=== PATIENT | female | born 2000 | race Caucasian/White ===

== ENCOUNTER → 2020-02-16 | Outpatient (REF) | payer OTHER ==
[2020-02-16 18:50] LABS: APPEARANCE, URINE CLEAR (CLEAR); BACTERIA, URINE AUTO 1+ (NEGATIVE); BILIRUBIN, URINE AUTO NEGATIVE (NEGATIVE); BLOOD, URINE BLOOD NEGATIVE (NEGATIVE); CALCIUM OXALATE CRYSTALS SMALL; COLOR, URINE YELLOW (YELLOW); GLUCOSE, URINE (UA) AUTO NEGATIVE (NEGATIVE); KETONE, URINE AUTO NEGATIVE (NEGATIVE); LEUKOCYTE ESTERASE, URINE AUTO 2+ (NEGATIVE); MUCUS, URINE SMALL (NEGATIVE); NITRITE, URINE AUTO NEGATIVE (NEGATIVE); PROTEIN, URINE AUTO NEGATIVE (NEGATIVE); RBC, URINE AUTO 4 /HPF (0-3); SPECIFIC GRAVITY URINE AUTO 1.032 (1.002-1.035); SQUAMOUS EPITHELIAL CELL UR AU 3 /HPF (0-6); WBC, URINE AUTO 8 /HPF (0-3)
== END ==
LOC: M SMT 17:07
PROVIDERS: ATTEND Nurse Practitioner Women's Health
DX: R30.0 Dysuria (principal)

== ENCOUNTER → 2021-02-06 | Outpatient (CLI) | payer OTHER ==
[2021-02-06 18:25] LABS: BASO # 0.1 10^3/uL (0.0-0.2); BASO % 0.5 % (0.0-1.0); EOS # 0.1 10^3/uL (0.0-0.5); EOS % 0.3 % (0.0-3.0); HEMATOCRIT 45.7 % (36.0-47.0); HEMOGLOBIN 14.9 g/dl (12.0-15.5); LYMPH # 2.7 10^3/uL (1.5-5.0); LYMPH % 18.4 % (24.0-44.0); MEAN CORPUSCULAR HEMOGLOBIN 27.7 pg (27.0-33.0); MEAN CORPUSCULAR HGB CONC 32.6 g/dl (32.0-36.5); MEAN CORPUSCULAR VOLUME 85.1 fl (80.0-96.0); MONO % 6.7 % (2.0-8.0); NEUTROPHILS # 10.9 10^3/uL (1.5-8.5); NEUTROPHILS % 73.6 % (36.0-66.0); PLATELET COUNT, AUTOMATED 377 10^3/uL (150-450); RED BLOOD COUNT 5.37 10^6/uL (4.00-5.40); WHITE BLOOD COUNT 14.8 10^3/uL (4.0-10.0)
[2021-02-06 18:43] LABS: ALBUMIN 3.6 GM/DL (3.2-5.2); ALT/SGPT 16 U/L (12-78); BILIRUBIN,TOTAL 0.2 MG/DL (0.2-1.0); BLOOD UREA NITROGEN 11 MG/DL (7-18); CALCIUM LEVEL 9.5 MG/DL (8.5-10.1); CARBON DIOXIDE LEVEL 26 MEQ/L (21-32); CHLORIDE LEVEL 104 MEQ/L (98-107); CREATININE FOR GFR 0.69 MG/DL (0.55-1.30); GLOMERULAR FILTRATION RATE > 60.0 (>60); GLUCOSE, FASTING 87 MG/DL (70-100); POTASSIUM SERUM 4.1 MEQ/L (3.5-5.1); RHEUMATOID FACTOR QUANT < 10.0 IU/ML (<15.0); SODIUM LEVEL 138 MEQ/L (136-145); THYROXINE (T4) 18.6 UG/DL (4.5-12.0); TOTAL PROTEIN 8.2 GM/DL (6.4-8.2)
[2021-02-06 18:44] LABS: THYROGLOBULIN ANTIBODY < 15.0 U/ML (<60.0); THYROID PEROXIDASE ANTIBODY 39.6 U/ML (<60.0)
[2021-02-06 18:45] LABS: TOTAL T3 179.6 NG/DL (60.0-181.0)
[2021-02-06 19:29] LABS: ERYTHROCYTE SEDIMENTATION RATE 24 mm/hr (0-20)
== END ==
LOC: M LAB 17:08
PROVIDERS: ATTEND Allergy & Immunology Allergy
DX: L50.1 Idiopathic urticaria (principal)

== ENCOUNTER 2021-09-02 18:11 | Inpatient (IN) | payer OTHER ==
[~2021-09-02] VITALS: Ht 157.5 cm; Wt 116.5 kg
--- OUTSIDE RECORDS SUMMARY | 2021-09-02 18:21 | CCD ---
Author Author [facility] Organization [facility] Address [address] [address] [place] [address] Phone Care Team Providers Care Regional Psychiatric Director Name Role Phone Justin DE LA ROSA, Lyssa Sebastian PP [phone] Muha ELECTRON TUBE ASSEMBLER-BC, Samia Cameron Unavailable [phone] Reason for Referral No Reason for Referral Recorded Problems Includes: Active, inactive, and resolved Problems All Visits Onset Date - Time Resolved Date - Time Provider Co ndition Status Reactive Airway Disease 04/03/2021 - 12:00AM Saritha Paez ELECTRON TUBE ASSEMBLER Active Cerv Pap Smear (+) Atyp Squamous Cells Undetermined Signif 0 07/05/2020 - 11:44AM Samia Cameron Muha ELECTRON TUBE ASSEMBLER-BC Active Note: - Repeat 06/2021. (high risk HPV) Vitamin D Deficiency 11/04/2018 - 12:00AM Samia Ku altman ELECTRON TUBE ASSEMBLER-BC Active Allergic Rhinitis 10/28/2018 - 12:00AM Samia Cameron Muha ELECTRON TUBE ASSEMBLER-BC Active Note: - 03/30- 3++- 4++, dust , pollen, cat, dog dander. Anxiety Disorder Nos 10/28/2018 - 12:00AM Samia Cameron Mu altman ELECTRON TUBE ASSEMBLER-BC Active Concussion with No Loss of Consciousness 10/28/2018 - 12:00AM Samia Cameron Muha ELECTRON TUBE ASSEMBLER-BC Active Gastro-esophageal reflux disease without esophagitis 10/28/2018 - 12:00AM Samia Cameron Muha ELECTRON TUBE ASSEMBLER-BC Active Hemorrhoids External 10/28/2018 - 12:00AM Samia Ku altman ELECT[employer] TUBE ASSEMBLER-BC Active Ibs--pain Predominant 10/28/2018 - 12:00AM Samia Cameron uha ELECTRON TUBE ASSEMBLER-BC Active Note: - Negative colonoscopy , endoscopy, gallbladder US, labs. - Dr. Box 05/2017 Major Depression Recurrent Moderate 10/28/2018 - 12:00AM Samia Cameron Kings E[employer] TUBE ASSEMBLER-BC Active Obesity 10/28/2018 - 12:00AM Samia Kuanupama ELECTRON TUBE ASSEMBLER-B C Active Plan of Treatment Pending Tests Order Diagnosis Results Due Ordering Provi jeanie Outside Labs CBC with differential Cough 05/18/21 Meredi th A Jeannine ELECTRON TUBE ASSEMBLER Outside Labs CMP Cough 05/18/21 Saritha A Lizo tte ELECTRON TUBE ASSEMBLER Outside Labs D Dimer Cough 05/18/21 Saritha A Lizo tte ELECTRON TUBE ASSEMBLER Outside Labs COVID-19 Encounter for Screening for COVID-19 06/11 Saritha A Jeannine ELECTRON TUBE ASSEMBLER Outside Labs COVID- Extended Hours FLU/COV2 NAAT Nasal congestion 0 07/13/21 Lyssa Anderson MD Referral Loader Magazine Grinder Shortness of breath 08/09/21 Nait h A Jeannine ELECTRON TUBE ASSEMBLER Other Tests - Methacholine Methacholine [place] Other asth ma- reactive airway disease 08/21/21 Saritha A Jeannine ELECTRON TUBE ASSEMBLER Future Appointments Date Time Location Provider ANNUAL PE-followup 08/09/2021 3:40PM [facility], [facility] 09/21/2021 4:00PM [facility], [facility] Saritha Ochoae ELECTRON TUBE ASSEMBLER Findings Encounter Date All questions and concerns addressed, patient/rand cementer understanding and agreeable to plan of care followup with Saritha Ochoae ELECT[employer] TUBE ASSEMBLER 06/22/2021 Follow up as directed. Reviewed s/s that warrant sooner consult Reviewed s/s that warrant ED evaluation followup with Saritha Ochoae ELECT[employer] TUBE ASSEMBLER 06/22/2021 All questions and concerns addressed, patient/rand cementer understanding and agreeable to plan of care sick visit with Saritha Ochoae ELECTRON TUBE ASSEMBLER 05/11/2021 Follow up as directed. Reviewed s/s that warrant sooner consult Reviewed s/s that warrant ED evaluation sick visit with Saritha Ochoae ELECTRON TUBE ASSEMBLER 05/11/2021 Ordered antihistamines - She could use OTC antihistamine daily or as needed. She could also use benadryl as needed followup with Samia Cameron Piedad [facility] 11/30/2020 Requested request consultation by automotive maintenance technician followup with alisa Cameron anupama [facility] 11/30/2020 Ordered a urine culture sick visit with Lyssa Anderson MD 02/10/2020 Tylenol for discomfort or fever. Push fluids and rest. Saline nasal spray to thin secretions and encourage drainage. Call if persistent or high fever, increased work of breathing, persistent pain, if sxs not improving, or if concerned urgent visit with Jodie Garcia RPA 03/22/2019 Tylenol for discomfort or fever. Push fluids and rest. Saline nasal spray to thin secretions and encourage drainage. Call if persistent or high fever, increased work of breathing, persistent pain, if sxs not improving, or if concerned urgent visit with Ole Mcintyre PA-C 04/22/2017 Assessments Includes: Assessments for all patient encounters Findings Encounter Date Allergic rhinitis which is showing leonardo nued signs of disease [Allergic rhinitis due to pollen] followup with Saritha Paez [facility] 06/22/2021 Reactive airway disease [Other asthma] followup with Gabi Paez [facility] 06/22/2021 Allergic rhinitis which is showing leonardo nued signs of disease [Allergic rhinitis due to pollen] sick visit with Saritha Paez [facility] 05/11/2021 Reactive airway disease [Other asthma] sick visit with Ana Grey [facility] 05/11/2021 Allergic rhinitis which is showing leonardo nued signs of disease - She will continue to follow with her automotive maintenance technician. She is also instructed to continue taking her Xyzal followup with Samiathee Herbert [facility] 04/02/2021 Moderate recurrent major depression whic h is stable - Following with therapist. Currently awaiting appt with psychiatry. No changes made today followup with Samia Cameron Piedad [facility] 04/02/2021 Reactive airway disease - Discussed jeremy t her wheezing seems to be present when she is having issues with her allergies. Discussed doing a trial of albuterol to help with the wheezing when needed. She is also going to do 1 week of Asmanex to see if this helps. Currently she has no other symptoms except for cough and wheezing. She denies SOB. Her father has similar symptoms related to his allergies. If symptoms worsen, do not improve discussed getting Spirometry/ PFT's. She will return to office if she does not improve followup with Samia Cameron Piedad [facility] 04/02/2021 Bacterial vaginosis which is showing rec urrence of disease - She will treat with metrogel as directed. If symptoms do not resolve she will return to office for pelvic exam and testing [facility] with [facility] 11/30/2020 Idiopathic urticaria which is showing no evidence of disease at present. She is requesting referral to allergies for further evaluation followup with Samia Nisha [facility] 11/30/2020 Acute upper respiratory infection COVID test today [Acute upper respiratory infection, unspecified] sick visit with Lyssa Anderson MD 10/10/2020 Pulmonary embolism which is being consid ered on combined OCP, morbidly obese, now with chest pain, tachycardia, pain with deep inspiration. Obtain D-dimer to evaluate for PE [Other pulmonary embolism without acute cor pulmonale] sick visit with Lyssa Anderson MD 10/10/2020 Moderate recurrent major depression whic h is stable She will continue to follow with Vee Thompson. She will continue with her sertraline at the current dose followup with Samia Herbert [facility] 10/04/2020 Vaginal candidiasis followup with Saritha Paez [employer] TUBE ASSEMBLER 12/2019 Vaginal discharge followup with Saritha Ochoae ELECTRON TUBE ASSEMBLER 12/2019 Vaginal candidiasis sick visit with Saritha Ochoae ELECTRON TUBE ASSEMBLER 0 08/05/2020 Vaginal discharge sick visit with Saritha Ochoae ELECTRON TUBE ASSEMBLER 0 08/05/2020 Moderate recurrent major depression - S he is going to restart her sertraline at 100mg. At this time she admits to being off the Lamictal for 7 months. We are going to hold off on restarting this medication as she did not like taking the medication. She is aware that with her history she is most likely going to need to establish with psychiatry. She will follow with Vee Thompson. I will see her back in 3 months, sooner if needed ANNUAL PE-followup exam/30 with Samia Cameron [facility] 06/26/2020 Morbid obesity due to excess calories ANNUAL PE-follow up exam/ with Samia Cameron [facility] 06/26/2020 Routine adult history and physical (18 - 64 yrs) ANNUA L PE-followup exam/30 with Samia M [facility] 06/26/2020 Vitamin D deficiency ANNUAL PE-followup exam/30 with Samia Cameron [facility] 06/26/2020 Bacterial vaginosis - Will treated with oral flagyl. Reviewed precautions with alcohol use and that she needs to 100% avoid. Avoid intercourse. Start a probiotic. Yogurt sick visit with Samia Cameron [facility] 04/17/2020 Amenorrhea - Will get labs including HC G, TSH, FSH and prolactin. Referral to NEON TUBE BENDER for secondary amenorrhea sick visit with Samia Cameron [facility] 04/05/2020 Possible vaginal candidiasis - Diflucan as directed s ick visit with Samia Cameron [facility] 04/05/2020 Secondary amenorrhea sick visit with Samia Cameron [facility] 0 04/05/2020 Vaginitis sick visit with Samia Cameron [facility] Hematuria followup with Darlene Penaloza [facility] 2019 Urinary tract infection [Cystitis, unspecified with he maturia] sick visit with Lyssa Anderson MD 02/10/2020 STD due to chlamydia trachomatis Exposure urgent visit with Jodie Garcia RPA 06/03/2019 Moderate recurrent major depression - S he is doing remarkably well at this time. She is going to continue to follow with psychiatry, her next appt is scheduled for the end of June. She will also continue with her therapist. I will see her back in one year for annual with pap. She will return sooner if needed followup with Samia Nisha [facility] 05/26/2019 Abdominal pain Left flank and LLQ pain with hematuria, will evaluate for nephrolithiasis with renal protocol CT. Encourage increased PO hydration and Tylenol/NSAIDs prn pain [Unspecified abdominal pain] sick visit with Lyssa Anderson MD 05/19/2019 Hematuria [Other microscopic hematuria] sick visit with Brenna Anderson MD 05/19/2019 Atypical chest pain urgent visit with Jodie Garcia RPA 03/22 Anxiety disorder NOS followup with Samia Nisha [facility] 05/2019 Moderate recurrent major depression - S he will continue her current medication at the current dose. Referral to psychiatry pending, I would like her to be evaluated prior to change in any medication to check the accuracy of her current diagnosis followup with Samia Herbert [facility] 11/16/2018 Vitamin D deficiency - Start vitamin D 2000 units elie ly [facility] Anxiety disorder NOS sick visit with Samia Herbert [facility] 1 12/30/2017 Moderate recurrent major depression sick visit with Samia Cameron [facility] 10/29/2018 Acute sinusitis urgent visit with Ole Mcintyre PA-C 2016 Instructions Instructions not supported for this document typeNo Instructions Recorded Medical Equipment - Implanted Devices Includes: Current and historical DevicesNo Medical Equipment Recorded Medications Includes: Current and historical Medications Current Medications (continue as prescribed) Loryna 3-0.02 MG Oral Tablet 06/20/2021 Provider: Saritha Paez [facility] Diagnosis: 1 PO QD Advair Diskus 250-50 MCG/DOSE Inhalation Aerosol Powde r Breath Activated 05/11/2021 Provider: Saritha Paez ELECT[employer] TUBE ASSEMBLER Diagnosis: Shortness of breath 1 puff daily Singulair 10 MG Oral Tablet 05/11/2021 Provider: Saritha Paez ELECT[employer] TUBE ASSEMBLER Diagnosis: Shortness of breath 1 tab daily ProAir HFA 108 (90 Base) MCG/ACT Inhalation Aerosol Solution 04/02/2021 Provider: Samia Herbert [facility] Diagnosis: 2 puffs every 4 hours prn wheezing. Xyzal Allergy 24HR 5 MG Oral Tablet 04/02/2021 Prov ider: Diagnosis: 1 tab po daily Sertraline HCl 100 MG Oral Tablet 03/30/2021 - 07/28/2021 [facility]: 1 PO QD Gianvi 3-0.02 MG Oral Tablet 01/30/2021 Provider: Samia Herbert [facility] Diagnosis: as directed Nystatin 001839 UNIT/GM External Powder 08/11/2020 Provider: Saritha Paez [facility] Diagnosis: Acute vaginitis apply 066180 units 2-3 times per day Hyoscyamine Sulfate 0.125 MG Tablet 03/23/2017 Prov ider: Andrews Goyal Diagnosis: Past Medications on file Zithromax 250 MG Oral Tablet 04/12/2021 - 04/17/2021 Provide r: Samia Herbert [facility] Diagnosis: 2 tabs po today then 1 tab po daily x 4 days. Asmanex HFA 100 MCG/ACT Inhalation Aerosol 04/02/2021 - 07/0 12/2020 Provider: Diagnosis: 2 puffs twice a day. metroNIDAZOLE 0.75% Vaginal Gel 11/30/2020 - 12/05/2020 Prov ider: Samia Herbert [facility] Diagnosis: Other specified monroe nflammatory disorders of vagina 1 applicator twice per day x 5 days Gianvi 3-0.02 MG Oral Tablet 09/16/2020 - 01/30/2021 Provide r: Saritha Paez [facility] Diagnosis: as directed metroNIDAZOLE 0.75% Vaginal Gel 08/05/2020 - 11/30/2020 Prov ider: Saritha Paez [facility] Diagnosis: Other specified monroe nflammatory disorders of vagina 1 applicator twice per day x 5 days Sertraline HCl 100 MG Oral Tablet 06/26/2020 - 11/30/2020 Pr ovider: Samia Herbert [facility] Diagnosis: 1 PO QD Gianvi 3-0.02 MG Oral Tablet 04/24/2020 - 08/11/2020 Provide r: Samia Herbert [facility]- Diagnosis: as directed metroNIDAZOLE 0.75% Vaginal Gel 04/21/2020 - 04/26/2020 Prov ider: Lyssa Anderson MD Diagnosis: as directed One applicatorful (~37.5 mg metronidazole) intravaginally once daily for 5 days. Flagyl 500 MG Oral Tablet 04/17/2020 - 04/24/2020 Provider: Samia Herbert [facility] Diagnosis: 1 tab po bid x 7 days. metroNIDAZOLE 0.75% Vaginal Gel 04/06/2020 - 04/11/2020 Prov ider: Samia Herbert [facility] Diagnosis: One applicatorful vaginally twice daily daily x 5 days. Diflucan 150 MG Oral Tablet 04/05/2020 - 04/12/2020 Provider : Samia Herbert [facility] Diagnosis: 1 tab po x 1 dose today, repeat in 3 days if needed. Naproxen 500 MG Oral Tablet 02/15/2020 - 02/22/2020 Provider : Darlene Penaloza RPA Diagnosis: 1 PO BID Pyridium 200 MG Oral Tablet 02/11/2020 - 02/14/2020 Provider : Darlene Penaloza RPA Diagnosis: 1 PO TID Nitrofurantoin Monohyd Macro 100 MG Oral Capsule 02/10/2020 - 02/15/2020 Provider: Lyssa Anderson MD Diagnosis: 1 PO BID Gianvi 3-0.02MG Oral Tablet 10/11/2019 - 04/17/2020 Provider : Samia Herbert [facility] Diagnosis: as directed Gianvi 3-0.02MG Oral Tablet 06/23/2019 - 05/26/2019 Provider : Samia Herbert [facility] Diagnosis: as directed lamoTRIgine 100MG Oral Tablet 06/07/2019 - 09/05/2019 Provid er: Samia Herbert [facility] Diagnosis: 1 tab po bid Azithromycin 250MG Oral Tablet 06/03/2019 - 06/04/2019 Provi jeanie: Jodie Garcia [facility] Diagnosis: Sexually transmitted chlamydial infection of other sites 4 tabs po x 1 Sertraline HCl 100MG Oral Tablet 05/26/2019 - 06/26/2020 Pro vider: Diagnosis: 2 tabs po daily lamoTRIgine 100MG Oral Tablet 05/26/2019 - 05/26/2019 Provid er: Diagnosis: 1 tab po bid Naproxen 500MG Oral Tablet 03/22/2019 - 04/21/2019 Provider: Jodie Garcia RPA Diagnosis: Chest pain, unspecif ied 1 PO BID 1 tab po bid, lamoTRIgine 25MG Oral Tablet 03/22/2019 - 05/12/2019 Provide r: Diagnosis: lamoTRIgine 100MG Oral Tablet 02/24/2019 - 05/26/2019 Provid er: Diagnosis: Gianvi 3-0.02MG Oral Tablet 01/29/2019 - 05/26/2019 Provider : Samia Herbert [facility] Diagnosis: as directed Gianvi 3-0.02MG Oral Tablet 01/06/2019 - 11/16/2018 Provider : Samia Herbert [facility] Diagnosis: as directed Gianvi 3-0.02MG Oral Tablet 11/12/2018 - 11/16/2018 Provider : Samia Herbert [facility] Diagnosis: as directed Sertraline HCl 100MG Oral Tablet 10/29/2018 - 11/28/2018 Pro vider: Diagnosis: 2 tabs po daily Gianvi 3-0.02MG Oral Tablet 09/13/2018 - 11/10/2018 Provider : Sparkle Brooke MD Diagnosis: as directed Cefuroxime Axetil 500 MG Tablet 04/22/2017 - 04/29/2017 Prov ider: Ole Mcintyre PA-C Diagnosis: Acute maxillary sinu sitis, unspecified Take 1 tablet bid for 7 days Medications Administered Includes: Administered Medications in patient's chartNo Administered Medications Recorded Vital Signs Includes: Vital Signs from 07/06/2020 through 07/06/2021 Vital Name 06/22/2021 08:59A 05/11/2021 11:25A 04/02/2021 03:35P 11/30/2020 03:20P 10/10/2020 03:33P Blood Pressure Sitting (mmHg) 112/70 112/70 120/82 102/70 124/80 Pulse Rate-Sitting (bpm) 96 82 99 66 118 Respiration Rate (breaths/min) 20 18 24 18 18 Weight (lb) 259.9 258.4 257 259 Oxygen Saturation (%) 98 96 98 98 Temp-Tympanic (F) 98.9 98.5 Height (in) 62.75 62.75 Body Mass Index (kg/m2) 45.9 4 6.2 Body Surface Area (m2) 2.15 2. 15 Vital Name 10/04/2020 11:06A 08/11/2020 03:41P 08/05/2020 10:21A Blood Pressure Sitting (mmHg) 112/74 104/60 Pulse Rate-Sitting (bpm) 72 60 80 Respiration Rate (breaths/min) 18 18 16 Weight (lb) 249 251 Oxygen Saturation (%) 97 Height (in) 62.75 Body Mass Index (kg/m2) 44.5 Body Surface Area (m2) 2.12 Blood Pressure Sitting R 118/82 BP Cuff Size Large Pulse Rhythm Regular Temp-Oral (F) 97.3 Results Includes: Results from 07/06/2020 through 07/06/2021 [facility] Ordered by Lyssa Anderson MD on 07/06/2021 [address] [place], [address] Collected: 07/06/2021 Reported: 07/06/2021 12:17 tel : [facility] normal N (Normal) Reviewed by Lyssa Anderson MD on 07/06; All test results are final unless otherwise noted. D-DIMER [facility] Ordered by Saritha HERNANDEZ on 05/11/2021 Collected: 05/11/2021 Reported: 05/11/2021 12:36 D Dimer PPP-aCnc Less Than 0.19 (0.0-0.50) N (Normal) Note: @Report as less than 0.19@ Has QC been run for this test today?PLEASE NOTE: THIS TEST WAS PERFORMED USING A PARTICLE-ENHANCED, IMMUNOTURBIDIMETRIC ASSAY AND HAS A SINGLE,CLINICALLY DERIVED CUTOFF OF 0.50 MG/L.Responsible Observer: D-DIMER D-DIMER 200.0901 (A) Reviewed by Saritha HERNANDEZ on ; All test results are final unless otherwise noted. CBC W AUTO DIFF [facility] Ordered by Saritha HERNANDEZ on 05/11/2021 Collected: 05/11/2021 Reported: 05/11/2021 13:00 MCV BldCo Auto 83 FemtoLiter_[SI_Volume_Units] (80-96) N (Normal) Note: Responsible Observer: MCV MCV 100 .0600 (B) RDW RBC Auto 13 percent (11-15) N (Normal) Note: Responsible Observer: RDW RDW 100 .0900 (B) Manual diff Bld Manual Diff Added None Note: Responsible Observer: CBC Manual D ifferential Added 100.1990 (B) PMV Bld 10.2 FemtoLiter_[SI_Volume_Units] (9.1-13.1) N (Normal) Note: Responsible Observer: MPV MPV 100 .1100 (B) Imm Granulocytes Bld Ql Auto See Note (0-2) N (Normal) Note: [id number] Ob casino beverage server: IG% IG% 100.1375 (B) Hct VFr Bld Auto 41.0 percent (37-47) N (Normal) Note: Responsible Observer: HEMATOCRIT H EMATOCRIT 100.0500 (B) MCHC BldCo-mCnc 34 GramsPerDeciLiter_[Mass_Concentration_Units] (33-37) N (Normal) Note: Responsible Observer: MCHC MCHC 1 00.0800 (B) Imm Granulocytes # Bld Auto 0.0 Unit (0-0.1) None Note: Responsible Observer: IG# IG# 100 .1400 (B) Monocytes/leuk NFr Bld Auto 6.8 percent (4-12) N (Normal) Note: Responsible Observer: MONO % MONO % 100.1225 (B) Hgb Bld-sCnc 13.8 GramsPerDeciLiter_[Mass_Concentration_Units] (10.7-15.4) N (Normal) Note: Responsible Observer: HGB HEMOGLOB IN 100.0400 (B) WBC # Bld Auto 9.9 ThousandsPerMicroLiter_[Number_Concentration_Units] (4.45-10 .71) N (Normal) Note: Responsible Observer: WBC WHITE BL OOD COUNT 100.0100 (E) Basophils # Bld Auto 0.1 Unit (0.0-0.2) N (Normal) Note: Responsible Observer: BASO # BASO# 100.1350 (B) Basophils/leuk NFr Bld Auto 0.6 percent (0.4-1.3) N (Normal) Note: Responsible Observer: BASO % BASO % 100.1325 (B) Eosinophil # Bld Auto 0.1 Unit (0.0-0.5) N (Normal) Note: Responsible Observer: EOS # EOS# 100.1300 (D) Eosinophil/leuk NFr Bld Auto 1.0 percent (0-7) N (Normal) Note: Responsible Observer: EOS % EOS % 100.1275 (B) Lymphocytes # Bld Auto 2.8 Unit (0.6-4.6) N (Normal) Note: Responsible Observer: LYMPH # LYMP H# 100.1200 (B) Lymphocytes/leuk NFr Bld Auto 28.5 percent (14-46) N (Normal) Note: Responsible Observer: LYMPH % LYMP H % 100.1175 (B) Monocytes # Bld Auto 0.7 Unit (0.2-1.2) N (Normal) Note: Responsible Observer: MONO # MONO# 100.1250 (C) Neutrophils # Bld Auto 6.2 Unit (1.7-7.6) N (Normal) Note: Responsible Observer: NEUT# NEUT# 100.1150 (B) Neutrophils/leuk NFr Bld Auto 62.8 percent (41-77) N (Normal) Note: Responsible Observer: NEUT% NEUT% 100.1125 (B) Platelet # Bld Auto 152 ThousandsPerMicroLiter_[Number_Concentration_Units] (130-472 ) N (Normal) Note: Responsible Observer: PLATELET COU NT PLATELET COUNT 100.1000 (D) MCH RBC Qn Auto 28 PicoGram_[SI_Mass_Units] (27-31) N (Normal) Note: Responsible Observer: MCH MCH 100 .0700 (B) RBC # Bld Auto 4.93 MillionsPerMicroLiter_[Number_Concentration_Units] (4.20-5.4 0) N (Normal) Note: Responsible Observer: RBC Red Bloo d Count 100.0300 (B) NUCLEATED RED BLOOD CELL# 0 Unit None Note: Responsible Observer: NRBC# NUCLEA VINCETN RBC 100.1362 (A) NUCLEATED RED BLOOD CELL 0 percent None Note: Responsible Observer: NRBC% NRBC% 100.1360 (B) NOTES See Note None Note: @05/11/21 1220: MANUAL DIFF added. RFLXG = DIFF. Reviewed by Saritha HERNANDEZ on ; All test results are final unless otherwise noted. [facility] Ordered by Saritha HERNANDEZ on 05/11/2021 Collected: 05/11/2021 Reported: 05/11/2021 13:16 ALT SerPl w P-5'-P-cCnc 15 enzyme_unit_per_liter (10-49) N (Normal) Note: Responsible Observer: SGPT/ALT SGP T/ALT 400.1750 (G) Calcium SerPl-mCnc 9.2 MilliGramsPerDeciLiter_[Mass_Concentration_Units] (8.5-10.1) N (Normal) Note: Responsible Observer: Calcium Calc ium 400.2500 (G) Bilirub SerPl-mCnc 0.2 MilliGramsPerDeciLiter_[Mass_Concentration_Units] (0.3-1.2) L (Low) Note: Responsible Observer: T COURTNEY Total Bilirubin 400.2600 (G) CO2 SerPl-sCnc 24 MilliMolesPerLiter_[Substance_Concentration_Units] (20-31) N (Normal) Note: Responsible Observer: CO2 Carbon D ioxide 400.1400 (G) Chloride SerPl-sCnc 108 MilliMolesPerLiter_[Substance_Concentration_Units] (99-109) N (Normal) Note: Responsible Observer: Chloride Chl oride 400.1250 (G) Glucose SerPl-mCnc 97 MilliGramsPerDeciLiter_[Mass_Concentration_Units] (74-106) N (Normal) Note: Responsible Observer: Glucose Gluc ose 400.1500 (G) Potassium SerPl-sCnc 4.2 MilliMolesPerLiter_[Substance_Concentration_Units] (3.5-5.5) N (Normal) Note: Responsible Observer: K Potassium 400.1210 (G) Prot SerPl-mCnc 7.2 GramsPerDeciLiter_[Mass_Concentration_Units] (5.7-8.2) N (Normal) Note: Responsible Observer: TP Total Pro tein 400.2800 (G) Sodium SerPl-sCnc 141 MilliMolesPerLiter_[Substance_Concentration_Units] (132-146) N (Normal) Note: Responsible Observer: Sodium Sodiu m 400.1100 (G) AST SerPl w P-5'-P-cCnc 13 enzyme_unit_per_liter (0-33) N (Normal) Note: Responsible Observer: SGOT / AST S GOT / AST 400.1900 (G) BUN SerPl-mCnc 10 MilliGramsPerDeciLiter_[Mass_Concentration_Units] (9-23) N (Normal) Note: Responsible Observer: BUN Blood Ur ea Nitrogen 400.1000 (G) Anion Gap SerPl-sCnc 13 MilliMolesPerLiter_[Substance_Concentration_Units] (8-16) N (Normal) Note: Responsible Observer: ANION GAP AN ION GAP 400.1402 (E) Albumin SerPl BCP-mCnc 3.2 GramsPerDeciLiter_[Mass_Concentration_Units] (3.2-4.8) N (Normal) Note: Responsible Observer: Albumin Albu min 400.2700 (G) ALP SerPl-cCnc 89 enzyme_unit_per_liter (45-129) N (Normal) Note: Responsible Observer: ALP Alkaline Phosphatase 400.2000 (G) GFR/BSA.pred SerPlBld-ArVRat Greater Than 60 (ABOVE 60) None Note: Responsible Observer: GFR Glomerul ar Filt Rate Calc 400.1605 (D) Creatinine 0.6 MilliGramsPerDeciLiter_[Mass_Concentration_Units] (0.5-1.1) N (Normal) Note: Responsible Observer: Creatinine C reatinine 400.1600 (G) Reviewed by Saritha HERNANDEZ on ; All test results are final unless otherwise noted. Reported Physicians [facility] Ordered by Saritha COBBP on 05/11/2021 Collected: 05/11/2021 Reported: 05/11/2021 13:17 Reported Physicians See Note None Note: Reported Physicians:Ordering: Saritha RobinsAttending: Saritha PaezCopana To: Samia Herbert Reviewed by Saritha HERNANDEZ on ; All test results are final unless otherwise noted. MANUAL DIFF [facility] Ordered by Saritha COBBP on 05/11/2021 Collected: 05/11/2021 Reported: 05/11/2021 13:00 MANUAL DIFF See Note None Note: NOTES OTHER/NOT INTERPRETED Cells counted 100 Lymphocytes # Bld Manual 25 %Metamyelocytes # Bld Manual 1 %Monocytes # Bld Manual 4 %Morphology Bld-Imp APPEARS NORMAL Neutrophils # Bld Manual 70 %Platelet # Bld Est APPEAR CLUMPED @05/11/21 1220: MANUAL DIFF added. RFLXG = DIFF.Responsible Observer: TOTAL CELLS TOTAL CELLS COUNTED 100.2105 (A) Reviewed by Saritha HERNANDEZ on ; All test results are final unless otherwise noted. Reported Physicians [facility] Ordered by Saritha Paez [facility] on 05/11/2021 Collected: 05/11/2021 Reported: 05/11/2021 13:01 Reported Physicians See Note None Note: Reported Physicians:Ordering: Saritha RobinsAttending: Eulalio Paez To: Piedad Samia Reviewed by Saritha Paez [facility] on ; All test results are final unless otherwise noted. D-DIMER [facility] Ordered by Lyssa Anderson MD on 10/10/2020 Collected: 10/10/2020 Reported: 10/10/2020 17:00 D Dimer PPP-aCnc 0.23 MilliGramsPerLiter_[Mass_Concentration_Units] (0.0-0.50) N (Normal) Note: @ Has QC been run for this test to day?PLEASE NOTE: THIS TEST WAS PERFORMED USING A PARTICLE-ENHANCED, IMMUNOTURBIDIMETRIC ASSAY AND HAS A SINGLE,CLINICALLY DERIVED CUTOFF OF 0.50 MG/L.Responsible Observer: D-DIMER D- DIMER 200.0901 (A) Reviewed by Lyssa Anderson MD on 10/11; All test results are final unless otherwise noted. Reported Physicians [facility] Ordered by Lyssa Anderson MD on 10/10/2020 Collected: 10/10/2020 Reported: 10/10/2020 17:01 Reported Physicians See Note None Note: Reported Physicians:Ordering: Lyssa GuptaAttending: Lyssa Anderson Reviewed by Lyssa Anderson MD on 10/11; All test results are final unless otherwise noted. DWYER COVID-19 SCHOOL [facility] Ordered by Lyssa Anderson MD on 10/10/2020 Collected: 10/10/2020 Reported: 10/10/2020 18:59 SARS-CoV-2 RNA Resp Ql DEVAUGHN+probe See Note None Note: DWYER COVID-19 IS AN ISOTHER MAL DEVAUGHN TECHNOLOGYNORMAL VALUE IS "SARS-COV-2 COVID 19 NOT DETECTED"False negative results may occur if a specimen is improperlycollected,transported or handled.False negative results may also occur if amplicationinhibitors are present in the specimen or if inadequatelevels of viruses are present in the specimen.As with any molecular test, if the virus mutates in thetarget region, Covid-19 may not be detected or may bedetected less predictably.ID NOW COVID-19 is intended for testing a swab directlywithout elution in viral transport media as dilution willresult in decreased detection of low positive samples thatare near the limit of detection of the test.SWAB SAMPLES ELUTED IN VTM ARE NOT APPROPRIATE FOR USE INTHIS TEST.[id number] RNA Resp Ql DEVAUGHN+probeLNNOSNo Organisms [id number] Organisms Detected Reviewed by Lyssa Anderson MD on 10/11; All test results are final unless otherwise noted. Reported Physicians [facility] Ordered by Lyssa Anderson MD on 10/10/2020 Collected: 10/10/2020 Reported: 10/10/2020 18:59 Reported Physicians See Note None Note: Reported Physicians:Ordering: Lyssa GuptaAttending: Lyssa AndersonCopana To: Doctor Provided, No FamilyCopy To: Health, Public Reviewed by Lyssa Anderson MD on 10/11; All test results are final unless otherwise noted. Wet Prep [facility] Ordered by Saritha HERNANDEZ on 08/11/2020 Collected: 08/11/2020 Reported: 08/11/2020 18:04 Wet prep results See Note None Note: Clue cells presentLong rods notedN o yeast like or trichomonas seenSquamous cellsShort rods seenWBCs seen Wet mount for Trichomonas Negative for Trichomonas vaginalis None Reviewed by Saritha HERNANDEZ on ; All test results are final unless otherwise noted. Reported Physicians [facility] Ordered by Saritha HERNANDEZ on 08/11/2020 Collected: 08/11/2020 Reported: 08/11/2020 18:05 Reported Physicians See Note None Note: Reported Physicians:Ordering: Saritha RobinsAttending: Saritha Paez Reviewed by Saritha HERNANDEZ on ; All test results are final unless otherwise noted. LIPID PANEL [facility] Ordered by Samia HERNANDEZ- on 08/07/2020 Collected: 08/07/2020 Reported: 08/07/2020 09:11 Cholesterol 224 MilliGramsPerDeciLiter_[Mass_Concentration_Units] (120-200) H (High) Note: Responsible Observer: Cholesterol Cholesterol 400.3100 (G) HDL Cholesterol 90 MilliGramsPerDeciLiter_[Mass_Concentration_Units] None Note: HDL Less than 40 mg/dL: Major ris k for CHDHDL Greater than 59 mg/dL: Low risk for CHDResponsible Observer: HDL HDL Cholesterol 400.3150 (H) LDL Cholesterol, Calc 107 MilliGramsPerDeciLiter_[Mass_Concentration_Units] (0-100) H (High) Note: Responsible Observer: LDL CHOL FRANK C LDL Cholesterol, Calculated 400.3155 (F) Triglycerides 135 MilliGramsPerDeciLiter_[Mass_Concentration_Units] (0-150) N (Normal) Note: Responsible Observer: Triglyceride s Triglycerides 400.2951 (G) Reviewed by Samia Herbert [facility] on ; All test results are final unless otherwise noted. Reported Physicians [facility] Ordered by Samia Herbert [facility] on 08/07/2020 Collected: 08/07/2020 Reported: 08/07/2020 09:11 Reported Physicians See Note None Note: Reported Physicians:Ordering: Saritha RobinsAttending: Saritha Paez Reviewed by Samia Herbert [facility] on ; All test results are final unless otherwise noted. CBC W AUTO DIFF [facility] Ordered by aSmia Herbert [facility] on 08/07/2020 Collected: 08/07/2020 Reported: 08/07/2020 08:31 MCV BldCo Auto 85.8 FemtoLiter_[SI_Volume_Units] (80-96) N (Normal) Note: Responsible Observer: MCV MCV 100 .0600 (B) RDW RBC Auto 13 percent (11-15) N (Normal) Note: Responsible Observer: RDW RDW 100 .0900 (B) Manual diff Bld NO None Note: Responsible Observer: CBC Manual D ifferential Added 100.1990 (B) PMV Bld 10.5 FemtoLiter_[SI_Volume_Units] (9.1-13.1) N (Normal) Note: Responsible Observer: MPV MPV 100 .1100 (B) Imm Granulocytes Bld Ql Auto See Note (0-2) N (Normal) Note: [id number] Ob casino beverage server: IG% IG% 100.1375 (B) Hct VFr Bld Auto 42.4 percent (37-47) N (Normal) Note: Responsible Observer: HEMATOCRIT H EMATOCRIT 100.0500 (B) MCHC BldCo-mCnc 32.5 GramsPerDeciLiter_[Mass_Concentration_Units] (33-37) L (Low) Note: Responsible Observer: MCHC MCHC 1 00.0800 (B) Imm Granulocytes # Bld Auto 0.0 Unit (0-0.1) None Note: Responsible Observer: IG# IG# 100 .1400 (B) Monocytes/leuk NFr Bld Auto 6.7 percent (4-12) N (Normal) Note: Responsible Observer: MONO % MONO % 100.1225 (B) Hgb Bld-sCnc 13.8 GramsPerDeciLiter_[Mass_Concentration_Units] (10.7-15.4) N (Normal) Note: Responsible Observer: HGB HEMOGLOB IN 100.0400 (B) WBC # Bld Auto 8.7 ThousandsPerMicroLiter_[Number_Concentration_Units] (4.45-10 .71) N (Normal) Note: Responsible Observer: WBC WHITE BL OOD COUNT 100.0100 (E) Basophils # Bld Auto 0.0 Unit (0.0-0.2) N (Normal) Note: Responsible Observer: BASO # BASO# 100.1350 (B) Basophils/leuk NFr Bld Auto 0.3 percent (0.4-1.3) L (Low) Note: Responsible Observer: BASO % BASO % 100.1325 (B) Eosinophil # Bld Auto 0.1 Unit (0.0-0.5) N (Normal) Note: Responsible Observer: EOS # EOS# 100.1300 (D) Eosinophil/leuk NFr Bld Auto 1.6 percent (0-7) N (Normal) Note: Responsible Observer: EOS % EOS % 100.1275 (B) Lymphocytes # Bld Auto 2.7 Unit (0.6-4.6) N (Normal) Note: Responsible Observer: LYMPH # LYMP H# 100.1200 (B) Lymphocytes/leuk NFr Bld Auto 31.1 percent (14-46) N (Normal) Note: Responsible Observer: LYMPH % LYMP H % 100.1175 (B) Monocytes # Bld Auto 0.6 Unit (0.2-1.2) N (Normal) Note: Responsible Observer: MONO # MONO# 100.1250 (C) Neutrophils # Bld Auto 5.2 Unit (1.7-7.6) N (Normal) Note: Responsible Observer: NEUT# NEUT# 100.1150 (B) Neutrophils/leuk NFr Bld Auto 60.1 percent (41-77) N (Normal) Note: Responsible Observer: NEUT% NEUT% 100.1125 (B) Platelet # Bld Auto 341 ThousandsPerMicroLiter_[Number_Concentration_Units] (130-472 ) N (Normal) Note: Responsible Observer: PLATELET COU NT PLATELET COUNT 100.1000 (D) MCH RBC Qn Auto 27.9 PicoGram_[SI_Mass_Units] (27-31) N (Normal) Note: Responsible Observer: MCH MCH 100 .0700 (B) RBC # Bld Auto 4.94 MillionsPerMicroLiter_[Number_Concentration_Units] (4.20-5.4 0) N (Normal) Note: Responsible Observer: RBC Red Bloo d Count 100.0300 (B) NUCLEATED RED BLOOD CELL# 0 Unit None Note: Responsible Observer: NRBC# NUCLEA VINCENT RBC 100.1362 (A) NUCLEATED RED BLOOD CELL 0 percent None Note: Responsible Observer: NRBC% NRBC% 100.1360 (B) Reviewed by Samia PETIT on ; All test results are final unless otherwise noted. [facility] Ordered by Samia PETIT on 08/07/2020 Collected: 08/07/2020 Reported: 08/07/2020 09:11 ALT SerPl w P-5'-P-cCnc 15 enzyme_unit_per_liter (10-49) N (Normal) Note: Responsible Observer: SGPT/ALT SGP T/ALT 400.1750 (G) Calcium SerPl-mCnc 9.2 MilliGramsPerDeciLiter_[Mass_Concentration_Units] (8.5-10.1) N (Normal) Note: Responsible Observer: Calcium Calc ium 400.2500 (G) Bilirub SerPl-mCnc 0.3 MilliGramsPerDeciLiter_[Mass_Concentration_Units] (0.3-1.2) N (Normal) Note: Responsible Observer: T COURTNEY Total Bilirubin 400.2600 (G) CO2 SerPl-sCnc 25 MilliMolesPerLiter_[Substance_Concentration_Units] (20-31) N (Normal) Note: Responsible Observer: CO2 Carbon D ioxide 400.1400 (G) Chloride SerPl-sCnc 107 MilliMolesPerLiter_[Substance_Concentration_Units] (99-109) N (Normal) Note: Responsible Observer: Chloride Chl oride 400.1250 (G) Glucose SerPl-mCnc 91 MilliGramsPerDeciLiter_[Mass_Concentration_Units] (74-106) N (Normal) Note: Responsible Observer: Glucose Gluc ose 400.1500 (G) Potassium SerPl-sCnc 4.1 MilliMolesPerLiter_[Substance_Concentration_Units] (3.5-5.5) N (Normal) Note: Responsible Observer: K Potassium 400.1210 (G) Prot SerPl-mCnc 7.4 GramsPerDeciLiter_[Mass_Concentration_Units] (5.7-8.2) N (Normal) Note: Responsible Observer: TP Total Pro tein 400.2800 (G) Sodium SerPl-sCnc 137 MilliMolesPerLiter_[Substance_Concentration_Units] (132-146) N (Normal) Note: Responsible Observer: Sodium Sodiu m 400.1100 (G) AST SerPl w P-5'-P-cCnc 8 enzyme_unit_per_liter (0-33) N (Normal) Note: Responsible Observer: SGOT / AST S GOT / AST 400.1900 (G) BUN SerPl-mCnc 14 MilliGramsPerDeciLiter_[Mass_Concentration_Units] (9-23) N (Normal) Note: Responsible Observer: BUN Blood Ur ea Nitrogen 400.1000 (G) Anion Gap SerPl-sCnc 9 MilliMolesPerLiter_[Substance_Concentration_Units] (8-16) N (Normal) Note: Responsible Observer: ANION GAP AN ION GAP 400.1402 (E) Albumin SerPl BCP-mCnc 3.3 GramsPerDeciLiter_[Mass_Concentration_Units] (3.2-4.8) N (Normal) Note: Responsible Observer: Albumin Albu min 400.2700 (G) ALP SerPl-cCnc 79 enzyme_unit_per_liter (45-129) N (Normal) Note: Responsible Observer: ALP Alkaline Phosphatase 400.2000 (G) GFR/BSA.pred SerPlBld-ArVRat Greater Than 60 (ABOVE 60) None Note: Responsible Observer: GFR Glomerul ar Filt Rate Calc 400.1605 (D) Creatinine 0.7 MilliGramsPerDeciLiter_[Mass_Concentration_Units] (0.5-1.1) N (Normal) Note: Responsible Observer: Creatinine C reatinine 400.1600 (G) Reviewed by Samia PETIT on ; All test results are final unless otherwise noted. Insulin Level [facility] Ordered by Samia PETIT on 08/07/2020 Collected: 08/07/2020 Reported: 08/08/2020 12:41 Insulin 18.6 None Note: Reference Range < or = 19.6 Risk: Optimal < or = 19.6 Moderate NA High >19.6 Adult cardiovascular event risk category cut points (optimal, moderate, high) are based on [employer] population data from 10/2011.This insulin assay shows strong cross-reactivity forsome insulin analogs (lispro, aspart, and glargine)an d much lower cross-reactivity with others (detemir,glulisine).THIS TEST WAS PERFORMED AT:[employer] [id number] PEDRAZA Observer: Insulin Insulin [id number] 913.6070 (Revelens) Reviewed by Samia PETIT on ; All test results are final unless otherwise noted. Reported Physicians [facility] Ordered by Samia PETIT on 08/07/2020 Collected: 08/07/2020 Reported: 08/08/2020 12:41 Reported Physicians See Note None Note: Reported Physicians:Ordering: Saritha RobinsAttending: Saritha Paez Reviewed by Samia PETIT on ; All test results are final unless otherwise noted. Wet Prep [facility] Ordered by Samia PETIT on 08/05/2020 Collected: 08/05/2020 Reported: 08/08/2020 06:49 Wet prep results See Note None Note: FEW WBCs seenLong rods notedNO Yea st like organisms seen no trichomonas seenMODERATE Squamous cellsNo clue cells present Wet mount for Trichomonas Negative for Trichomonas vaginalis None NOTES See Note None Note: Source:: VAGINAL Reviewed by Samia PETIT on ; All test results are final unless otherwise noted. GCAMP [facility] Ordered by Samia PETIT on 08/05/2020 Collected: 08/05/2020 Reported: 08/09/2020 06:55 C trach rRNA XXX Ql DEVAUGHN+probe See Note (NOT DETECTED) None Note: NOT DETECTEDNOT [id number] 6NOT DETECTEDResponsible Observer: C.Trach RNA Chlamydia trachomatis DNA-DEVAUGHN [id number] 913.9900 ([employer]vel[employer]) N gonorrhoea rRNA XXX Ql DEVAUGHN+probe See Note (NOT DETECTED) None Note: NOT DETECTEDNOT [id number] 6NOT DETECTEDResponsible Observer: GC RNA Neisseria gonorrhoeae DNA -DEVAUGHN [id number] 913.9905 ([facility]) Chlamydia/GC DNA Note SEE NOTE None Note: The analytical performance charact eristics of thisassay, when used to test SurePath(TM) specimens have beendetermined by [employer]. The modifications havenot been cleared or approved by the FDA. This assay hasbeen validated pursuant to the CLIA regulations and isused for clinical purposes.For additional information, please refer tohttps://education.XbyMe.Magick.nu/faq/JCR353(This link is being provided for information/educational purposes only.)THIS TEST WAS PERFORMED AT:[facility] [address]ISAIAS PEDRAZAesponsible Observer: GC/Chlam Note Chlamydia/GC DNA Note [id number] 913.9907 (A) NOTES See Note None Note: Source Of Specimen: VAG Reviewed by Samia PETIT on ; All test results are final unless otherwise noted. Reported Physicians [facility] Ordered by Samia PETIT on 08/05/2020 Collected: 08/05/2020 Reported: 08/09/2020 06:56 Reported Physicians See Note None Note: Reported Physicians:Ordering: Saritha RobinsAttending: Saritha Paez Reviewed by Samia PETIT on ; All test results are final unless otherwise noted. Genital culture [facility] Collected: 08/05/2020 Reported: 08/08/2020 06:49 Genital culture results See Note None Note: No N. Gonorrhoaea isolatedMany Lac tobacilliFEW Staph Spp. coag neg NOTES See Note None Note: Source:: VAGINAL Reviewed by Samia PETIT on 11/2019; All test results are final unless otherwise noted. Reported Physicians [facility] Ordered by Samia COBBRILEY on 08/05/2020 Collected: 08/05/2020 Reported: 08/08/2020 06:49 Reported Physicians See Note None Note: Reported Physicians:Ordering: Saritha RobinsAttending: Saritha Paez Reviewed by Samia PETIT on 11/2019; All test results are final unless otherwise noted. 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 Education history - Graduated from [employer] 1 Sexually active , 20 partners to date 06/26/2020 Smoking status : Never smoker 06/03/2019 No recent emotional stress 11/04/2018 Not re-experiencing a previous traumatic event 018 No consumption of alcohol 10/28/2018 No tobacco use 10/28/2018 Not using drugs 10/28/2018 Procedures and Surgical History Includes: Procedures from 07/06/2020 through 07/06/2021 Procedures Code Diagnosis Performing Provider Service Location Service Date ADMINISTRATION 1-IMMUNIZATION(adult) 94612 Encounter f or immunization Kyle Zambrano MD [facility], [facility] 11/13/2020 Gardasil 9(3dose HPV, IM) nonavalent 11291 Encounter f or immunization Kyle Zambrano MD [facility], [facility] 11/13/2020 Most recent diastolic blood pressure < 80 mmHg 3078F Major depressive disorder, recurrent, moderate Samia Herbert [facility], [facility] 10/04/2020 Most recent systolic blood pressure less than 130 mmHg 3074 F Major depressive disorder, recurrent, moderate Samia Herbert [facility], [facility] 10/04/2020 Surgical History Last Updated History of arthroscopy of the knee with medial meniscus repair - Right knee- Dr. Mcintosh, 2013 10/28/2018 Medical History Includes: Medical History in patient's chart Description Last Updated Taking medication 11/04/2018 History of upper gastrointestinal endoscopy - Dr. Xavier maki- Negative findings 10/28/2018 History of acute medial meniscus tear - Right 018 History of colonoscopy - Dr. Emerson Box- 05/26/1710/28 History of sinus polyp 10/28/2018 Family History Includes: Family History in patient's chart Description Last Updated Mother is alive - obesity 10/28/2018 Father is alive allergic rhinitis, HTN 10/28/2018 Brother is alive - Trisomy 21 10/28/2018 Review of Systems Review of Systems not supported for this document typeNo Review of Systems Recorded Mental Status Mental Status not supported for this document typeNo Mental Status Recorded Functional Status Functional Status not supported for this document typeNo Functional Status Recorded Physical Exam Physical Exam not supported for this document typeNo Physical Exam Recorded Immunizations Includes: Immunizations in patient's chart Vaccine Dose # Date Site Reaction(s) Status Source DTaP 1 1998 Complete (Reported) Patient DTaP 2 1998 Complete (Reported) Patient DTaP 3 1998 Complete (Reported) Patient DTaP 4 10/16/1999 Complete (Reported) Patient DTaP 5 05/17/2003 Complete (Reported) Patient Gardasil 1 05/11/2020 Left Deltoid Complete (Admini stered) [facility] Gardasil 2 06/15/2020 Right Deltoid Complete (Admin istered) [facility] Gardasil 3 11/13/2020 Left Deltoid Complete (Admini stered) [facility] Hep B pediatric 1 1998 Complete (Reported) P atient Hep B pediatric 2 1998 Complete (Reported) P atient Hep B pediatric 3 1998 Complete (Reported) P atient Hib (PRP-T ActHIB) 1 1998 Complete (Reported ) Patient Hib (PRP-T ActHIB) 2 1998 Complete (Reported ) Patient Hib (PRP-T ActHIB) 3 1998 Complete (Reported ) Patient Hib (PRP-T ActHIB) 4 10/16/1999 Complete (Reported ) Patient Influenza, seasonal, injectable 1 09/16/2008 Compl ete (Reported) Patient Influenza, seasonal, injectable 2 08/15/2009 Compl ete (Reported) Patient Influenza, seasonal, injectable 3 09/17/2013 Compl ete (Reported) Patient IPV 1 1998 Complete (Reported) Patient IPV 2 1998 Complete (Reported) Patient IPV 3 07/13/1999 Complete (Reported) Patient IPV 4 05/17/2003 Complete (Reported) Patient Menveo 1 05/20/2016 Complete (Reported) Patient MMR 1 07/13/1999 Complete (Reported) Patient MMR 2 05/17/2003 Complete (Reported) Patient Moderna COVID-19 vaccine 1 12/15/2020 Complete (Re ported) Patient Moderna COVID-19 vaccine 2 01/12/2021 Complete (Re ported) Patient Tdap (> 7 yrs) 1 03/17/2009 Complete (Reported) Pa tient Varicella 1 05/17/2003 Complete (Reported) Patient Allergies Includes: Active, inactive, and resolved AllergiesNo Known Allergies Encounters Includes: Encounters from 07/06/2020 through 07/06/2021 Encounter Provider Location Date Check-In Time Check-Out Time D iagnosis nursing visit Lyssa Anderson MD [facility], [facility] 07/06/2021 11:23AM 12:00PM followup Saritha Paez [facility], [facility] 06/22/2021 8:50AM 9:17AM Allergic Rhinitis, Reactive Airway Disease sick visit Saritha Paez [facility], [facility] 05/11/2021 11:18AM 11:45AM Allergic Rhinitis, Reactive Airway Disease [Patient Encounter] Samia Herbert [facility]- 04/12/202104/02 4:20PM 04/02/2021 11:59PM [facility] 04/02/2021 3:28PM 4:15PM Major Depression Recurrent M oderate, Reactive Airway Disease, Allergic Rhinitis [Patient Encounter] Samia Herbert [facility] 03/18/202111/30 7:24PM 11/30/2020 11:59PM [facility] 11/30/2020 3:09PM 3:54PM Urticaria Idiopathic, Bacter ial Vaginosis nursing visit [facility] 11/13/2020 3:37PM 3:52PM sick visit Lyssa Anderson MD [facility], [facility] 1 12/11/2019 3:15PM 3:46PM Pulmonary Embolism, Upper Re spiratory Infection Acute followup Samia Herbert [facility], [facility] 10/04/2020 10:59AM 11:38AM Major Depression Recurrent M oderate followup Saritha Paez [facility], [facility] 08/11/2020 3:29PM 4:13PM Candidiasis Vaginal, Vaginal Discharge sick visit Saritha Paez [facility], [facility] 08/05/2020 9:55AM 11:02AM Candidiasis Vaginal, Vaginal Discharge Insurance Includes: Active Insurance Policies Plan Name Member ID Group # Subscriber Relationship Effective [facility] 1 - R Insurance [id number] Bob Diaz Child Advance Directives Includes: Current Advance DirectivesNo Advance Directives Recorded Health Concerns Includes: Active Health ConcernsNo Active Health Concerns Recorded Goals Includes: Active GoalsNo Active Goals Recorded Interventions Includes: Interventions for active GoalsNo Interventions Recorded Evaluations & Outcomes Includes: Evaluations & Outcomes for active GoalsNo Outcomes Recorded
--- OUTSIDE RECORDS SUMMARY | 2021-09-02 18:21 | CCD ---
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 (high risk HPV) Vitamin D Deficiency 11/04/2018 - 12:00AM Samia Ku altman [employer]RIST OWNER-BC Active Allergic Rhinitis 10/28/2018 - 12:00AM Samia Cameron Muha [employer]OMETRIST OWNER-BC Active Note: - 03/30- 3++- 4++, dust , pollen, cat, dog dander. Anxiety Disorder Nos 10/28/2018 - 12:00AM Samia Cameron Mu altman [employer]ETRIST OWNER-BC Active Concussion with No Loss of Consciousness 10/28/2018 - 12:00AM Samia Cameron Muha [employer]ETRIST OWNER-BC Active Gastro-esophageal reflux disease without esophagitis 10/28/2018 - 12:00AM Samia Cameron Muha [employer]ETRIST OWNER-BC Active Hemorrhoids External 10/28/2018 - 12:00AM Samia Ku altman [employer]RIST OWNER-BC Active Ibs--pain Predominant 10/28/2018 - 12:00AM Samia Cameron uha [employer]OMETRIST OWNER-BC Active Note: - Negative colonoscopy , endoscopy, gallbladder US, labs. - Dr. Box 05/2017 Major Depression Recurrent Moderate 10/28/2018 - 12:00AM Samia Cameron Piedad [employer]ETRIST OWNER-BC Active Obesity 10/28/2018 - 12:00AM Samia Cameron Piedad [employer]OMETRIST OWNER-B C Active Plan of Treatment Pending Tests Order Diagnosis Results Due Ordering Provi jeanie Outside Labs CBC with differential Cough 05/18/21 Nichelledi th A Jeannine OPTOMETRIST OWNER Outside Labs CMP Cough 05/18/21 Saritha A Lizo tte OPTOMETRIST OWNER Outside Labs D Dimer Cough 05/18/21 Saritha A Lizo tte OPTOMETRIST OWNER Referral Paste Up Copy Camera Operator Shortness of breath 08/09/21 Gabi Ochoae OPTOMETRIST OWNER Future Appointments Date Time Location Provider ANNUAL PE-followup 08/09/2021 3:40PM [facility], [facility] Samia Cameron Piedad [facility]- followup 09/21/2021 4:00PM [facility], [facility] Saritha Ochoae 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 Reviewed s/s that warrant sooner consult Reviewed s/s that warrant ED evaluation followup with Saritha Paez 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 Reviewed s/s that warrant sooner consult Reviewed s/s that warrant ED evaluation sick visit with Saritha Paez [facility] 05/11/2021 Ordered antihistamines - She could use OTC antihistamine daily or as needed. She could also use benadryl as needed followup with Samia Cameron Piedad [facility]- 11/30/2020 Requested request consultation by matlab developer followup with Me cuellar Nisha anupama [facility]- 11/30/2020 Ordered a urine culture sick visit [...] due to pollen] followup with Saritha Paez [facility] 06/22/2021 Reactive airway disease [Other asthma] followup with Gabi Paez [facility] 06/22/2021 Allergic rhinitis which is showing leonardo nued signs of disease [Allergic rhinitis due to pollen] sick visit with Saritha Paez [facility] 05/11/2021 Reactive airway disease [Other asthma] sick visit with Ana Grey Jeannine [facility] 05/11/2021 Allergic rhinitis which is showing leonardo nued signs of disease - She will continue to follow with her matlab developer. She is also instructed to continue taking her Xyzal followup with Samia Herbert [facility] 04/02/2021 Moderate recurrent major depression whic h is stable - Following with therapist. Currently awaiting appt with psychiatry. No changes made today followup with Samia Herbert [facility] 04/02/2021 Reactive airway disease - Discussed jeremy [...] she does not improve followup with Samia Herbert [facility] 04/02/2021 Bacterial vaginosis which is showing rec urrence of disease - She will treat with metrogel as directed. If symptoms do not resolve she will return to office for pelvic exam and testing followup with Samia Nisha Piedad [facility] 11/30/2020 Idiopathic urticaria which is showing no evidence of disease at present. She is requesting referral to allergies for further evaluation followup with Samia Herbert [facility] 11/30/2020 Acute upper respiratory infection COVID test [...] the current dose followup with Samia Herbert [facility] 10/04/2020 Vaginal candidiasis followup with Saritha Paez [employer]ETRIST OWNER 12/2019 Vaginal discharge followup with Saritha Paez [employer]ETRIST OWNER 12/2019 Vaginal candidiasis sick visit with Saritha Ochoae [employer]OMETRIST OWNER 0 08/05/2020 Vaginal discharge sick visit with Saritha Paez [employer]RIST OWNER 0 08/05/2020 Moderate recurrent major depression - [...] ANNUAL PE-followup exam/30 with Samia Cameron [facility] 06/26/2020 Morbid obesity due to excess calories ANNUAL PE-follow up exam/30 with Samia Cameron [facility] 06/26/2020 Routine adult history and physical (18 - 64 yrs) BREANNEUA L PE-followup exam/30 with Samia M [facility] 06/26/2020 Vitamin D deficiency ANNUAL PE-followup exam/30 with Samia Cameron [facility] 06/26/2020 Bacterial vaginosis - Will treated with oral flagyl. Reviewed precautions with alcohol use and that she needs to 100% avoid. Avoid intercourse. Start a probiotic. Yogurt sick visit with Samia Cameron [facility] 04/17/2020 Amenorrhea - Will get labs including HC G, TSH, FSH and prolactin. Referral to MANUFACTURING INSPECTOR for secondary amenorrhea sick visit with Samia Cameron [facility] 04/05/2020 Possible vaginal candidiasis - Diflucan as directed s ick visit with Samia Cameron [facility] 04/05/2020 Secondary amenorrhea sick visit with Samia Cameron [facility] 0 04/05/2020 Vaginitis sick visit with Samia Cameron [facility] Hematuria followup with Darlene Penaloza [facility] 2019 Urinary tract infection [Cystitis, unspecified with [...] if needed followup with Samia Nisha [facility] 05/26/2019 Abdominal pain Left flank and LLQ pain with hematuria, will evaluate for nephrolithiasis with renal protocol CT. Encourage increased PO hydration and Tylenol/NSAIDs prn pain [Unspecified abdominal pain] sick visit with Lyssa Anderson MD 05/19/2019 Hematuria [Other microscopic hematuria] sick visit with Brenna Anderson MD 05/19/2019 Atypical chest pain urgent visit with Jodie Garcia RPA 03/22 Anxiety disorder NOS followup with Samia M [facility] 05/2019 Moderate recurrent major depression - S he will continue her current medication at the current dose. Referral to psychiatry pending, I would like her to be evaluated prior to change in any medication to check the accuracy of her current diagnosis followup with Samia Nisha [facility] 11/16/2018 Vitamin D deficiency - Start vitamin D 2000 units elie ly followup with Samia Herbert [facility] 11/16/2018 Anxiety disorder NOS sick visit with Samia Herbert [facility] 1 12/30/2017 Moderate recurrent major depression sick visit with Samia Herbert [facility] 10/29/2018 Acute sinusitis urgent visit with Ole Mcintyre PA-C 2016 Instructions Instructions not supported for this document typeNo Instructions Recorded Medical Equipment - Implanted Devices Includes: Current and historical DevicesNo Medical Equipment Recorded Medications Includes: Current and historical Medications Current Medications (continue as prescribed) Loryna 3-0.02 MG Oral Tablet 06/20/2021 Provider: Saritha Paez [employer]OMETRIST OWNER Diagnosis: 1 PO QD Advair Diskus 250-50 MCG/DOSE Inhalation Aerosol Powde r Breath Activated 05/11/2021 Provider: Saritha Paez OPTOMETRIST OWNER Diagnosis: Shortness of breath 1 puff daily Singulair 10 MG Oral Tablet 05/11/2021 Provider: Saritha Paez [employer]OMETRIST OWNER Diagnosis: Shortness of breath 1 tab daily ProAir HFA 108 (90 Base) MCG/ACT Inhalation Aerosol Solution 04/02/2021 Provider: Samiathee Herbert [facility] Diagnosis: 2 puffs every 4 hours prn wheezing. Xyzal Allergy 24HR 5 MG Oral Tablet 04/02/2021 Prov ider: Diagnosis: 1 tab po daily Sertraline HCl 100 MG Oral Tablet 03/30/2021 - 07/28/2021 Pr ovider: Samia Herbert [facility] Diagnosis: 1 PO QD Gianvi 3-0.02 MG Oral Tablet 01/30/2021 Provider: Samia Herbert [facility] Diagnosis: as directed Nystatin 354699 UNIT/GM External Powder 08/11/2020 Provider: Saritha Paez [facility] Diagnosis: Acute vaginitis apply [id number] units 2-3 times per day Hyoscyamine Sulfate 0.125 MG Tablet 03/23/2017 Prov ider: Andrews Goyal Diagnosis: Past Medications on file Zithromax 250 MG Oral Tablet 04/12/2021 - 04/17/2021 Provide r: Samia Herbert [facility]- Diagnosis: 2 tabs po today then 1 tab po daily x 4 days. Asmanex HFA 100 MCG/ACT Inhalation Aerosol 04/02/2021 - 07/0 12/2020 Provider: Diagnosis: 2 puffs twice a day. metroNIDAZOLE 0.75% Vaginal Gel 11/30/2020 - 12/05/2020 Prov ider: Samia Herbert [facility]-BC Diagnosis: Other specified monroe nflammatory disorders of vagina 1 applicator twice per day x 5 days Gianvi 3-0.02 MG Oral Tablet 09/16/2020 - 01/30/2021 Provide r: Saritha Paez OPTOMETRIST OWNER Diagnosis: as directed metroNIDAZOLE 0.75% Vaginal Gel 08/05/2020 - 11/30/2020 Prov ider: Saritha Paez OPTOMETRIST OWNER Diagnosis: Other specified monroe nflammatory disorders of vagina 1 applicator twice per day x 5 days Sertraline HCl 100 MG Oral Tablet 06/26/2020 - 11/30/2020 Pr ovider: Samia Herbert [facility]-BC Diagnosis: 1 PO QD Gianvi 3-0.02 MG Oral Tablet 04/24/2020 - 08/11/2020 Provide r: Samia Herbert [facility] Diagnosis: as directed metroNIDAZOLE 0.75% Vaginal Gel 04/21/2020 - 04/26/2020 Prov ider: Lyssa Anderson MD Diagnosis: as directed One applicatorful (~37.5 mg metronidazole) intravaginally once daily for 5 days. Flagyl 500 MG Oral Tablet 04/17/2020 - 04/24/2020 Provider: Samia Herbert [facility] Diagnosis: 1 tab po bid x 7 days. metroNIDAZOLE 0.75% Vaginal Gel 04/06/2020 - 04/11/2020 Prov ider: Samia Herbert [facility]-BC Diagnosis: One applicatorful vaginally twice daily daily x 5 days. Diflucan 150 MG Oral Tablet 04/05/2020 - 04/12/2020 Provider : Samia Herbert [employer]OMETRIST OWNER-BC Diagnosis: 1 tab po x 1 dose today, repeat in 3 days if needed. Naproxen 500 MG Oral Tablet 02/15/2020 - 02/22/2020 Provider : Darlene Penaloza RPA Diagnosis: 1 PO BID Pyridium 200 MG Oral Tablet 02/11/2020 - 02/14/2020 Provider : Darlene Penaloaz RPA Diagnosis: 1 PO TID Nitrofurantoin Monohyd Macro 100 MG Oral Capsule 02/10/2020 - 02/15/2020 Provider: Lyssa Anderson MD Diagnosis: 1 PO BID Gianvi 3-0.02MG Oral Tablet 10/11/2019 - 04/17/2020 Provider : Samia M Piedad [facility] Diagnosis: as directed Gianvi 3-0.02MG Oral Tablet 06/23/2019 - 05/26/2019 Provider : Samia Nisha Piedad [facility] Diagnosis: as directed lamoTRIgine 100MG Oral Tablet 06/07/2019 - 09/05/2019 Provid er: Samia Cameron Piedad [facility] Diagnosis: 1 tab po bid Azithromycin 250MG Oral Tablet 06/03/2019 - 06/04/2019 Provi jeanie: Jodie Garcia RPA Diagnosis: Sexually transmitted chlamydial infection of other [...] 01/29/2019 - 05/26/2019 Provider : Samia Herbert [facility] Diagnosis: as directed Gianvi 3-0.02MG Oral Tablet 01/06/2019 - 11/16/2018 Provider : Samia Herbert [facility] Diagnosis: as directed Gianvi 3-0.02MG Oral Tablet 11/12/2018 - 11/16/2018 Provider : Samia Herbert [facility] Diagnosis: as directed Sertraline HCl 100MG Oral [...] Recorded Vital Signs Includes: Vital Signs from 06/22/2020 through 06/22/2021 Vital Name 06/22/2021 08:59A 05/11/2021 11:25A 04/02/2021 [...] Name 10/04/2020 11:06A 08/11/2020 03:41P 08/05/2020 10:21A 06/26/2020 01:46P Blood Pressure Sitting (mmHg) 112/74 104/60 110/80 Pulse Rate-Sitting (bpm) 72 60 80 72 Respiration Rate (breaths/min) 18 18 16 18 Weight (lb) 249 251 250 Oxygen Saturation (%) 97 Height (in) 62.75 62.75 Body Mass Index (kg/m2) 44.5 44.6 Body Surface Area (m2) 2.12 2.12 Blood Pressure Sitting R 118/82 BP Cuff Size Large Pulse Rhythm Regular Temp-Oral (F) 97.3 Note: LMP 06/01/20 Results Includes: Results from 06/22/2020 through 06/22/2021 MANUAL DIFF [facility] Ordered by Saritha HERNANDEZ on [...] are final unless otherwise noted. Reported Physicians [facility] Ordered by Saritha Paez [facility] on 05/11/2021 Collected: 05/11/2021 Reported: 05/11/2021 13:01 Reported Physicians See Note None Note: Reported Physicians:Ordering: Saritha RobinsAttending: Eulalio Paez To: Samia Herbert Reviewed by Saritha HERNANDEZ on ; All test results are final unless otherwise noted. D-DIMER [facility] Ordered by Saritha COBBP on 05/11/2021 Collected: 05/11/2021 Reported: 05/11/2021 12:36 [...] unless otherwise noted. CBC W AUTO DIFF [facility] Ordered by Saritha HERNANDEZ on [...] Auto See Note (0-2) N (Normal) Note: [id number] Ob banquet server: IG% IG% 100.1375 (B) Hct VFr [...] added. RFLXG = DIFF. Reviewed by Saritha COBBP on ; All test results are final unless otherwise noted. CMP [facility] Ordered by Saritha HERNANDEZ on [...] are final unless otherwise noted. Reported Physicians [facility] Ordered by Saritha HERNANDEZ on 05/11/2021 Collected: 05/11/2021 Reported: 05/11/2021 13:17 Reported Physicians See Note None Note: Reported Physicians:Ordering: Saritha RobinsAttending: Eulalio Paez To: Samia Herbert Reviewed by Saritha HERNANDEZ on ; All test results are final unless otherwise noted. D-DIMER [facility] Ordered by Lyssa Anderson MD [...] are final unless otherwise noted. Reported Physicians [facility] Ordered by Lyssa Anderson MD on 10/10/2020 Collected: 10/10/2020 Reported: 10/10/2020 17:01 Reported Physicians See Note None Note: Reported Physicians:Ordering: Lyssa GuptaAttending: Lyssa Anderson Reviewed by Lyssa Anderson MD on 10/11; All test results are final unless otherwise noted. DWYER COVID-19 [facility] Ordered by Lyssa Anderson MD on [...] molecular test, if the virus mutates in [place] [facility], Covid-19 may not be detected or may bedetected less predictably.ID NOW COVID-19 is intended for testing a swab directlywithout elution in viral transport media as dilution willresult in decreased detection of low positive samples thatare near the limit of detection of the test.SWAB SAMPLES ELUTED IN VTM ARE NOT APPROPRIATE FOR USE INTHIS TEST.[id number] RNA Resp Ql DEVAUGHN+probeLNNOSNo Organisms [id number] Organisms Detected Reviewed by Lyssa Anderson MD on 10/11; All test results are final unless otherwise noted. Reported Physicians [facility] Ordered by Lyssa Anderson MD on 10/10/2020 Collected: 10/10/2020 Reported: 10/10/2020 18:59 Reported Physicians See Note None Note: Reported Physicians:Ordering: Lyssa GuptaAttending: Francesca Anderson To: Doctor Provided, No FamilyCopy To: Health, Public Reviewed by Lyssa Anderson MD on 10/11; All test results are final unless otherwise noted. Wet Prep [facility] Ordered by Saritha COBBP on 08/11/2020 Collected: 08/11/2020 Reported: 08/11/2020 18:04 Wet prep results See Note None Note: Clue cells presentLong rods notedN o yeast like or trichomonas seenSquamous cellsShort rods seenWBCs seen Wet mount for Trichomonas Negative for Trichomonas vaginalis None Reviewed by Saritha HERNANDEZ on ; All test results are final unless otherwise noted. Reported Physicians [facility] Ordered by Saritha HERNANDEZ on 08/11/2020 Collected: 08/11/2020 Reported: 08/11/2020 18:05 Reported Physicians See Note None Note: Reported Physicians:Ordering: Saritha RobinsAttending: Saritha Paez Reviewed by Saritha COBBP on ; All test results are final unless otherwise noted. LIPID PANEL [facility] Ordered by Samia HERNANDEZ-BC on 08/07/2020 Collected: 08/07/2020 Reported: 08/07/2020 09:11 [...] s Triglycerides 400.2951 (G) Reviewed by Samia HERNANDEZ-RILEY on ; All test results are final unless otherwise noted. Reported Physicians [facility] Ordered by Samia COBBP- on 08/07/2020 Collected: 08/07/2020 Reported: 08/07/2020 09:11 Reported Physicians See Note None Note: Reported Physicians:Ordering: Saritha RobinsAttending: Saritha Paez Reviewed by Samia PETIT on ; All test results are final unless otherwise noted. CBC W AUTO DIFF [facility] Or[facility] by [facility] on 08/07/2020 Collected: 08/07/2020 Reported: 08/07/2020 08:31 [...] Auto See Note (0-2) N (Normal) Note: [id number] Ob banquet server: IG% IG% 100.1375 (B) Hct VFr [...] test results are final unless otherwise noted. [facility] Ordered by Samia PETIT on 08/07/2020 [...] are final unless otherwise noted. Insulin Level [facility] Ordered by Samia PETIT on 08/07/2020 Collected: 08/07/2020 Reported: 08/08/2020 12:41 Insulin 18.6 None Note: Reference Range < or = 19.6 Risk: Optimal < or = 19.6 Moderate NA High >19.6 Adult cardiovascular event risk category cut points (optimal, moderate, high) are based on [employer] population data from 10/2011.This insulin assay shows strong cross-reactivity forsome insulin analogs (lispro, aspart, and glargine)an d much lower cross-reactivity with others (detemir,glulisine).THIS TEST WAS PERFORMED AT:[facility] [id number] PEDRAZAesponsible Observer: Insulin Insulin [id number] 913.6085 ([facility]) Reviewed by Samia PETIT on ; All test results are final unless otherwise noted. Reported Physicians [facility] Ordered by Samia PETIT on 08/07/2020 Collected: 08/07/2020 Reported: 08/08/2020 12:41 Reported Physicians See Note None Note: Reported Physicians:Ordering: Saritha RobinsAttending: Saritha Paez Reviewed by Samia PETIT on ; All test results are final unless otherwise noted. Wet Prep [facility] Ordered by Samia PETIT on [...] results are final unless otherwise noted. GCAMP [facility] Ordered by Samia COBBPPRINCESS on 08/05/2020 Collected: 08/05/2020 Reported: 08/09/2020 06:55 C trach rRNA XXX Ql DEVAUGHN+probe See Note (NOT DETECTED) None Note: NOT DETECTEDNOT [id number] 6NOT DETECTEDResponsible Observer: C.Trach RNA Chlamydia trachomatis DNA-DEVAUGHN [id number] 913.9900 ([facility]) N gonorrhoea rRNA XXX Ql DEVAUGHN+probe See Note (NOT DETECTED) None Note: NOT DETECTEDNOT [id number] 6NOT DETECTEDResponsible Observer: GC RNA Neisseria gonorrhoeae DNA -DEVAUGHN [id number] 913.9905 ([facility]) Chlamydia/GC DNA Note SEE NOTE None Note: The analytical performance charact eristics of thisassay, when used to test SurePath(TM) specimens have beendetermined by [employer]. The modifications havenot been cleared or approved by the FDA. This assay hasbeen validated pursuant to the CLIA regulations and isused for clinical purposes.For additional information, please refer tohttps://education.[employer]fuel[employer].Social 2 Step/faq/KGW246(This link is being provided for information/educational purposes only.)THIS TEST WAS PERFORMED AT:[place] [id number] 189ISAIAS PEDRAZAesponsible Observer: GC/Chlam Note Chlamydia/GC DNA Note [id number] 913.9907 (A) NOTES See Note None Note: Source Of Specimen: VAG Reviewed by Samia PETIT on ; All test results are final unless otherwise noted. Reported Physicians [facility] Ordered by Samia PETIT on 08/05/2020 Collected: 08/05/2020 Reported: 08/09/2020 06:56 Reported Physicians See Note None Note: Reported Physicians:Ordering: Saritha RobinsAttending: Saritha Paez Reviewed by Samia PETIT on ; All test results are final unless otherwise noted. Genital culture [facility] Ordered by Samia PETIT on 08/05/2020 Collected: 08/05/2020 Reported: 08/08/2020 06:49 Genital culture results See Note None Note: No N. Gonorrhoaea isolatedMany Lac tobacilliFEW Staph Spp. coag neg NOTES See Note None Note: Source:: VAGINAL Reviewed by Samia PETIT on 11/2019; All test results are final unless otherwise noted. Reported Physicians [facility] Ordered by Samia PETIT on 08/05/2020 Collected: 08/05/2020 Reported: 08/08/2020 06:49 Reported Physicians See Note None Note: Reported Physicians:Ordering: Saritha RobinsAttending: Saritha Paez Reviewed by Samia PETIT on 11/2019; All test results are final unless otherwise noted. HPVI [facility] Ordered by Samia HERNANDEZ-RILEY on 06/26/2020 Collected: 06/26/2020 Reported: 07/05/2020 06:52 Thin Prep Vag See Note None Note: See scanned reportSee scanned repo rtLSee scanned reportSee scanned reportLSee scanned reportResponsible Observer: TP w/HPV if ASC Thinprep w/HPV if ASCUS 805.1454 ([facility]) NOTES See Note None Note: [id number] Technique: BRU SH-SPATULALAST MENSTRUAL PERIOD: [id number] Site: ENDOCERVIX Reviewed by Samia PETIT on ; All test results are final unless otherwise noted. Reported Physicians [facility] Ordered by Samia PETIT on 06/26/2020 Collected: 06/26/2020 Reported: 07/05/2020 06:52 Reported Physicians See Note None Note: Reported Physicians:Ordering: Samia HerbertAttending: Samia Herbert Reviewed by Samia PETIT on ; All test results are final unless otherwise noted. Cepheid CT/NG RT-PCR-[facility] Ordered by Samia PETIT on 06/26/2020 Collected: 06/26/2020 Reported: 06/27/2020 08:[address]/NG RT-PCR See Note None Note: CT/NG IS A QUALITATIVE IN VITRO RE AL-TIME PCR TEST FORDETECTION OF CHLAMYDIA TRACHOMATIS (CT) AND NEISSERIAGONORRHOEAE (NG)NORMAL VALUE FOR CT/NG IS " NO ORGANISMS DETECTED "NOSNo Organisms [id number] Organisms Detected Reviewed by Samia PETIT on ; All test results are final unless otherwise noted. AFFIRM [facility] Ordered by Samia PETIT on 06/26/2020 Collected: 06/26/2020 Reported: 06/28/2020 15:04 Anne species DNA Probe NOT DETECTED (NOT DETECTED) None Note: THIS TEST WAS PERFORMED AT:[facility] [address] [id number] PEDRAZAesponsible Observer: Anne DNA Anne species DNA Probe [id number] 913.2350 ([facility]) Gardnerella DNA Probe DETECTED (NOT DETECTED) H (High) Note: Increased levels of G. vaginalis m ay not be significantin the absence of signs and symptoms of bacterialvaginosis.Responsible Observer: Gardnerella DNA Gardnerella DNA Probe [id number] 913.2345 ([facility]) Trichomonas DNA Probe NOT DETECTED (NOT DETECTED) None Note: Responsible Observer: Trichomonas DNA Trichomonas DNA Probe [id number] ([employer]) Reviewed by Samia PETIT on ; All test results are final unless otherwise noted. Reported Physicians [facility] Ordered by Samia PETIT on 06/26/2020 Collected: 06/26/2020 Reported: 06/28/2020 15:05 Reported Physicians See Note None Note: Reported Physicians:Ordering: Samia HerbertAttending: Samia Herbert Reviewed by Samia PETIT on ; All test results are final unless otherwise noted. 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 Education history - Graduated from [employer] 1 Sexually active , 20 partners to date 06/26/2020 Smoking status : Never smoker 06/03/2019 No recent emotional stress 11/04/2018 Not re-experiencing a previous traumatic event 018 No consumption of alcohol 10/28/2018 No tobacco use 10/28/2018 Not using drugs 10/28/2018 Procedures and Surgical History Includes: Procedures from 06/22/2020 through 06/22/2021 Procedures Code Diagnosis Performing Provider Service Location Service Date ADMINISTRATION 1-IMMUNIZATION(adult) 25884 Encounter f or immunization Kyle Zambrano MD [facility], [facility] 11/13/2020 Gardasil 9(3dose HPV, IM) nonavalent 68749 Encounter f or immunization Kyle Zambrano MD [facility], [facility] 11/13/2020 Most recent diastolic blood pressure < 80 mmHg 3078F Major depressive disorder, recurrent, moderate Samia Cameron anupama [facility], [facility] 10/04/2020 Most recent systolic blood pressure less than 130 mmHg 3074 F Major depressive disorder, recurrent, moderate Samia M Kingsanupama [facility], [facility] 10/04/2020 Surgical History Last Updated History of [...] 1 05/11/2020 Left Deltoid Complete (Admini stered) [facility] Gardasil 2 06/15/2020 Right Deltoid Complete (Admin istered) [facility] Gardasil 3 11/13/2020 [facility] Complete (Reported) [...] AllergiesNo Known Allergies Encounters Includes: Encounters from 06/22/2020 through 06/22/2021 Encounter Provider Location Date Check-In Time Check-Out Time D iagnosis followup Saritha Ochoae [facility] 06/22/2021 8:50AM 9:17AM Allergic Rhinitis, Reactive Airway Disease sick visit Saritha Paez [facility] 05/11/2021 11:18AM 11:45AM Allergic Rhinitis, Reactive Airway Disease [Patient Encounter] Samia Cameron [facility] 04/12/202104/02 4:20PM 04/02/2021 11:59PM followup Samia Cameron [facility], [facility] 04/02/2021 3:28PM 4:15PM Major Depression Recurrent M oderate, Reactive Airway Disease, Allergic Rhinitis [Patient Encounter] Samia Cameron [facility] 03/18/202111/30 7:24PM 11/30/2020 11:59PM followup Samia Cameron [facility] 11/30/2020 3:09PM 3:54PM Urticaria Idiopathic, Bacter ial Vaginosis nursing visit Kyle Zambrano MD [facility], [facility] 11/13/2020 3:37PM 3:52PM sick visit Lyssa Anderson MD [facility], [facility] 1 12/11/2019 3:15PM 3:46PM Pulmonary Embolism, Upper Re spiratory Infection Acute followup Samia Cameron [facility], [facility] 10/04/2020 10:59AM 11:38AM Major Depression Recurrent M oderate followup Saritha Ochoae [facility] 08/11/2020 3:29PM 4:13PM Candidiasis Vaginal, Vaginal Discharge sick visit Saritha Ochoae [facility] 08/05/2020 9:55AM 11:02AM Candidiasis Vaginal, Vaginal Discharge [Patient Encounter] Samia Cameron [facility] 07/05/202006/26 11:44AM 06/26/2020 11:59PM [Patient Encounter] Samia Cameron [facility] 07/05/202006/26 8:36AM 06/26/2020 11:59PM ANNUAL PE-followup Samia Herbert [facility] [place] [place] 06/26/2020 1:34PM 2:30PM Routine History and Physical Adult (18 - 64 Yrs), Major Depression Recurrent Moderate, Vitamin D Deficiency, Obesity Morbid Due To Excess Calories Insurance Includes: Active Insurance Policies Plan Name Member ID Group # Subscriber Relationship Effective Da seng 1 - [employer] Insurance [id number] Bob Diaz Child Advance Directives Includes: Current Advance DirectivesNo Advance Directives Recorded Health Concerns Includes: Active Health ConcernsNo Active Health Concerns Recorded Goals Includes: Active GoalsNo Active Goals Recorded Interventions Includes: Interventions for active GoalsNo Interventions Recorded Evaluations & Outcomes Includes: Evaluations & Outcomes for active GoalsNo Outcomes Recorded
--- OUTSIDE RECORDS SUMMARY | 2021-09-02 18:21 | CCD ---
Author Author [facility] Organization [facility] Address [address] [place] [address] Phone Care Team Providers Care Accounting Lecturer Name Role Phone Justin DE LA ROSA, Lyssa Sebastian PP [phone] Muha WOODWORKING CRAFTSMAN-BC, Samia Cameron Unavailable [phone] Reason for Referral No Reason for Referral Recorded Problems Includes: Active, inactive, and resolved Problems All Visits Onset Date - Time Resolved Date - Time Provider Co ndition Status Asthma Persistent 08/09/2021 - 12:00AM Samia Cameron Muha [employer]ODWORKING CRAFTSMAN-BC Active Reactive Airway Disease 04/03/2021 - 12:00AM Saritha Paez [employer]ODWORKING CRAFTSMAN Active Cerv Pap Smear (+) Atyp Squamous Cells Undetermined Signif 0 07/05/2020 - 11:44AM Samia Cameron Muha WOODWORKING CRAFTSMAN-BC Active Note: - Repeat 06/2021. (high risk HPV) Vitamin D Deficiency 11/04/2018 - 12:00AM Samia Cameron Mu altman WOODWORKING CRAFTSMAN-BC Active Allergic Rhinitis 10/28/2018 - 12:00AM Samia Cameron Muha WOODWORKING CRAFTSMAN-BC Active Note: - 03/30- 3++- 4++, dust , pollen, cat, dog dander. Anxiety Disorder Nos 10/28/2018 - 12:00AM Samia Cameron Mu altman WOODWORKING CRAFTSMAN-BC Active Concussion with No Loss of Consciousness 10/28/2018 - 12:00AM Samia Cameron Muha WOODWORKING CRAFTSMAN-BC Active Gastro-esophageal reflux disease without esophagitis 10/28/2018 - 12:00AM Samia Cameron Muha WOODWORKING CRAFTSMAN-BC Active Hemorrhoids External 10/28/2018 - 12:00AM Samia Cameron Mu altman WOODWORKING CRAFTSMAN-BC Active Ibs--pain Predominant 10/28/2018 - 12:00AM Samia Cameron [facility] WOODWORKING CRAFTSMAN-BC Active Note: - Negative colonoscopy , endoscopy, gallbladder US, labs. - Dr. Box 05/2017 Major Depression Recurrent Moderate 10/28/2018 - 12:00AM Samia Ku WOODWORKING CRAFTSMAN-BC Active Obesity 10/28/2018 - 12:00AM Samia Herbert WOODWORKING CRAFTSMAN-B C Inactive Plan of Treatment Pending Tests Order Diagnosis Results Due Ordering Provi jeanie Outside Labs CBC with differential Cough 05/18/21 Meredi th A Jeannine WOODWORKING CRAFTSMAN Outside Labs CMP Cough 05/18/21 Saritha A Lizo tte WOODWORKING CRAFTSMAN Outside Labs D Dimer Cough 05/18/21 Saritha A Lizo tte WOODWORKING CRAFTSMAN Referral Regional Coordinator Shortness of breath 08/09/21 Gabi h A Jeannine WOODWORKING CRAFTSMAN Outside Labs PAP smear Atyp squam cell of undet signfc cyto smr crvx (ASC-US) 08/16/21 Samia Kuanupama WOODWORKING CRAFTSMAN-BC Future Appointments Date Time Location Provider followup 09/21/2021 4:00PM [facility], 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 Reviewed s/s that warrant sooner consult Reviewed s/s that warrant ED evaluation followup with Saritha Paez WOODWORKING CRAFTSMAN 06/22/2021 All questions and concerns addressed, patient/botany professor understanding and agreeable to plan of care sick visit with Saritha Paez [employer]ODWORKING CRAFTSMAN 05/11/2021 Follow up as directed. Reviewed s/s that warrant sooner consult Reviewed s/s that warrant ED evaluation sick visit with Saritha Paez WOODWORKING CRAFTSMAN 05/11/2021 Ordered antihistamines - She could use OTC antihistamine daily or as needed. She could also use benadryl as needed followup with Samia Cameron Piedad WOODWORKING CRAFTSMAN-BC 11/30/2020 Requested request consultation by patrol sergeant followup with Ct alisa Cameron Piedad [facility] 11/30/2020 Ordered a urine culture sick visit [...] for all patient encounters Findings Encounter Date Anxiety disorder NOS ANNUAL PE-followup exam/30 with Samia Cameron [facility] 08/09/2021 Assessment of abnormal Pap smear: atypic al squamous cells of undetermined significance - Repeat Pap test done today. Patient was also screened for STI's including GC/CHL, Affirm as she has had a new sexual partner in the past three months ANNUAL PE-followup exam/30 with Samia Cameron [facility] 08/09/2021 Moderate recurrent major depression - Following with Dr. Mosqueda ANNUAL PE- followup exam/30 with Samia Cameron [facility] 08/09/2021 Persistent asthma - Has Pulmonology appt scheduled fo r next week ANNUAL PE- followup exam/30 with Samia Cameron [facility] 08/09/2021 Routine adult history and physical (18 - 64 yrs) ELADIA Amaya PE-followup exam/30 with Samia Cameron [facility] 08/09/2021 Allergic rhinitis which is showing leonardo nued signs of disease [Allergic rhinitis due to pollen] followup with Saritha Paez [facility] 06/22/2021 Reactive airway disease [Other asthma] followup with Gabi Ochoae [facility] 06/22/2021 Allergic rhinitis which is showing leonardo nued signs of disease [Allergic rhinitis due to pollen] sick visit with Saritha Paez [facility] 05/11/2021 Reactive airway disease [Other asthma] sick visit with Ana Ochoae [facility] 05/11/2021 Allergic rhinitis which is showing leonardo nued signs of disease - She will continue to follow with her patrol sergeant. She is also instructed to continue taking her Xyzal followup with Samia Cameron [facility] 04/02/2021 Moderate recurrent major depression whic h is stable - Following with therapist. Currently awaiting appt with psychiatry. No changes made today followup with Samia Cameron [facility] 04/02/2021 Reactive airway disease - Discussed jeremy [...] she does not improve followup with Samia M [facility] 04/02/2021 Bacterial vaginosis which is showing rec urrence of disease - She will treat with metrogel as directed. If symptoms do not resolve she will return to office for pelvic exam and testing followup with Samia Nisha [facility] 11/30/2020 Idiopathic urticaria which is showing no evidence of disease at present. She is requesting referral to allergies for further evaluation followup with Samia Nisha [facility] 11/30/2020 Acute upper respiratory infection COVID test [...] the current dose followup with Samia Herbert [facility] 10/04/2020 Vaginal candidiasis followup with Saritha Paez WOODWORKING CRAFTSMAN 12/2019 Vaginal discharge followup with Saritha Ochoae WOODWORKING CRAFTSMAN 12/2019 Vaginal candidiasis sick visit with Saritha Barnesotte WOODWORKING CRAFTSMAN 0 08/05/2020 Vaginal discharge sick visit with Saritha Ochoae [employer]WORKING CRAFTSMAN 0 08/05/2020 Moderate recurrent major depression - [...] needed ANNUAL PE-followup exam/30 with Samia Cameron [facility] 06/26/2020 Morbid obesity due to excess calories ANNUAL PE-follow up exam/30 with Samia Cameron [facility] 06/26/2020 Routine adult history and physical (18 - 64 yrs) ELADIA L PE-followup exam/ with Samia Nisha [facility] 06/26/2020 Vitamin D deficiency ANNUAL PE-followup exam/ with Samia M [facility] 06/26/2020 Bacterial vaginosis - Will treated with oral flagyl. Reviewed precautions with alcohol use and that she needs to 100% avoid. Avoid intercourse. Start a probiotic. Yogurt sick visit with Samia Cameron [facility] 04/17/2020 Amenorrhea - Will get labs including HC G, TSH, FSH and prolactin. Referral to WHEEL BRAIDER for secondary amenorrhea sick visit with Samia Cameron [facility] 04/05/2020 Possible vaginal candidiasis - Diflucan as directed s ick visit with Samia Cameron [facility] 04/05/2020 Secondary amenorrhea sick visit with Samia Nisha [facility] 0 04/05/2020 Vaginitis sick visit with Samia Nisha [facility] Hematuria followup with Darlene Penaloza [facility] 2019 Urinary tract infection [Cystitis, unspecified with he maturia] sick visit with Lyssa Anderson MD 02/10/2020 STD due to chlamydia trachomatis Exposure urgent visit with Jodie Garcia [facility] 06/03/2019 Moderate recurrent major depression - S he is doing remarkably well at this time. She is going to continue to follow with psychiatry, her next appt is scheduled for the end of June. She will also continue with her therapist. I will see her back in one year for annual with pap. She will return sooner if needed followup with Samia Herbert [facility] 05/26/2019 Abdominal pain Left flank and LLQ pain with hematuria, will evaluate for nephrolithiasis with renal protocol CT. Encourage increased PO hydration and Tylenol/NSAIDs prn pain [Unspecified abdominal pain] sick visit with Lyssa Anderson MD 05/19/2019 Hematuria [Other microscopic hematuria] sick visit with Brenna Anderson MD 05/19/2019 Atypical chest pain urgent visit with Jodie Garcia [facility] 03/22 Anxiety disorder NOS [facility]2019 Moderate recurrent major depression - S he will continue her current medication at the current dose. Referral to psychiatry pending, I would like her to be evaluated prior to change in any medication to check the accuracy of her current diagnosis followup with Samia Cameron [facility] 11/16/2018 Vitamin D deficiency - Start vitamin D 2000 units elie ly followup with Samia Cameron [facility] 11/16/2018 Anxiety disorder NOS sick visit with Samia Cameron [facility] 1 12/30/2017 Moderate recurrent major depression sick visit with Samia Cameron [facility] 10/29/2018 Acute sinusitis urgent visit with Ole Mcintyre PA-C 2016 Instructions Instructions not supported for this document typeNo Instructions Recorded Medical Equipment - Implanted Devices Includes: Current and historical DevicesNo Medical Equipment Recorded Medications Includes: Current and historical Medications Current Medications (continue as prescribed) Sertraline HCl 100 MG Oral Tablet 08/02/2021 Provid er: Samia Herbert [facility] Diagnosis: 1 PO QD Vyvanse 30 MG Oral Capsule 07/21/2021 Provider: Diagnosis: daily Loryna 3-0.02 MG Oral Tablet 06/20/2021 Provider: Saritha Paez [employer]ODWORKING CRAFTSMAN Diagnosis: 1 PO QD Advair Diskus 250-50 MCG/DOSE Inhalation Aerosol Powde r Breath Activated 05/11/2021 Provider: Saritha Paez [employer]ODWORKING CRAFTSMAN Diagnosis: Shortness of breath 1 puff daily Singulair 10 MG Oral Tablet 05/11/2021 Provider: Saritha Paez WOODWORKING CRAFTSMAN Diagnosis: Shortness of breath 1 tab daily ProAir HFA 108 (90 Base) MCG/ACT Inhalation Aerosol Solution 04/02/2021 Provider: Samia Herbert WOODWORKING CRAFTSMAN-BC Diagnosis: 2 puffs every 4 hours prn wheezing. Xyzal Allergy 24HR 5 MG Oral Tablet 04/02/2021 Prov ider: Diagnosis: 1 tab po daily Nystatin 421819 UNIT/GM External Powder 08/11/2020 Provider: Saritha Paez [facility] Diagnosis: Acute vaginitis apply 149880 units 2-3 times per day Hyoscyamine Sulfate 0.125 MG Tablet 03/23/2017 Prov ider: Andrews Goyal Diagnosis: Past Medications on file Zithromax 250 MG Oral Tablet 04/12/2021 - 04/17/2021 Provide r: Samia Herbert [facility] Diagnosis: 2 tabs po today then 1 tab po daily x 4 days. Asmanex HFA 100 MCG/ACT Inhalation Aerosol 04/02/2021 - 12/2020 Provider: Diagnosis: 2 puffs twice a day. Sertraline HCl 100 MG Oral Tablet 03/30/2021 - 07/28/2021 Pr ovider: Samia Herbert [facility] Diagnosis: 1 PO QD Gianvi 3-0.02 MG Oral Tablet 01/30/2021 - 08/02/2021 Provide r: Samia Herbert [facility] Diagnosis: as directed metroNIDAZOLE 0.75% Vaginal Gel 11/30/2020 - 12/05/2020 Prov ider: Samia Herbert [facility] Diagnosis: Other specified [place] nflammatory disorders of vagina 1 applicator twice per day x 5 days Gianvi 3-0.02 MG Oral Tablet 09/16/2020 - 01/30/2021 Provide r: Saritha Paez [employer]WORKING CRAFTSMAN Diagnosis: as directed metroNIDAZOLE 0.75% Vaginal Gel 08/05/2020 - 11/30/2020 Prov ider: Saritha Paez WOODWORKING CRAFTSMAN Diagnosis: Other specified [place] nflammatory disorders of vagina 1 applicator twice per day x 5 days Sertraline HCl 100 MG Oral Tablet 06/26/2020 - 11/30/2020 Pr ovider: Samia Herbert [facility] Diagnosis: 1 PO QD Gianvi 3-0.02 MG Oral Tablet 04/24/2020 - 08/11/2020 Provide r: Samia Herbert [facility] Diagnosis: as directed metroNIDAZOLE 0.75% Vaginal Gel 04/21/2020 - 04/26/2020 Prov ider: Lyssa Anderson MD Diagnosis: as directed One applicatorful (~37.5 mg metronidazole) intravaginally once daily for 5 days. Flagyl 500 MG Oral Tablet 04/17/2020 - 04/24/2020 Provider: Samia Herbert [facility] Diagnosis: 1 tab po bid x 7 days. metroNIDAZOLE 0.75% Vaginal Gel 04/06/2020 - 04/11/2020 Prov ider: Samia Herbert [facility] Diagnosis: One applicatorful vaginally twice daily daily x 5 days. Diflucan 150 MG Oral Tablet 04/05/2020 - 04/12/2020 Provider : Samia Herbert [facility] Diagnosis: 1 tab po x 1 dose today, repeat in 3 days if needed. Naproxen 500 MG Oral Tablet 02/15/2020 - 02/22/2020 Provider : Darlene Penaloza [facility] Diagnosis: 1 PO BID Pyridium 200 MG Oral Tablet 02/11/2020 - 02/14/2020 Provider : Darlene Penaloza [facility] Diagnosis: 1 PO TID Nitrofurantoin Monohyd Macro 100 MG Oral Capsule 02/10/2020 - 02/15/2020 Provider: Lyssa Anderson MD Diagnosis: 1 PO BID Gianvi 3-0.02MG Oral Tablet 10/11/2019 - 04/17/2020 Provider : Samia Herbert [facility] Diagnosis: as directed Gianvi 3-0.02MG Oral Tablet 06/23/2019 - 05/26/2019 Provider : Samia Herbert [facility] Diagnosis: as directed lamoTRIgine 100MG Oral Tablet 06/07/2019 - 09/05/2019 Provid er: Samia Herbert [facility] Diagnosis: 1 tab po bid Azithromycin 250MG Oral Tablet 06/03/2019 - 06/04/2019 Provi jeanie: Jodie Garcia [facility] Diagnosis: Sexually transmitted chlamydial infection of other [...] Tablet 01/29/2019 - 05/26/2019 Provider : Samia COBBPPRINCESS Diagnosis: as directed Gianvi 3-0.02MG Oral Tablet 01/06/2019 - 11/16/2018 Provider : Samia PETIT Diagnosis: as directed Gianvi 3-0.02MG Oral Tablet 11/12/2018 - 11/16/2018 Provider : Samia PETIT Diagnosis: as directed Sertraline HCl 100MG Oral [...] Recorded Vital Signs Includes: Vital Signs from 08/13/2020 through 08/13/2021 Vital Name 08/09/2021 03:45P 06/22/2021 08:59A 05/11/2021 11:25A 04/02/2021 03:35P 11/30/2020 03:20P Blood Pressure Sitting (mmHg) 128/82 112/70 112/70 120/82 102/70 Pulse Rate-Sitting (bpm) 78 96 82 99 66 Respiration Rate (breaths/min) 18 20 18 24 18 Height (in) 62.75 62.75 Weight (lb) 259 259.9 258.4 257 259 Body Mass Index (kg/m2) 46.2 45.9 Body Surface Area (m2) 2.15 2.15 Oxygen Saturation (%) 98 96 98 Temp-Tympanic (F) 98.9 98.5 Note: pap 06/26/20 Vital Name 10/10/2020 03:33P 10/04/2020 11:06A Blood Pressure Sitting (mmHg) 124/80 112/74 Pulse Rate-Sitting (bpm) 118 72 Respiration Rate (breaths/min) 18 18 Height (in) 62.75 62.75 Weight (lb) 249 Body Mass Index (kg/m2) 46.2 44.5 Body Surface Area (m2) 2.15 2.12 Oxygen Saturation (%) 98 Results Includes: Results from 08/13/2020 through 08/13/[address]/NG RT-PCR [facility] Ordered by Samia HERNANDEZ-RILEY on 08/09/2021 Collected: 08/09/2021 Reported: 08/09/2021 19:[address]/NG RT-PCR See Note None Note: CT/NG IS A QUALITATIVE IN VITRO RE AL-TIME PCR TEST FORDETECTION OF CHLAMYDIA TRACHOMATIS (CT) AND NEISSERIAGONORRHOEAE (NG)NORMAL VALUE FOR CT/NG IS " NO ORGANISMS DETECTED "X95 False negative results may occur if the organism(s) ispresent at levels below the analytical limit of detection.X95 Because the detection of CT and NG is dependent on the DNApresent in the sample, reliable results are dependent onproper sample collection, handling and storage.X95 With endocervical specimens, assay interference may beobserved in the presence of: blood (>1% v/v) or mucin (>0.8%w/v).X95 With urine specimens, assay interference may be observedin the presence of: blood (>0.3% v/v), mucin (>0.2% w/v),bilirubin (>0.2 mg/mL), or Vagisil feminine powder (>0.2%w/v).X95 Collection and testing of urine specimens with the XpertCT/NG test is not intended to replace cervical exams andendocervical sampling for diagnosis of urogenital infection.Other genitourinary tract infections can be caused by otherinfectious agents.X95 The effects of other potential variables such as vaginaldischarge, use of tampons, douching, and specimen collectionvariables have not been determined.X95 A negative test result does not exclude the possibility ofinfection because test results may be affected by improperspecimen collection, technical error, specimen mix-up,concurrent antibiotic therapy, or the number of organisms inthe specimen which may be below the sensitivity of the test.X[address]/NG test should not be used for the evaluationof suspected sexual abuse or for other medico-legalindications. Additional testing is recommended in anycircumstance when false positive or false negative resultscould lead to adverse medical, social, or psychologicalconsequences.X[address]/NG test provides qualitative results. Nocorrelation can be drawn between the magnitude of the Ctvalue and the number of cells in an infected sample.X95 Positive results may be observed after successfulantibiotic treatment due to target nucleic acids fromresidual non-viable chlamydia.X[address]/NG performance has not been evaluated inpatients less than 14 years of age.X[address]/NG performance has not been evaluated inpatients with a history of hysterectomy.X[address]/NG test has not been evaluated with patientswho are currently being treated with antimicrobial agentsactive against CT or NG.X95 As with many diagnostic tests, results from the XpertCT/NG test should be interpreted in conjunction with otherlaboratory and clinical data available to the clinician.X95 Mutations or other changes within the regions of thebacterial genomes covered by the primers and/or probes inthe Xpert assay may result in failure to detect the targetorganisms.76857-7Y trach DNA Vag Ql DEVAUGHN+probeLNCHLAMNC. trachomatis NOT [id number]. trachomatis NOT [id number] gonorrhoea rRNA Vag Ql DEVAUGHN+probeLNNEIGNN.gonorrhoeae NOT [id number].gonorrhoeae NOT DETECTED Reviewed by Samia PETIT on 02/2021; All test results are final unless otherwise noted. [facility] Ordered by Samia PETIT on 08/09/2021 Collected: 08/09/2021 Reported: 08/11/2021 09:35 Anne species DNA Probe NOT DETECTED (NOT DETECTED) None Note: THIS TEST WAS PERFORMED AT:[employer] [facility] [address]EIFELB MERATI,MDResponsible Observer: Anne DNA Anne species DNA Probe [id number] 153.7634 ([facility]) Gardnerella DNA Probe NOT DETECTED (NOT DETECTED) None Note: Responsible Observer: Gardnerella DNA Gardnerella DNA Probe [id number] 906.7872 ([facility]) Trichomonas DNA Probe NOT DETECTED (NOT DETECTED) None Note: Responsible Observer: Trichomonas DNA Trichomonas DNA Probe [id number] 945.2806 ([facility]) Reviewed by Samia PETIT on 02/2021; All test results are final unless otherwise noted. Reported Physicians [facility] Ordered by Samia HERNANDEZ-RILEY on 08/09/2021 Collected: 08/09/2021 Reported: 08/11/2021 09:36 Reported Physicians See Note None Note: Reported Physicians:Ordering: Samia HerbertAttending: Samia Herbert Reviewed by Samia COBBPPRINCESS on 02/2021; All test results are final unless otherwise noted. BinaxNow Covid-19 Ag [facility] Ordered by Lyssa Anderson MD on 07/10/2021 Collected: 07/10/2021 Reported: 07/10/2021 12:45 BinaxNow Covid-19 Ag See Note None Note: Normal result is "BinaxNow Covid-1 9 Ag negative"BinaxNow Covid-19 Ag is a rapid lateral flowimmunochromatographic immunoassayThis test detects both viable(live) and non-viable, SARS-COVand SARS-COV-2.Positive test results do not differentiate between SARS-COVand XDRO-QGU-0Vlbwemag results , from patients with symptom onset beyondseven days, should be treated as presumptive andconfirmation with a molecular assay, if necessary, forpatient managementIf the differentiation of specific SARS viruses and strainsis needed, additional testing, in consultation with stateand local public health departments, is required.43472-1HGWT-MyA-8 Ag Resp Ql IA.rapidLNSAGNBinaxNow Covid -19 Ag [id number] Covid -19 Ag Negative Reviewed by Lyssa Anderson MD on 07/10; All test results are final unless otherwise noted. Reported Physicians [facility] Ordered by Lyssa Anderson MD on 07/10/2021 Collected: 07/10/2021 Reported: 07/10/2021 12:45 Reported Physicians See Note None Note: Reported Physicians:Ordering: Lyssa GuptaAttending: Lyssa Anderson Reviewed by Lyssa Anderson MD on 07/10; All test results are final unless otherwise noted. [facility] Ordered by Lyssa Anderson MD on 07/06/2021 [address] [place], [address] Collected: 07/06/2021 Reported: 07/06/2021 12:17 tel : BinaxNow normal N (Normal) Reviewed by Lyssa Anderson MD on 07/06; All test results are final unless otherwise noted. Cepheid SARS/FLU/RSV RT-PCR [facility] Ordered by Lyssa Anderson MD on 07/06/2021 Collected: 07/06/2021 Reported: 07/06/2021 16:26 Cepheid SARS/FLU/RSV RT-PCR See Note None Note: NORMAL RESULT IS "Not Detected"Cep heid SARS-CoV-2,FLU/RSV is Multiplex real time RT-PCRNegative results do not preclude SARS-COV-2, influenza orRSV infection and should not be used as the sole basis fortreatment or other patient management decisions.False negative results may occur if virus is present atlevels below the analytical limit of detection.This test has been authorized by FDA under an EUA for use byNordic Design Collectivemgjuzskkpncf43947-4INLP-lnp CoV RNA Resp Ql DEVAUGHN+teumrIRVEYJHCBXT-GAS-9 NOT [id number]-XDW-2 NOT [id number] RNA Resp Ql DEVAUGHN+probeLNNFLUAInfluenza A Not Det [id number] A Not Zopkdfbc69803-3ZMYZV RNA Resp Ql DEVAUGHN+probeLNNINBInfluenza B Not [id number] B Not Lanysqeb17799- 2RSV RNA Resp Ql DEVAUGHN+probeLNNRSVRSV Not [id number] Not Detected Reviewed by Lyssa Anderson MD on 07/09; All test results are final unless otherwise noted. Reported Physicians [facility] Ordered by Lyssa Anderson MD on 07/06/2021 Collected: 07/06/2021 Reported: 07/06/2021 16:26 Reported Physicians See Note None Note: Reported Physicians:Ordering: Lyssa GuptaAttending: Lyssa Anderson Reviewed by Lyssa Anderson MD on 07/09; All test results are final unless otherwise noted. MANUAL DIFF [facility] Ordered by Saritha Paez [facility] on 05/11/2021 Collected: 05/11/2021 Reported: 05/11/2021 13:00 [...] COBBP on 05/11/2021 Collected: 05/11/2021 Reported: 05/11/2021 13:01 Reported Physicians See Note None Note: Reported Physicians:Ordering: Saritha RobinsAttending: Eulalio Paez To: Samia Herbert Reviewed by Saritha HERNANDEZ on ; All test results are final unless otherwise noted. D-DIMER [facility] Ordered by Saritha COBBP [...] Auto See Note (0-2) N (Normal) Note: [id number] Ob beverage server: IG% IG% 100.1375 (B) Hct [...] test results are final unless otherwise noted. [facility] Ordered by Saritha HERNANDEZ on [...] Paez To: Piedad Samia Reviewed by Saritha HERNANDEZ on ; All [...] molecular test, if the virus mutates in [facility], Covid-19 may not be detected or may bedetected less predictably.ID NOW COVID-19 is intended for testing a swab directlywithout elution in viral transport media as dilution willresult in decreased detection of low positive samples thatare near the limit of detection of the test.SWAB SAMPLES ELUTED IN VTM ARE NOT APPROPRIATE FOR USE INTHIS TEST.[id number]-6 RNA Resp Ql DEVAUGHN+probeLNNOSNo Organisms [id number] Organisms Detected Reviewed by Lyssa Anderson MD [...] Illness Recorded Social History Description Last Updated Sexually active , 20 partners to date. Monogamus with one male 08/09/2021 Education history - Graduated from [employer]. 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 11/13/2020 Gardasil 9(3dose HPV, IM) nonavalent 59741 Encounter f or immunization Kyle Zambrano MD [facility], [facility] 11/13/2020 Most recent diastolic blood pressure < 80 mmHg 3078F Major depressive disorder, recurrent, moderate Samia Herbert [facility], [facility] 10/04/2020 Most recent systolic blood pressure less than 130 mmHg 3074 F Major depressive disorder, recurrent, moderate Samia Cameron [facility], [facility] 10/04/2020 Surgical History Last Updated History of arthroscopy of the knee with medial meniscus repair - Right knee- Dr. Mcinotsh, 2013 10/28/2018 Medical History Includes: Medical History [...] Mental Status not supported for this document type Description Anxiety Moderate recurrent major depression - F ollowing with Dr. Mosqueda Functional Status Functional Status not supported for [...] 1 05/11/2020 Left Deltoid Complete (Admini stered) [facility] Gardasil 2 06/15/2020 Right Deltoid Complete (Admin istered) [facility] Gardasil 3 11/13/2020 Left Deltoid Complete (Admini stered) [facility] Hep B pediatric 1 1998 Complete (Reported) [...] AllergiesNo Known Allergies Encounters Includes: Encounters from 08/13/2020 through 08/13/2021 Encounter Provider Location Date Check-In Time Check-Out Time D iagnosis ANNUAL PE-followup Samia Herbert [employer] 08/09/2021 3:38PM 5:08PM Routine History and Physical Adult (18 - 64 Yrs), Major Depression Recurrent Moderate, Anxiety Disorder Nos, Asthma Persistent, Assessment of Cerv Pap Smear (+) Atyp Squamous Cells Undetermined Signif nursing visit Lyssa Anderson MD [facility], [facility] 07/06/2021 11:23AM 12:00PM followup Sarithalaw Paez [facility], [facility] 06/22/2021 8:50AM 9:17AM Allergic Rhinitis, Reactive Airway Disease sick visit Saritha Paez [facility] 05/11/2021 11:18AM 11:45AM Allergic Rhinitis, Reactive Airway Disease [Patient Encounter] Samia Cameron [facility] 04/12/202104/02 4:20PM 04/02/2021 11:59PM followup Samia Cameron [facility], [facility] 04/02/2021 3:28PM 4:15PM Major Depression Recurrent M oderate, Reactive Airway Disease, Allergic Rhinitis [Patient Encounter] Samia Cameron [facility] 03/18/202111/30 7:24PM 11/30/2020 11:59PM followup Samia Cameron [facility], [facility] 11/30/2020 3:09PM 3:54PM Urticaria Idiopathic, Bacter ial Vaginosis nursing visit Kyle Zambrano [facility], [facility] 11/13/2020 3:37PM 3:52PM sick visit Lyssa Anderson MD [facility], [facility] 1 12/11/2019 3:15PM 3:46PM Pulmonary Embolism, Upper Re spiratory Infection Acute followup Samia Cameron [facility], [facility] 10/04/2020 10:59AM 11:38AM Major Depression Recurrent M oderate Insurance Includes: Active Insurance Policies Plan Name Member ID Group # Subscriber Relationship Effective Da seng 1 - [employer] Insurance [id number] Bob Diaz Child Advance Directives Includes: Current Advance DirectivesNo Advance Directives Recorded Health Concerns Includes: Active Health ConcernsNo Active Health Concerns Recorded Goals Includes: Active GoalsNo Active Goals Recorded Interventions Includes: Interventions for active GoalsNo Interventions Recorded Evaluations & Outcomes Includes: Evaluations & Outcomes for active GoalsNo Outcomes Recorded
--- OUTSIDE RECORDS SUMMARY | 2021-09-02 18:22 | CCD ---
Author Author [facility] Organization [facility] Address [address] [facility] [address] [place] [address] Phone Care Team Providers Care Dependency Case Manager Name Role Phone Justin DE LA ROSA, Lyssa Sebastian PP [phone] [facility]-, Samia Cameron Unavailable [phone] Reason for Referral No Reason for Referral Recorded Problems Includes: Active, inactive, and resolved Problems All Visits Onset Date - Time Resolved Date - Time Provider Co ndition Status Reactive Airway Disease 04/03/2021 - 12:00AM Samia Cameron [facility]- Active Note: - Discussed that her w heezing seems to be present when she is [...] return to office if she does not improve. Cerv Pap Smear (+) Atyp Squamous Cells Undetermined Signif 0 07/05/2020 - 11:44AM Samia Cameron [facility] DATA ENTRY ASSISTANT-BC Active Note: - Repeat 06/2021. (high risk HPV) Vitamin D Deficiency 11/04/2018 - 12:00AM Samia Ku [facility]-BC Active Allergic Rhinitis 10/28/2018 - 12:00AM Samia Cameron [facility]- Active Note: - 03/30- 3++- 4++, dust , pollen, cat, dog dander. Anxiety Disorder Nos 10/28/2018 - 12:00AM Samia altman DATA ENTRY ASSISTANT-BC Active Concussion with No Loss of Consciousness 10/28/2018 - 12:00AM [facility] Gastro-esophageal reflux disease without esophagitis 10/28/2018 - 12:00AM [facility] Hemorrhoids External 10/28/2018 - 12:00AM Samia Ku altman DATA ENTRY ASSISTANT-BC Active Ibs--pain Predominant 10/28/2018 - 12:00AM Samia Cameron [facility] Active Note: - Negative colonoscopy , endoscopy, gallbladder US, labs. - Dr. Box 05/2017 Major Depression Recurrent Moderate 10/28/2018 - 12:00AM Samia Cameron [facility]-BC Active Obesity 10/28/2018 - 12:00AM Samia Ku DATA ENTRY ASSISTANT-B C Active Plan of Treatment Future Appointments Date Time Location Provider ANNUAL PE-followup 08/09/2021 3:40PM [facility] Date Ordered antihistamines - She could use OTC antihistamine daily or as needed. She could also use benadryl as needed followup with Samia Cameron [facility] 11/30/2020 Requested request consultation by flagstone layer followup with Ne alisa Cameron [facility] 11/30/2020 Ordered a urine culture sick visit [...] She will continue to follow with her flagstone layer. She is also instructed to continue taking her [facility] Moderate recurrent major depression whic h is stable - Following with therapist. Currently awaiting appt with psychiatry. No changes made today followup with Samia Cameron P[facility]- 04/02/2021 Reactive airway disease - Discussed jeremy [...] she does not improve followup with Samia Nisha Piedad [facility]- 04/02/2021 Bacterial vaginosis which is showing rec urrence of disease - She will treat with metrogel as directed. If symptoms do not resolve she will return to office for pelvic exam and testing followup with Samia CO[facility]- 11/30/2020 Idiopathic urticaria which is showing no evidence of disease at present. She is requesting referral to allergies for further evaluation followup with Samia Herbert [facility]- 11/30/2020 Acute upper respiratory infection COVID test [...] the current dose followup with Samia Herbert DATA ENTRY ASSISTANT-BC 10/04/2020 Vaginal candidiasis followup with Saritha Paez DATA ENTRY ASSISTANT 12/2019 Vaginal discharge followup with Saritha Ochoae DATA ENTRY ASSISTANT 12/2019 Vaginal candidiasis sick visit with Saritha Barnesotte DATA ENTRY ASSISTANT 0 08/05/2020 Vaginal discharge sick visit with Saritha Barnesotte DATA ENTRY ASSISTANT 0 08/05/2020 Moderate recurrent major depression - [...] PE-follow up exam/30 with Samia Cameron [facility] 06/26/2020 Routine adult history and physical (18 - 64 yrs) ANNUA L PE-followup exam/30 with Samia [facility] 06/26/2020 Vitamin D deficiency ANNUAL PE-followup exam/ with Samia Nisha [facility] 06/26/2020 Bacterial vaginosis - Will treated with oral flagyl. Reviewed precautions with alcohol use and that she needs to 100% avoid. Avoid intercourse. Start a probiotic. Yogurt sick visit with Samia Cameron [facility] 04/17/2020 Amenorrhea - Will get labs including HC G, TSH, FSH and prolactin. Referral to [facility] for secondary amenorrhea sick visit with Samia Cameron [facility] 04/05/2020 Possible vaginal candidiasis - Diflucan as directed s ick visit with Samia Cameron [facility] 04/05/2020 Secondary amenorrhea sick visit with Samia Cameron [facility] 0 04/05/2020 Vaginitis sick visit with Samia Nisha [facility] Hematuria followup with Darlene Penaloza [facility] 2019 Urinary tract infection [Cystitis, [...] 03/22 Anxiety disorder NOS [facility] Moderate recurrent major depression - S he will continue her current medication at the current dose. Referral to psychiatry pending, I would like her to be evaluated prior to change in any medication to check the accuracy of her current diagnosis followup with Samia Cameron [facility] 11/16/2018 Vitamin D deficiency - Start vitamin D 2000 units elie ly followup with Samia Herbert [facility] 11/16/2018 Anxiety disorder NOS sick visit with Samia Cameron [facility] 1 12/30/2017 Moderate recurrent major depression sick visit with Samia Cameron [facility] 10/29/2018 Acute sinusitis urgent visit with Ole Mcintyre PA-C 2016 Instructions Instructions not supported for this document typeNo Instructions Recorded Medical Equipment - Implanted Devices Includes: Current and historical DevicesNo Medical Equipment Recorded Medications Includes: Current and historical Medications Current Medications (continue as prescribed) ProAir HFA 108 (90 Base) MCG/ACT Inhalation Aerosol Solution 04/02/2021 Provider: Samia Herbert [facility] Diagnosis: 2 puffs every 4 hours prn wheezing. Xyzal Allergy 24HR 5 MG Oral Tablet 04/02/2021 Prov ider: Diagnosis: 1 tab po daily Asmanex HFA 100 MCG/ACT Inhalation Aerosol 04/02/2021 Provider: Diagnosis: 2 puffs twice a day. Sertraline HCl 100 MG Oral Tablet 03/30/2021 - 07/28/2021 Pr ovider: Samia Herbert [facility] Diagnosis: 1 PO QD Gianvi 3-0.02 MG Oral Tablet 01/30/2021 Provider: Samia Cameron [facility] Diagnosis: as directed Nystatin 597257 UNIT/GM External Powder 08/11/2020 Provider: Saritha Paez [facility] Diagnosis: Acute vaginitis apply [id number] units 2-3 times per day Hyoscyamine Sulfate 0.125 MG Tablet 03/23/2017 Prov ider: Andrews Goyal Diagnosis: Past Medications on file metroNIDAZOLE 0.75% Vaginal Gel 11/30/2020 - 12/05/2020 Prov ider: Samia Herbert [facility]- Diagnosis: Other specified monroe nflammatory disorders of vagina 1 applicator twice per day x 5 days Gianvi 3-0.02 MG Oral Tablet 09/16/2020 - 01/30/2021 Provide r: Saritha Paez [facility] Diagnosis: as directed metroNIDAZOLE 0.75% Vaginal Gel 08/05/2020 - 11/30/2020 Prov ider: Saritha Paez [facility] Diagnosis: Other specified monroe nflammatory disorders of vagina 1 applicator twice per day x 5 days Sertraline HCl 100 MG Oral Tablet 06/26/2020 - 11/30/2020 Pr ovider: Samia Herbert [facility]- Diagnosis: 1 PO QD Gianvi 3-0.02 MG Oral Tablet 04/24/2020 - 08/11/2020 Provide r: Samia Herbert [facility] Diagnosis: as directed metroNIDAZOLE 0.75% Vaginal Gel 04/21/2020 - 04/26/2020 Prov ider: Lyssa Anderson MD Diagnosis: as directed One applicatorful (~37.5 mg metronidazole) intravaginally once daily for 5 days. Flagyl 500 MG Oral Tablet 04/17/2020 - 04/24/2020 Provider: Samia Herbert [facility]- Diagnosis: 1 tab po bid x 7 days. metroNIDAZOLE 0.75% Vaginal Gel 04/06/2020 - 04/11/2020 Prov ider: Samia Herbert [facility] Diagnosis: One applicatorful vaginally twice daily daily x 5 days. Diflucan 150 MG Oral Tablet 04/05/2020 - 04/12/2020 Provider : Samia Herbert [facility]- Diagnosis: 1 tab po x 1 dose [...] 10/11/2019 - 04/17/2020 Provider : Samia Herbert [facility] Diagnosis: as directed Gianvi 3-0.02MG Oral Tablet 06/23/2019 - 05/26/2019 Provider : Samia Herbert [facility] Diagnosis: as directed lamoTRIgine 100MG Oral Tablet 06/07/2019 - 09/05/2019 Provid er: Samia Herbert [facility] Diagnosis: 1 tab po bid Azithromycin 250MG Oral Tablet 06/03/2019 - 06/04/2019 Provi jeanie: Jodie Garcia [facility] Diagnosis: Sexually transmitted chlamydial infection of other sites 4 tabs po x 1 Sertraline HCl 100MG Oral Tablet 05/26/2019 - 06/26/2020 Pro vider: Diagnosis: 2 tabs po daily lamoTRIgine 100MG Oral Tablet 05/26/2019 - 05/26/2019 Provid er: Diagnosis: 1 tab po bid Naproxen 500MG Oral Tablet 03/22/2019 - 04/21/2019 Provider: Jodie Garcia [facility] Diagnosis: Chest pain, unspecif ied 1 PO BID 1 tab po bid, lamoTRIgine 25MG Oral Tablet 03/22/2019 - 05/12/2019 Provide r: Diagnosis: lamoTRIgine 100MG Oral Tablet 02/24/2019 - 05/26/2019 Provid er: Diagnosis: Gianvi 3-0.02MG Oral Tablet 01/29/2019 - 05/26/2019 Provider : Samia Herbert [facility] Diagnosis: as directed Gianvi 3-0.02MG Oral Tablet 01/06/2019 - 11/16/2018 Provider : Samia Herbert [facility] Diagnosis: as directed Gianvi 3-0.02MG Oral Tablet 11/12/2018 - 11/16/2018 Provider : Samia Herbert [facility] Diagnosis: as directed Sertraline HCl 100MG [...] Recorded Vital Signs Includes: Vital Signs from 04/03/2020 through 04/03/2021 Vital Name 04/02/2021 03:35P 11/30/2020 03:20P 10/10/2020 03:33P 10/04/2020 11:06A 08/11/2020 03:41P Blood Pressure Sitting (mmHg) 120/82 102/70 124/80 112/74 104/60 Pulse Rate-Sitting (bpm) 99 66 118 72 60 Respiration Rate (breaths/min) 24 18 18 18 18 Temp-Tympanic (F) 98.9 98.5 Height (in) 62.75 62.75 62.75 Weight (lb) 257 259 249 251 Body Mass Index (kg/m2) 45.9 46.2 44.5 Body Surface Area (m2) 2.15 2.15 2.12 Oxygen Saturation (%) 98 98 Vital Name 08/05/2020 10:21A 06/26/2020 01:46P 04/17/2020 10:37A 04/05/2020 10:20A Blood Pressure Sitting (mmHg) 110/80 110/78 110/76 Pulse Rate-Sitting (bpm) 80 72 72 78 Respiration Rate (breaths/min) 16 18 18 18 Height (in) 62.75 62.75 62.75 Weight (lb) 250 246 246 Body Mass Index (kg/m2) 44.6 43.9 43.9 Body Surface Area (m2) 2.12 2.11 2.11 Oxygen Saturation (%) 97 Blood Pressure Sitting R 118/82 BP Cuff Size Large Pulse Rhythm Regular Temp-Oral (F) 97.3 Note: LMP 06/01/20 Results Includes: Results from 04/03/2020 through 04/03/2021 D-DIMER [facility] Lab Ordered by Lyssa Anderson MD [...] are final unless otherwise noted. Reported Physicians [facility] Ordered by Lyssa Anderson MD on 10/10/2020 Collected: 10/10/2020 Reported: 10/10/2020 17:01 Reported Physicians See Note None Note: Reported Physicians:Ordering: Lyssa GuptaAttending: Lyssa Anderson Reviewed by Lyssa Anderson MD on 10/11; All test results are final unless otherwise noted. DWYER COVID-[address] [facility] Lab Ordered by Lyssa Anderson [...] molecular test, if the virus mutates in [facility] region, Covid-19 may not be detected or may bedetected less predictably.ID NOW COVID-19 is intended for testing a swab directlywithout elution in viral transport media as dilution willresult in decreased detection of low positive samples thatare near the limit of detection of the test.SWAB SAMPLES ELUTED IN VTM ARE NOT APPROPRIATE FOR USE INTHIS TEST.[id number] RNA Resp Ql DEVAUGHN+probeLNNOSNo Organisms [id number] Organisms Detected Reviewed by Lyssa Anderson MD on 10/11; All test results are final unless otherwise noted. Reported Physicians [facility] Lab Ordered by Lyssa Anderson MD on 10/10/2020 Collected: 10/10/2020 Reported: 10/10/2020 18:59 Reported Physicians See Note None Note: Reported Physicians:Ordering: Lyssa GuptaAttending: Francesca Anderson To: Doctor Provided, No FamilyCopy To: Health, Public Reviewed by Lyssa Anderson MD on 10/11; All test results are final unless otherwise noted. Wet Prep [facility] Lab Ordered by Saritha COBBP on 08/11/2020 Collected: 08/11/2020 Reported: 08/11/2020 18:04 Wet prep results See Note None Note: Clue cells presentLong rods notedN o yeast like or trichomonas seenSquamous cellsShort rods seenWBCs seen Wet mount for Trichomonas Negative for Trichomonas vaginalis None Reviewed by Saritha HERNANDEZ on ; All test results are final unless otherwise noted. Reported Physicians [facility] Lab Ordered by Saritha HERNANDEZ on 08/11/2020 Collected: 08/11/2020 Reported: 08/11/2020 18:05 Reported Physicians See Note None Note: Reported Physicians:Ordering: Saritha RobinsAttending: Saritha Paez Reviewed by Saritha COBBP on ; All test results are final unless otherwise noted. LIPID PANEL [facility] Lab Ordered by Samia HERNANDEZ-BC on [...] s Triglycerides 400.2951 (G) Reviewed by Samia PETIT on ; All test results are final unless otherwise noted. Reported Physicians [facility] Lab Ordered by Samia COBBP- on 08/07/2020 Collected: 08/07/2020 Reported: 08/07/2020 09:11 Reported Physicians See Note None Note: Reported Physicians:Ordering: Saritha RobinsAttending: Saritha Paez Reviewed by Samia PETIT on ; All test results are final unless otherwise noted. CBC W AUTO DIFF [facility] Lab Ordered by Samai COBBRILEY on 08/07/2020 Collected: 08/07/2020 Reported: 08/07/2020 08:31 [...] Auto See Note (0-2) N (Normal) Note: [id number] Ob dining car server: IG% IG% 100.1375 (B) Hct VFr [...] test results are final unless otherwise noted. [facility] Lab Ordered by Samia PETIT on 08/07/2020 [...] are final unless otherwise noted. Insulin Level [facility] Ordered by Samia COBBRILEY on 08/07/2020 Collected: 08/07/2020 Reported: 08/08/2020 12:41 Insulin 18.6 None Note: Reference Range < or = 19.6 Risk: Optimal < or = 19.6 Moderate NA High >19.6 Adult cardiovascular event risk category cut points (optimal, moderate, high) are based on [employer] population data from 10/2011.This insulin assay shows strong cross-reactivity forsome insulin analogs (lispro, aspart, and glargine)an d much lower cross-reactivity with others (detemir,glulisine).THIS TEST WAS PERFORMED AT:[facility] [id number] PEDRAZAible Observer: Insulin Insulin [id number] 913.9122 (QUEST) Reviewed by Samia PETIT on ; All test results are final unless otherwise noted. Reported Physicians [facility] Lab Ordered by Samia COBBRILEY on 08/07/2020 Collected: 08/07/2020 Reported: 08/08/2020 12:41 Reported Physicians See Note None Note: Reported Physicians:Ordering: Saritha RobinsAttending: Saritha Paez Reviewed by Samia PETIT on ; All test results are final unless otherwise noted. Genital culture [facility] 08/05/2020 Collected: 08/05/2020 Reported: 08/08/2020 06:49 Genital culture results See Note None Note: No N. Gonorrhoaea isolatedMany Lac tobacilliFEW Staph Spp. coag neg NOTES See Note None Note: Source:: VAGINAL Reviewed by Samia PETIT on 11/2019; All test results are final unless otherwise noted. Reported Physicians [facility] Lab Ordered by Samia Herbert [facility] on 08/05/2020 Collected: 08/05/2020 Reported: 08/08/2020 06:49 Reported Physicians See Note None Note: Reported Physicians:Ordering: Saritha RobinsAttending: Saritha Paez Reviewed by Samia Herbert [facility] on 11/2019; All test results are final unless otherwise noted. Wet Prep [facility] Lab Ordered by Samia Herbert [facility] on 08/05/2020 Collected: 08/05/2020 Reported: 08/08/2020 06:49 Wet prep results See Note None Note: FEW WBCs seenLong rods notedNO Yea st like organisms seen no trichomonas seenMODERATE Squamous cellsNo clue cells present Wet mount for Trichomonas Negative for Trichomonas vaginalis None NOTES See Note None Note: Source:: VAGINAL Reviewed by Samia Herbert [facility] on ; All test results are final unless otherwise noted. GCAMP [facility] Lab Ordered by Samia Herbert [facility] on 08/05/2020 Collected: 08/05/2020 Reported: 08/09/2020 06:55 C trach rRNA XXX Ql DEVAUGHN+probe See Note (NOT DETECTED) None Note: NOT DETECTEDNOT [id number] 6NOT DETECTEDResponsible Observer: C.Trach RNA Chlamydia trachomatis DNA-DEVAUGHN [id number] 913.9900 ([facility]) N gonorrhoea rRNA XXX Ql DEVAUGHN+probe See Note (NOT DETECTED) None Note: NOT DETECTEDNOT [id number] 6NOT DETECTEDResponsible Observer: GC RNA Neisseria gonorrhoeae DNA -DEVAUGHN [id number] 913.9905 ([facility]) Chlamydia/GC DNA Note SEE NOTE None Note: The analytical performance charact eristics of thisassay, when used to test SurePath(TM) specimens have beendetermined by [employer]. The modifications havenot been cleared or approved by the FDA. This assay hasbeen validated pursuant to the CLIA regulations and isused for clinical purposes.For additional information, please refer tohttps://education.[employer].MyWobile/faq/GFW020(This link is being provided for information/educational purposes only.)THIS TEST WAS PERFORMED AT:[facility] [address]ALPA DIAZ,MDResponsible Observer: GC/Chlam Note Chlamydia/GC DNA Note [id number] 388.4202 (A) NOTES See Note None Note: Source Of Specimen: VAG Reviewed by Samia PETIT on ; All test results are final unless otherwise noted. Reported Physicians [facility] Lab Ordered by Samia PETIT on 08/05/2020 Collected: 08/05/2020 Reported: 08/09/2020 06:56 Reported Physicians See Note None Note: Reported Physicians:Ordering: Saritha RobinsAttending: Saritha Paez Reviewed by Samia PETIT on ; All test results are final unless otherwise noted. Cepheid CT/NG RT-PCR-[facility] Lab Ordered by Samia PETIT on 06/26/2020 Collected: 06/26/2020 Reported: 06/27/2020 08:[address]/NG RT-PCR See Note None Note: CT/NG IS A QUALITATIVE IN VITRO RE AL-TIME PCR TEST FORDETECTION OF CHLAMYDIA TRACHOMATIS (CT) AND NEISSERIAGONORRHOEAE (NG)NORMAL VALUE FOR CT/NG IS " NO ORGANISMS DETECTED "NOSNo Organisms [id number] Organisms Detected Reviewed by Samia PETIT on ; All test results are final unless otherwise noted. AFFIRM [facility] Lab Ordered by Samia PETIT on 06/26/2020 Collected: 06/26/2020 Reported: 06/28/2020 15:04 Anne species DNA Probe NOT DETECTED (NOT DETECTED) None Note: THIS TEST WAS PERFORMED AT:[facility] [address]WTSKMH MERATI,MDResponsible Observer: Anne DNA Anne species DNA Probe [id number] 193.2892 ([facility]) Gardnerella DNA Probe DETECTED (NOT DETECTED) H (High) Note: Increased levels of G. vaginalis m ay not be significantin the absence of signs and symptoms of bacterialvaginosis.Responsible Observer: Gardnerella DNA Gardnerella DNA Probe [id number] 232.1182 ([facility]) Trichomonas DNA Probe NOT DETECTED (NOT DETECTED) None Note: Responsible Observer: Trichomonas DNA Trichomonas DNA Probe [id number] 702.1556 ([employer]) Reviewed by Samia Herbert [facility] on ; All test results are final unless otherwise noted. Reported Physicians [facility] Lab Ordered by Samia Herbert [facility] on 06/26/2020 Collected: 06/26/2020 Reported: 06/28/2020 15:05 Reported Physicians See Note None Note: Reported Physicians:Ordering: Samia HerbertAttending: Samia Herbert Reviewed by Samia Herbert [facility] on ; All test results are final unless otherwise noted. HPVI [facility] Lab Ordered by Samia Herbert [facility] on 06/26/2020 Collected: 06/26/2020 Reported: 07/05/2020 06:52 Thin Prep Vag See Note None Note: See scanned reportSee scanned repo rtLSee scanned reportSee scanned reportLSee scanned reportResponsible Observer: TP w/HPV if ASC Thinprep w/HPV if ASCUS 805.1454 ([facility]) NOTES See Note None Note: [id number] Technique: BRU SH-SPATULALAST MENSTRUAL PERIOD: [id number] Site: ENDOCERVIX Reviewed by Samia Herbert [facility] on ; All test results are final unless otherwise noted. Reported Physicians [facility] Lab Ordered by Samia Herbert [facility] on 06/26/2020 Collected: 06/26/2020 Reported: 07/05/2020 06:52 Reported Physicians See Note None Note: Reported Physicians:Ordering: Samia HerbertAttending: Samia Herbert Reviewed by Samia Herbert [facility] on ; All test results are final unless otherwise noted. BHCG,SERUM QUALITATIVE [facility] Lab Ordered by Samia Herbert [facility] on 04/05/2020 Collected: 04/05/2020 Reported: 04/05/2020 15:13 HCG SerPl-sCnc NEGATIVE (NEGATIVE) None Note: @Reenter manual test result: NEGAT PAIGE@by Lani Watson at 04/05/20 1513.Responsible Observer: BHCG SERUM BHCG SERUM 800.0900 (A) NOTES See Note None Note: @ DID THE CONTROL BAND APPEAR? YES @ DID THE BACKGROUND CLEAR? YES Reviewed by Samia PETIT on ; All test results are final unless otherwise noted. FSH [facility] Lab Ordered by Samia COBBRILEY on 04/05/2020 Collected: 04/05/2020 Reported: 04/05/2020 15:42 FSH SerPl-aCnc 5.9 InternationalUnitsPerLiter_[Arbitrary_Concentration_U None Note: FSH REFERENCE RANGE IU/ L Males Ages 13 - 70 yrs 1.4 - 18.1 Normally Menstruating Females Follicular Phase 2.5 - 10.2 Mid-Cycle Peak 3.4 - 33.4 Luteal Phase 1.5 - 9.1 Post-menopausal Females 23.0 - 116.3 Less Than 0.3 Responsible Observer: FSH FSH 500.3005 (B) Reviewed by Samia PETIT on ; All test results are final unless otherwise noted. Reported Physicians [facility] on 04/05/2020 Collected: 04/05/2020 Reported: 04/05/2020 15:42 Reported Physicians See Note None Note: Reported Physicians:Ordering: Samia HerbertAttending: Samia Herbert Reviewed by Samia Herbert [facility] on ; All test results are final unless otherwise noted. PROLACTIN [facility] on 04/05/2020 Collected: 04/05/2020 Reported: 04/05/2020 15:42 Prolactin SerPl-mCnc 7.7 NanoGramsPerMilliLiter_[Mass_Concentration_Units] None Note: PROLACTIN REFERENCE RANGE ng/mL Males 2.1 - 17.7 Females Non 2.8 - 29.2 9.7 - 208.5 Postmenopausal 1.8 - 20.3 Responsible Observer: Prolactin Prolactin 500.3105 (B) Reviewed by Samia Herbert [facility] on ; All test results are final unless otherwise noted. Reported Physicians [facility] Lab Ordered by Samia Herbert [facility] on 04/05/2020 Collected: 04/05/2020 Reported: 04/05/2020 15:42 Reported Physicians See Note None Note: Reported Physicians:Ordering: Samia HerbertAttending: Samia Herbert Reviewed by Samia Herbert [facility] on ; All test results are final unless otherwise noted. TSH [facility] Ordered by Samia Herbert [facility] on 04/05/2020 Collected: 04/05/2020 Reported: 04/05/2020 15:42 TSH SerPl DL<=0.005 mIU/L-aCnc 1.39 MicroInternationalUnitsPerMilliLiter_[Arbitrary_Con (0.35-5. 50) N (Normal) Note: Responsible Observer: TSH TSH 600 .7055 (D) Reviewed by Samia Herbert [facility] on ; All test results are final unless otherwise noted. Reported Physicians [facility] Ordered by Samia Herbert [facility] on 04/05/2020 Collected: 04/05/2020 Reported: 04/05/2020 15:42 Reported Physicians See Note None Note: Reported Physicians:Ordering: Samia HerbertAttending: Samia Herbert Reviewed by Samia Herbert [facility] on ; All test results are final unless otherwise noted. AFFIRM [facility] Ordered by Samia Herbert [facility] on 04/05/2020 Collected: 04/05/2020 Reported: 04/07/2020 05:07 Anne rRNA Vag Ql Probe See Note (Negative) None Note: NegativeNegativeLNegativeNegativeL [id number] Observer: Anne DNA Anne species DNA Probe [id number] 913.3872 (LCI) G vaginalis rRNA Genital Ql Probe See Note (Negative) None Note: PositivePositiveLPositivePositiveL [id number] Observer: Gardnerella DNA Gardnerella DNA Probe 451128 185.6269 (LCI) T vaginalis DNA XXX Ql DEVAUGHN+probe See Note (Negative) None Note: NegativeNegativeLNegativeNegativeL [id number] at: RN - [facility] [address] [id number] Director: Doris Galvan MD, Phone: [phone] Observer: Trichomonas DNA Trichomonas DNA Probe [id number] 970.6902 (I) NOTES See Note None Note: Source Of Specimen: VAG Reviewed by Samia PETIT on ; All test results are final unless otherwise noted. Reported Physicians [facility] Ordered by Samia PETIT on 04/05/2020 Collected: 04/05/2020 Reported: 04/07/2020 05:07 Reported Physicians See Note None Note: Reported Physicians:Ordering: Samia HerbertAttending: Samia Herbert Reviewed by Samia Herbert [facility]- on ; All test results are final unless otherwise noted. [facility] by Samia PETIT on 04/05/2020 Collected: 04/05/2020 Reported: 04/07/2020 05:07 N gonorrhoea rRNA XXX Ql DEVAUGHN+probe See Note (Negative) None Note: RqpjisnwPl[id number]ZPfxbutdfJyy [id number] at: RN - [facility] [address] [id number] Director: Doris Galvan MD, Phone: [phone] Observer: C.Trach RNA Chlamydia trachomatis DNA-DEVAUGHN [id number] 105.7441 (I) NOTES See Note None Note: Source Of Specimen: VAG Reviewed by Samia PETIT on ; All test results are final unless otherwise noted. Reported Physicians [facility] Ordered by Samia COBBPPRINCESS on 04/05/2020 Collected: 04/05/2020 Reported: 04/07/2020 05:07 Reported Physicians See Note None Note: Reported Physicians:Ordering: Samia HerbertAttending: Samia Herbert Reviewed by Samia Herbert [facility] on ; All test results are final unless otherwise noted. 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 1 Education history - Graduated from [employer] 1 Sexually active , 20 partners to date 06/26/2020 Smoking status : Never smoker 06/03/2019 No recent emotional stress 11/04/2018 Not re-experiencing a previous traumatic event 018 No consumption of alcohol 10/28/2018 No tobacco use 10/28/2018 Not using drugs 10/28/2018 Procedures and Surgical History Includes: Procedures from 04/03/2020 through 04/03/2021 Procedures Code Diagnosis Performing Provider Service Location Service Date ADMINISTRATION 1-IMMUNIZATION(adult) 68459 Encounter f or immunization Kyle Zambrano MD [facility], [facility] 11/13/2020 Gardasil 9(3dose HPV, IM) nonavalent 88782 Encounter f or immunization Kyle Zambrano MD [facility], [facility] 11/13/2020 Most recent diastolic blood pressure < 80 mmHg 3078F Major depressive disorder, recurrent, moderate Samia Cameron [facility], [facility] 10/04/2020 Most recent systolic blood pressure less than 130 mmHg 3074 F Major depressive disorder, recurrent, moderate [facility] 10/04/2020 ADMINISTRATION 1-IMMUNIZATION(adult) 05128 Encounter f or immunization Kyle Zambrano MD [facility], [facility] 06/15/2020 Gardasil 9(3dose HPV, IM) nonavalent 23782 Encounter f or immunization Kyle Zambrano MD [facility], [facility] 06/15/2020 ADMINISTRATION 1-IMMUNIZATION(adult) 49955 Encounter f or immunization Samia Herbert [facility], [facility] 05/11/2020 Gardasil 9(3dose HPV, IM) nonavalent 71310 Encounter f or immunization 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 Currently awaiting appt with psychiatry. No changes made today Functional Status Functional Status not supported for [...] 1 05/11/2020 Left Deltoid Complete (Admini stered) [facility] Gardasil 2 06/15/2020 Right Deltoid Complete (Admin istered) [facility] Gardasil 3 11/13/2020 Left Deltoid Complete (Admini stered) [facility] Hep B pediatric 1 1998 Complete (Reported) [...] AllergiesNo Known Allergies Encounters Includes: Encounters from 04/03/2020 through 04/03/2021 Encounter Provider Location Date Check-In Time Check-Out Time D iagnosis followup Samia Cameron [facility], [facility] 04/02/2021 3:28PM 4:15PM Major Depression Recurrent M oderate, Reactive Airway Disease, Allergic Rhinitis [Patient Encounter] Samia Cameron [facility] 03/18/202111/30 7:24PM 11/30/2020 11:59PM followup Samia Cameron [facility], [facility] 11/30/2020 3:09PM 3:54PM Urticaria Idiopathic, Bacter ial Vaginosis nursing visit Kyle Zambrano MD [facility], [facility] 11/13/2020 3:37PM 3:52PM sick visit Lyssa Anderson MD [facility], [facility] 1 12/11/2019 3:15PM 3:46PM Pulmonary Embolism, Upper Re spiratory Infection Acute followup Samia Cameron [facility], [facility] 10/04/2020 10:59AM 11:38AM Major Depression Recurrent M oderate followup Saritha Matilda [facility] 08/11/2020 3:29PM 4:13PM Candidiasis Vaginal, Vaginal Discharge sick visit Saritha Grey [facility] 08/05/2020 9:55AM 11:02AM Candidiasis Vaginal, Vaginal Discharge [Patient Encounter] Samia Cameron [facility] 07/05/202006/26 11:44AM 06/26/2020 11:59PM [Patient Encounter] Samia Cameron [facility] 07/05/202006/26 8:36AM 06/26/2020 11:59PM ANNUAL PE-followup exam/[address] [facility], [facility] 06/26/2020 1:34PM 2:30PM Routine History and Physical Adult (18 - 64 Yrs), Major Depression Recurrent Moderate, Vitamin D Deficiency, Obesity Morbid Due To Excess Calories [facility] 06/15/2020 1:10PM 1:31PM nursing visit Samia Cameron [facility] 05/11/2020 9:57AM 10:16AM sick visit Samia Cameron [facility] 04/17/2020 10:31AM 10:59AM Bacterial Vaginosis [Patient Encounter] Samia Cameron [facility] 04/06/202004/05 3:25PM 04/05/2020 11:59PM sick visit Samia Cameron [facility], [facility] 04/05/2020 10:14AM 10:56AM Amenorrhea, Possible Candidi asis Vaginal, Vaginitis, Secondary Amenorrhea Insurance Includes: Active Insurance Policies Plan Name Member ID Group # Subscriber Relationship Effective Da seng 1 - [employer] Insurance [id number] Bob Diaz Child Advance Directives Includes: Current Advance DirectivesNo Advance Directives Recorded Health Concerns Includes: Active Health ConcernsNo Active Health Concerns Recorded Goals Includes: Active GoalsNo Active Goals Recorded Interventions Includes: Interventions for active GoalsNo Interventions Recorded Evaluations & Outcomes Includes: Evaluations & Outcomes for active GoalsNo Outcomes Recorded
--- OUTSIDE RECORDS SUMMARY | 2021-09-02 18:22 | CCD ---
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 Worker Name Role Phone Justin DE LA ROSA, Lyssa Sebastian PP [phone] Muha [employer] LIBRARIAN-BC, Samia Cameron Unavailable [phone] Reason for Referral No Reason for Referral Recorded Problems Includes: Active, inactive, and resolved Problems All Visits Onset Date - Time Resolved Date - Time Provider Co ndition Status Reactive Airway Disease 04/03/2021 - 12:00AM Saritha Paez [employer] LIBRARIAN Active Cerv Pap Smear (+) Atyp Squamous Cells Undetermined Signif 0 07/05/2020 - 11:44AM Samia Cameron Muha [employer] SERVICES LIBRARIAN-BC Active Note: - Repeat 06/2021. (high risk HPV) Vitamin D Deficiency 11/04/2018 - 12:00AM Samia Ku altman [employer]RARIAN-BC Active Allergic Rhinitis 10/28/2018 - 12:00AM Samia Cameron Muha [employer] SERVICES LIBRARIAN-BC Active Note: - 03/30- 3++- 4++, dust , pollen, cat, dog dander. Anxiety Disorder Nos 10/28/2018 - 12:00AM Samia Cameron Mu altman [employer] LIBRARIAN-BC Active Concussion with No Loss of Consciousness 10/28/2018 - 12:00AM Samia Cameron Muha [employer] SERVICES LIBRARIAN-BC Active Gastro-esophageal reflux disease without esophagitis 10/28/2018 - 12:00AM Samia Cameron Muha [employer] LIBRARIAN-BC Active Hemorrhoids External 10/28/2018 - 12:00AM Samia Ku altman [employer] LIBRARIAN-BC Active Ibs--pain Predominant 10/28/2018 - 12:00AM Samia Cameron uha [employer] LIBRARIAN-BC Active Note: - Negative colonoscopy , endoscopy, gallbladder US, labs. - Dr. Box 05/2017 Major Depression Recurrent Moderate 10/28/2018 - 12:00AM Samia Cameron [facility] Active Obesity 10/28/2018 - 12:00AM Samia Cameron Piedad [facility] Active Plan of Treatment Pending Tests Order Diagnosis Results Due Ordering Provi jeanie Outside Labs CBC with differential Cough 05/18/21 Nichelledi th A Jeannine [employer] LIBRARIAN Outside Labs CMP Cough 05/18/21 Saritha A Lizo tte [employer] SERVICES LIBRARIAN Outside Labs D Dimer Cough 05/18/21 Saritha A Lizo tte [employer] SERVICES LIBRARIAN Xrays - X-Ray Orders *CXR PA & LAT X-Ray Shortness of breath Saritha A Jeannine [employer] SERVICES LIBRARIAN Future Appointments Date Time Location Provider followup 06/22/2021 9:00AM [facility], [facility] Saritha Ochoae [facility] ANNUAL PE-followup 08/09/2021 3:40PM [facility] Samia Cameron [facility]- Future Tests Order Diagnosis Results Due Ordering Provid er Other Tests - PFT PFT Shortness of breath 06/10/21 Dinora leighann Paez [facility] Findings Encounter Date All questions and concerns addressed, 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 Reviewed s/s that warrant sooner consult Reviewed s/s that warrant ED evaluation sick visit with Saritha Grey Jeannine [facility] 05/11/2021 Ordered antihistamines - She could use OTC antihistamine daily or as needed. She could also use benadryl as needed followup with Samia Cameron Piedad [facility]- 11/30/2020 Requested request consultation by windows systems engineer followup with Me marquezsa Cameron [facility]- 11/30/2020 Ordered a urine culture sick visit [...] to pollen] sick visit with Saritha Paez [facility] 05/11/2021 Reactive airway disease [Other asthma] sick visit with Ana Paez [facility] 05/11/2021 Allergic rhinitis which is showing leonardo nued signs of disease - She will continue to follow with her windows systems engineer. She is also instructed to continue taking her Xyzal followup with Samia Herbert [facility] 04/02/2021 Moderate recurrent major depression whic h is stable - Following with therapist. Currently awaiting appt with psychiatry. No changes made today [facility] Reactive airway disease - Discussed jeremy [...] does not improve followup with Samia Cameron [facility] 04/02/2021 Bacterial vaginosis which is showing rec urrence of disease - She will treat with metrogel as directed. If symptoms do not resolve she will return to office for pelvic exam and testing followup with Samia Herbert [facility] 11/30/2020 Idiopathic urticaria which is showing no evidence of disease at present. She is requesting referral to allergies for further evaluation followup with Samia Cameron [facility] 11/30/2020 Acute upper respiratory infection [...] at the current dose [facility] Vaginal candidiasis followup with Sarithalaw Ochoae [employer] SERVICES LIBRARIAN 12/2019 Vaginal discharge followup with Sarithalaw Barnesotte [employer] SERVICES LIBRARIAN 12/2019 Vaginal candidiasis sick visit with Sarithalaw Barnesotte [employer] SERVICES LIBRARIAN 0 08/05/2020 Vaginal discharge sick visit with Saritha Barnesotte [employer] LIBRARIAN 0 08/05/2020 Moderate recurrent major depression - [...] needed ANNUAL PE-followup exam/30 with Samia Cameron [facility] 06/26/2020 Morbid obesity due to excess calories ANNUAL PE-follow up exam/30 with Samia Cameron [facility] 06/26/2020 Routine adult history and physical (18 - 64 yrs) ANNUA L PE-followup exam/30 with Samia Nisha [facility] 06/26/2020 Vitamin D deficiency ANNUAL PE-followup exam/30 with Samia M [facility] 06/26/2020 Bacterial vaginosis - Will treated with oral flagyl. Reviewed precautions with alcohol use and that she needs to 100% avoid. Avoid intercourse. Start a probiotic. Yogurt sick visit with Samia Cameron [facility] 04/17/2020 Amenorrhea - Will get labs including HC G, TSH, FSH and prolactin. Referral to ACCOUNT UNDERWRITER for secondary amenorrhea sick visit with Samia Cameron [facility] 04/05/2020 Possible vaginal candidiasis - Diflucan as directed s ick visit with Samia Cameron [facility] 04/05/2020 Secondary amenorrhea sick visit with Samia Nisha Piedad [facility] 0 04/05/2020 Vaginitis sick visit with Samia Herbert [facility] Hematuria followup with Darlene Penaloza [facility] 2019 Urinary tract infection [Cystitis, unspecified with he maturia] sick visit with Lyssa Anderson MD 02/10/2020 STD due to chlamydia trachomatis Exposure urgent visit with Jodie Garcia [facility] 06/03/2019 Moderate recurrent major depression - [...] sooner if needed followup with Samia Herbert [facility] 05/26/2019 Abdominal pain Left flank and LLQ pain with hematuria, will evaluate for nephrolithiasis with renal protocol CT. Encourage increased PO hydration and Tylenol/NSAIDs prn pain [Unspecified abdominal pain] sick visit with Lyssa Anderson MD 05/19/2019 Hematuria [Other microscopic hematuria] sick visit with Brenna Anderson MD 05/19/2019 Atypical chest pain urgent visit with Jodie Garcia [facility] 03/22 Anxiety disorder NOS [facility]2019 Moderate recurrent major depression - S he will continue her current medication at the current dose. Referral to psychiatry pending, I would like her to be evaluated prior to change in any medication to check the accuracy of her current diagnosis followup with Samia Herbert [facility] 11/16/2018 Vitamin D deficiency - Start vitamin D 2000 units elie ly followup with Samia Nisha [facility] 11/16/2018 Anxiety disorder NOS sick visit [facility] 1 12/30/2017 Moderate recurrent major depression sick visit with Samia Cameron [facility] 10/29/2018 Acute sinusitis urgent visit with Ole Mcintyre PA-C 2016 Instructions Instructions not supported for this document typeNo Instructions Recorded Medical Equipment - Implanted Devices Includes: Current and historical DevicesNo Medical Equipment Recorded Medications Includes: Current and historical Medications Current Medications (continue as prescribed) Advair Diskus 250-50 MCG/DOSE Inhalation Aerosol Powde r Breath Activated 05/11/2021 Provider: Saritha Paez [employer] LIBRARIAN Diagnosis: Shortness of breath 1 puff daily Singulair 10 MG Oral Tablet 05/11/2021 Provider: Saritha Paez [employer] LIBRARIAN Diagnosis: Shortness of breath 1 tab daily ProAir HFA 108 (90 Base) MCG/ACT Inhalation Aerosol Solution 04/02/2021 Provider: Samia Herbert [facility] Diagnosis: 2 puffs every 4 hours prn wheezing. Xyzal Allergy 24HR 5 MG Oral Tablet 04/02/2021 Prov ider: Diagnosis: 1 tab po daily Sertraline HCl 100 MG Oral Tablet 03/30/2021 - 07/28/2021 Pr ovider: Samia Herbert [facility] Diagnosis: 1 PO QD Gianvi 3-0.02 MG Oral Tablet 01/30/2021 Provider: Samia Herbert [facility] Diagnosis: as directed Nystatin 249161 UNIT/GM External Powder 08/11/2020 Provider: Saritha Paez [employer] LIBRARIAN Diagnosis: Acute vaginitis apply 477059 units 2-3 times per day Hyoscyamine Sulfate 0.125 MG Tablet 03/23/2017 Prov ider: Andrews Goyal Diagnosis: Past Medications on file Zithromax 250 MG Oral Tablet 04/12/2021 - 04/17/2021 Provide r: Samia Herbert [facility] Diagnosis: 2 tabs po today then 1 tab po daily x 4 days. Asmanex HFA 100 MCG/ACT Inhalation Aerosol 04/02/2021 - 07/0 12/2020 Provider: Diagnosis: 2 puffs twice a day. metroNIDAZOLE 0.75% Vaginal Gel 11/30/2020 - 12/05/2020 Prov ider: Samia Herbert [facility] Diagnosis: Other specified monroe nflammatory disorders of vagina 1 applicator twice per day x 5 days Gianvi 3-0.02 MG Oral Tablet 09/16/2020 - 01/30/2021 Provide r: Sarithalaw Paez [employer] SERVICES LIBRARIAN Diagnosis: as directed metroNIDAZOLE 0.75% Vaginal Gel 08/05/2020 - 11/30/2020 Prov ider: Saritha Paez [employer] LIBRARIAN Diagnosis: Other specified monroe nflammatory disorders of vagina 1 applicator twice per day x 5 days Sertraline HCl 100 MG Oral Tablet 06/26/2020 - 11/30/2020 Pr ovider: Samia Herbert [facility] Diagnosis: 1 PO QD Gianvi 3-0.02 MG Oral Tablet 04/24/2020 - 08/11/2020 Provide r: Samia Herbert [facility] Diagnosis: as directed metroNIDAZOLE 0.75% Vaginal Gel 04/21/2020 - 04/26/2020 Prov ider: Lyssa Anderson MD Diagnosis: as directed One applicatorful (~37.5 mg metronidazole) intravaginally once daily for 5 days. Flagyl 500 MG Oral Tablet 04/17/2020 - 04/24/2020 Provider: Samia Herbert [facility]- Diagnosis: 1 tab po bid x 7 days. metroNIDAZOLE 0.75% Vaginal Gel 04/06/2020 - 04/11/2020 Prov ider: Samia Herbert [facility]- Diagnosis: One applicatorful vaginally twice daily daily x 5 days. Diflucan 150 MG Oral Tablet 04/05/2020 - 04/12/2020 Provider : Samia Herbert [facility]- Diagnosis: 1 tab po x 1 [...] 10/11/2019 - 04/17/2020 Provider : Samia Herbert [facility]- Diagnosis: as directed Gianvi 3-0.02MG Oral Tablet 06/23/2019 - 05/26/2019 Provider : Samia Herbert [facility]- Diagnosis: as directed lamoTRIgine 100MG Oral Tablet 06/07/2019 - 09/05/2019 Provid er: Samia Herbert [facility] Diagnosis: 1 tab po bid Azithromycin 250MG [...] Tablet 01/29/2019 - 05/26/2019 Provider : Samia PETIT Diagnosis: as directed Gianvi 3-0.02MG Oral Tablet 01/06/2019 - 11/16/2018 [facility] Diagnosis: as directed Gianvi 3-0.02MG Oral Tablet 11/12/2018 - 11/16/2018 [facility] : [facility] Diagnosis: as directed Sertraline HCl 100MG Oral [...] Recorded Vital Signs Includes: Vital Signs from 05/11/2020 through 05/11/2021 Vital Name 05/11/2021 11:25A 04/02/2021 03:35P 11/30/2020 03:20P 10/10/2020 03:33P 10/04/2020 11:06A Blood Pressure Sitting (mmHg) 112/70 120/82 102/70 124/80 112/74 Pulse Rate-Sitting (bpm) 82 99 66 118 72 Respiration Rate (breaths/min) 18 24 18 18 18 Weight (lb) 258.4 257 259 249 Oxygen Saturation (%) 96 98 98 Temp-Tympanic (F) 98.9 98.5 Height (in) 62.75 62.75 62.75 Body Mass Index (kg/m2) 45.9 46.2 4 4.5 Body Surface Area (m2) 2.15 2.15 2. 12 Vital Name 08/11/2020 03:41P 08/05/2020 10:21A 06/26/2020 01:46P Blood Pressure Sitting (mmHg) 104/60 110/80 Pulse Rate-Sitting (bpm) 60 80 72 Respiration Rate (breaths/min) 18 16 18 Weight (lb) 251 250 Oxygen Saturation (%) 97 Height (in) 62.75 Body Mass Index (kg/m2) 44.6 Body Surface Area (m2) 2.12 Blood Pressure Sitting R 118/82 BP Cuff Size Large Pulse Rhythm Regular Temp-Oral (F) 97.3 Note: LMP 06/01/20 Results Includes: Results from 05/11/2020 through 05/11/2021 D-DIMER [facility] Ordered by Lyssa Anderson MD [...] are final unless otherwise noted. Reported Physicians [facility] Ordered by Lyssa Anderson MD on 10/10/2020 Collected: 10/10/2020 Reported: 10/10/2020 17:01 Reported Physicians See Note None Note: Reported Physicians:Ordering: Lyssa GuptaAttending: Lyssa Anderson Reviewed by Lyssa Anderson MD on 10/11; All test results are final unless otherwise noted. DWYER COVID-19 [facility] Ordered by Lyssa Anderson MD on 10/10/2020 Collected: 10/10/2020 Reported: 10/10/2020 18:59 SARS-CoV-2 RNA Resp Ql DEVAUGHN+probe See Note None Note: DWYER COVID-19 IS AN ISOTHER MAL DEAVUGHN TECHNOLOGYNORMAL VALUE IS "SARS-COV-2 COVID 19 NOT DETECTED"False negative results may occur if a specimen is improperlycollected,transported or handled.False negative results may also occur if amplicationinhibitors are present in the specimen or if inadequatelevels of viruses are present in the specimen.As with any molecular test, if the virus mutates in [facility] region, Covid-19 may not be detected or may bedetected less predictably.ID NOW COVID-19 is intended for testing a swab directlywithout elution in viral transport media as dilution willresult in decreased detection of low positive samples thatare near the limit of detection of the test.SWAB SAMPLES ELUTED IN VTM ARE NOT APPROPRIATE FOR USE INTHIS TEST.[id number] RNA Resp Ql DEVAUGHN+probeLNNOSNo Organisms [id number] Organisms Detected Reviewed by Lyssa Anderson MD on 10/11; All test results are final unless otherwise noted. Reported Physicians [facility] Ordered by Lyssa Anderson MD on 10/10/2020 Collected: 10/10/2020 Reported: 10/10/2020 18:59 Reported Physicians See Note None Note: Reported Physicians:Ordering: Lyssa GuptaAttending: Lyssa AndersonCopana To: Doctor Provided, No FamilyCopy To: Health, Public Reviewed by Lyssa Anderson MD on 10/11; All test results are final unless otherwise noted. Wet Prep [facility] Ordered by Saritha HERNANDEZ on 08/11/2020 Collected: 08/11/2020 Reported: 08/11/2020 18:04 Wet prep results See Note None Note: Clue cells presentLong rods notedN o yeast like or trichomonas seenSquamous cellsShort rods seenWBCs seen Wet mount for Trichomonas Negative for Trichomonas vaginalis None Reviewed by Saritha HERNANDEZ on ; All test results are final unless otherwise noted. Reported Physicians [facility] Ordered by Saritha COBBP on 08/11/2020 Collected: 08/11/2020 Reported: 08/11/2020 18:05 Reported Physicians See Note None Note: Reported Physicians:Ordering: Saritha RobinsAttending: Saritha Paez Reviewed by Saritha COBBP on ; All test results are final unless otherwise noted. LIPID PANEL [facility] Ordered by Samia COBBP- on [...] s Triglycerides 400.2951 (G) Reviewed by Samia COBBP- on ; All test results are final unless otherwise noted. Reported Physicians [facility] Ordered by Samia COBBP- on 08/07/2020 Collected: 08/07/2020 Reported: 08/07/2020 09:11 Reported Physicians See Note None Note: Reported Physicians:Ordering: Saritha RobinsAttending: Saritha Paez Reviewed by Samia COBBPAaron on ; All test results are final unless otherwise noted. CBC W AUTO DIFF [facility] Ordered by Samia COBBP- on 08/07/2020 Collected: 08/07/2020 Reported: 08/07/2020 08:31 [...] Auto See Note (0-2) N (Normal) Note: [id number] Ob fast food server: IG% IG% 100.1375 (B) Hct VFr [...] test results are final unless otherwise noted. [facility] Ordered by Samia PETIT on 08/07/2020 [...] C reatinine 400.1600 (G) Reviewed by Samia HERNANDEZ-RILEY on ; All test results are final unless otherwise noted. Insulin Level [facility] Ordered by Samia HERNANDEZ-RILEY on 08/07/2020 Collected: 08/07/2020 Reported: 08/08/2020 12:41 Insulin 18.6 None Note: Reference Range < or = 19.6 Risk: Optimal < or = 19.6 Moderate NA High >19.6 Adult cardiovascular event risk category cut points (optimal, moderate, high) are based on [employer] population data from 10/2011.This insulin assay shows strong cross-reactivity forsome insulin analogs (lispro, aspart, and glargine)an d much lower cross-reactivity with others (detemir,glulisine).THIS TEST WAS PERFORMED AT:[facility] [id number] PEDRAZAesponsible Observer: Insulin Insulin [id number] 844.2615 ([employer]) Reviewed by Samia PETIT on ; All test results are final unless otherwise noted. Reported Physicians [facility] Ordered by Samia COBBPPRINCESS on 08/07/2020 Collected: 08/07/2020 Reported: 08/08/2020 12:41 Reported Physicians See Note None Note: Reported Physicians:Ordering: Saritha RobinsAttending: Saritha Paez Reviewed by Samia PETIT on ; All test results are final unless otherwise noted. Genital culture [facility] Ordered by Samia COBBPPRINCESS on 08/05/2020 Collected: 08/05/2020 Reported: 08/08/2020 06:49 Genital culture results See Note None Note: No N. Gonorrhoaea isolatedMany Lac tobacilliFEW Staph Spp. coag neg NOTES See Note None Note: Source:: VAGINAL Reviewed by Samia PETIT on 11/2019; All test results are final unless otherwise noted. Reported Physicians [facility] Ordered by Samia COBBPPRINCESS on 08/05/2020 Collected: 08/05/2020 Reported: 08/08/2020 06:49 Reported Physicians See Note None Note: Reported Physicians:Ordering: Saritha RobinsAttending: Saritha Paez Reviewed by Samia PETIT on 11/2019; All test results are final unless otherwise noted. Wet Prep [facility] Ordered by Samia COBBPPRINCESS on 08/05/2020 Collected: 08/05/2020 Reported: 08/08/2020 06:49 Wet prep results See Note None Note: FEW WBCs seenLong rods notedNO Yea st like organisms seen no trichomonas seenMODERATE Squamous cellsNo clue cells present Wet mount for Trichomonas Negative for Trichomonas vaginalis None NOTES See Note None Note: Source:: VAGINAL Reviewed by Samia PETIT on ; All test results are final unless otherwise noted. GCAMP [facility] on 08/05/2020 Collected: 08/05/2020 Reported: 08/09/2020 06:55 C trach rRNA XXX Ql DEVAUGHN+probe See Note (NOT DETECTED) None Note: NOT DETECTEDNOT [id number] 6NOT DETECTEDResponsible Observer: C.Trach RNA Chlamydia trachomatis DNA-DEVAUGHN [id number] 913.9900 ([employer]) N gonorrhoea rRNA XXX Ql DEVAUGHN+probe See Note (NOT DETECTED) None Note: NOT DETECTEDNOT [id number] 6NOT DETECTEDResponsible Observer: GC RNA Neisseria gonorrhoeae DNA -DEVAUGHN [id number] 913.9905 (Track[employer]) Chlamydia/GC DNA Note SEE NOTE None Note: The analytical performance charact eristics of thisassay, when used to test SurePath(TM) specimens have beendetermined by [employer]. The modifications havenot been cleared or approved by the FDA. This assay hasbeen validated pursuant to the CLIA regulations and isused for clinical purposes.For additional information, please refer tohttps://education.[employer].Mungo/faq/PVK390(This link is being provided for information/educational purposes only.)THIS TEST WAS PERFORMED AT:[facility] [id number] DIAZ,MDResponsible Observer: GC/Chlam Note Chlamydia/GC DNA Note [id number] 913.9907 (A) NOTES See Note None Note: Source Of Specimen: VAG Reviewed by Samia PETIT on ; All test results are final unless otherwise noted. Reported Physicians [facility] Ordered by Samia PETIT on 08/05/2020 Collected: 08/05/2020 Reported: 08/09/2020 06:56 Reported Physicians See Note None Note: Reported Physicians:Ordering: Saritha RobinsAttending: Saritha Paez Reviewed by Samia PETIT on ; All test results are final unless otherwise noted. Cepheid CT/NG RT-PCR-[facility] Ordered by Samia PETIT on 06/26/2020 Collected: 06/26/2020 Reported: 06/27/2020 08:[address]/NG RT-PCR See Note None Note: CT/NG IS A QUALITATIVE IN VITRO RE AL-TIME PCR TEST FORDETECTION OF CHLAMYDIA TRACHOMATIS (CT) AND NEISSERIAGONORRHOEAE (NG)NORMAL VALUE FOR CT/NG IS " NO ORGANISMS DETECTED "NOSNo Organisms [id number] Organisms Detected Reviewed by Samia PETIT on ; All test results are final unless otherwise noted. AFFIRM [facility] Ordered by Samia PETIT on 06/26/2020 Collected: 06/26/2020 Reported: 06/28/2020 15:04 Anne species DNA Probe NOT DETECTED (NOT DETECTED) None Note: THIS TEST WAS PERFORMED AT:[employer] [address] [id number] PEDRAZAesponsible Observer: Anne DNA Anne species DNA Probe [id number] 913.2350 (Track[employer]) Gardnerella DNA Probe DETECTED (NOT DETECTED) H (High) Note: Increased levels of G. vaginalis m ay not be significantin the absence of signs and symptoms of bacterialvaginosis.Responsible Observer: Gardnerella DNA Gardnerella DNA Probe [id number] 913.2345 (Track[employer]) Trichomonas DNA Probe NOT DETECTED (NOT DETECTED) None Note: Responsible Observer: Trichomonas DNA Trichomonas DNA Probe [id number] 913.2340 ([employer]) Reviewed by Samia PETIT on ; All test results are final unless otherwise noted. Reported Physicians [facility] Ordered by Samia PETIT on 06/26/2020 Collected: 06/26/2020 Reported: 06/28/2020 15:05 Reported Physicians See Note None Note: Reported Physicians:Ordering: Samia HerbertAttending: Samia Herbert Reviewed by Samia PETIT on ; All test results are final unless otherwise noted. HPVI [facility] Ordered by Samia PETIT on 06/26/2020 Collected: 06/26/2020 Reported: 07/05/2020 06:52 Thin Prep Vag See Note None Note: See scanned reportSee scanned repo rtLSee scanned reportSee scanned reportLSee scanned reportResponsible Observer: TP w/HPV if ASC Thinprep w/HPV if ASCUS 805.1454 (LCI) NOTES See Note None Note: [id number] Technique: BRU SH-SPATULALAST MENSTRUAL PERIOD: Site: ENDOCERVIX Reviewed by Samia PETIT on ; All test results are final unless otherwise noted. Reported Physicians [facility] Ordered by Samia PETIT on 06/26/2020 Collected: 06/26/2020 Reported: 07/05/2020 06:52 Reported Physicians See Note None Note: Reported Physicians:Ordering: Samia HerbertAttending: Samia Herbert Reviewed by Samia COBBPPRINCESS on ; All test results are final unless otherwise noted. 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 Education history - Graduated from [employer] 1 Sexually active , 20 partners to date 06/26/2020 Smoking status : Never smoker 06/03/2019 No recent emotional stress 11/04/2018 Not re-experiencing a previous traumatic event 018 No consumption of alcohol 10/28/2018 No tobacco use 10/28/2018 Not using drugs 10/28/2018 Procedures and Surgical History Includes: Procedures from 05/11/2020 through 05/11/2021 Procedures Code Diagnosis Performing Provider Service Location Service Date ADMINISTRATION 1-IMMUNIZATION(adult) 36073 Encounter f or immunization Kyle Zambrano MD [facility], [facility] 11/13/2020 Gardasil 9(3dose HPV, IM) nonavalent 87780 Encounter f or immunization Kyle Zambrano MD [facility], [facility] 11/13/2020 Most recent diastolic blood pressure < 80 mmHg 3078F Major depressive disorder, recurrent, moderate Samia Herbert [facility], [facility] 10/04/2020 Most recent systolic blood pressure less than 130 mmHg 3074 F Major depressive disorder, recurrent, moderate [facility] 10/04/2020 ADMINISTRATION 1-IMMUNIZATION(adult) 82861 Encounter f or immunization Kyle Zambrano MD [facility], [facility] 06/15/2020 Gardasil 9(3dose HPV, IM) nonavalent 92040 Encounter f or immunization Kyle Zambrano MD [facility], [facility] 06/15/2020 ADMINISTRATION 1-IMMUNIZATION(adult) 68856 Encounter f or immunization Samia Cameron [facility], [facility] 05/11/2020 Gardasil 9(3dose HPV, IM) nonavalent 28441 Encounter f or immunization Samia Cameron [facility], [facility] 05/11/2020 Surgical History Last Updated History of [...] 1 05/11/2020 Left Deltoid Complete (Admini stered) [facility] Gardasil 2 06/15/2020 Right Deltoid Complete (Admin istered) [facility] Gardasil 3 11/13/2020 Left Deltoid Complete (Admini stered) [facility] Hep B pediatric 1 1998 Complete (Reported) [...] AllergiesNo Known Allergies Encounters Includes: Encounters from 05/11/2020 through 05/11/2021 Encounter Provider Location Date Check-In Time Check-Out Time D iagnosis sick visit Saritha Paez [facility], [facility] 05/11/2021 11:18AM 11:45AM Allergic Rhinitis, Reactive Airway Disease [Patient Encounter] [facility] 04/12/202104/02 4:20PM 04/02/2021 11:59PM followup Samia Cameron [facility], [facility] 04/02/2021 3:28PM 4:15PM Major Depression Recurrent M oderate, Reactive Airway Disease, Allergic Rhinitis [[facility] 7:24PM 11/30/2020 11:59PM followup Samia Cameron [facility], [facility] 11/30/2020 3:09PM 3:54PM Urticaria Idiopathic, Bacter ial Vaginosis nursing visit Kyle Zambrano MD [facility], [facility] 11/13/2020 3:37PM 3:52PM sick visit Lyssa Anderson MD [facility], [facility] 1 12/11/2019 3:15PM 3:46PM Pulmonary Embolism, Upper Re spiratory Infection Acute followup Samia Cameron [facility], [facility] 10/04/2020 10:59AM 11:38AM Major Depression Recurrent M oderate followup Saritha A [facility] 08/11/2020 3:29PM 4:13PM Candidiasis Vaginal, Vaginal Discharge sick visit Saritha A [facility], [facility] 08/05/2020 9:55AM 11:02AM Candidiasis Vaginal, Vaginal Discharge [Patient Encounter] Samia Cameron [facility] 07/05/202006/26 11:44AM 06/26/2020 11:59PM [Patient Encounter] Samia Cameron [facility] 07/05/202006/26 8:36AM 06/26/2020 11:59PM ANNUAL PE-followup exam/30 Samia Cameron [facility], [facility] 06/26/2020 1:34PM 2:30PM Routine History and Physical Adult (18 - 64 Yrs), Major Depression Recurrent Moderate, Vitamin D Deficiency, Obesity Morbid Due To Excess Calories nursing visit Kyle Zambrano MD [facility], [facility] 06/15/2020 1:10PM 1:31PM nursing visit Samia Cameron [facility] [employer] [employer] 05/11/2020 9:57AM 10:16AM Insurance Includes: Active Insurance Policies Plan Name Member ID Group # Subscriber Relationship Effective Da seng 1 - [employer] Insurance [id number] Bob Diaz Child Advance Directives Includes: Current Advance DirectivesNo Advance Directives Recorded Health Concerns Includes: Active Health ConcernsNo Active Health Concerns Recorded Goals Includes: Active GoalsNo Active Goals Recorded Interventions Includes: Interventions for active GoalsNo Interventions Recorded Evaluations & Outcomes Includes: Evaluations & Outcomes for active GoalsNo Outcomes Recorded
--- OUTSIDE RECORDS SUMMARY | 2021-09-02 18:23 | CCD ---
Author Author [facility] Organization [facility] Address Unknown Phone Unavailable Care Team Providers Care Power Grader Operator Name Role Phone Jeannine, A Saritha ECDIS N NAVIGATION OPERATOR Unavailable Unavailable Jeannine, A Saritha ECDIS N NAVIGATION OPERATOR Unavailable Unavailable Jeannine, A Saritha ECDIS N NAVIGATION OPERATOR Unavailable Unavailable Jeannine, A Saritha ECDIS N NAVIGATION OPERATOR Unavailable Unavailable Jeannine, A Saritha ECDIS N NAVIGATION OPERATOR Unavailable Unavailable Jeannine, A Saritha ECDIS N NAVIGATION OPERATOR Unavailable Unavailable Jeannine, A Saritha ECDIS N NAVIGATION OPERATOR Unavailable Unavailable Jeannine, A Saritha ECDIS N NAVIGATION OPERATOR Unavailable Unavailable Jeannine, A Saritha ECDIS N NAVIGATION OPERATOR Unavailable Unavailable Jeannine, A Saritha ECDIS N NAVIGATION OPERATOR Unavailable Unavailable Jeannine, A Saritha ECDIS N NAVIGATION OPERATOR Unavailable Unavailable Jeannine, A Saritha ECDIS N NAVIGATION OPERATOR Unavailable Unavailable Jeannine, A Saritha ECDIS N NAVIGATION OPERATOR Unavailable Unavailable Jeannine, A Saritha ECDIS N NAVIGATION OPERATOR Unavailable Unavailable Jeannine, A Saritha ECDIS N NAVIGATION OPERATOR Unavailable Unavailable Jeannine, A Saritha ECDIS N NAVIGATION OPERATOR Unavailable Unavailable Jeannine, A Saritha ECDIS N NAVIGATION OPERATOR Unavailable Unavailable Jeannine, A Saritha ECDIS N NAVIGATION OPERATOR Unavailable Unavailable Jeannine, A Saritha ECDIS N NAVIGATION OPERATOR Unavailable Unavailable Jeannine, A Saritha ECDIS N NAVIGATION OPERATOR Unavailable Unavailable Jeannine, A Saritha ECDIS N NAVIGATION OPERATOR Unavailable Unavailable Jeannine, A Saritha ECDIS N NAVIGATION OPERATOR Unavailable Unavailable Jeannine, A Saritha ECDIS N NAVIGATION OPERATOR Unavailable Unavailable Jeannine, A Saritha ECDIS N NAVIGATION OPERATOR Unavailable Unavailable Jeannine, A Saritha ECDIS N NAVIGATION OPERATOR Unavailable Unavailable Jeaninne, A Saritha ECDIS N NAVIGATION OPERATOR Unavailable Unavailable Jeannine, A Saritha ECDIS N NAVIGATION OPERATOR Unavailable Unavailable Jeannine, A Saritha ECDIS N NAVIGATION OPERATOR Unavailable Unavailable Jeannine, A Saritha ECDIS N NAVIGATION OPERATOR Unavailable Unavailable Jeannine, A Saritha ECDIS N NAVIGATION OPERATOR Unavailable Unavailable Jeannine, A Saritha ECDIS N NAVIGATION OPERATOR Unavailable Unavailable Jeannine, A Saritha ECDIS N NAVIGATION OPERATOR Unavailable Unavailable Jeannine, A Saritha ECDIS N NAVIGATION OPERATOR Unavailable Unavailable Jeannine, A Saritha ECDIS N NAVIGATION OPERATOR Unavailable Unavailable Jeannine, A Saritha ECDIS N NAVIGATION OPERATOR Unavailable Unavailable Jeannine, A Saritha ECDIS N NAVIGATION OPERATOR Unavailable Unavailable Jeannine, A Saritha ECDIS N NAVIGATION OPERATOR Unavailable Unavailable Jeannine, A Saritha ECDIS N NAVIGATION OPERATOR Unavailable Unavailable Jeannine, A Saritha ECDIS N NAVIGATION OPERATOR Unavailable Unavailable Jeannine, A Saritha ECDIS N NAVIGATION OPERATOR Unavailable Unavailable Jeannine, A Saritha ECDIS N NAVIGATION OPERATOR Unavailable Unavailable Jeannine, A Saritha ECDIS N NAVIGATION OPERATOR Unavailable Unavailable Jeannine, A Saritha ECDIS N NAVIGATION OPERATOR Unavailable Unavailable Jeannine, A Saritha ECDIS N NAVIGATION OPERATOR Unavailable Unavailable Jeannine, A Saritha ECDIS N NAVIGATION OPERATOR Unavailable Unavailable Jenanine, A Saritha ECDIS N NAVIGATION OPERATOR Unavailable Unavailable Jeannine, A Saritha ECDIS N NAVIGATION OPERATOR Unavailable Unavailable Jeannine, A Saritha ECDIS N NAVIGATION OPERATOR Unavailable Unavailable Jeannine, A Saritha ECDIS N NAVIGATION OPERATOR Unavailable Unavailable Jeannine, A Saritha ECDIS N NAVIGATION OPERATOR Unavailable Unavailable Jeannine, A Saritha ECDIS N NAVIGATION OPERATOR Unavailable Unavailable Jeannine, A Saritha ECDIS N NAVIGATION OPERATOR Unavailable Unavailable MICHAEL MCKEON MD Unavailable Unavailable MICHAEL MCKEON MD Unavailable Unavailable MICHAEL MCKEON MD Unavailable Unavailable MICHAEL MCKEON MD Unavailable Unavailable MICHAEL MCKEON MD Unavailable Unavailable MICHAEL MCKEON MD Unavailable Unavailable MICHAEL MCKEON MD Unavailable Unavailable MICHAEL MCKEON MD Unavailable Unavailable MICHAEL MCKEON MD Unavailable Unavailable MICHAEL MCKEON MD Unavailable Unavailable MICHAEL MCKEON MD Unavailable Unavailable MICHAEL MCKEON MD Unavailable Unavailable MICHAEL MCKEON MD Unavailable Unavailable CHROSTMICHAEL WILSON MD Unavailable Unavailable CHROSTMICHAEL WILSON MD Unavailable Unavailable CHROSTMICHAEL WILSON MD Unavailable Unavailable CHROSTMICHAEL WILSON MD Unavailable Unavailable CHROSTMICHAEL WILSON MD Unavailable Unavailable CHROSTMICHAEL WILSON MD Unavailable Unavailable CHROSTMICHAEL WILSON MD Unavailable Unavailable CHROSTOWSKIMICHAEL MD Unavailable Unavailable CHROSTOWSKIMICHAEL MD Unavailable Unavailable CHROSTOWSKIMICHAEL MD Unavailable Unavailable CHROSTOWSKIMICHAEL MD Unavailable Unavailable CHROSTOWSKIMICHAEL MD Unavailable Unavailable CHROSTOWSKIMICHAEL MD Unavailable Unavailable CHROSTOWSKIMICHAEL MD Unavailable Unavailable CHROSTOWSKIMICHAEL MD Unavailable Unavailable CHROSTOWSKIMICHAEL MD Unavailable Unavailable CHROSTOWSKIMICHAEL MD Unavailable Unavailable CHROSTOWSKIMICHAEL MD Unavailable Unavailable CHROSTOWSKIMICHAEL MD Unavailable Unavailable CHROSTOWSKIMICHAEL MD Unavailable Unavailable CHROSTOWSKIMICHAEL MD Unavailable Unavailable CHROSTOWSKIMICHAEL MD Unavailable Unavailable CHROSTOWSKIMICHAEL MD Unavailable Unavailable CHROSTOWSKIMICHAEL MD Unavailable Unavailable CHROSTOWSKIMICHAEL MD Unavailable Unavailable CHROSTOWSKIMICHAEL MD Unavailable Unavailable MUHA, M JONNY ECDIS N NAVIGATION OPERATOR Unavailable Unavailable MUHA, M JONNY ECDIS N NAVIGATION OPERATOR Unavailable Unavailable MUHA, M JONNY ECDIS N NAVIGATION OPERATOR Unavailable Unavailable MUHA, M JONNY ECDIS N NAVIGATION OPERATOR Unavailable Unavailable MUHA, M JONNY ECDIS N NAVIGATION OPERATOR Unavailable Unavailable MUHA, M JONNY ECDIS N NAVIGATION OPERATOR Unavailable Unavailable MUHA, M JONNY ECDIS N NAVIGATION OPERATOR Unavailable Unavailable MUHA, M JONNY ECDIS N NAVIGATION OPERATOR Unavailable Unavailable MUHA, M JONNY ECDIS N NAVIGATION OPERATOR Unavailable Unavailable MUHA, M JONNY ECDIS N NAVIGATION OPERATOR Unavailable Unavailable MUHA, M JONNY ECDIS N NAVIGATION OPERATOR Unavailable Unavailable MUHA, M JONNY ECDIS N NAVIGATION OPERATOR Unavailable Unavailable MUHA, M JONNY ECDIS N NAVIGATION OPERATOR Unavailable Unavailable MUHA, M JONNY ECDIS N NAVIGATION OPERATOR Unavailable Unavailable MUHA, M JONNY ECDIS N NAVIGATION OPERATOR Unavailable Unavailable MUHA, M JONNY ECDIS N NAVIGATION OPERATOR Unavailable Unavailable MUHA, M JONNY ECDIS N NAVIGATION OPERATOR Unavailable Unavailable MUHA, M JONNY ECDIS N NAVIGATION OPERATOR Unavailable Unavailable MUHA, M JONNY ECDIS N NAVIGATION OPERATOR Unavailable Unavailable MUHA, M JONNY ECDIS N NAVIGATION OPERATOR Unavailable Unavailable MUHA, M JONNY ECDIS N NAVIGATION OPERATOR Unavailable Unavailable MUHA, M JONNY ECDIS N NAVIGATION OPERATOR Unavailable Unavailable MUHA, M JONNY ECDIS N NAVIGATION OPERATOR Unavailable Unavailable MUHA, M JONNY ECDIS N NAVIGATION OPERATOR Unavailable Unavailable MUHA, M JONNY ECDIS N NAVIGATION OPERATOR Unavailable Unavailable MUHA, M JONNY ECDIS N NAVIGATION OPERATOR Unavailable Unavailable MUHA, M JONNY ECDIS N NAVIGATION OPERATOR Unavailable Unavailable MUHA, M JONNY ECDIS N NAVIGATION OPERATOR Unavailable Unavailable MUHA, M JONNY ECDIS N NAVIGATION OPERATOR Unavailable Unavailable MUHA, M JONNY ECDIS N NAVIGATION OPERATOR Unavailable Unavailable MUHA, M JONNY ECDIS N NAVIGATION OPERATOR Unavailable Unavailable MUHA, M JONYN ECDIS N NAVIGATION OPERATOR Unavailable Unavailable MUHA, M JONNY ECDIS N NAVIGATION OPERATOR Unavailable Unavailable MUHA, M JONNY ECDIS N NAVIGATION OPERATOR Unavailable Unavailable MUHA, M JONNY ECDIS N NAVIGATION OPERATOR Unavailable Unavailable MUHA, M JONNY ECDIS N NAVIGATION OPERATOR Unavailable Unavailable MUHA, M JONNY ECDIS N NAVIGATION OPERATOR Unavailable Unavailable MUHA, M JONNY ECDIS N NAVIGATION OPERATOR Unavailable Unavailable MUHA, M JONNY ECDIS N NAVIGATION OPERATOR Unavailable Unavailable MUHA, M JONNY ECDIS N NAVIGATION OPERATOR Unavailable Unavailable MUHA, M JONNY ECDIS N NAVIGATION OPERATOR Unavailable Unavailable MUHA, M JONNY ECDIS N NAVIGATION OPERATOR Unavailable Unavailable MUHA, M JONNY ECDIS N NAVIGATION OPERATOR Unavailable Unavailable MUHA, M JONNY ECDIS N NAVIGATION OPERATOR Unavailable Unavailable MUHA, M JONNY ECDIS N NAVIGATION OPERATOR Unavailable Unavailable MUHA, M JONNY ECDIS N NAVIGATION OPERATOR Unavailable Unavailable MUHA, M JONNY ECDIS N NAVIGATION OPERATOR Unavailable Unavailable MUHA, M JONNY ECDIS N NAVIGATION OPERATOR Unavailable Unavailable MUHA, M JONNY ECDIS N NAVIGATION OPERATOR Unavailable Unavailable MUHA, M JONNY ECDIS N NAVIGATION OPERATOR Unavailable Unavailable MUHA, M JONNY ECDIS N NAVIGATION OPERATOR Unavailable Unavailable MUHA, M JONNY ECDIS N NAVIGATION OPERATOR Unavailable Unavailable MUHA, M JONNY ECDIS N NAVIGATION OPERATOR Unavailable Unavailable MUHA, M JONNY ECDIS N NAVIGATION OPERATOR Unavailable Unavailable Justin, Jaz Omalley MD Unavailable Unavailable Justin, Jaz Omalley MD Unavailable Unavailable Justin, Jaz Omalley MD Unavailable Unavailable Justin, Jaz Omalley MD Unavailable Unavailable Justin, Jaz Omalley MD Unavailable Unavailable Justin, Jaz Omalley MD Unavailable Unavailable Justin, Jaz Omalley MD Unavailable Unavailable JustinJaz MD Unavailable Unavailable JustinJaz MD Unavailable Unavailable Justin, Jaz Omalley MD Unavailable Unavailable Justin, Jaz Omalley MD Unavailable Unavailable JustinJaz MD Unavailable Unavailable JustinJaz MD Unavailable Unavailable JustinJaz MD Unavailable Unavailable JustinJaz MD Unavailable Unavailable JustinJaz MD Unavailable Unavailable Justin, Jaz Omalley MD Unavailable Unavailable Justin, Jaz Omalley MD Unavailable Unavailable Justin, Jaz Omalley MD Unavailable Unavailable Justin, Jaz Omalley MD Unavailable Unavailable Justin, E Lyssa MD Unavailable Unavailable Justin, E Lyssa MD Unavailable Unavailable Justin, E Lyssa MD Unavailable Unavailable Justin, E Lyssa MD Unavailable Unavailable Justin, E Lyssa MD Unavailable Unavailable Justin, E Lyssa MD Unavailable Unavailable Justin, E Lyssa MD Unavailable Unavailable Justin, E Lyssa MD Unavailable Unavailable Justin, E Lyssa MD Unavailable Unavailable Justin, E Lyssa MD Unavailable Unavailable Justin, E Lyssa MD Unavailable Unavailable Justin, E Lyssa MD Unavailable Unavailable Justin, E Lyssa MD Unavailable Unavailable Justin, E Lyssa MD Unavailable Unavailable Justin, E Lyssa MD Unavailable Unavailable Justin, E Lyssa MD Unavailable Unavailable Justin, E Lyssa MD Unavailable Unavailable Justin, E Lyssa MD Unavailable Unavailable Justin, E Lyssa MD Unavailable Unavailable Justin, E Lyssa MD Unavailable Unavailable Justin, E Lyssa MD Unavailable Unavailable Justin, E Lyssa MD Unavailable Unavailable Justin, E Lyssa MD Unavailable Unavailable Justin, E Lyssa MD Unavailable Unavailable Justin, E Lyssa MD Unavailable Unavailable Justin, E Lyssa MD Unavailable Unavailable Justin, E Lyssa MD Unavailable Unavailable Justin, E Lyssa MD Unavailable Unavailable Justin, E Lyssa MD Unavailable Unavailable Justin, E Lyssa MD Unavailable Unavailable Justin, E Lyssa MD Unavailable Unavailable Justin, E Lyssa MD Unavailable Unavailable Justin, E Lyssa MD Unavailable Unavailable Justin, E Lyssa MD Unavailable Unavailable Jose Luis Zambrano MD Unavailable Unavailable Jose Luis Zambrano MD Unavailable Unavailable Jose Luis Zambrano MD Unavailable Unavailable Jose Luis Zambrano MD Unavailable Unavailable Jose Luis Zambrano MD Unavailable Unavailable Jose Luis Zambrano MD Unavailable Unavailable Jose Luis Zambrano MD Unavailable Unavailable Jose Luis Zambrano MD Unavailable Unavailable Jose Luis Zambrano MD Unavailable Unavailable Jose Luis Zambrano MD Unavailable Unavailable Jose Luis Zambrano MD Unavailable Unavailable Jose Luis Zambrano MD Unavailable Unavailable Jose Luis Zambrano MD Unavailable Unavailable Jose Luis Zambrano MD Unavailable Unavailable Jose Luis Zambrano MD Unavailable Unavailable Jose Luis Zambrano MD Unavailable Unavailable LynJose Luis bullock MD Unavailable Unavailable LyndaJose Luis vences MD Unavailable Unavailable LyndaJose Luis vences MD Unavailable Unavailable LyndaJose Luis vences MD Unavailable Unavailable LyndaJose Luis vences MD Unavailable Unavailable LyndaJose Luis vences MD Unavailable Unavailable LyndaJose Luis vences MD Unavailable Unavailable LyndaJose Luis vences MD Unavailable Unavailable LyndaJose Luis vences MD Unavailable Unavailable LyndaJose Luis vences MD Unavailable Unavailable LyndaJose Luis vences MD Unavailable Unavailable LyndaJose Luis vences MD Unavailable Unavailable LyndaJose Luis vences MD Unavailable Unavailable LyndaJose Luis vences MD Unavailable Unavailable LyndaJose Luis vences MD Unavailable Unavailable LyndaJose Luis vences MD Unavailable Unavailable LyndaJose Luis vences MD Unavailable Unavailable LyndaJose Luis vences MD Unavailable Unavailable LyndaJose Luis vences MD Unavailable Unavailable LyndaJose Luis vences MD Unavailable Unavailable LyndaJose Luis vences MD Unavailable Unavailable LyndaJose Luis vences MD Unavailable Unavailable LyndaJose Luis vences MD Unavailable Unavailable LyndaJose Luis vences MD Unavailable Unavailable LyndaJose Luis vences MD Unavailable Unavailable LynJose Luis bullock MD Unavailable Unavailable LyndaJose Luis vences MD Unavailable Unavailable LynJose Luis bullock MD Unavailable Unavailable LyndaJose Luis vences MD Unavailable Unavailable LyndaJose Luis vences MD Unavailable Unavailable LyndaJose Luis vences MD Unavailable Unavailable LynJose Luis bullock MD Unavailable Unavailable LynJose Luis bullock MD Unavailable Unavailable LynJose Luis bullock MD Unavailable Unavailable LynJose Luis bullock MD Unavailable Unavailable LynJose Luis bullock MD Unavailable Unavailable LyndaJose Luis vences MD Unavailable Unavailable LynJose Luis bullock MD Unavailable Unavailable LynJose Luis bullock MD Unavailable Unavailable LynJose Luis bullock MD Unavailable Unavailable LynJose Luis bullock MD Unavailable Unavailable LyndaJose Luis vences MD Unavailable Unavailable LyndaJose Luis vences MD Unavailable Unavailable LyndaJose Luis vences MD Unavailable Unavailable LyndaJose Luis vences MD Unavailable Unavailable LynJose Luis bullock MD Unavailable Unavailable LyndaJose Luis vences MD Unavailable Unavailable LynJose Luis bullock MD Unavailable Unavailable LyndaJose Luis vences MD Unavailable Unavailable LyndaJose Luis vences MD Unavailable Unavailable LyndaJose Luis vences MD Unavailable Unavailable Jose Luis Zambrano MD Unavailable Unavailable Jose Luis Zambrano MD Unavailable Unavailable Jose Luis Zambrano MD Unavailable Unavailable Jose Luis Zambrano MD Unavailable Unavailable Jose Luis Zambrano MD Unavailable Unavailable Jose Luis Zambrano MD Unavailable Unavailable Jose Luis Zambrano MD Unavailable Unavailable Jose Luis Zambrano MD Unavailable Unavailable Jose Luis Zambrano MD Unavailable Unavailable Jose Luis Zambrano MD Unavailable Unavailable Jose Luis Zambrano MD Unavailable Unavailable LynJose Luis bullock MD Unavailable Unavailable Jose Luis Zambrano MD Unavailable Unavailable LynJose Luis bullock MD Unavailable Unavailable Jose Luis Zambrano MD Unavailable Unavailable Jose Luis Zambrano MD Unavailable Unavailable Jose Luis Zambrano MD Unavailable Unavailable Jose Luis Zambrano MD Unavailable Unavailable Jose Luis Zambrano MD Unavailable Unavailable Jose Luis Zambrano MD Unavailable Unavailable Jose Luis Zambrano MD Unavailable Unavailable Jose Luis Zambrano MD Unavailable Unavailable Jose Luis Zambrano MD Unavailable Unavailable Jose Luis Zambrano MD Unavailable Unavailable Jose Luis Zambrano MD Unavailable Unavailable Jose Luis Zambrano MD Unavailable Unavailable Jose Luis Zambrano MD Unavailable Unavailable Jose Luis Zambrano MD Unavailable Unavailable Jose Luis Zambrano MD Unavailable Unavailable Jose Luis Zambrano MD Unavailable Unavailable Jose Luis Zambrano MD Unavailable Unavailable MUHA, M JONNY ECDIS N NAVIGATION OPERATOR Unavailable Unavailable MUHA, M OJNNY ECDIS N NAVIGATION OPERATOR Unavailable Unavailable MUHA, M JONNY ECDIS N NAVIGATION OPERATOR Unavailable Unavailable MUHA, M JONNY ECDIS N NAVIGATION OPERATOR Unavailable Unavailable MUHA, M JONNY ECDIS N NAVIGATION OPERATOR Unavailable Unavailable MUHA, M JONNY ECDIS N NAVIGATION OPERATOR Unavailable Unavailable MUHA, M JONNY ECDIS N NAVIGATION OPERATOR Unavailable Unavailable MUHA, M JONNY ECDIS N NAVIGATION OPERATOR Unavailable Unavailable MUHA, M JONNY ECDIS N NAVIGATION OPERATOR Unavailable Unavailable MUHA, M JONNY ECDIS N NAVIGATION OPERATOR Unavailable Unavailable MUHA, M JONNY ECDIS N NAVIGATION OPERATOR Unavailable Unavailable MUHA, M JONNY ECDIS N NAVIGATION OPERATOR Unavailable Unavailable MUHA, M JONNY ECDIS N NAVIGATION OPERATOR Unavailable Unavailable MUHA, M JONNY ECDIS N NAVIGATION OPERATOR Unavailable Unavailable MUHA, M JONNY ECDIS N NAVIGATION OPERATOR Unavailable Unavailable MUHA, M JONNY ECDIS N NAVIGATION OPERATOR Unavailable Unavailable MUHA, M JONNY ECDIS N NAVIGATION OPERATOR Unavailable Unavailable MUHA, M JONNY ECDIS N NAVIGATION OPERATOR Unavailable Unavailable MUHA, M JONNY ECDIS N NAVIGATION OPERATOR Unavailable Unavailable MUHA, M JONNY ECDIS N NAVIGATION OPERATOR Unavailable Unavailable MUHA, M JONNY ECDIS N NAVIGATION OPERATOR Unavailable Unavailable MUHA, M JONNY ECDIS N NAVIGATION OPERATOR Unavailable Unavailable MUHA, M JONNY ECDIS N NAVIGATION OPERATOR Unavailable Unavailable MUHA, M JONNY ECDIS N NAVIGATION OPERATOR Unavailable Unavailable MUHA, M JONNY ECDIS N NAVIGATION OPERATOR Unavailable Unavailable MUHA, M JONNY ECDIS N NAVIGATION OPERATOR Unavailable Unavailable MUHA, M JONNY ECDIS N NAVIGATION OPERATOR Unavailable Unavailable MUHA, M JONNY ECDIS N NAVIGATION OPERATOR Unavailable Unavailable MUHA, M JONNY ECDIS N NAVIGATION OPERATOR Unavailable Unavailable MUHA, M JONNY ECDIS N NAVIGATION OPERATOR Unavailable Unavailable MUHA, M JONNY ECDIS N NAVIGATION OPERATOR Unavailable Unavailable MUHA, M JONNY ECDIS N NAVIGATION OPERATOR Unavailable Unavailable MUHA, M JONNY ECDIS N NAVIGATION OPERATOR Unavailable Unavailable MUHA, M JONNY ECDIS N NAVIGATION OPERATOR Unavailable Unavailable MUHA, M JONNY ECDIS N NAVIGATION OPERATOR Unavailable Unavailable MUHA, M JONNY ECDIS N NAVIGATION OPERATOR Unavailable Unavailable MUHA, M JONNY ECDIS N NAVIGATION OPERATOR Unavailable Unavailable MUHA, M JONNY ECDIS N NAVIGATION OPERATOR Unavailable Unavailable MUHA, M JONNY ECDIS N NAVIGATION OPERATOR Unavailable Unavailable MUHA, M JONNY ECDIS N NAVIGATION OPERATOR Unavailable Unavailable MUHA, M JONNY ECDIS N NAVIGATION OPERATOR Unavailable Unavailable MUHA, M JONNY ECDIS N NAVIGATION OPERATOR Unavailable Unavailable MUHA, M JONNY ECDIS N NAVIGATION OPERATOR Unavailable Unavailable MUHA, M JONNY ECDIS N NAVIGATION OPERATOR Unavailable Unavailable MUHA, M JONNY ECDIS N NAVIGATION OPERATOR Unavailable Unavailable MUHA, M JONNY ECDIS N NAVIGATION OPERATOR Unavailable Unavailable MUHA, M JONNY ECDIS N NAVIGATION OPERATOR Unavailable Unavailable MUHA, M JONNY ECDIS N NAVIGATION OPERATOR Unavailable Unavailable MUHA, M JONNY ECDIS N NAVIGATION OPERATOR Unavailable Unavailable MUHA, M JONNY ECDIS N NAVIGATION OPERATOR Unavailable Unavailable MUHA, M JONNY ECDIS N NAVIGATION OPERATOR Unavailable Unavailable MUHA, M JONNY ECDIS N NAVIGATION OPERATOR Unavailable Unavailable MUHA, M JONNY ECDIS N NAVIGATION OPERATOR Unavailable Unavailable MUHA, M JONNY ECDIS N NAVIGATION OPERATOR Unavailable Unavailable Jaz Anderson MD Unavailable Unavailable Jaz Anderson MD Unavailable Unavailable Jaz Anderson MD Unavailable Unavailable Jaz Anderson MD Unavailable Unavailable JustinJaz MD Unavailable Unavailable Jaz Anderson MD Unavailable Unavailable Jaz Anderson MD Unavailable Unavailable Jaz Anderson MD Unavailable Unavailable Jaz Anderson MD Unavailable Unavailable Jaz Anderson MD Unavailable Unavailable Jaz Anderson MD Unavailable Unavailable Jaz Anderson MD Unavailable Unavailable Jaz Anderson MD Unavailable Unavailable Jaz Anderson MD Unavailable Unavailable Justin, E Lyssa MD Unavailable Unavailable Justin, E Lyssa MD Unavailable Unavailable Justin, E Lyssa MD Unavailable Unavailable Justin, E Lyssa MD Unavailable Unavailable Justin, E Lyssa MD Unavailable Unavailable Justin, E Lyssa MD Unavailable Unavailable Justin, E Lyssa MD Unavailable Unavailable Justin, E Lyssa MD Unavailable Unavailable Justin, E Lyssa MD Unavailable Unavailable Justin, E Lyssa MD Unavailable Unavailable Justin, E Lyssa MD Unavailable Unavailable Justin, E Lyssa MD Unavailable Unavailable Justin, E Lyssa MD Unavailable Unavailable Justin, E Lyssa MD Unavailable Unavailable Justin, E Lyssa MD Unavailable Unavailable Justin, E Lyssa MD Unavailable Unavailable Justin, E Lyssa MD Unavailable Unavailable Justin, E Lyssa MD Unavailable Unavailable Justin, E Lyssa MD Unavailable Unavailable Justin, E Lyssa MD Unavailable Unavailable Justin, E Lyssa MD Unavailable Unavailable Justin, E Lyssa MD Unavailable Unavailable Justin, E Lyssa MD Unavailable Unavailable Justin, E Lyssa MD Unavailable Unavailable Justin, E Lyssa MD Unavailable Unavailable Justin, E Lyssa MD Unavailable Unavailable Justin, E Lyssa MD Unavailable Unavailable Justin, E Lyssa MD Unavailable Unavailable Justin, E Lyssa MD Unavailable Unavailable Justin, E Lyssa MD Unavailable Unavailable Justin, E Lyssa MD Unavailable Unavailable Justin, E Lyssa MD Unavailable Unavailable Justin, E Lyssa MD Unavailable Unavailable Justin, E Lyssa MD Unavailable Unavailable Justin, E Lyssa MD Unavailable Unavailable Justin, E Lyssa MD Unavailable Unavailable Justin, E Lyssa MD Unavailable Unavailable Justin, E Lyssa MD Unavailable Unavailable Justin, E Lyssa MD Unavailable Unavailable Justin, E Lyssa MD Unavailable Unavailable Jeannine, A Saritha ECDIS N NAVIGATION OPERATOR Unavailable Unavailable Jeannine, A Saritha ECDIS N NAVIGATION OPERATOR Unavailable Unavailable Jeannine, A Saritha ECDIS N NAVIGATION OPERATOR Unavailable Unavailable Jeannine, A Saritha ECDIS N NAVIGATION OPERATOR Unavailable Unavailable Jeannine, A Saritha ECDIS N NAVIGATION OPERATOR Unavailable Unavailable Jeannine, A Saritha ECDIS N NAVIGATION OPERATOR Unavailable Unavailable Jeannine, A Saritha ECDIS N NAVIGATION OPERATOR Unavailable Unavailable Jeannine, A Saritha ECDIS N NAVIGATION OPERATOR Unavailable Unavailable Jeannine, A Saritha ECDIS N NAVIGATION OPERATOR Unavailable Unavailable Jeannine, A Saritha ECDIS N NAVIGATION OPERATOR Unavailable Unavailable Jeannine, A Saritha ECDIS N NAVIGATION OPERATOR Unavailable Unavailable Jeannine, A Saritha ECDIS N NAVIGATION OPERATOR Unavailable Unavailable Jeannine, A Saritha ECDIS N NAVIGATION OPERATOR Unavailable Unavailable Jeannine, A Saritha ECDIS N NAVIGATION OPERATOR Unavailable Unavailable Jeannine, A Saritha ECDIS N NAVIGATION OPERATOR Unavailable Unavailable Jeannine, A Saritha ECDIS N NAVIGATION OPERATOR Unavailable Unavailable Jeannine, A Saritha ECDIS N NAVIGATION OPERATOR Unavailable Unavailable Jeannine, A Saritha ECDIS N NAVIGATION OPERATOR Unavailable Unavailable Jeannine, A Saritha ECDIS N NAVIGATION OPERATOR Unavailable Unavailable Jeannine, A Saritha ECDIS N NAVIGATION OPERATOR Unavailable Unavailable Jeannine, A Saritha ECDIS N NAVIGATION OPERATOR Unavailable Unavailable Jeannine, A Saritha ECDIS N NAVIGATION OPERATOR Unavailable Unavailable Jeannine, A Saritha ECDIS N NAVIGATION OPERATOR Unavailable Unavailable Jeannine, A Saritha ECDIS N NAVIGATION OPERATOR Unavailable Unavailable Jeannine, A Saritha ECDIS N NAVIGATION OPERATOR Unavailable Unavailable Jeannine, A Saritha ECDIS N NAVIGATION OPERATOR Unavailable Unavailable Jeannine, A Saritha ECDIS N NAVIGATION OPERATOR Unavailable Unavailable Jeannine, A Saritha ECDIS N NAVIGATION OPERATOR Unavailable Unavailable Jeannine, A Saritha ECDIS N NAVIGATION OPERATOR Unavailable Unavailable Jeannine, A Saritha ECDIS N NAVIGATION OPERATOR Unavailable Unavailable Jeannine, A Saritha ECDIS N NAVIGATION OPERATOR Unavailable Unavailable Jeannine, A Saritha ECDIS N NAVIGATION OPERATOR Unavailable Unavailable Jeannine, A Saritha ECDIS N NAVIGATION OPERATOR Unavailable Unavailable Jeannine, A Saritha ECDIS N NAVIGATION OPERATOR Unavailable Unavailable Jeannine, A Saritha ECDIS N NAVIGATION OPERATOR Unavailable Unavailable Jeannine, A Saritha ECDIS N NAVIGATION OPERATOR Unavailable Unavailable Jeannine, A Saritha ECDIS N NAVIGATION OPERATOR Unavailable Unavailable Jeannine, A Saritha ECDIS N NAVIGATION OPERATOR Unavailable Unavailable Jeannine, A Saritha ECDIS N NAVIGATION OPERATOR Unavailable Unavailable Jeannine, A Saritha ECDIS N NAVIGATION OPERATOR Unavailable Unavailable Jeannine, A Saritha ECDIS N NAVIGATION OPERATOR Unavailable Unavailable Jeannine, A Saritha ECDIS N NAVIGATION OPERATOR Unavailable Unavailable Jeannine, A Saritha ECDIS N NAVIGATION OPERATOR Unavailable Unavailable Jeannine, A Saritha ECDIS N NAVIGATION OPERATOR Unavailable Unavailable Jeannine, A Saritha ECDIS N NAVIGATION OPERATOR Unavailable Unavailable Jeannine, A Saritha ECDIS N NAVIGATION OPERATOR Unavailable Unavailable Jeannine, A Saritha ECDIS N NAVIGATION OPERATOR Unavailable Unavailable Jeannine, A Saritha ECDIS N NAVIGATION OPERATOR Unavailable Unavailable Jeannine, A Saritha ECDIS N NAVIGATION OPERATOR Unavailable Unavailable Jeannine, A Saritha ECDIS N NAVIGATION OPERATOR Unavailable Unavailable Jeannine, A Saritha ECDIS N NAVIGATION OPERATOR Unavailable Unavailable Jeannine, A Saritha ECDIS N NAVIGATION OPERATOR Unavailable Unavailable Re-disclosure Warning The records that you are about to access may contain information from federally-assisted alcohol or drug abuse programs. If such information is present, then the following federally mandated warning applies: This information has been disclosed to you from records protected by federal confidentiality rules (42 CFR part 2). The federal rules prohibit you from making any further disclosure of this information unless further disclosure is expressly permitted by the written consent of the person to whom it pertains or as otherwise permitted by 42 CFR part 2. A general authorization for the release of medical or other information is NOT sufficient for this purpose. The Federal rules restrict any use of the information to criminally investigate or prosecute any alcohol or drug abuse patient.The records that you are about to access may contain highly sensitive health information, the redisclosure of which is protected by Article 27-F of the [facility] Public Health law. If you continue you may have access to information: Regarding HIV / AIDS; Provided by facilities licensed or operated by the [facility] Office of Mental Health; or Provided by the [facility] Office for People With Developmental Disabilities. If such information is present, then the following [facility] mandated warning applies: This information has been disclosed to you from confidential records which are protected by state law. State law prohibits you from making any further disclosure of this information without the specific written consent of the person to whom it pertains, or as otherwise permitted by law. Any unauthorized further disclosure in violation of state law may result in a fine or nursing home sentence or both. A general authorization for the release of medical or other information is NOT sufficient authorization for further disc losure. Allergies and Adverse Reactions Type Description Substance Reaction Status Data Source(s ) Allergy to substance No Known Allergies No known allergies (situation ) [facility]) Allergy to substance No Known Allergies No known allergies (situation ) [facility]) Allergy to substance No Known Allergies No known allergies (situation ) [facility]) Allergy to substance No Known Allergies No known allergies (situation ) [facility]) Propensity to adverse reactions NO KNOWN ALLERGIES NO KNOWN ALLERGIES [facility] Family History Family Member Name Family Member Gender Family Member Status Date o f Status Description Data Source(s) Unknown Condition [facility] Unknown Condition [facility] Unknown Female Problem [facility] ([facility]) Encounters Encounter Providers Location Date Indications Data Source(s ) Outpatient Attender: JONNY JOHNSON [facility] 08/09/2021 04:20:00 PM EDT Z11.3 [facility] Z11.3 Outpatient<td ID="encounterTypeDescripti onID0">ANNUAL PE-followup exam</td><td>Jonny Johnson [facility]-</td><td>[facility], [facility]</td><td>08/09/2021</td><td>3:38PM</td><td>5:08PM</td><td><content ID="encounterDiagnosisID0-0">Routine History and Physical Adult (18 - 64 Yrs)</content>, <content ID="encounterDiagnosisID0-1">Major Depression Recurrent Moderate</content>, <content ID="encounterDiagnosisID0-2">Anxiety Disorder Nos</content>, <content ID="encounterDiagnosisID0-3">Asthma Persistent</content>, <content ID="encounterDiagnosisID0-4">Assessment of Cerv Pap Smear (+) Atyp Squamous Cells Undetermined Signif</content></td> Attender: JONNY HENLEYMARIO [facility], [facility] 08/09/2021 03:38:00 P M EDT - 08/09/2021 05:08:00 PM EDT Asthma PersistentRoutine History and Phy sical Adult (18 - 64 Yrs)Assessment of Cerv Pap Smear (+) Atyp Squamous Cells Undetermined SignifAnxiety Disorder NosMajor Depression Recurrent Moderate [facility] ([facility]) Asthma Persistent Routine History and Physical Adult (18 - 64 Yrs) Assessment of Cerv Pap Smear (+) Atyp Sq uamous Cells Undetermined Signif Anxiety Disorder Nos Major Depression Recurrent Moderate Outpatient Attender: Saritha Paez [facility] 07/13/2021 10:49:00 AM EDT ASTHMA J45.998 [facility] ASTHMA J45.998 Outpatient Attender: Lyssa Anderson MD 07/10/2021 09:00:00 AM EDT [facility] Outpatient Attender: Lyssa Anderson MD 07/06/2021 11:30:00 AM EDT [facility] Outpatient<td ID="encounterTypeDescripti onID1">nursing visit</td><td>Lyssa Anderson MD</td><td>[facility]</td><td>07/06/2021</td><td>11:23AM</td><td>12:00PM</td><td></td> Attender: Lyssa Anderson MD [facility], [facility] 07/06/2021 11:23:00 A M EDT - 07/06/2021 12:00:59 PM EDT [facility]) Outpatient<td ID="encounterTypeDescripti onID2">followup</td><td>Saritha Paez [facility]</td><td>[facility]</td><td>06/22/2021</td><td>8:50AM</td><td>9:17AM</td><td><content ID="encounterDiagnosisID2-0">Allergic Rhinitis</content>, <content ID="encounterDiagnosisID2-1">Reactive Airway Disease</content></td> Attender: Saritha HERNANDEZ [facility], [facility] 06/22/2021 08:50:00 A M EDT - 06/22/2021 09:17:00 AM EDT Reactive Airway DiseaseAllergic Rhinitis [facility]) Reactive Airway Disease Allergic Rhinitis Outpatient Attender: Saritha HERNANDEZ 05/15/2021 12:49 :00 PM EDT SOB [facility] SOB Outpatient Attender: Saritha HERNANDEZ 05/11/2021 11:54 :00 AM EDT R06.02, [facility] R06.02, <td ID="encounterTypeDescriptionID3">sic k visit</td><td>Saritha HERNANDEZ</td><td>[facility], [facility]</td><td>05/11/2021</td><td>11:18AM</td><td>11:45AM</td><td><content ID="encounterDiagnosisID3-0">Allergic Rhinitis</content>, <content ID="encounterDiagnosisID3-1">Reactive Airway Disease</content></td>Outpatient Attender: Saritha Paez [facility], [facility] 05/11/2021 11:18:00 AM EDT - 05/11/2021 11:45:00 AM EDT Reactive Airway DiseaseReactive Airway DiseaseAllergic RhinitisAllergic Rhinitis [place] ([facility]) Reactive Airway Disease Reactive Airway Disease Allergic Rhinitis Allergic Rhinitis Outpatient<td ID="encounterTypeDescripti onID4">[Patient Encounter]</td><td>Jonny Cameron [facility]</td><td></td><td>04/12/2021</td><td>04/02/2021 4:20PM</td><td>04/02/2021 11:59PM</td><td></td> Attender: JONNY HERNANDEZ 04/02/2021 04:20:00 PM EDT - 04/02/2021 11:59:00 PM EDT [facility]) Outpatient<td ID="encounterTypeDescripti onID5">followup</td><td>Jonny Nisha Piedad PETIT</td><td>[facility]</td><td>04/02/2021</td><td>3:28PM</td><td>4:15PM</td><td><content ID="encounterDiagnosisID5-0">Major Depression Recurrent Moderate</content>, <content ID="encounterDiagnosisID5-1">Reactive Airway Disease</content>, <content ID="encounterDiagnosisID5-2">Allergic Rhinitis</content></td> Attender: JONNY HERNANDEZ [facility] 04/02/2021 03:28:00 P M EDT - 04/02/2021 04:15:00 PM EDT Reactive Airway DiseaseReactive Airway DiseaseReactive Airway DiseaseAllergic RhinitisMajor Depression Recurrent ModerateAllergic RhinitisMajor Depression Recurrent ModerateAllergic RhinitisMajor Depression Recurrent Moderate [place] ([facility]) 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 Allergic Rhinitis Major Depression Recurrent Moderate Allergic Rhinitis Major Depression Recurrent Moderate Allergic Rhinitis Major Depression Recurrent Moderate Outpatient Attender: MICHAEL MCKEON MD Main Office 03/15/2021 04:00:00 PM EDT [facility] ([facility]) Outpatient Attender: MICHAEL MCKEON MD Main Office 02/06/2021 02:45:00 PM EDT [facility] ([facility] <td ID="encounterTypeDescriptionID6">[Pa tient Encounter]</td><td>Jonny Cameron [facility]</td><td></td><td>03/18/2021</td><td>11/30/2020 7:24PM</td><td>11/30/2020 11:59PM</td><td></td>Outpatient Attender: JONNY HERNANDEZ 0 11/30/2020 07:24:00 PM EST - 11/30/2020 11:59:00 PM EST [place] ([facility]) Outpatient<td ID="encounterTypeDescripti onID7">followup</td><td>Jonny Cameron Piedad [facility]CE</td><td>[facility], [facility]</td><td>11/30/2020</td><td>3:09PM</td><td>3:54PM</td><td><content ID="encounterDiagnosisID7-0">Urticaria Idiopathic</content>, <content ID="encounterDiagnosisID7-1">Bacterial Vaginosis</content></td> Attender: JONNY HERNANDEZ [facility], [facility] 11/30/2020 03:09:00 P EST - 11/30/2020 03:54:00 PM EST Bacterial VaginosisUrticaria IdiopathicB acterial VaginosisUrticaria IdiopathicBacterial VaginosisUrticaria Idiopathic [place] ([facility]) 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 <td ID="encounterTypeDescriptionID8">[facility] visit</td><td>Kyle Zambrano MD</td><td>[facility]</td><td>11/13/2020</td><td>3:37PM</td><td>3:52PM</td><td></td>Outpatient Attender: Kyle Zambrano MD [facility] 11/13/2020 03:37:00 PM EST - 11/13/2020 03:52:15 PM EST [facility]) Outpatient Attender: Lyssa Anderson MD 10/10/2020 04:15:00 PM EST I26.99 [facility] I26.99 <td ID="encounterTypeDescriptionID9">[facility] visit</td><td>Lyssa Anderson MD</td><td>[facility]</td><td>10/10/2020</td><td>3:15PM</td><td>3:46PM</td><td><content ID="encounterDiagnosisID9-0">Pulmonary Embolism</content>, <content ID="encounterDiagnosisID9-1">Upper Respiratory Infection Acute</content></td>Outpatient Attender: Lyssa Anderson MD [facility] 10/10/2020 03:15:00 PM EST - 10/10/2020 03:46:00 PM ES T Upper Respiratory Infection AcutePulmonary EmbolismUpper Respiratory Infection AcutePulmonary EmbolismUpper Respiratory Infection AcutePulmonary EmbolismUpper Respiratory Infection AcutePulmonary Embolism [facility]) Upper Respiratory Infection Acute Pulmonary Embolism Upper Respiratory Infection Acute Pulmonary Embolism Upper Respiratory Infection Acute Pulmonary Embolism Upper Respiratory Infection Acute Pulmonary Embolism Outpatient<td ID="encounterTypeDescripti onID10">followup</td><td>Jonny COBBP-</td><td>[facility], [facility]</td><td>10/04/2020</td><td>10:59AM</td><td>11:38AM</td><td><content ID="fcahtiefqRxpjlbiomLE70-6">Major Depression Recurrent Moderate</content></td> Attender: JONNY JOHNSON [facility], [facility] 10/04/2020 10:59:00 AM EST - 10/04/2020 11:38:00 AM EST Major Depression Recurrent ModerateMajor Depression Recurrent ModerateMajor Depression Recurrent ModerateMajor Depression Recurrent ModerateMajor Depression Recurrent Moderate [facility] ([facility]) Major Depression Recurrent Moderate Major Depression Recurrent Moderate Major Depression Recurrent Moderate Major Depression Recurrent Moderate Major Depression Recurrent Moderate Outpatient Attender: Saritha Paez [facility] 08/11/2020 04:05 :00 PM EDT N76.0 [facility] N76.0 <td ID="encounterTypeDescriptionID6">[facility]</td><td>Saritha Paez [facility]</td><td>[facility], [facility]</td><td>08/11/2020</td><td>3:29PM</td><td>4:13PM</td><td><content ID="encounterDiagnosisID6-0">Candidiasis Vaginal</content>, <content ID="encounterDiagnosisID6-1">Vaginal Discharge</content></td>Outpatient Attender: Saritha Paez [facility], [facility] 08/11/2020 03:29:00 PM EDT - 08/11/2020 04:13:00 PM EDT Vaginal DischargeCandidiasis VaginalVaginal DischargeCandidiasis VaginalVaginal DischargeCandidiasis VaginalVaginal DischargeCandidiasis VaginalVaginal DischargeCandidiasis Vaginal [facility] ([facility]) Vaginal Discharge Candidiasis Vaginal Vaginal Discharge Candidiasis Vaginal Vaginal Discharge Candidiasis Vaginal Vaginal Discharge Candidiasis Vaginal Vaginal Discharge Candidiasis Vaginal Outpatient Attender: Saritha Paez [facility] 08/07/2020 07:55 :00 AM EDT B37.9 [facility] B37.9 Outpatient Attender: Saritha Paez [facility] 08/05/2020 11:00 :00 AM EDT N89.8 [facility] N89.8 <td ID="encounterTypeDescriptionID7">sic k visit</td><td>Saritha Paez [facility]</td><td>[facility], [facility]</td><td>08/05/2020</td><td>9:55AM</td><td>11:02AM</td><td><content ID="encounterDiagnosisID7-0">Candidiasis Vaginal</content>, <content ID="encounterDiagnosisID7-1">Vaginal Discharge</content></td>Outpatient Attender: Saritha Paez [facility], [facility] 08/05/2020 09:55:00 AM EDT - 08/05/2020 11:02:00 AM EDT Vaginal DischargeCandidiasis VaginalVaginal DischargeCandidiasis VaginalVaginal DischargeCandidiasis VaginalVaginal DischargeCandidiasis VaginalVaginal DischargeCandidiasis VaginalVaginal DischargeCandidiasis Vaginal [facility] ([facility]) Vaginal Discharge Candidiasis Vaginal Vaginal Discharge Candidiasis Vaginal Vaginal Discharge Candidiasis Vaginal Vaginal Discharge Candidiasis Vaginal Vaginal Discharge Candidiasis Vaginal Vaginal Discharge Candidiasis Vaginal Outpatient Attender: JONNY JOHNSON [facility] 06/26/2020 02:00:00 PM EDT Z11.3 [facility] Z11.3 Immunizations Vaccine Date Status Description Data Source(s) Moderna COVID-19 vaccine 01/12/2021 04:52:00 PM EST completed <td ID="Zprtxtyiykhby-Dvghpcvvels-TN00">Moderna COVID-19 vaccine</td><td ID="ImmunizationDose-26">2</td><td>01/12/2021</td><td ID="Quiymnbicmxki-QrqozQtic-VH73"></td><td></td><td ID="Qwiminylxyhwk-Ajanlo-VK07">Complete (Reported)</td><td>Patient</td><td ID="Ubrhgfswpgkiv-Xgwuu-Pypo-Comment-ID26"></td> [place] ([facility]) COVID-19 VACCINE Moderna 01/12/2021 12:00:00 AM EST completed [facility] Vaccine Series Complete: YESThis Data wa s Submitted to [facility] Via [email or web address]. Moderna COVID-19 vaccine 12/15/2020 04:51:00 PM EST completed <td ID="Nancyxejlkjty-Vnizkofdaoz-GF79">Moderna COVID-19 vaccine</td><td ID="ImmunizationDose-25">1</td><td>12/15/2020</td><td ID="Jvcibtphrcimc-PcvkoIrro-LB47"></td><td></td><td ID="Friymxnnrfrtw-Qgskne-WB37">Complete (Reported)</td><td>Patient</td><td ID="Cvhnzhrkvwavn-Jwjan-Zyca-Comment-ID25"></td> [facility]) COVID-19 VACCINE a 12/15/2020 12:00:00 AM EST completed [facility] Vaccine Series Complete: NOThis Data was Submitted to [facility] Via [employer]. 11/13/2020 03:53:00 PM EST completed <td ID="Ooeinajgjooaf-Sswphiyfbnr-ZC2">Gardasil</td><td ID="ImmunizationDose- 7">3</td><td>11/13/2020</td><td ID="Fmrbrmkhpgjjx-GbtfwHmma-MO9">Left Deltoid</td><td></td><td ID="Oplujvbkaioca-Vbigal-NQ8">Complete (Administered)</td><td>[facility]</td><td ID="Qjcbvsbkdvivk-Odspv-Obht-Comment-ID7"></td> [place] ([facility]) INFLUENZA VIRUS VACCINE QUADRIVALENT 2019- (6 MOS AN D UP) 08/05/2020 12:00:00 AM EDT completed [facility] Medications Medication Brand Name Start Date Product Form Dose Route Admi nistrative Instructions Pharmacy Instructions Status Indications Reaction Description Data Source(s) 60 ACTUAT Fluticasone propionate 0.25 MG /ACTUAT / salmeterol 0.05 MG/ACTUAT Dry Powder Inhaler [Advair] 250-50 mcg/dose FLUTICASONE PROPION/SALMETEROL 08/22/2021 12:00:00 AM EDT blister with device 60 I NHALE ONE PUFF BY MOUTH TWICE A DAY INHALE ONE PUFF BY MOUTH TWICE A DAY SOLD: 08/25/2021 [facility] 30 mg 08/21/2021 12:00:00 AM EDT capsule 30 TAKE ONE CAPSULE BY MOUTH EVERY MORNING MAXIMUM DAILY DOSE = 1 CAPSULE TAKE ONE CAPSULE BY MOUTH EVERY MORNING MAXIMUM DAILY DOSE = 1 CAPSULE SOLD: 08/21/2021 [facility] Sertraline 100 MG Oral Tablet Sertraline HCl 100 MG Or al Tablet Sertraline HCl 100 MG Oral Tablet 08/02/2021 12:00:00 AM EDT 1 active sertraline 100 MG Oral Tablet [place] [facility] 100 mg 08/02/2021 12:00:00 AM EDT tablet 30 TAKE ONE TABLET BY MOUTH EVERY DAY TAKE ONE TABLET BY MOUTH EVERY DAY SOLD: 08/04/2021 [facility] 30 mg 07/21/2021 12:00:00 AM EDT capsule 30 TAKE ONE CAPSULE BY MOUTH EVERY MORNING MAXIMUM DAILY DOSE = 1 TAKE ONE CAPSULE BY MOUTH EVERY MORNING MAXIMUM DAILY DOSE = 1 SOLD: 07/21/2021 [facility] lisdexamfetamine dimesylate 30 MG Oral C apsule [Vyvanse] Vyvanse 30 MG Oral Capsule Vyvanse 30 MG Oral Capsule 07/21/2021 12:00:00 AM EDT active lisdexamfetamine dimesylate 30 MG Oral C apsule [Vyvanse] [facility] ([facility]) Loryna 28 Day Pack 3-0.02 mg ETHINYL ESTRADIOL/DROSPIRENONE 06/20/2021 12:00:00 AM EDT tablet 28 TAKE 1 TABLET BY MOUTH ONCE DAILY DIRECTED TAKE 1 TABLET BY MOUTH ONCE DAILY DIRECTED SOLD: 06/21/2021 [facility] Loryna 3-0.02 MG Oral Tablet Loryna 3-0.02 MG Oral Tablet 12:00:00 AM EDT 1 active {24 (alexia spirenone 3 MG / ethinyl estradiol 0.02 MG Oral Tablet) / 4 (inert ingredients 1 MG Oral Tablet) } Pack [Loryna ] [facility] Loryna 28 Day Pack 3-0.02 mg ETHINYL ESTRADIOL/DROSPIRENONE 06/20/2021 12:00:00 AM EDT tablet 28 TAKE 1 TABLET BY MOUTH ONCE DAILY DIRECTED TAKE 1 TABLET BY MOUTH ONCE DAILY DIRECTED SOLD: 07/21/2021 [facility] 30 mg 06/20/2021 12:00:00 AM EDT capsule 30 TAKE ONE CAPSULE BY MOUTH EVERY MORNING MAXIMUM DAILY DOSE = 1 CAPSULE TAKE ONE CAPSULE BY MOUTH EVERY MORNING MAXIMUM DAILY DOSE = 1 CAPSULE SOLD: 06/21/2021 [facility] Loryna 28 Day Pack 3-0.02 mg ETHINYL ESTRADIOL/DROSPIRENONE 06/20/2021 12:00:00 AM EDT tablet 28 TAKE 1 TABLET BY MOUTH ONCE DAILY DIRECTED TAKE 1 TABLET BY MOUTH ONCE DAILY DIRECTED SOLD: 08/20/2021 [facility] 60 ACTUAT Fluticasone propionate 0.25 MG /ACTUAT / salmeterol 0.05 MG/ACTUAT Dry Powder Inhaler [Advair] 250-50 mcg/dose FLUTICASONE PROPION/SALMETEROL 05/11/2021 12:00:00 AM EDT blister with device 60 I NHALE ONE PUFF BY MOUTH TWICE A DAY INHALE ONE PUFF BY MOUTH TWICE A DAY SOLD: 05/11/2021 [facility] 60 ACTUAT Fluticasone propionate 0.25 MG /ACTUAT / salmeterol 0.05 MG/ACTUAT Dry Powder Inhaler [Advair] Advair Diskus 250-50 MCG/DOSE Inhalation Aerosol Powder Breath Activated Advair Diskus 250-50 MCG/DOSE Inhalation Aerosol Powder Breath Activated 05/11/2021 12:00:00 AM EDT active 60 ACTUAT fluticasone propionate 0.25 MG/ACTUAT / salmeterol 0.05 MG/ACTUAT Dry Powder Inhaler [Advair] [facility] montelukast 10 MG Oral Tablet [Singulair] Singulair 10 MG Oral Tablet Singulair 10 MG Oral Tablet 05/11/2021 12:00:00 AM EDT active montelukast 10 MG Oral Tablet [Singulair] [facility] montelukast 10 MG Oral Tablet MONTELUKAST SODIUM 05/11/2021 12:0 0:00 AM EDT tablet 90 TAKE ONE TABLET BY MOUTH EVERY D AY TAKE ONE TABLET BY MOUTH EVERY DAY SOLD: 08/14/2021 [facility] 60 ACTUAT Fluticasone propionate 0.25 MG /ACTUAT / salmeterol 0.05 MG/ACTUAT Dry Powder Inhaler [Advair] 250-50 mcg/dose FLUTICASONE PROPION/SALMETEROL 05/11/2021 12:00:00 AM EDT blister with device 60 I NHALE ONE PUFF BY MOUTH TWICE A DAY INHALE ONE PUFF BY MOUTH TWICE A DAY SOLD: 06/20/2021 [facility] montelukast 10 MG Oral Tablet MONTELUKAST SODIUM 05/11/2021 12:0 0:00 AM EDT tablet 90 TAKE ONE TABLET BY MOUTH EVERY D AY TAKE ONE TABLET BY MOUTH EVERY DAY SOLD: 05/11/2021 [facility] 250 mg 04/12/2021 12:00:00 AM EDT tablet 6 TAKE TWO TABLETS BY MOUTH AT ONCE ON THE FIRST DAY THEN TAKE ONE DAILY THEREAFTER TAKE TWO TABLETS BY MOUTH AT ONCE ON THE FIRST DAY THEN TAKE ONE DAILY THEREAFTER SOLD: 04/13/2021 [facility] Azithromycin 250 MG Oral Tablet [Zithromax] Zithromax 250 MG Oral Tablet Zithromax 250 MG Oral Tablet 04/12/2021 12:00:00 AM EDT completed azithromycin 250 MG Oral Tablet [facility]ithromax] [facility] 90 mcg/actuation 04/02/2021 12:00:00 AM EDT HFA aerosol inha ler 8 INHALE 2 PUFFS BY MOUTH EVERY 4 HOURS NEEDED WHEEZING INHALE 2 PUFFS BY MOUTH EVERY 4 HOURS NEEDED WHEEZING SOLD: 04/02/2021 [facility] 200 ACTUAT Albuterol 0.09 MG/ACTUAT Mete red Dose Inhaler [ProAir] ProAir HFA 108 (90 Base) MCG/ACT Inhalation Aerosol Solution ProAir HFA 108 (90 Base) MCG/ACT Inhalation Aerosol Solution 04/02/2021 12:00:00 AM EDT active [id number] 200 ACTUAT albuterol 0.09 MG/ACTUAT Metered Dose Inhaler [ProAir] [facility] 120 ACTUAT mometasone furoate 0.1 MG/ACT UAT Metered Dose Inhaler [Asmanex] Asmanex HFA 100 MCG/ACT Inhalation Aerosol Asmanex HFA 100 MCG/ACT Inhalation Aerosol 04/02/2021 12:00:00 AM EDT aborted 120 ACTUAT mometasone furoate 0.1 MG/ACTUAT Metered Dose Inhaler [Asmanex] [place] ([facility]) levocetirizine dihydrochloride 5 MG Oral Tablet [Xyzal] Xyzal Allergy 24HR 5 MG Oral Tablet Xyzal Allergy 24HR 5 MG Oral Tablet 04/02/2021 12:00:00 AM EDT 1 active levocetirizine dihyd rochloride 5 MG Oral Tablet [Xyzal] [place] ([facility]) Sertraline 100 MG Oral Tablet Sertraline HCl 100 MG Or al Tablet Sertraline HCl 100 MG Oral Tablet 03/30/2021 12:00:00 AM EDT 1 completed sertraline 100 MG Oral Tablet [facility]) 100 mg 03/30/2021 12:00:00 AM EDT tablet 30 TAKE ONE TABLET BY MOUTH EVERY DAY TAKE ONE TABLET BY MOUTH EVERY DAY SOLD: 04/01/2021 [facility] 100 mg 03/30/2021 12:00:00 AM EDT tablet 30 TAKE ONE TABLET BY MOUTH EVERY DAY TAKE ONE TABLET BY MOUTH EVERY DAY SOLD: 06/03/2021 [facility] 100 mg 03/30/2021 12:00:00 AM EDT tablet 30 TAKE ONE TABLET BY MOUTH EVERY DAY TAKE ONE TABLET BY MOUTH EVERY DAY SOLD: 07/03/2021 [facility] 100 mg 03/30/2021 12:00:00 AM EDT tablet 30 TAKE ONE TABLET BY MOUTH EVERY DAY TAKE ONE TABLET BY MOUTH EVERY DAY SOLD: 05/01/2021 [facility] 5 mg 02/06/2021 12:00:00 AM EDT tablet 60 TAKE ONE TABLET BY MOUTH TWICE A DAY TO SUPRESS HIVES TAKE ONE TABLET BY MOUTH TWICE A DAY TO SUPRESS HIVES SOLD: 08/20/2021 [facility] levocetirizine dihydrochloride 5 MG Oral Tablet Levocetirizi ne Dihydrochloride 02/06/2021 12:00:00 AM EDT ORAL active [facility] ([facility]) 5 mg 02/06/2021 12:00:00 AM EDT tablet 60 TAKE ONE TABLET BY MOUTH TWICE A DAY TO SUPRESS HIVES TAKE ONE TABLET BY MOUTH TWICE A DAY TO SUPRESS HIVES SOLD: 06/20/2021 [facility] 5 mg 02/06/2021 12:00:00 AM EDT tablet 60 TAKE ONE TABLET BY MOUTH TWICE A DAY TO SUPRESS HIVES TAKE ONE TABLET BY MOUTH TWICE A DAY TO SUPRESS HIVES SOLD: 04/15/2021 [facility] 5 mg 02/06/2021 12:00:00 AM EDT tablet 60 TAKE ONE TABLET BY MOUTH TWICE A DAY TO SUPRESS HIVES TAKE ONE TABLET BY MOUTH TWICE A DAY TO SUPRESS HIVES SOLD: 02/07/2021 [facility] Loryna 28 Day Pack 3-0.02 mg ETHINYL ESTRADIOL/DROSPIRENONE 01/30/2021 12:00:00 AM EDT tablet 28 TAKE 1 TABLET BY MOUTH ONCE DAILY DIRECTED TAKE 1 TABLET BY MOUTH ONCE DAILY DIRECTED SOLD: 02/02/2021 [facility] Loryna 28 Day Pack 3-0.02 mg ETHINYL ESTRADIOL/DROSPIRENONE 01/30/2021 12:00:00 AM EDT tablet 28 TAKE 1 TABLET BY MOUTH ONCE DAILY DIRECTED TAKE 1 TABLET BY MOUTH ONCE DAILY DIRECTED SOLD: 04/01/2021 [facility] Loryna 28 Day Pack 3-0.02 mg ETHINYL ESTRADIOL/DROSPIRENONE 01/30/2021 12:00:00 AM EDT tablet 28 TAKE 1 TABLET BY MOUTH ONCE DAILY DIRECTED TAKE 1 TABLET BY MOUTH ONCE DAILY DIRECTED SOLD: 05/28/2021 [facility] Loryna 28 Day Pack 3-0.02 mg ETHINYL ESTRADIOL/DROSPIRENONE 01/30/2021 12:00:00 AM EDT tablet 28 TAKE 1 TABLET BY MOUTH ONCE DAILY DIRECTED TAKE 1 TABLET BY MOUTH ONCE DAILY DIRECTED SOLD: 04/29/2021 [facility] Gianvi 3-0.02 MG Oral Tablet Gianvi 3-0.02 MG Oral Tablet 12:00:00 AM EDT aborted {24 (alexia spirenone 3 MG / ethinyl estradiol 0.02 MG Oral Tablet) / 4 (inert ingredients 1 MG Oral Tablet) } Pack [facility]Gianvi 28-Day] [facility] Loryna 28 Day Pack 3-0.02 mg ETHINYL ESTRADIOL/DROSPIRENONE 01/30/2021 12:00:00 AM EDT tablet 28 TAKE 1 TABLET BY MOUTH ONCE DAILY DIRECTED TAKE 1 TABLET BY MOUTH ONCE DAILY DIRECTED SOLD: 03/02/2021 [facility] 0.75 % 11/30/2020 12:00:00 AM EST gel 70 APPLY TWO TIMES A DAY FOR FIVE DAYS APPLY TWO TIMES A DAY FOR FIVE DAYS SOLD: 11/30/2020 [facility] Metronidazole 0.0075 MG/MG Vaginal Gel metroNIDAZOLE 0 .75% Vaginal Gel metroNIDAZOLE 0.75% Vaginal Gel 11/30/2020 12:00:00 AM EST completed metronidazole 0.0075 MG/MG [facility] Loryna Pack 3-0.02 mg ETHINYL ESTRADIOL/DROSPIRENONE 09/16/2020 12:00:00 AM EST tablet 28 TAKE 1 TABLET BY MOUTH ONCE DAILY DIRECTED TAKE 1 TABLET BY MOUTH ONCE DAILY DIRECTED SOLD: 09/18/2020 [facility] Loryna Day Pack 3-0.02 mg ETHINYL ESTRADIOL/DROSPIRENONE 09/16/2020 12:00:00 AM EST tablet 28 TAKE 1 TABLET BY MOUTH ONCE DAILY DIRECTED TAKE 1 TABLET BY MOUTH ONCE DAILY DIRECTED SOLD: 11/13/2020 [facility] Loryna Day Pack 3-0.02 mg ETHINYL ESTRADIOL/DROSPIRENONE 09/16/2020 12:00:00 AM EST tablet 28 TAKE 1 TABLET BY MOUTH ONCE DAILY DIRECTED TAKE 1 TABLET BY MOUTH ONCE DAILY DIRECTED SOLD: 01/05/2021 [facility] Gianvi 3-0.02 MG Oral Tablet Gianvi 3-0.02 MG Oral Tablet 12:00:00 AM EST aborted {24 (alexia spirenone 3 MG / ethinyl estradiol 0.02 MG Oral Tablet) / 4 (inert ingredients 1 MG Oral Tablet) } Pack [Gianvi 28-Day] [facility] Lory[place] 28 Day Pack 3-0.02 mg ETHINYL ESTRADIOL/DROSPIRENONE 09/16/2020 12:00:00 AM EST tablet 28 TAKE 1 TABLET BY MOUTH ONCE DAILY DIRECTED TAKE 1 TABLET BY MOUTH ONCE DAILY DIRECTED SOLD: 10/13/2020 [facility] Loryna 28 Day Pack 3-0.02 mg ETHINYL ESTRADIOL/DROSPIRENONE 09/16/2020 12:00:00 AM EST tablet 28 TAKE 1 TABLET BY MOUTH ONCE DAILY DIRECTED TAKE 1 TABLET BY MOUTH ONCE DAILY DIRECTED SOLD: 12/09/2020 [facility] Nystatin 100 UNT/MG Topical Powder Nystatin 475741 UNI T/GM External Powder Nystatin 819064 UNIT/GM External Powder 08/11/2020 12:00:00 AM EDT active nystatin 100 UNT/MG Topical Powd er [place] ([facility]) 100,000 unit/gram 08/11/2020 12:00:00 AM EDT powder 30 APPLY TWO TO THREE TIMES A DAY APPLY TWO TO THREE TIMES A DAY SOLD: 08/13/2020 [facility] . UNIT 08/05/2020 12:00:00 AM EDT Injectable 1 DIRECTED DIRECTED SOLD: 08/05/2020 [facility] Metronidazole 0.0075 MG/MG Vaginal Gel metroNIDAZOLE 0 .75% Vaginal Gel metroNIDAZOLE 0.75% Vaginal Gel 08/05/2020 12:00:00 AM EDT aborted metronidazole 0.0075 MG/MG Vaginal Gel [facility] ([facility]) 0.75 % 08/05/2020 12:00:00 AM EDT gel 70 INSERT ONE APPLICATORFUL TWO TIMES A DAY FOR 5 DAYS INSERT ONE APPLICATORFUL TWO TIMES A DAY FOR 5 DAYS SO LD: 08/05/2020 [facility] 100 mg 06/26/2020 12:00:00 AM EDT tablet 30 TAKE ONE TABLET BY MOUTH EVERY DAY TAKE ONE TABLET BY MOUTH EVERY DAY SOLD: 01/30/2021 [facility] Sertraline 100 MG Oral Tablet Sertraline HCl 100 MG Or al Tablet Sertraline HCl 100 MG Oral Tablet 06/26/2020 12:00:00 AM EDT 1 aborted sertraline 100 MG Oral Tablet [facility] ([facility]) 100 mg 06/26/2020 12:00:00 AM EDT tablet 30 TAKE ONE TABLET BY MOUTH EVERY DAY TAKE ONE TABLET BY MOUTH EVERY DAY SOLD: 03/02/2021 [facility] 100 mg 06/26/2020 12:00:00 AM EDT tablet 30 TAKE ONE TABLET BY MOUTH EVERY DAY TAKE ONE TABLET BY MOUTH EVERY DAY SOLD: 08/05/2020 [facility] Loryna 28 Day Pack 3-0.02 mg ETHINYL ESTRADIOL/DROSPIRENONE 04/24/2020 12:00:00 AM EDT tablet 28 TAKE 1 TABLET BY MOUTH ONCE DAILY DIRECTED TAKE 1 TABLET BY MOUTH ONCE DAILY DIRECTED SOLD: 08/20/2020 [facility] Loryna 28 Day Pack 3-0.02 mg ETHINYL ESTRADIOL/DROSPIRENONE 04/24/2020 12:00:00 AM EDT tablet 28 TAKE 1 TABLET BY MOUTH ONCE DAILY DIRECTED TAKE 1 TABLET BY MOUTH ONCE DAILY DIRECTED SOLD: 07/23/2020 [facility] Gianvi 3-0.02 MG Oral Tablet Gianvi 3-0.02 MG Oral Tablet 12:00:00 AM EDT aborted {24 (alexia spirenone 3 MG / ethinyl estradiol 0.02 MG Oral Tablet) / 4 (inert ingredients 1 MG Oral Tablet) } Pack [Gianvi 28-Day] [facility] ([facility]) Insurance Providers Payer name Policy type / Coverage type Policy ID Covered democrat ID Covered democrat's relationship to jackson Policy Jackson Plan Information [place] [facility] [phone] Family Dependent [place] [facility]pr[facility] [id number] Family Dependent [id number] POM[place] U [id number] Child [id number] [place] (pr) Commercial [id number] Family Dependent 910 [place] (pr) Commercial [id number] Family Dependent [id number] [place] (pr) Commercial [id number] Family Dependent [id number] POM[employer] U [id number] Child [id number] [place] F [id number] PARENT [id number] [place] / UMR F [id number] PARENT [id number] [place] O [id number] M [id number] [place] F [id number] PARENT [id number] UMR [facility] [id number] FA2 [id number] Problems, Conditions, and Diagnoses Code Display Name Description Problem Type Effective Dates Data Source(s) 493.00 Asthma Persistent Asthma Persistent Problem 08/09/2021 12:00:00 AM EDT [facility] ([facility]) 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 Reactive Airway Disease Proble m 04/03/2021 12:00:00 AM EDT [facility] ([facility]) 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 Completed 2020. J30.89 Allergic rhinitis due to house dust mite Allergic rhinitis due to house dust mite Problem 02/06/2021 12:00:00 AM EDT [facility] ([facility]) Note: 4++ reaction to dust mites on scra tch test. Completed 2020. J30.1 Allergic rhinitis due to pollen Allergic rhinitis due to pollen Problem 02/06/2021 12:00:00 AM EDT [facility] ([facility] ) Note: 4++ reaction to ragweed pollen snow e mix #2 (elizabeth, cottonwood, elm, pine) with 3+ reaction to tree mix #1 (birch, oak, maple) and weed pollen on intradermal test. Completed 2020. L50.1 Idiopathic urticaria Idiopathic urticaria Problem 02/06/2021 12:00:00 AM EDT [facility] ([facility] ) 795.01 Cerv Pap Smear (+) Atyp Squamous Cells U ndetermined Signif Cerv Pap Smear (+) Atyp Squamous Cells Undetermined Signif Finding 07/05/2020 11:44 :00 AM [facility]) 795.01 Cerv Pap Smear (+) Atyp Squamous Cells U ndetermined Signif Cerv Pap Smear (+) Atyp Squamous Cells Undetermined Signif Finding 07/05/2020 11:44 :00 AM [facility]) 795.01 Cerv Pap Smear (+) Atyp Squamous Cells U ndetermined Signif Cerv Pap Smear (+) Atyp Squamous Cells Undetermined Signif Finding 07/05/2020 11:44 :00 AM [facility]) 795.01 Cerv Pap Smear (+) Atyp Squamous Cells U ndetermined Signif Cerv Pap Smear (+) Atyp Squamous Cells Undetermined Signif Finding 07/05/2020 11:44 :00 AM [facility]) 795.01 Cerv Pap Smear (+) Atyp Squamous Cells U ndetermined Signif Cerv Pap Smear (+) Atyp Squamous Cells Undetermined Signif Finding 07/05/2020 11:44 :00 AM [facility]) 795.01 Cerv Pap Smear (+) Atyp Squamous Cells U ndetermined Signif Cerv Pap Smear (+) Atyp Squamous Cells Undetermined Signif Finding 07/05/2020 11:44 :00 AM [facility]) 795.01 Cerv Pap Smear (+) Atyp Squamous Cells U ndetermined Signif Cerv Pap Smear (+) Atyp Squamous Cells Undetermined Signif Finding 07/05/2020 11:44 :00 AM [facility]) Surgeries/Procedures Procedure Description Date Indications Data Source(s) PERCUTANEOUS TESTS W/ALLERGENIC EXTRACTS 02/06/2021 12 :00:00 AM EDT [facility] ([facility]) INTRACUTANEOUS TESTS W/ALLERGENIC EXTRACTS 02/06/2021 12:00:00 AM EDT [facility] ([facility]) Gardasil 9(3dose HPV, IM) nonavalent Gardasil 9(3dose HPV, I M) nonavalent 11/13/2020 12:00:00 AM [facility]) IMADM PRQ ID SUBQ/IM [id number] 1 VACCINE ADMINISTRATION 1-IMMUNIZ ATION(adult) 11/13/2020 12:00:[address] [facility] ([facility]) MOST RECENT SYSTOLIC BLOOD PRESSURE <130 MM HG Most r ecent systolic blood pressure less than 130 mmHg 10/04/2020 12:00:00 AM [facility] ([facility]) MOST RECENT DIASTOLIC BLOOD PRESSURE < 80 MM HG Most r ecent diastolic blood pressure < 80 mmHg 10/04/2020 12:00:[address] [facility] ([facility]) Results ID Date Data Source [id number] 08/20/2021 07:02:[address] [facility] Collection Technique: BRUSH-ALONEPREVIOU S CYTOLOGY: OTHERBody Site: ENDOCERVIX Name Value Range Interpretation Code Description Data Lidia rce(s) Supporting Document(s) Microscopic observation [Identifier] in Cervix by Cyto stain.thin pre p [facility] ID Date Data Source [id number] 08/09/2021 07:43:[address] [facility] CT/NG IS A QUALITATIVE IN VITRO REAL-JOSEPH E PCR TEST FORDETECTION OF CHLAMYDIA TRACHOMATIS (CT) AND NEISSERIAGONORRHOEAE (NG)NORMAL VALUE FOR CT/NG IS " NO ORGANISMS DETECTED "0x95 False negative results may occur if the organism(s) ispresent at levels below the analytical limit of detection.0x95 Because the detection of CT and NG is dependent on the DNApresent in the sample, reliable results are dependent onproper sample collection, handling and storage.0x95 With endocervical specimens, assay interference may beobserved in the presence of: blood (>1% v/v) or mucin (>0.8%w/v).0x95 With urine specimens, assay interference may be observedin the presence of: blood (>0.3% v/v), mucin (>0.2% w/v),bilirubin (>0.2 mg/mL), or Vagisil feminine powder (>0.2%w/v).0x95 Collection and testing of urine specimens with the XpertCT/NG test is not intended to replace cervical exams andendocervical sampling for diagnosis of urogenital infection.Other genitourinary tract infections can be caused by otherinfectious agents.0x95 The effects of other potential variables such as vaginaldischarge, use of tampons, douching, and specimen collectionvariables have not been determined.0x95 A negative test result does not exclude the possibility ofinfection because test results may be affected by improperspecimen collection, technical error, specimen mix-up,concurrent antibiotic therapy, or the number of organisms inthe specimen which may be below the sensitivity of the test.0x[address]/NG test should not be used for the evaluationof suspected sexual abuse or for other medico-legalindications. Additional testing is recommended in anycircumstance when false positive or false negative resultscould lead to adverse medical, social, or psychologicalconsequences.0x[address]/NG test provides qualitative results. Nocorrelation can be drawn between the magnitude of the Ctvalue and the number of cells in an infected sample.0x95 Positive results may be observed after successfulantibiotic treatment due to target nucleic acids fromresidual non-viable chlamydia.0x[address]/NG performance has not been evaluated inpatients less than 14 years of age.0x[address]/NG performance has not been evaluated inpatients with a history of hysterectomy.0x[address]/NG test has not been evaluated with patientswho are currently being treated with antimicrobial agentsactive against CT or NG.0x95 As with many diagnostic tests, results from the XpertCT/NG test should be interpreted in conjunction with otherlaboratory and clinical data available to the clinician.0x95 Mutations or other changes within the regions of thebacterial genomes covered by the primers and/or probes inthe Xpert assay may result in failure to detect the targetorganisms.C trach DNA Vag Ql DEVAUGHN+probeN gonorrhoea rRNA Vag Ql DEVAUGHN+probe Name Value Range Interpretation Code Description Data Lidia rce(s) Supporting Document(s) ID Date Data Source [id number] 08/11/2021 09:35:00 AM EDT [facility] CT/NG IS A QUALITATIVE IN VITRO REAL-JOSEPH E PCR TEST FORDETECTION OF CHLAMYDIA TRACHOMATIS (CT) AND NEISSERIAGONORRHOEAE (NG)NORMAL VALUE FOR CT/NG IS " NO ORGANISMS DETECTED "0x95 False negative results may occur if the organism(s) ispresent at levels below the analytical limit of detection.0x95 Because the detection of CT and NG is dependent on the DNApresent in the sample, reliable results are dependent onproper sample collection, handling and storage.0x95 With endocervical specimens, assay interference may beobserved in the presence of: blood (>1% v/v) or mucin (>0.8%w/v).0x95 With urine specimens, assay interference may be observedin the presence of: blood (>0.3% v/v), mucin (>0.2% w/v),bilirubin (>0.2 mg/mL), or Vagisil feminine powder (>0.2%w/v).0x95 Collection and testing of urine specimens with the XpertCT/NG test is not intended to replace cervical exams andendocervical sampling for diagnosis of urogenital infection.Other genitourinary tract infections can be caused by otherinfectious agents.0x95 The effects of other potential variables such as vaginaldischarge, use of tampons, douching, and specimen collectionvariables have not been determined.0x95 A negative test result does not exclude the possibility ofinfection because test results may be affected by improperspecimen collection, technical error, specimen mix-up,concurrent antibiotic therapy, or the number of organisms inthe specimen which may be below the sensitivity of the test.0x[address]/NG test should not be used for the evaluationof suspected sexual abuse or for other medico-legalindications. Additional testing is recommended in anycircumstance when false positive or false negative resultscould lead to adverse medical, social, or psychologicalconsequences.0x[address]/NG test provides qualitative results. Nocorrelation can be drawn between the magnitude of the Ctvalue and the number of cells in an infected sample.0x95 Positive results may be observed after successfulantibiotic treatment due to target nucleic acids fromresidual non-viable chlamydia.0x[address]/NG performance has not been evaluated inpatients less than 14 years of age.0x[address]/NG performance has not been evaluated inpatients with a history of hysterectomy.0x[address]/NG test has not been evaluated with patientswho are currently being treated with antimicrobial agentsactive against CT or NG.0x95 As with many diagnostic tests, results from the XpertCT/NG test should be interpreted in conjunction with otherlaboratory and clinical data available to the clinician.0x95 Mutations or other changes within the regions of thebacterial genomes covered by the primers and/or probes inthe Xpert assay may result in failure to detect the targetorganisms.C trach DNA Vag Ql DEVAUGHN+probeN gonorrhoea rRNA Vag Ql DEVAUGHN+probe Name Value Range Interpretation Code Description Data Lidia rce(s) Supporting Document(s) Trichomonas DNA Probe NOT DETECTED NOT DETECTED [facility] Gardnerella DNA Probe NOT DETECTED NOT DETECTED [facility] Anne species DNA Probe NOT DETECTED NOT DETECTED [facility] THIS TEST WAS PERFORMED AT:[employer] [facility] [address] [id number] MERATI,MD ID Date Data Source [id number] 08/09/2021 04:20:00 PM EDT [place] ([facility]) Name Value Range Interpretation Code Description Data Lidia rce(s) Supporting Document(s) Reported Physicians See Note Reported Physici ans [place] ([facility]) Note: Reported Physicians:Ordering: Jonny JohnsonAttending: Jonny Johnson ID Date Data Source [id number] 08/09/2021 04:20:00 PM T [place] ([facility]) Name Value Range Interpretation Code Description Data Lidia rce(s) Supporting Document(s) Anne species DNA Probe NOT DETECTED Anne species DNA Probe [place] ([facility]) Note: THIS TEST WAS PERFORMED AT:[employer] [address] [id number] PEDRAZAesponsible Observer: Anne DNA Anne species DNA Probe [id number] [phone] ([employer]) Gardnerella DNA Probe NOT DETECTED Gardnerella DNA Probe [place] ([facility]) Note: Responsible Observer: Gardnerella DNA Gardnerella DNA Probe [id number] [phone] ([employer]) Trichomonas DNA Probe NOT DETECTED Trichomonas DNA Probe [place] ([facility]) Note: Responsible Observer: Trichomonas DNA Trichomonas DNA Probe [id number] [phone] ([employer]) ID Date Data Source [id number] 08/09/2021 04:20:00 PM EDT [facility] ([facility]) Name Value Range Interpretation Code Description Data Lidia rce(s) Supporting Document(s) Cepheid CT/NG RT-PCR See Note Cepheid CT/NG R T-PCR [facility] ([facility]) Note: CT/NG IS A QUALITATIVE IN VITRO [...] lead to adverse medical, social, or psychologicalconsequences.X[address]/NG test provides qualitative results. Nocorrelation [...] may result in failure to detect the targetorganisms.[id number] trach DNA Vag Ql DEVAUGHN+p robeLNCHLAMNC. trachomatis NOT [id number]. trachomatis NOT [id number] gonorrhoea rRNA Vag Ql DEVAUGHN+probeLNNEIGNN.gonorrhoeae NOT [id number].gonorrhoeae NOT DETECTED ID Date Data Source [id number] 07/10/2021 12:45:00 PM EDT [facility] Normal result is "BinaxNow Covid-19 Ag n egative"BinaxNow Covid-19 Ag is a rapid lateral flowimmunochromatographic immunoassayThis test detects both viable(live) and non-viable, SARS-COVand SARS-COV-2.Positive test results do not differentiate between SARS-COVand BCCB-MFR-3Mpjlkdlt results , from patients with symptom onset beyondseven days, should be treated as presumptive andconfirmation with a molecular assay, if necessary, forpatient managementIf the differentiation of specific SARS viruses and strainsis needed, additional testing, in consultation with stateand local public health departments, is required.SARS-CoV-2 Ag Resp Ql IA.rapid Name Value Range Interpretation Code Description Data Lidia rce(s) Supporting Document(s) ID Date Data Source [id number] 07/10/2021 09:00:00 AM EDT [facility] Name Value Range Interpretation Code Description Data Lidia rce(s) Supporting Document(s) SARS-CoV-2 (COVID-19) Ag [Presence] in R espiratory specimen by Rapid immunoassay BinaxNow Covid -19 Ag Negative [facility] This lab was ordered by [facility] and reported by [facility]. ID Date Data Source [id number] 07/10/2021 09:00:00 AM EDT [place] ([facility]) Name Value Range Interpretation Code Description Data Lidia rce(s) Supporting Document(s) Reported Physicians See Note Reported Physici ans [place] ([facility]) Note: Reported Physicians:Ordering: Lyssa GuptaAttending: Lyssa Anderson ID Date Data Source [id number] 07/10/2021 09:00:00 AM EDT [place] ([facility]) Name Value Range Interpretation Code Description Data Lidia rce(s) Supporting Document(s) BinaxNow Covid-19 Ag See Note BinaxNow Covid- 19 Ag [place] ([facility]) Note: Normal result is "BinaxNow Covid-1 9 Ag negative"BinaxNow Covid-19 Ag is a rapid lateral flowimmunochromatographic immunoassayThis test detects both viable(live) and non-viable, SARS-COVand SARS-COV-2.Positive test results do not differentiate between SARS-COVand [id number]-[id number]-7Znitsnui results , from patients with symptom onset beyondseven days, should be treated as presumptive andconfirm ation with a molecular assay, if necessary, forpatient managementIf the differentiation of specific SARS viruses and strainsis needed, additional testing, in consultation with stateand local public health departments, is required.[id number] Ag Resp Ql IA.rapidLNSAGNBinaxNow Covid -19 Ag [id number] Covid -19 Ag Negative ID Date Data Source [id number] 07/06/2021 12:17:00 PM EDT [place] ([facility]) Name Value Range Interpretation Code Description Data Lidia rce(s) Supporting Document(s) BinaxNow normal Normal BinaxNow [place] ([facility]) ID Date Data Source [id number] 07/06/2021 04:26:00 PM EDT [facility] NORMAL RESULT IS "Not Detected"Cepheid S ARS-CoV-2,FLU/RSV is Multiplex real time RT-PCRNegative results do not preclude SARS-COV-2, influenza orRSV infection and should not be used as the sole basis fortreatment or other patient management decisions.False negative results may occur if virus is present atlevels below the analytical limit of detection.This test has been authorized by FDA under an EUA for use bycibola general hospitalhorized laboratoriesSARS-rel CoV RNA Resp Ql DEVAUGHN+probeFLUAV RNA Resp Ql DEVAUGHN+probeFLUBV RNA Resp Ql DEVAUGHN+probeRSV RNA Resp Ql DEVAUGHN+probe Name Value Range Interpretation Code Description Data Lidia rce(s) Supporting Document(s) ID Date Data Source [id number] 07/06/2021 11:30:00 AM EDT [facility] Name Value Range Interpretation Code Description Data Lidia rce(s) Supporting Document(s) Cepheid SARS/FLU/RSV RT-PCR SARS-COV-2 NOT DETECTED [facility] This lab was ordered by [facility] and reported by [facility]. ID Date Data Source [id number] 07/06/2021 11:30:00 AM EDT [place] ([facility]) Name Value Range Interpretation Code Description Data Lidia rce(s) Supporting Document(s) Reported Physicians See Note Reported Physici ans [place] ([facility]) Note: Reported Physicians:Ordering: Lyssa GuptaAttending: Lyssa Anderson ID Date Data Source [id number] 07/06/2021 11:30:00 AM EDT [place] ([facility]) Name Value Range Interpretation Code Description Data Lidia rce(s) Supporting Document(s) Cepheid SARS/FLU/RSV RT-PCR See Note Cepheid SARS/FLU/RSV RT-PCR [place] ([facility]) Note: NORMAL RESULT IS "Not Detected"Cep heid SARS-CoV-2,FLU/RSV is Multiplex real time RT-PCRNegative results do not preclude SARS-COV-2, influenza orRSV infection and should not be used as the sole basis fortreatment or other patient management decisions.False negative results may occur if virus is present atlevels below the analytical limit of detection.This test has been authorized by [employer] under an EUA for use byauthorized [id number] CoV RNA Resp Ql DEVAUGHN+ywajiXMHQQQFKDUZ-LUU-4 NOT [id number]-DGO-0 NOT [id number] RNA Resp Ql DEVAUGHN+probeLNNFLUAInfluenza A Not [id number] A Not Cuokcezi40535-5JJGEL RNA Resp Ql DEVAUGHN+probeLNNINBInfluenza B Not [id number] B Not Vsfghegw84944- 2RSV RNA Resp Ql DEVAUGHN+probeLNNRSVRSV Not [id number] Not Detected ID Date Data Source [id number] 07/06/2021 12:00:00 AM EDT [facility] Name Value Range Interpretation Code Description Data Lidia rce(s) Supporting Document(s) SARS-CoV2 Rapid Antigen Negative [facility] This lab was ordered by [facility] and reported by [facility]. ID Date Data Source [id number] 05/16/2021 02:04:00 PM EDT [facility] [address] [place] [address] [phone] NAME SEX PT STATUS ACCOUNT NUMBER RICH LUCAS REG REF [id number] ORDERING PHYSICIAN LOCATION MEDICAL RECORD NO. Saritha A HANY Paez LAB [id number] ATTENDING PHYSICIAN DATE OF DATE OF EXAM/TIME Jonny Johnson 1998 05/11/21 / 1230 TYPE / EXAM Xray Chest 2 view PA/LAT REASON FOR EXAM SOB Clinical History/Indication for Exam: SOB RADIOGRAPHS OF THE CHEST 2 VIEWS INDICATION: SOB COMPARISON: 03/22/2019 FINDINGS: Lungs: No focal consolidation or atelectasis. Pleural space: No pleural effusions. No pneumothorax. Heart: Unremarkable. No cardiomegaly. Mediastinum: Unremarkable. Bones/joints: No acute findings. IMPRESSION: No acute findings. No focal consolidation or atelectasis. REPORT SIGNATURE ON FILE 05/16/2021 (14:04 Eastern Time ) Signed by: Rickie Cade M.D. Reported By Rickie Cade MD on 05/16/21 1404 Signed By Rickie Cade MD on 05/16/21 1404 Date Time CC: Rickie Cade MD; Jonny ECDIS N NAVIGATION OPERATOR-[facility] Techn: SCOSR Trans Dt/Tm: Trans by: DT Prt Dt/Tm: : Total DLP = 0.00 mGy-cm Fluoroscopy Time (in secs): Name Value Range Interpretation Code Description Data Lidia rce(s) Supporting Document(s) ID Date Data Source [id number] 05/11/2021 12:36:00 PM EDT [facility] @05/11/21 1220: MANUAL DIFF added. RFLXG = DIFF. @05/11/21 1220: MANUAL DIFF added. RFLXG = DIFF. Name Value Range Interpretation Code Description Data Lidia rce(s) Supporting Document(s) Fibrin D-dimer [Units/volume] in Platelet poor plasma Less Than 0.1 9 0.0-0.50 N [facility] @Report as less than 0.19@ Has QC been r un for this test today?PLEASE NOTE: THIS TEST WAS PERFORMED USING A PARTICLE-ENHANCED, IMMUNOTURBIDIMETRIC ASSAY AND HAS A SINGLE,CLINICALLY DERIVED CUTOFF OF 0.50 MG/L. ID Date Data Source [id number] 05/11/2021 01:00:00 PM EDT [facility] @05/11/21 1220: MANUAL DIFF added. RFLXG = DIFF. @05/11/21 1220: MANUAL DIFF added. RFLXG = DIFF. Name Value Range Interpretation Code Description Data Lidia rce(s) Supporting Document(s) Leukocytes [#/volume] in Blood by Automated count 9.9 10*3/uL 4.45-10 .71 [facility] Erythrocytes [#/volume] in Blood by Automated count 4.93 10*6/uL 4.20 -5.40 [facility] Hemoglobin [Moles/volume] in Blood 13.8 g/dL 10.7-15.4 [facility] Hematocrit [Volume Fraction] of Blood by Automated count 41.0 % 3 7-47 N [facility] Erythrocyte mean corpuscular volume [Ent itic volume] in Cord blood by Automated count 83 fL 80-96 N [facility] ital Erythrocyte mean corpuscular hemoglobin [Entitic mass] by Au tomated count 28 pg 27-31 N [facility] Erythrocyte mean corpuscular hemoglobin concentration [Mass/volume] in Cord blood 34 g/dL 33-37 N [facility] ital Erythrocyte distribution width [Entitic volume] by Automated count 13 % 11-15 N [facility] Platelets [#/volume] in Blood by Automated count 152 10*3/uL 130-472 N [facility] Platelet mean volume [Entitic volume] in Blood 10.2 fL 9.1-13.1 N [facility] Neutrophils/100 leukocytes in Blood by Automated count 62.8 % 41- 77 N [facility] Neutrophils [#/volume] in Blood by Automated count 6.2 U 1.7-7.6 N [facility] Lymphocytes/100 leukocytes in Blood by Automated count 28.5 % 14- 46 N [facility] Lymphocytes [#/volume] in Blood by Automated count 2.8 U 0.6-4.6 N [facility] Monocytes/100 leukocytes in Blood by Automated count 6.8 % 4-12 N [facility] Monocytes [#/volume] in Blood by Automated count 0.7 U 0.2-1.2 N [facility] Eosinophils/100 leukocytes in Blood by Automated count 1.0 % 0-7 N [facility] Eosinophils [#/volume] in Blood by Automated count 0.1 U 0.0-0.5 N [facility] Basophils/100 leukocytes in Blood by Automated count 0.6 % 0.4-1 .3 N [facility] Basophils [#/volume] in Blood by Automated count 0.1 U 0.0-0.2 N [facility] NUCLEATED RED BLOOD CELL 0 % [facility] NUCLEATED RED BLOOD CELL# 0 U [facility] Immature granulocytes [Presence] in Blood by Automated count 0-2 N [facility] Immature granulocytes [#/volume] in Blood by Automated count 0.0 U 0-0.1 N [facility] Manual Differential panel - Blood Manual Diff Added [facility] ID Date Data Source [id number] 05/11/2021 01:16:00 PM EDT [facility] @05/11/21 1220: MANUAL DIFF added. RFLXG = DIFF. @05/11/21 1220: MANUAL DIFF added. RFLXG = DIFF. Name Value Range Interpretation Code Description Data Lidia rce(s) Supporting Document(s) Urea nitrogen [Mass/volume] in Serum or Plasma 10 mg/dL 9-23 N [facility] Sodium [Moles/volume] in Serum or Plasma 141 mmol/L 132-146 N [facility] Potassium [Moles/volume] in Serum or Plasma 4.2 mmol/L 3.5-5.5 N [facility] Chloride [Moles/volume] in Serum or Plasma 108 mmol/L 99-109 N [facility] Carbon dioxide, total [Moles/volume] in Serum or Plasma 24 mmol/L 20 -31 N [facility] Anion gap in Serum or Plasma 13 mmol/L 8-16 N [facility] Glucose [Mass/volume] in Serum or Plasma 97 mg/dL 74-106 N [facility] Creatinine 0.6 mg/dL 0.5-1.1 [facility] Glomerular filtration rate/1.73 sq M.pre dicted [Volume Rate/Area] in Serum or Plasma Greater Than 60 ABOVE 60 [facility] Alanine aminotransferase [Enzymatic acti vity/volume] in Serum or Plasma by With P-5'-P 15 U/L 10-49 [facility] ital Aspartate aminotransferase [Enzymatic ac tivity/volume] in Serum or Plasma by With P-5'-P 13 U/L 0-33 N [facility] pital Alkaline phosphatase [Enzymatic activity/volume] in Serum or Plasma 89 U/L 45-129 N [facility] Calcium [Mass/volume] in Serum or Plasma 9.2 mg/dL 8.5-10.1 [facility] Bilirubin.total [Mass/volume] in Serum or Plasma 0.2 mg/dL 0.3-1.2 Below low normal [facility] Albumin [Mass/volume] in Serum or Plasma by Bromocresol purple (BCP) dye binding method 3.2 g/dL 3.2-4.8 [facility] ital Protein [Mass/volume] in Serum or Plasma 7.2 g/dL 5.7-8.2 N [facility] ID Date Data Source [id number] 05/11/2021 01:00:00 PM EDT [facility] @05/11/21 1220: MANUAL DIFF added. RFLXG = DIFF. @05/11/21 1220: MANUAL DIFF added. RFLXG = DIFF. Name Value Range Interpretation Code Description Data Lidia rce(s) Supporting Document(s) Cells counted [#] 100 [facility] Neutrophils [#/volume] in Blood by Manual count 70 % 41-77 N [facility] Lymphocytes [#/volume] in Blood by Manual count 25 % 14-46 N [facility] Monocytes [#/volume] in Blood by Manual count 4 % 4-12 N [facility] Metamyelocytes [#/volume] in Blood by Manual count 1 % 0-0 Above high normal [facility] Platelets [#/volume] in Blood by Estimate APPEAR CLUMPED NORMAL [facility] Morphology [Interpretation] in Blood Narrative APPEARS NORMAL NORMAL [facility] ID Date Data Source [id number] 05/11/2021 12:10:00 PM EDT [place] ([facility]) Name Value Range Interpretation Code Description Data Lidia rce(s) Supporting Document(s) Reported Physicians See Note Reported Physici ans [place] ([facility]) Note: Reported Physicians:Ordering: Nai RobinsthAttending: Nai PaezthCopana To: Jonny Johnson ID Date Data Source [id number] 05/11/2021 12:10:00 PM [facility] ([facility]) Name Value Range Interpretation Code Description Data Lidia rce(s) Supporting Document(s) Alanine aminotransferase [Enzymatic acti vity/volume] in Serum or Plasma by With P-5'-P 15 enzyme_unit_per_liter Normal ALT SerPl w P-5' -P-cCnc [place] ([facility]) Note: Responsible Observer: SGPT/ALT SGP T/ALT 400.1750 (G) Calcium [Mass/volume] in Serum or Plasma 9.2 MilliGramsPerDeciLiter_[Mass_Concentration_Units] Normal Calcium SerPl-mCnc [place] ([facility]) Note: Responsible Observer: Calcium Calc ium 400.2500 (G) Bilirubin.total [Mass/volume] in Serum or Plasma 0.2 MilliGramsPerDeciLiter_[Mass_Concentration_Units] Below low normal Bilirub [facility] ([facility]) Note: Responsible Observer: T COURTNEY Total Bilirubin 400.2600 (G) Carbon dioxide, total [Moles/volume] in Serum or Plasm a 24 MilliMolesPerLiter_[Substance_Concentration_Units] Normal CO2 [facility] ([facility]) Note: Responsible Observer: CO2 Carbon D ioxide 400.1400 (G) Chloride [Moles/volume] in Serum or Plasma 108 MilliMolesPerLiter_[Substance_Concentration_Units] Normal Chloride [facility] ([facility]) Note: Responsible Observer: Chloride Chl oride 400.1250 (G) Potassium [Moles/volume] in Serum or Plasma 4.2 MilliMolesPerLiter_[Substance_Concentration_Units] Normal Potassium [facility] ([facility]) Note: Responsible Observer: K Potassium 400.1210 (G) Glucose [Mass/volume] in Serum or Plasma 97 MilliGramsPerDeciLiter_[Mass_Concentration_Units] Normal Glucose [facility] ([facility]) Note: Responsible Observer: Glucose Gluc ose 400.1500 (G) Protein [Mass/volume] in Serum or Plasma 7.2 GramsPerDeciLiter_[Mass_Concentration_Units] Normal Pro t [facility] ([facility]) Note: Responsible Observer: TP Total Pro tein 400.2800 (G) Sodium [Moles/volume] in Serum or Plasma 141 MilliMolesPerLiter_[Substance_Concentration_Units] Normal Sodium [facility] ([facility]) Note: Responsible Observer: Sodium Sodiu m 400.1100 (G) Urea nitrogen [Mass/volume] in Serum or Plasma 10 MilliGramsPerDeciLiter_[Mass_Concentration_Units] Normal BUN [facility] ([facility]) Note: Responsible Observer: BUN Blood Ur ea Nitrogen 400.1000 (G) Aspartate aminotransferase [Enzymatic ac tivity/volume] in Serum or Plasma by With P-5'-P 13 enzyme_unit_per_liter Normal AST SerPl w P-5' -P-cCnc [place] ([facility]) Note: Responsible Observer: SGOT / AST S GOT / AST 400.1900 (G) Alkaline phosphatase [Enzymatic activity/volume] in Se rum or Plasma 89 enzyme_unit_per_liter Normal ALP SerPl-cCnc [place] ( [facility]) Note: Responsible Observer: ALP Alkaline Phosphatase 400.2000 (G) Albumin [Mass/volume] in Serum or Plasma by Bromocresol purple (BCP) dye binding method 3.2 GramsPerDeciLiter_[Mass_Concentration_Units] Normal [facility]in [facility] B[facility]-mCnc [place] ([facility]) Note: Responsible Observer: Albumin [place] min 400.2700 (G) Anion gap in Serum or Plasma 13 MilliMolesPerLiter_[Substance_Concentration_Units] Normal Anion Gap [facility] [place] ([facility]) Note: Responsible Observer: ANION GAP AN ION GAP 400.1402 (E) Glomerular filtration rate/1.73 sq M.pre dicted [Volume Rate/Area] in Serum or Plasma Greater Than 60 GFR/BSA.pred SerPlBld-ArV Rat [place] ([facility]) Note: Responsible Observer: GFR Glomerul ar Filt Rate Calc 400.1605 (D) Creatinine [Moles/volume] in Vitreous fluid 0.6 MilliGramsPerDeciLiter_[Mass_Concentration_Units] Normal Creatinine [place] ([facility]) Note: Responsible Observer: Creatinine C reatinine 400.1600 (G) ID Date Data Source [id number] 05/11/2021 12:10:00 PM EDT [place] ([facility]) Name Value Range Interpretation Code Description Data Lidia rce(s) Supporting Document(s) Erythrocyte mean corpuscular volume [Ent itic volume] in Cord blood by Automated count 83 FemtoLiter_[SI_Volume_Units] Normal MCV BldCo Auto [place] ([facility]) Note: Responsible Observer: MCV MCV 100 .0600 (B) Manual Differential panel - Blood Manual Diff Added Manual diff Bld [place] ([facility]) Note: Responsible Observer: CBC Manual D ifferential Added 100.1990 (B) Erythrocyte distribution width [Entitic volume] by Automated cou nt 13 percent Normal RDW RBC Auto [place] ([facility]) Note: Responsible Observer: RDW RDW 100 .0900 (B) Immature granulocytes [Presence] in Blood by Automated count See No te Normal Imm Granulocytes Bld Ql [facility] [place] ([facility]) Note: [id number] Ob surveillance observer: IG% IG% 100.1375 (B) Platelet mean volume [Entitic volume] in Blood 10.2 Fe mtoLiter_[SI_Volume_Units] Normal PMV Bld [place] ([facility]) Note: Responsible Observer: MPV MPV 100 .1100 (B) Hematocrit [Volume Fraction] of Blood by Automated count 41.0 perce nt Normal Hct VFr Bld Auto [place] ([facility]) Note: Responsible Observer: HEMATOCRIT H EMATOCRIT 100.0500 (B) Erythrocyte mean corpuscular hemoglobin concentration [Mass/volume] in Cord blood 34 GramsPerDeciLiter_[Mass_Concentration_Units] Normal MCHC BldCo-mCnc [place] ([facility]) Note: Responsible Observer: MCHC MCHC 1 00.0800 (B) Immature granulocytes [#/volume] in Blood by Automated count 0.0 Un it Imm Granulocytes # Bld Auto [place] ([facility]) Note: Responsible Observer: IG# IG# 100 .1400 (B) Monocytes/100 leukocytes in Blood by Automated count 6.8 percent Normal Monocytes/leuk NFr Bld Auto [place] ([facility]) Note: Responsible Observer: MONO % MONO % 100.1225 (B) Hemoglobin [Moles/volume] in Blood 13.8 GramsPerDeciLiter_[Mass_Concentration_Units] Normal Hgb Bld-sCnc [place] ([facility]) Note: Responsible Observer: HGB HEMOGLOB IN 100.0400 (B) Leukocytes [#/volume] in Blood by Automated count 9.9 ThousandsPerMicroLiter_[Number_Concentration_Units] Normal WBC # Bld Auto [place] ([facility]) Note: Responsible Observer: WBC WHITE BL OOD COUNT 100.0100 (E) Basophils/100 leukocytes in Blood by Automated count 0.6 percent Normal Basophils/leuk NFr Bld Auto [place] ([facility]) Note: Responsible Observer: BASO % BASO % 100.1325 (B) Basophils [#/volume] in Blood by Automated count 0.1 Unit Normal Basophils # Bld Auto [place] ([facility]) Note: Responsible Observer: BASO # BASO# 100.1350 (B) Eosinophils [#/volume] in Blood by Automated count 0.1 Unit Normal Eosinophil # Bld Auto [place] ([facility]) Note: Responsible Observer: EOS # EOS# 100.1300 (D) Lymphocytes [#/volume] in Blood by Automated count 2.8 Unit Normal Lymphocytes # Bld Auto [place] ([facility]) Note: Responsible Observer: LYMPH # LYMP H# 100.1200 (B) Eosinophils/100 leukocytes in Blood by Automated count 1.0 percent Normal Eosinophil/leuk NFr Bld Auto [place] ([facility]) Note: Responsible Observer: EOS % EOS % 100.1275 (B) Monocytes [#/volume] in Blood by Automated count 0.7 Unit Normal Monocytes # Bld Auto [place] ([facility]) Note: Responsible Observer: MONO # MONO# 100.1250 (C) Lymphocytes/100 leukocytes in Blood by Automated count 28.5 percent Normal Lymphocytes/leuk NFr Bld Auto [place] ([facility]) Note: Responsible Observer: LYMPH % LYMP H % 100.1175 (B) Neutrophils/100 leukocytes in Blood by Automated count 62.8 percent Normal Neutrophils/leuk NFr Bld Auto [place] ([facility]) Note: Responsible Observer: NEUT% NEUT% 100.1125 (B) Neutrophils [#/volume] in Blood by Automated count 6.2 Unit Normal Neutrophils # Bld [facility] [place] ([facility]) Note: Responsible Observer: NEUT# NEUT# 100.1150 (B) Platelets [#/volume] in Blood by Automated count 152 ThousandsPerMicroLiter_[Number_Concentration_Units] Normal Platelet # Bld [facility] [place] ([facility]) Note: Responsible Observer: PLATELET COU NT PLATELET COUNT 100.1000 (D) Erythrocyte mean corpuscular hemoglobin [Entitic mass] by Automated count 28 PicoG[employer]_[SI_Mass_Units] Normal MCH RBC Qn Auto [place] ([facility]) Note: Responsible Observer: MCH MCH 100 .0700 (B) Erythrocytes [#/volume] in Blood by Automated count 4. 93 MillionsPerMicroLiter_[Number_Concentration_Units] Normal RBC # Bld Auto [place] ([facility]) Note: Responsible Observer: RBC Red Bloo d Count 100.0300 (B) NUCLEATED RED BLOOD CELL 0 percent NUCLEATED R ED BLOOD CELL [place] ([facility]) Note: Responsible Observer: NRBC% NRBC% 100.1360 (B) NUCLEATED RED BLOOD CELL# 0 Unit NUCLEATED RED BLOOD CELL# [place] ([facility]) Note: Responsible Observer: NRBC# NUCLEA VINCENT RBC 100.1362 (A) Notes [TIMP] See Note NOTES [place] ([facility]) Note: @05/11/21 1220: MANUAL DIFF added. RFLXG = DIFF. ID Date Data Source [id number] 05/11/2021 12:10:00 PM EDT [place] ([facility]) Name Value Range Interpretation Code Description Data Lidia rce(s) Supporting Document(s) Fibrin D-dimer [Units/volume] in Platelet poor plasma Less Than 0.1 9 Normal D Dimer PPP-aCnc [place] ([facility]) Note: @Report as less than 0.19@ Has QC been run for this test today?PLEASE NOTE: THIS TEST WAS PERFORMED USING A PARTICLE-ENHANCED, IMMUNOTURBIDIMETRIC ASSAY AND HAS A SINGLE,CLINICALLY DERIVED CUTOFF OF 0.50 MG/L.Responsible Observer: D-DIMER D-DIMER 200.0901 (A) ID Date Data Source [id number] 05/11/2021 12:10:00 PM EDT [place] ([facility]) Name Value Range Interpretation Code Description Data Lidia rce(s) Supporting Document(s) Reported Physicians See Note Reported Physici ans [place] ([facility]) Note: Reported Physicians:Ordering: Saritha RobinsAttending: Eulalio Paez To: Jonny Johnson ID Date Data Source [id number] 05/11/2021 12:10:00 PM EDT [place] ([facility]) Name Value Range Interpretation Code Description Data Lidia rce(s) Supporting Document(s) MANUAL DIFF See Note MANUAL DIFF [place] ([facility]) Note: NOTES OTHER/NOT INTERPRETED Cells counted 100 Lymphocytes # Bld Manual 25 %Metamyelocytes # Bld Manual 1 %Monocytes # Bld Manual 4 %Morphology Bld-Imp APPEARS NORMAL Neutrophils # Bld Manual 70 %Platelet # Bld Est APPEAR CLUMPED @05/11/21 1220: MANUAL DIFF added. RFLXG = DIFF.Responsible Observer: TOTAL CELLS TOTAL CELLS COUNTED 100.2105 (A) ID Date Data Source [id number] 02/06/2021 05:28:00 PM EDT [facility] ([facility]) Name Value Range Interpretation Code Description Data Lidia rce(s) Supporting Document(s) Rheumatoid factor [Units/volume] in Serum or Plasma Laboratory t est result Normal (applies to non-numeric results) [facility] ([facility] Fc epsilon RI + RII Ab [Units/volume] in Serum Laboratory test r esult Normal (applies to non-numeric results) [facility] ([facility]) The CU Index(R) test [facility]. Patients with a CU Index(R) greater than or equal to 10 have basophil reactive factors in their serum which supports an autoimmune basis for disease. *This test was developed and its performance characteristics determined by [facility]. It has not been cleared or approved by the U.S. Food and Drug Administration. ID Date Data Source [id number] 02/06/2021 05:28:00 PM EDT [facility] ([facility]) Name Value Range Interpretation Code Description Data Lidia rce(s) Supporting Document(s) Laboratory test finding (navigational concept) Laboratory test r esult Normal (applies to non-numeric results) [facility] ([facility]) Performed at: [facility] - [facility] [address] [place] [id number] Research Professor Of Biostatistics: Claudia Garcia PhD, Phone: [phone] Performed at: [facility] - [facility] [address] [id number] Research Professor Of Biostatistics: Doris Galvan MD, Phone: [phone] ID Date Data Source [id number] 02/06/2021 05:28:00 PM EDT [facility] ([facility]) Name Value Range Interpretation Code Description Data Lidia rce(s) Supporting Document(s) Thyrotropin [Units/volume] in Serum or Plasma 2.100 uIU/ML 0. 358-3.740 Normal (applies to non-numeric results) [facility] ([facility]) Triiodothyronine (T3) [Mass/volume] in Serum or Plasma 179.6 ng/ dL 60.0-181.0 Normal (applies to non-numeric results) [facility] ([facility] Thyroglobulin Ab [Units/volume] in Serum or Plasma Laboratory te st result Normal (applies to non-numeric results) [facility] ([facility]) Thyroperoxidase Ab [Units/volume] in Serum or Plasma 39.6 U/ML Normal (applies to non-numeric results) [facility] Thyroxine (T4) [Mass/volume] in Serum or Plasma 18.6 ug/dL 4.5-12.0 Above high normal [facility] ([facility] ) ID Date Data Source [id number] 02/06/2021 05:28:00 PM EDT [facility] ([facility]) Name Value Range Interpretation Code Description Data Lidia rce(s) Supporting Document(s) Laboratory test finding (navigational concept) 87 mg/dL 7 0-100 Normal (applies to non-numeric results) [facility] ([facility]) Laboratory test finding (navigational concept) 11 mg/dL 7 -18 Normal (applies to non-numeric results) [facility]) Laboratory test finding (navigational concept) 0.69 mg/dL 0 .55-1.30 Normal (applies to non-numeric results) [facility] ([facility] Laboratory test finding (navigational concept) 138 meq/L 1 36-145 Normal (applies to non-numeric results) [facility] Laboratory test finding (navigational concept) Laboratory test r esult Normal (applies to non-numeric results) [facility] ([facility] [place]) <content>Units are mL/min/1.73 m2</content>
<content></content>
<content>Chronic Kidney Disease Staging per NKF:</content>
<content></content>
<content>Stage I & II GFR >=60 Normal to Mildly Decreased</content>
<content>Stage III GFR 30- 59 Moderately Decreased</content>
<content>Stage IV GFR 15-29 Severely Decreased</content>
<content>Stage V GFR <15 Very Little GFR Left</content>
<content>ESRD GFR <15 on [employer]</content>
<content></content> Laboratory test finding (navigational concept) 4.1 meq/L 3 .5-5.1 Normal (applies to non-numeric results) [facility] [place] Laboratory test finding (navigational concept) 104 meq/L 9 8-107 Normal (applies to non-numeric results) [facility] Laboratory test finding (navigational concept) 26 meq/L 2 1-32 Normal (applies to non-numeric results) [facility] ([facility] [place]) Laboratory test finding (navigational concept) 8 meq/L 8 -16 Normal (applies to non-numeric results) [facility] [place] Laboratory test finding (navigational concept) 9.5 mg/dL 8 .5-10.1 Normal (applies to non-numeric results) [facility] [place] Laboratory test finding (navigational concept) 16 U/L 1 2-78 Normal (applies to non-numeric results) [facility] [place] Laboratory test finding (navigational concept) 7 U/L 7 -37 Normal (applies to non-numeric results) [facility] [place] Laboratory test finding (navigational concept) 101 U/L 4 5-117 Normal (applies to non-numeric results) [facility] ([facility] [place] Laboratory test finding (navigational concept) 0.2 mg/dL 0 .2-1.0 Normal (applies to non-numeric results) [facility] [place] Laboratory test finding (navigational concept) 3.6 GM/DL 3 .2-5.2 Normal (applies to non-numeric results) [facility] ([facility] [place] Laboratory test finding (navigational concept) 8.2 GM/DL 6 .4-8.2 Normal (applies to non-numeric results) [facility] ([facility] [place] Laboratory test finding (navigational concept) 0.8 1.2-2.2 Below low normal [facility] ([facility] [place]) ID Date Data Source [id number] 02/06/2021 05:28:00 PM EDT [facility] ([facility] [place]) Name Value Range Interpretation Code Description Data Lidia rce(s) Supporting Document(s) Erythrocyte sedimentation rate by Westergren method 24 mm/hr 0-20 Above high normal [facility] ([facility] ) ID Date Data Source [id number] 02/06/2021 05:28:00 PM EDT [facility] ([facility]) Name Value Range Interpretation Code Description Data Lidia rce(s) Supporting Document(s) Laboratory test finding (navigational concept) 5.37 10 4 .00-5.40 Normal (applies to non-numeric results) [facility] ([facility] [place] Laboratory test finding (navigational concept) 14.8 10 4 .0-10.0 Above high normal [facility] ([facility] [place] ) Laboratory test finding (navigational concept) 45.7 % 3 6.0-47.0 Normal (applies to non-numeric results) [facility] ([facility] Laboratory test finding (navigational concept) 14.9 g/dL 1 2.0-15.5 Normal (applies to non-numeric results) [facility] [place] Laboratory test finding (navigational concept) 27.7 pg 2 7.0-33.0 Normal (applies to non-numeric results) [facility] [place] Laboratory test finding (navigational concept) 85.1 fl 8 0.0-96.0 Normal (applies to non-numeric results) [facility] [place] Laboratory test finding (navigational concept) 12.9 % 1 1.5-14.5 Normal (applies to non-numeric results) [facility] ([facility] [place] Laboratory test finding (navigational concept) 32.6 g/dL 3 2.0-36.5 Normal (applies to non-numeric results) [facility] ([facility] [place] Laboratory test finding (navigational concept) 377 10 1 50-450 Normal (applies to non-numeric results) [facility] ([facility] [place] Laboratory test finding (navigational concept) 18.4 % 2 4.0-44.0 Below low normal [facility] ([facility] [place] ) Laboratory test finding (navigational concept) 73.6 % 3 6.0-66.0 Above high normal [facility] ([facility] [place] ) Laboratory test finding (navigational concept) 0.3 % 0 .0-3.0 Normal (applies to non-numeric results) [facility] [place] Laboratory test finding (navigational concept) 6.7 % 2 .0-8.0 Normal (applies to non-numeric results) [facility] [place] Laboratory test finding (navigational concept) 0.5 % 0 -3.0 Normal (applies to non-numeric results) [facility] [place] Laboratory test finding (navigational concept) 0.5 % 0 .0-1.0 Normal (applies to non-numeric results) [facility] [place] Laboratory test finding (navigational concept) 0.0 % 0 -0 Normal (applies to non- numeric results) [facility] ([facility] [place] [facility] Laboratory test finding (navigational concept) 10.9 10 1 .5-8.5 Above high normal [facility] ([facility] [place] ) Laboratory test finding (navigational concept) 2.7 10 1 .5-5.0 Normal (applies to non-numeric results) [facility] ([facility] [place] Laboratory test finding (navigational concept) 1.0 10 0.0-0.8 Above high normal [facility] ([facility] [place]) Laboratory test finding (navigational concept) 0.1 10 0 .0-0.5 Normal (applies to non-numeric results) [facility] ([facility]) Laboratory test finding (navigational concept) 0.1 10 0 .0-0.2 Normal (applies to non-numeric results) [facility] ([facility]) ID Date Data Source [id number] 10/10/2020 05:00:00 PM [facility] Name Value Range Interpretation Code Description Data Lidia rce(s) Supporting Document(s) Fibrin D-dimer [Units/volume] in Platelet poor plasma 0.23 mg/L 0.0- 0.50 [facility] @ Has QC been run for this test today?PL EASE NOTE: THIS TEST WAS PERFORMED USING A PARTICLE-ENHANCED, IMMUNOTURBIDIMETRIC ASSAY AND HAS A SINGLE,CLINICALLY DERIVED CUTOFF OF 0.50 MG/L. ID Date Data Source [id number] 10/10/2020 04:15:00 PM [facility]) Name Value Range Interpretation Code Description Data Lidia rce(s) Supporting Document(s) Reported Physicians See Note Reported Physici ans [place] ([facility]) Note: Reported Physicians:Ordering: Lyssa GuptaAttending: Lyssa Anderson ID Date Data Source [id number] 10/10/2020 04:15:[address] [facility] ([facility]) Name Value Range Interpretation Code Description Data Lidia rce(s) Supporting Document(s) Fibrin D-dimer [Units/volume] in Platelet poor plasma 0.23 MilliGramsPerLiter_[Mass_Concentration_Units] Normal [facility] Note: @ Has QC been run for this test to day?PLEASE NOTE: THIS TEST WAS PERFORMED USING A PARTICLE-ENHANCED, IMMUNOTURBIDIMETRIC ASSAY AND HAS A SINGLE,CLINICALLY DERIVED CUTOFF OF 0.50 MG/L.Responsible Observer: D-DIMER D- DIMER 200.0901 (A) ID Date Data Source [id number] 10/10/2020 06:59:00 PM [facility] DWYER COVID-19 IS AN ISOTHERMAL NA A TECHNOLOGYNORMAL VALUE IS "SARS-COV-2 COVID 19 NOT DETECTED"False negative results may occur if a specimen is improperlycollected,transported or handled.False negative results may also occur if amplicationinhibitors are present in the specimen or if inadequatelevels of viruses are present in the specimen.As with any molecular test, if the virus mutates in [facility] region, Covid-19 may not be detected or may bedetected less predictably.ID NOW COVID-19 is intended for testing a swab directlywithout elution in viral transport media as dilution willresult in decreased detection of low positive samples thatare near the limit of detection of the test.SWAB SAMPLES ELUTED IN VTM ARE NOT APPROPRIATE FOR USE INTHIS TEST.SARS-CoV-2 RNA Resp Ql [facility] Name Value Range Interpretation Code Description Data Lidia rce(s) Supporting Document(s) ID Date Data Source [id number] 10/10/2020 03:30:00 PM EST [facility] Name Value Range Interpretation Code Description Data Lidia rce(s) Supporting Document(s) SARS-CoV-2 RNA Resp Ql [facility]N+probe [facility] This lab was ordered by [facility] and reported by [facility]. ID Date Data Source [id number] 10/10/2020 03:30:[address] [facility] ([facility]) Name Value Range Interpretation Code Description Data Lidia rce(s) Supporting Document(s) Reported Physicians See Note Reported Physici netta [place] ([facility]) Note: Reported Physicians:Ordering: Lyssa GuptaAttending: Sierra AndersonynCopy To: Doctor Provided, No FamilyCopy To: Health, Public ID Date Data Source [id number] 10/10/2020 03:30:[address] [facility] ([facility]) Name Value Range Interpretation Code Description Data Lidia rce(s) Supporting Document(s) SARS-CoV-2 RNA Resp Ql DEVAUGHN+probe See Note FREDDIE S-CoV-2 RNA Resp Ql DEVAUGHN+probe [place] ([facility]) Note: DWYER COVID-19 IS AN ISOTHER MAL DEVAUGHN TECHNOLOGYNORMAL VALUE IS "SARS-COV-2 COVID 19 NOT DETECTED"False negative results may occur if a specimen is improperlycollected,transported or handled.False negative results may also occur if amplicationinhibitors are present in the specimen or if inadequatelevels of viruses are present in the specimen.As with any molecular test, if the virus mutates in [facility] region, Covid-19 may not be detected or may bedetected less predictably.ID NOW COVID-19 is intended for testing a swab directlywithout elution in viral transport media as dilution willresult in decreased detection of low positive samples thatare near the limit of detection of the test.SWAB SAMPLES ELUTED IN VTM ARE NOT APPROPRIATE FOR USE INTHIS TEST.[id number] RNA Resp Ql DEVAUGHN+probeLNNOSNo Organisms [id number] Organisms Detected ID Date Data Source [id number] 08/11/2020 06:04:00 PM EDT [facility] Clue cells presentLong rods notedNo yeas t like or trichomonas seenSquamous cellsShort rods seenWBCs seen Name Value Range Interpretation Code Description Data Lidia rce(s) Supporting Document(s) Wet mount for Trichomonas Negative for Trichomonas vaginalis [facility] ID Date Data Source [id number] 08/11/2020 04:05:00 PM EDT [place] ([facility]) Name Value Range Interpretation Code Description Data Lidia rce(s) Supporting Document(s) Reported Physicians See Note Reported Physici ans [place] ([facility]) Note: Reported Physicians:Ordering: Saritha RobinsAttending: Saritha Paez ID Date Data Source [id number] 08/11/2020 04:05:00 PM EDT [place] ([facility]) Name Value Range Interpretation Code Description Data Lidia rce(s) Supporting Document(s) Wet prep results See Note Wet prep results [facility] ([facility]) Note: Clue cells presentLong rods notedN o yeast like or trichomonas seenSquamous cellsShort rods seenWBCs seen Wet mount for Trichomonas Negative for Trichomonas vaginalis Wet mount for Trichomonas [place] ([facility]) ID Date Data Source [id number] 08/07/2020 08:31:00 AM EDT [facility] Name Value Range Interpretation Code Description Data Lidia rce(s) Supporting Document(s) Leukocytes [#/volume] in Blood by Automated count 8.7 10*3/uL 4.45-10 .71 N [facility] Erythrocytes [#/volume] in Blood by Automated count 4.94 10*6/uL 4.20 -5.40 N [facility] Hemoglobin [Moles/volume] in Blood 13.8 g/dL 10.7-15.4 N [facility] Hematocrit [Volume Fraction] of Blood by Automated count 42.4 % 3 7-47 N [facility] Erythrocyte mean corpuscular volume [Ent itic volume] in Cord blood by Automated count 85.8 fL 80-96 N [facility] Erythrocyte mean corpuscular hemoglobin [Entitic mass] by Automated count 27.9 pg 27-31 N [facility] Erythrocyte mean corpuscular hemoglobin concentration [Mass/volume] in Cord blood 32.5 g/dL 33-37 Below low normal [facility] Erythrocyte distribution width [Entitic volume] by Automated count 13 % 11-15 N [facility] Platelets [#/volume] in Blood by Automated count 341 10*3/uL 130-472 N [facility] Platelet mean volume [Entitic volume] in Blood 10.5 fL 9.1-13.1 N [facility] Neutrophils/100 leukocytes in Blood by Automated count 60.1 % 41- 77 N [facility] Neutrophils [#/volume] in Blood by Automated count 5.2 U 1.7-7.6 N [facility] Lymphocytes/100 leukocytes in Blood by Automated count 31.1 % 14- 46 N [facility] Lymphocytes [#/volume] in Blood by Automated count 2.7 U 0.6-4.6 N [facility] Monocytes/100 leukocytes in Blood by Automated count 6.7 % 4-12 N [facility] Monocytes [#/volume] in Blood by Automated count 0.6 U 0.2-1.2 N [facility] Eosinophils/100 leukocytes in Blood by Automated count 1.6 % 0-7 N [facility] Eosinophils [#/volume] in Blood by Automated count 0.1 U 0.0-0.5 N [facility] Basophils/100 leukocytes in Blood by Automated count 0.3 % 0.4-1.3 Below low normal [facility] Basophils [#/volume] in Blood by Automated count 0.0 U 0.0-0.2 N [facility] NUCLEATED RED BLOOD CELL 0 % [facility] NUCLEATED RED BLOOD CELL# [facility] Immature granulocytes [Presence] in Blood by Automated count 0-2 N [facility] Immature granulocytes [#/volume] in Blood by Automated count 0.0 U 0-0.1 N [facility] Manual Differential panel - Blood NO [facility] ID Date Data Source [id number] 08/07/2020 09:11:00 AM EDT [facility] Name Value Range Interpretation Code Description Data Lidia rce(s) Supporting Document(s) Urea nitrogen [Mass/volume] in Serum or Plasma 14 mg/dL 9-23 N [facility] Sodium [Moles/volume] in Serum or Plasma 137 mmol/L 132-146 N [facility] Potassium [Moles/volume] in Serum or Plasma 4.1 mmol/L 3.5-5.5 [facility] Chloride [Moles/volume] in Serum or Plasma 107 mmol/L 99-109 [facility] Carbon dioxide, total [Moles/volume] in Serum or Plasma 25 mmol/L 20 -31 N [facility] Anion gap in Serum or Plasma 9 mmol/L 8-16 N [facility] Glucose [Mass/volume] in Serum or Plasma 91 mg/dL 74-106 N [facility] Creatinine 0.7 mg/dL 0.5-1.1 N [facility] Glomerular filtration rate/1.73 sq M.pre dicted [Volume Rate/Area] in Serum or Plasma Greater Than 60 ABOVE 60 [facility] Alanine aminotransferase [Enzymatic acti vity/volume] in Serum or Plasma by With P-5'-P 15 U/L 10-49 N [facility] ital Aspartate aminotransferase [Enzymatic ac tivity/volume] in Serum or Plasma by With P-5'-P 8 U/L 0-33 N [facility] pital Alkaline phosphatase [Enzymatic activity/volume] in Serum or Plasma 79 U/L 45-129 N [facility] Calcium [Mass/volume] in Serum or Plasma 9.2 mg/dL 8.5-10.1 [facility] Bilirubin.total [Mass/volume] in Serum or Plasma 0.3 mg/dL 0.3-1.2 N [facility] Albumin [Mass/volume] in Serum or Plasma by Bromocresol purple (BCP) dye binding method 3.3 g/dL 3.2-4.8 [facility] ital Protein [Mass/volume] in Serum or Plasma 7.4 g/dL 5.7-8.2 N [facility] ID Date Data Source [id number] 08/08/2020 12:41:00 PM EDT [facility] Name Value Range Interpretation Code Description Data Lidia rce(s) Supporting Document(s) Insulin 18.6 uIU/mL [facility] Reference Range < or = 19.6 Ri sk: Optimal < or = 19.6 Moderate NA High >19.6 Adult cardiovascular event risk category cut points (optimal, moderate, high) are based on Surgient population data from 10/2011.This insulin assay shows strong cross-reactivity forsome insulin analogs (lispro, aspart, and glargine)and much lower cross-reactivity with others (detemir,glulisine).THIS TEST WAS PERFORMED AT:[employer] [id number] MERATI,MD ID Date Data Source [id number] [facility]2020 [facility] Name Value Range Interpretation Code Description Data Lidia rce(s) Supporting Document(s) Triglycerides 135 mg/dL 0-150 [facility] Cholesterol 224 mg/dL 120-[address] [facility] HDL Cholesterol 90 mg/dL [facility] HDL Less than 40 mg/dL: Major risk for CHDHDL Greater than 59 mg/dL: Low risk for CHD LDL Cholesterol, Calc 107 mg/dL 0-100 Above high normal [facility] ID Date Data Source [id number] 08/07/2020 07:59:00 AM [facility] ([facility]) Name Value Range Interpretation Code Description Data Lidia rce(s) Supporting Document(s) Reported Physicians See Note Reported Diannei netta [place] ([facility]) Note: Reported Physicians:Ordering: Saritha RobinsAttending: Saritha Paez ID Date Data Source [id number] 08/07[facility]2020 [facility]59[facility] Name Value Range Interpretation Code Description Data Lidia rce(s) Supporting Document(s) Insulin 18.6 Insulin [place] ([facility]) Note: Reference Range < or = 19.6 Risk: Optimal < or = 19.6 Moderate NA High >19.6 Adult cardiovascular event risk category cut points (optimal, moderate, high) are based on Surgient population data from 10/2011.This insulin assay shows strong cross-reactivity forsome insulin analogs (lispro, aspart, and glargine)and much lower cross-reactivity with others (detemir,glulisine).THIS TEST WAS PERFORMED AT:[employer] [id number] PEDRAZAesponsible Observer: Insulin Insulin [id number] 913.6030 ([employer]) ID Date Data Source [id number] 08/07/2020 07:59:00 AM [facility] ([facility]) Name Value Range Interpretation Code Description Data Lidia rce(s) Supporting Document(s) Alanine aminotransferase [Enzymatic acti vity/volume] in Serum or Plasma by With P-5'-P 15 enzyme_unit_per_liter Normal ALT SerPl w P-5' -P-cCnc [place] ([facility]) Note: Responsible Observer: SGPT/ALT SGP T/ALT 400.1750 (G) Calcium [Mass/volume] in Serum or Plasma 9.2 MilliGramsPerDeciLiter_[Mass_Concentration_Units] Normal Calcium [facility] ([facility]) Note: Responsible Observer: Calcium Calc ium 400.2500 (G) Bilirubin.total [Mass/volume] in Serum or Plasma 0.3 MilliGramsPerDeciLiter_[Mass_Concentration_Units] Normal Bilirub [facility] ([facility]) Note: Responsible Observer: T COURTNEY Total Bilirubin 400.2600 (G) Carbon dioxide, total [Moles/volume] in Serum or Plasm a 25 MilliMolesPerLiter_[Substance_Concentration_Units] Normal CO2 [facility] ([facility]) Note: Responsible Observer: CO2 Carbon D ioxide 400.1400 (G) Chloride [Moles/volume] in Serum or Plasma 107 MilliMolesPerLiter_[Substance_Concentration_Units] Normal Chloride [facility] ([facility]) Note: Responsible Observer: Chloride Chl oride 400.1250 (G) Glucose [Mass/volume] in Serum or Plasma 91 MilliGramsPerDeciLiter_[Mass_Concentration_Units] Normal Glucose [facility] ([facility]) Note: Responsible Observer: Glucose Gluc ose 400.1500 (G) Potassium [Moles/volume] in Serum or Plasma 4.1 MilliMolesPerLiter_[Substance_Concentration_Units] Normal Potassium [facility] ([facility]) Note: Responsible Observer: K Potassium 400.1210 (G) Protein [Mass/volume] in Serum or Plasma 7.4 GramsPerDeciLiter_[Mass_Concentration_Units] Normal Pro t [facility] ([facility]) Note: Responsible Observer: TP Total Pro tein 400.2800 (G) Aspartate aminotransferase [Enzymatic ac tivity/volume] in Serum or Plasma by With P-5'-P 8 enzyme_unit_per_liter Normal AST [facility] P-5'- [facility] ([facility]) Note: Responsible Observer: SGOT / AST S GOT / AST 400.1900 (G) Sodium [Moles/volume] in Serum or Plasma 137 MilliMolesPerLiter_[Substance_Concentration_Units] Normal Sodium [facility] ([facility]) Note: Responsible Observer: Sodium Sodiu m 400.1100 (G) Urea nitrogen [Mass/volume] in Serum or Plasma 14 MilliGramsPerDeciLiter_[Mass_Concentration_Units] Normal BUN [facility] ([facility]) Note: Responsible Observer: BUN Blood Ur ea Nitrogen 400.1000 (G) Anion gap in Serum or Plasma 9 MilliMolesPerLiter_[Substance_Concentration_Units] Normal Anion Gap [facility] ([facility]) Note: Responsible Observer: ANION GAP AN ION GAP 400.1402 (E) Albumin [Mass/volume] in Serum or Plasma by Bromocresol purple (BCP) dye binding method 3.3 GramsPerDeciLiter_[Mass_Concentration_Units] Normal Albumin [facility] ([facility]) Note: Responsible Observer: Albumin [place] min 400.2700 (G) Glomerular filtration rate/1.73 sq M.pre dicted [Volume Rate/Area] in Serum or Plasma Greater Than 60 GFR/BSA.pred SerPlBld-ArV Rat [facility] ([facility]) Note: Responsible Observer: GFR Glomerul ar Filt Rate Calc 400.1605 (D) Alkaline phosphatase [Enzymatic activity/volume] in Se rum or Plasma 79 enzyme_unit_per_liter Normal ALP SerPl-cCnc [facility] ( [facility]) Note: Responsible Observer: ALP Alkaline Phosphatase 400.2000 (G) Creatinine [Moles/volume] in Vitreous fluid 0.7 MilliGramsPerDeciLiter_[Mass_Concentration_Units] Normal Creatinine [facility] ([facility]) Note: Responsible Observer: Creatinine C reatinine 400.1600 (G) ID Date Data Source [id number] 08/07/2020 07:59:00 AM EDT [place] ([facility]) Name Value Range Interpretation Code Description Data Lidia rce(s) Supporting Document(s) Erythrocyte mean corpuscular volume [Ent itic volume] in Cord blood by Automated count 85.8 FemtoLiter_[SI_Volume_Units] Normal MCV Bld Co Auto [facility] ([facility]) Note: Responsible Observer: MCV MCV 100 .0600 (B) Erythrocyte distribution width [Entitic volume] by Automated cou nt 13 percent Normal RDW RBC [facility] ([facility]) Note: Responsible Observer: RDW RDW 100 .0900 (B) Manual Differential panel - Blood NO Ma nual diff Bld [facility] ([facility]) Note: Responsible Observer: CBC Manual D ifferential Added 100.1990 (B) Platelet mean volume [Entitic volume] in Blood 10.5 Fe mtoLiter_[SI_Volume_Units] Normal PMV Bld [facility] ([facility]) Note: Responsible Observer: MPV MPV 100 .1100 (B) Hematocrit [Volume Fraction] of Blood by Automated count 42.4 perce nt Normal Hct VFr Bld Auto [facility] ([facility]) Note: Responsible Observer: HEMATOCRIT H EMATOCRIT 100.0500 (B) Immature granulocytes [Presence] in Blood by Automated count See No te Normal Imm Granulocytes Bld Ql Auto [facility] ([facility]) Note: [id number] Ob surveillance observer: IG% IG% 100.1375 (B) Erythrocyte mean corpuscular hemoglobin concentration [Mass/volume] in Cord blood 32.5 GramsPerDeciLiter_[Mass_Concentration_Units] Below low normal MCHC BldCo-mCnc YONG ([facility]) Note: Responsible Observer: MCHC MCHC 1 00.0800 (B) Immature granulocytes [#/volume] in Blood by Automated count 0.0 Un it Imm Granulocytes # Bld Auto YONG ([facility]) Note: Responsible Observer: IG# IG# 100 .1400 (B) Monocytes/100 leukocytes in Blood by Automated count 6.7 percent Normal Monocytes/leuk NFr Bld Auto YONG ([facility]) Note: Responsible Observer: MONO % MONO % 100.1225 (B) Hemoglobin [Moles/volume] in Blood 13.8 GramsPerDeciLiter_[Mass_Concentration_Units] Normal Hgb Bld-sCnc YONG ([facility]) Note: Responsible Observer: HGB HEMOGLOB IN 100.0400 (B) Leukocytes [#/volume] in Blood by Automated count 8.7 ThousandsPerMicroLiter_[Number_Concentration_Units] Normal WBC # Bld Auto YONG ([facility]) Note: Responsible Observer: WBC WHITE BL OOD COUNT 100.0100 (E) Basophils [#/volume] in Blood by Automated count 0.0 Unit Normal Basophils # Bld Auto YONG ([facility]) Note: Responsible Observer: BASO # BASO# 100.1350 (B) Basophils/100 leukocytes in Blood by Automated count 0.3 percent Below low normal Basophils/leuk NFr Bld Auto YONG ([facility]) Note: Responsible Observer: BASO % BASO % 100.1325 (B) Eosinophils [#/volume] in Blood by Automated count 0.1 Unit Normal Eosinophil # Bld Auto YONG ([facility]) Note: Responsible Observer: EOS # EOS# 100.1300 (D) Eosinophils/100 leukocytes in Blood by Automated count 1.6 percent Normal Eosinophil/leuk NFr Bld Auto YONG ([facility]) Note: Responsible Observer: EOS % EOS % 100.1275 (B) Lymphocytes [#/volume] in Blood by Automated count 2.7 Unit Normal Lymphocytes # Bld Auto YONG ([facility]) Note: Responsible Observer: LYMPH # LYMP H# 100.1200 (B) Lymphocytes/100 leukocytes in Blood by Automated count 31.1 percent Normal Lymphocytes/leuk NFr Bld Auto YONG ([facility]) Note: Responsible Observer: LYMPH % LYMP H % 100.1175 (B) Monocytes [#/volume] in Blood by Automated count 0.6 Unit Normal Monocytes # Bld Auto YONG ([facility]) Note: Responsible Observer: MONO # MONO# 100.1250 (C) Neutrophils/100 leukocytes in Blood by Automated count 60.1 percent Normal Neutrophils/leuk NFr Bld Auto YONG ([facility]) Note: Responsible Observer: NEUT% NEUT% 100.1125 (B) Neutrophils [#/volume] in Blood by Automated count 5.2 Unit Normal Neutrophils # Bld Auto YONG ([facility]) Note: Responsible Observer: NEUT# NEUT# 100.1150 (B) Platelets [#/volume] in Blood by Automated count 341 ThousandsPerMicroLiter_[Number_Concentration_Units] Normal Platelet # Bld Auto YONG ([facility]) Note: Responsible Observer: PLATELET COU NT PLATELET COUNT 100.1000 (D) Erythrocyte mean corpuscular hemoglobin [Entitic mass] by Automated count 27.9 PicoGram_[SI_Mass_Units] Normal MCH RBC Qn Auto [place] ([facility]) Note: Responsible Observer: MCH MCH 100 .0700 (B) Erythrocytes [#/volume] in Blood by Automated count 4. 94 MillionsPerMicroLiter_[Number_Concentration_Units] Normal RBC # Bld Auto YONG ([facility]) Note: Responsible Observer: RBC Red Bloo d Count 100.0300 (B) NUCLEATED RED BLOOD CELL# 0 Unit NUCLEATED RED BLOOD CELL# YONG ([facility]) Note: Responsible Observer: NRBC# NUCLEA VINCENT RBC 100.1362 (A) NUCLEATED RED BLOOD CELL 0 percent NUCLEATED R ED BLOOD CELL YONG ([facility]) Note: Responsible Observer: NRBC% NRBC% 100.1360 (B) ID Date Data Source [id number] 08/07/2020 07:59:00 AM EDT YONG ([facility]) Name Value Range Interpretation Code Description Data Lidia rce(s) Supporting Document(s) Reported Physicians See Note Reported Physici ans [place] ([facility]) Note: Reported Physicians:Ordering: Saritha RobinsAttending: Saritha Paez ID Date Data Source [id number] 08/07/2020 07:59:00 AM EDT [place] ([facility]) Name Value Range Interpretation Code Description Data Lidia rce(s) Supporting Document(s) HDL Cholesterol 90 MilliGramsPerDeciLiter_[Mass_Concentration_Units ] HDL Cholesterol [place] ([facility]) Note: HDL Less than 40 mg/dL: Major ris k for CHDHDL Greater than 59 mg/dL: Low risk for CHDResponsible Observer: HDL HDL Cholesterol 400.3150 (H) Cholesterol [Moles/volume] in Pericardial fluid 224 MilliGramsPerDeciLiter_[Mass_Concentration_Units] Above high normal Cholesterol [place] ([facility]) Note: Responsible Observer: Cholesterol Cholesterol 400.3100 (G) LDL Cholesterol, Calc 107 MilliGramsPerDeciLiter_[Mass_Concentra tion_Units] Above high normal LDL Cholesterol, Calc [place] ([facility]) Note: Responsible Observer: LDL CHOL FRANK C LDL Cholesterol, Calculated 400.3155 (F) Triglycerides 135 MilliGramsPerDeciLiter_[Mass_Concentration_Units] Normal Triglycerides [place] ([facility]) Note: Responsible Observer: Triglyceride s Triglycerides 400.2951 (G) ID Date Data Source [id number] 08/08/2020 06:49:00 AM EDT [facility] Source:: VAGINALFEW WBCs seenLong rods n otedNO Yeast like organisms seen no trichomonas seenMODERATE Squamous cellsNo clue cells present Source Of Specimen: VAG Source:: VAGINALNo N. Gonorrhoaea isolat edMany LactobacilliFEW Staph Spp. coag neg Name Value Range Interpretation Code Description Data Lidia rce(s) Supporting Document(s) Wet mount for Trichomonas Negative for Trichomonas vaginalis [facility] ID Date Data Source [id number] 08/09/2020 06:55:[address] [facility] Source:: VAGINALFEW WBCs seenLong rods n otedNO Yeast like organisms seen no trichomonas seenMODERATE Squamous cellsNo clue cells present Source Of Specimen: VAG Source:: VAGINALNo N. Gonorrhoaea isolat edMany LactobacilliFEW Staph Spp. coag neg Name Value Range Interpretation Code Description Data Lidia rce(s) Supporting Document(s) Chlamydia trachomatis rRNA [Presence] in Unspecified specimen by Probe and target amplification method NOT DETECTED [facility] Neisseria gonorrhoeae rRNA [Presence] in Unspecified specimen by Probe and target amplification method NOT DETECTED [facility] Chlamydia/GC DNA Note SEE NOTE [facility] The analytical performance characteristi cs of thisassay, when used to test SurePath(TM) specimens have beendetermined by Surgient. The modifications havenot been cleared or approved by the FDA. This assay hasbeen validated pursuant to the CLIA regulations and isused for clinical purposes.For additional information, please refer tohttps://education.VEEDIMS/faq/RTO691(This link is being provided for information/educational purposes only.)THIS TEST WAS PERFORMED AT:[employer] [address]ALPA DIAZ MD ID Date Data Source [id number] [facility] VAGINALFEW WBCs seenLong rods n otedNO Yeast like organisms seen no trichomonas seenMODERATE Squamous cellsNo clue cells present Source Of Specimen: VAG Source:: VAGINALNo N. Gonorrhoaea isolat edMany LactobacilliFEW Staph Spp. coag neg Name Value Range Interpretation Code Description Data Lidia rce(s) Supporting Document(s) ID Date Data Source [id number] 08/05/2020 11:00:00 AM [facility] ([facility]) Name Value Range Interpretation Code Description Data Lidia rce(s) Supporting Document(s) Reported Physicians See Note Reported Physici netta [place] ([facility]) Note: Reported Physicians:Ordering: Saritha RobinsAttending: Saritha Paez ID Date Data Source [id number] 08/05/2020 11:00:00 AM [facility] ([facility]) Name Value Range Interpretation Code Description Data Lidia rce(s) Supporting Document(s) Chlamydia trachomatis rRNA [Presence] in Unspecified specimen by Probe and target amplification method See Note C trach rRNA XXX Ql DEVAUGHN+probe [place] ([facility]) Note: NOT DETECTEDNOT [id number] DETECTEDResponsible Observer: C.Trach RNA Chlamydia trachomatis DNA-DEVAUGHN [id number] 913.9900 ([employer]) Neisseria gonorrhoeae rRNA [Presence] in Unspecified specimen by Probe and target amplification method See Note N gonorrhoea rRNA XXX Ql DEVAUGHN+probe [place] ([facility]) Note: NOT DETECTEDNOT [id number] 6NOT DETECTEDResponsible Observer: GC RNA Neisseria gonorrhoeae DNA -DEVAUGHN [id number] 913.9905 ([employer]) Chlamydia/GC DNA Note SEE NOTE Chlamydia/GC DNA Note [place] ([facility]) Note: The analytical performance charact eristics of thisassay, when used to test SurePath(TM) specimens have beendetermined by Surgient. The modifications havenot been cleared or approved by the FDA. This assay hasbeen validated pursuant to the CLIA regulations and isused for clinical purposes.For additional information, please refer tohttps://education.[employer]/faq/HYF050(This link is being provided for information/educational purposes only.)THIS TEST WAS PERFORMED AT:[employer] [address]KAPERRY DIAZ,MDResponsible Observer: GC/Chlam Note Chlamydia/GC DNA Note [id number] 913.9907 (A) Notes [TIMP] See Note [place] ([facility]) Note: Source Of Specimen: VAG ID Date Data Source [id number] 08/05/2020 11:00:00 AM EDT YONG ([facility]) Name Value Range Interpretation Code Description Data Lidia rce(s) Supporting Document(s) Wet prep results See Note Wet prep results GR [place] ([facility]) Note: FEW WBCs seenLong rods notedNO Yea st like organisms seen no trichomonas seenMODERATE Squamous cellsNo clue cells present Notes [TIMP] See Note NOTES YONG ([facility]) Note: Source:: VAGINAL Wet mount for Trichomonas Negative for Trichomonas vaginalis Wet mount for Trichomonas [place] ([facility]) ID Date Data Source [id number] 08/05/2020 11:00:00 AM EDT [place] ([facility]) Name Value Range Interpretation Code Description Data Lidia rce(s) Supporting Document(s) Reported Physicians See Note Reported Physici ans [place] ([facility]) Note: Reported Physicians:Ordering: Saritha RobinsAttending: Saritha Paez ID Date Data Source [id number] 08/05/2020 11:00:00 AM EDT [place] ([facility]) Name Value Range Interpretation Code Description Data Lidia rce(s) Supporting Document(s) Genital culture results See Note Genital cult ure results [place] ([facility]) Note: No N. Gonorrhoaea isolatedMany Lac tobacilliFEW Staph Spp. coag neg Notes [TIMP] See Note NOTES [place] ([facility]) Note: Source:: VAGINAL Procedure Social History Code Duration Value Status Description Data Source(s ) Smoking 03/15/2021 12:00:00 AM EDT Patient has never smoked co mpleted Patient has never smoked [facility] ([facility] ) Vital Signs ID Date Data Source UNK Name Value Range Interpretation Code Description Data Source(s) Body surface area Derived from formula 2.15 m2 2.15 m2 [place] ([facility]) pap 06/26/20 Systolic blood pressure 128 mm[Hg] 128 mm[Hg] G [facility]) pap 06/26/20 Diastolic blood pressure 82 mm[Hg] 82 mm[Hg] [place] ([facility]) pap 06/26/20 Heart rate 78 /min 78 /min [place] ([facility]) pap 06/26/20 Respiratory rate 18 /min 18 /min [place] ([facility]) pap 06/26/20 Body height 62.75 [in_i] 62.75 [in_i] [place] ([facility]) pap 06/26/20 Body weight 259 [lb_av] 259 [lb_av] [place] ([facility]) pap 06/26/20 Body mass index (BMI) [Ratio] 46.2 kg/m2 46.2 k g/m2 [place] ([facility]) pap 06/26/20 Systolic blood pressure 112 mm[Hg] 112 mm[Hg] G [place] ([facility]) Diastolic blood pressure 70 mm[Hg] 70 mm[Hg] [place] ([facility]) Heart rate 96 /min 96 /min [place] ([facility]) Respiratory rate 20 /min 20 /min [place] ([facility]) Body weight 259.9 [lb_av] 259.9 [lb_av] [facility] ([facility]) Oxygen saturation in Arterial blood by Pulse oximetry 98 % 98 % [place] ([facility]) Systolic blood pressure 112 mm[Hg] 112 mm[Hg] [facility] Diastolic blood pressure 70 mm[Hg] 70 mm[Hg] [place] ([facility]) Heart rate 82 /min 82 /min [place] ([facility]) Respiratory rate 18 /min 18 /min [place] ([facility]) Body weight 258.4 [lb_av] 258.4 [lb_av] [facility] ([facility]) Oxygen saturation in Arterial blood by Pulse oximetry 96 % 96 % [place] ([facility]) Systolic blood pressure 120 mm[Hg] 120 mm[Hg] [facility] Diastolic blood pressure 82 mm[Hg] 82 mm[Hg] [place] ([facility]) Heart rate 99 /min 99 /min [place] ([facility]) Respiratory rate 24 /min 24 /min [place] ([facility]) Body temperature 98.9 [degF] 98.9 [degF] [facility] ([facility]) Body height 62.75 [in_i] 62.75 [in_i] [place] ([facility]) Body weight 257 [lb_av] 257 [lb_av] [place] ([facility]) Body mass index (BMI) [Ratio] 45.9 kg/m2 45.9 k g/m2 [place] ([facility]) Body surface area Derived from formula 2.15 m2 2.15 m2 [place] ([facility]) Oxygen saturation in Arterial blood by Pulse oximetry 98 % 98 % [place] ([facility]) Systolic blood pressure 132 mm[Hg] 132 mm[Hg] M ED[facility] ([facility]) Diastolic blood pressure 97 mm[Hg] 97 mm[Hg] [facility] ([facility]) Body weight 254.25 [lb_av] 254.25 [lb_av] MED[facility] T ([facility]) Body height 62 [in_i] 62 [in_i] [facility] ([facility] 5'2" Heart rate 90 /min 90 /min [facility] ([facility] Respiratory rate 18 /min 18 /min [facility] ( [facility]) Body mass index (BMI) [Ratio] 46.5 kg/m2 46.5 k g/m2 [facility] ([facility]) Body weight 252.00 [lb_av] 252.00 [lb_av] MED[facility] T ([facility]) Diastolic blood pressure 79 mm[Hg] 79 mm[Hg] [facility] ([facility]) Systolic blood pressure 121 mm[Hg] 121 mm[Hg] M EDENT ([facility]) Body mass index (BMI) [Ratio] 46.1 kg/m2 46.1 k g/m2 [facility] ([facility] Body height 62 [in_i] 62 [in_i] [facility] ([facility] 5'2" Heart rate 74 /min 74 /min [facility] ([facility] Respiratory rate 16 /min 16 /min [facility] ( [facility]) Systolic blood pressure 102 mm[Hg] 102 mm[Hg] G [place] ([facility]) Diastolic blood pressure 70 mm[Hg] 70 mm[Hg] YONG ([facility]) Heart rate 66 /min 66 /min YONG ([facility]) Respiratory rate 18 /min 18 /min [place] ([facility]) Body temperature 98.5 [degF] 98.5 [degF] [facility] ([facility]) Body weight 259 [lb_av] 259 [lb_av] YONG ([facility]) Systolic blood pressure 124 mm[Hg] 124 mm[Hg] G [place] ([facility]) Diastolic blood pressure 80 mm[Hg] 80 mm[Hg] [place] ([facility]) Heart rate 118 /min 118 /min [place] ([facility]) Respiratory rate 18 /min 18 /min [place] ([facility]) Body height 62.75 [in_i] 62.75 [in_i] [place] ([facility]) Body mass index (BMI) [Ratio] 46.2 kg/m2 46.2 k g/m2 [place] ([facility]) Body surface area Derived from formula 2.15 m2 2.15 m2 [place] ([facility]) Oxygen saturation in Arterial blood by Pulse oximetry 98 % 98 % [place] ([facility]) Heart rate 72 /min 72 /min [place] ([facility]) Systolic blood pressure 112 mm[Hg] 112 mm[Hg] [facility] ([facility]) Diastolic blood pressure 74 mm[Hg] 74 mm[Hg] [place] ([facility]) Respiratory rate 18 /min 18 /min [place] ([facility]) Body height 62.75 [in_i] 62.75 [in_i] [place] ([facility]) Body weight 249 [lb_av] 249 [lb_av] [place] ([facility]) Body mass index (BMI) [Ratio] 44.5 kg/m2 44.5 k g/m2 [facility]) Body surface area Derived from formula 2.12 m2 2.12 m2 [place] ([facility]) Systolic blood pressure 104 mm[Hg] 104 mm[Hg] [facility] ([facility]) Diastolic blood pressure 60 mm[Hg] 60 mm[Hg] [place] ([facility]) Heart rate 60 /min 60 /min [place] ([facility]) Respiratory rate 18 /min 18 /min [place] ([facility]) Body weight 251 [lb_av] 251 [lb_av] [place] ([facility]) Respiratory rate 16 /min 16 /min [place] ([facility]) Systolic blood pressure 118 mm[Hg] 118 mm[Hg] [facility] ([facility]) Body temperature 97.3 [degF] 97.3 [degF] [facility] ([facility]) Oxygen saturation in Arterial blood by Pulse oximetry 97 % 97 % [place] ([facility]) Diastolic blood pressure 82 mm[Hg] 82 mm[Hg] [place] ([facility]) Heart rate 80 /min 80 /min [place] ([facility]) Heart rate rhythm 1 1 [facility] ([facility]) Patient Treatment Plan of Care Planned Activity Planned Date Details Description Data Source (s) Sertraline 100 MG Oral Tablet 08/02/2021 12:00:00 AM [facility] ([facility]) Loryna 3-0.02 MG Oral Tablet 06/20/2021 12:00:00 AM [facility] ([facility]) montelukast 10 MG Oral Tablet [Singulair] 05/11/2021 12[facility] ACTUAT Fluticasone propionate 0.25 MG /ACTUAT / salmeterol 0.05 MG/ACTUAT Dry Powder Inhaler [Advair] 05/11/2021 12:00:00 AM [facility] ([facility]) Azithromycin 250 MG Oral Tablet [Zithromax] 04/12/2021 12:00:00 AM [facility]) 200 ACTUAT Albuterol 0.09 MG/ACTUAT Metered Dose Inhal er [ProAir] 04/02/2021 12:00:00 AM [facility] ([facility]) Sertraline 100 MG Oral Tablet 03/30/2021 12:00:00 AM [facility]) Gianvi 3-0.02 MG Oral Tablet 01/30/2021 12:00:00 AM [facility]) Metronidazole 0.0075 MG/MG Vaginal Gel 11/30/2020 12:00:[address] [facility] ([facility]) Gianvi 3-0.02 MG Oral Tablet 09/16/2020 12:00:00 AM [facility]) Nystatin 100 UNT/MG Topical Powder 08/11/2020 12:00:00 AM [facility]) Metronidazole 0.0075 MG/MG Vaginal Gel 08/05/2020 12:00:00 AM [facility] ([facility]) Sertraline 100 MG Oral Tablet 06/26/2020 12:00:00 AM EDT [facility]) Gianvi 3-0.02 MG Oral Tablet 04/24/2020 12:00:00 AM EDT [place] ([facility])
[2021-09-02] MEDS ORDERED: CHARCOAL ACTIVATED LIQUID 25 GM/120 ML BTL PO ONE (18:30)
[2021-09-02] MEDS ORDERED: VYVA30CA4 PO (18:35)
[2021-09-02] MEDS ORDERED: LEVOTAB10 PO (18:35)
[2021-09-02] MEDS ORDERED: LORY1TAB2 PO (18:35)
[2021-09-02] MEDS ORDERED: ADV250INH INH (18:35)
[2021-09-02] MEDS ORDERED: ZOLO50TA PO (18:35)
[2021-09-02] MEDS ORDERED: MONT10TA10 PO (18:35)
[2021-09-02] MEDS: NS 1,000 ML IV SCH (18:36)
[2021-09-02] MEDS ORDERED: ONDANSETRON 4MG/2ML VIAL IV ONE ×2 (18:40→18:45)
[2021-09-02 18:54] LABS: BASO # 0.1 10^3/uL (0.0-0.2); BASO % 0.5 % (0.0-1.0); EOS # 0.1 10^3/uL (0.0-0.5); EOS % 0.7 % (0.0-3.0); HEMATOCRIT 44.4 % (36.0-47.0); HEMOGLOBIN 14.9 g/dl (12.0-15.5); LYMPH # 2.9 10^3/uL (1.5-5.0); LYMPH % 23.8 % (24.0-44.0); MEAN CORPUSCULAR HGB CONC 33.6 g/dl (32.0-36.5); MEAN CORPUSCULAR VOLUME 83.5 fl (80.0-96.0); MONO # 0.7 10^3/uL (0.0-0.8); MONO % 5.7 % (2.0-8.0); NEUTROPHILS # 8.5 10^3/uL (1.5-8.5); PLATELET COUNT, AUTOMATED 381 10^3/uL (150-450); RED BLOOD COUNT 5.32 10^6/uL (4.00-5.40); WHITE BLOOD COUNT 12.3 10^3/uL (4.0-10.0)
[2021-09-02 19:21] LABS: HCG, SERUM QUALITATIVE NEGATIVE (NEGATIVE)
[2021-09-02 19:26] LABS: ACETAMINOPHEN LEVEL 24.1 UG/ML (10.0-30.0); ALBUMIN 3.2 GM/DL (3.2-5.2); ALT/SGPT 15 U/L (12-78); BILIRUBIN,DIRECT < 0.1 MG/DL (0.0-0.2); BILIRUBIN,TOTAL 0.2 MG/DL (0.2-1.0); BLOOD UREA NITROGEN 6 MG/DL (7-18); CALCIUM LEVEL 8.7 MG/DL (8.5-10.1); CARBON DIOXIDE LEVEL 24 MEQ/L (21-32); CHLORIDE LEVEL 108 MEQ/L (98-107); CPK CREATINE PHOSPHOKINASE 79 U/L (26-192); CREATININE FOR GFR 0.67 MG/DL (0.55-1.30); ETHYL ALCOHOL (ETHANOL) < 0.003 % (0.000-0.010); GLOMERULAR FILTRATION RATE > 60.0 (>60); GLUCOSE, FASTING 97 MG/DL (70-100); POTASSIUM SERUM 3.9 MEQ/L (3.5-5.1); SALICYLATE LEVEL < 1.7 MG/DL (5.0-30.0); SODIUM LEVEL 140 MEQ/L (136-145); TOTAL PROTEIN 7.7 GM/DL (6.4-8.2)
--- OUTSIDE RECORDS SUMMARY | 2021-09-02 20:11 | CCD ---
Author Author [facility] Organization [facility] Address Unknown Phone Unavailable Care Team Providers [facility] Supervisor Name Role Phone Jeannine, A Saritha [employer] Unavailable Unavailable Jeannine, A Saritha [employer] SUPER[employer] Unavailable Unavailable Jeannine, A Saritha [employer] SUPER[employer] Unavailable Unavailable Jeannine, A Saritha [employer] SUPER[employer] Unavailable Unavailable Jeannine, A Saritha [employer] SUPER[employer] Unavailable Unavailable Jeannine, A Saritha [employer] SUPER[employer] Unavailable Unavailable Jeannine, A Saritha [employer] SUPER[employer] Unavailable Unavailable Jeannine, A Saritha [employer] SUPER[employer] Unavailable Unavailable Jeannine, A Saritha [employer] SUPER[employer] Unavailable Unavailable Jeannine, A Saritha [employer] SUPER[employer]OR Unavailable Unavailable Jeannine, A Saritha [employer] SUPER[employer] Unavailable Unavailable Jeannine, A Saritha [employer] SUPER[employer]OR Unavailable Unavailable Jeannine, A Saritha [employer] SUPER[employer] Unavailable Unavailable Jeannine, A Saritha [employer] SUPER[employer]OR Unavailable Unavailable Jeannine, A Saritha [employer] SUPER[employer] Unavailable Unavailable Jeannine, A Saritha [employer] SUPER[employer] Unavailable Unavailable Jeannine, A Saritha [employer] SUPER[employer]OR Unavailable Unavailable Jeannine, A Saritha [employer] SUPER[employer]OR Unavailable Unavailable Jeannine, A Saritha [employer] SUPER[employer]OR Unavailable Unavailable Jeannine, A Saritha [employer] SUPER[employer]OR Unavailable Unavailable Jeannine, A Saritha [employer] SUPER[employer]OR Unavailable Unavailable Jeannine, A Saritha [employer] SUPER[employer]OR Unavailable Unavailable Jeannine, A Saritha [employer]PER[employer] Unavailable Unavailable Jeannine, A Saritha [employer] SUPER[employer]OR Unavailable Unavailable Jeannine, A Saritha [employer] SUPERVISOR Unavailable Unavailable Jeannine, A Saritha [employer] SUPER[employer]OR Unavailable Unavailable Jeannine, A Saritha [employer] SUPERVISOR Unavailable Unavailable Jeannine, A Saritha [employer] SUPER[employer]OR Unavailable Unavailable Jeannine, A Saritha [employer] SUPERVISOR Unavailable Unavailable Jeannine, A Saritha [employer] SUPER[employer]OR Unavailable Unavailable Jeannine, A Saritha [employer] SUPERVISOR Unavailable Unavailable Jeannine, A Saritha [employer] SUPERVISOR Unavailable Unavailable Jeannine, A Saritha [employer] SUPERVISOR Unavailable Unavailable Jeannine, A Saritha [employer] SUPERVISOR Unavailable Unavailable Jeannine, A Saritha [employer] SUPERVISOR Unavailable Unavailable Jeannine, A Saritha [employer] SUPER[employer]OR Unavailable Unavailable Jeannine, A Saritha [employer] SUPER[employer]OR Unavailable Unavailable Jeannine, A Saritha [employer] SUPER[employer]OR Unavailable Unavailable Jeannine, A Sairtha [employer] SUPER[employer]OR Unavailable Unavailable Jeannine, A Saritha [employer] SUPER[employer]OR Unavailable Unavailable Jeannine, A Saritha [employer] SUPERVISOR Unavailable Unavailable Jeannine, A Saritha [employer] SUPERVISOR Unavailable Unavailable Jeannine, A Saritha [employer] SUPERVISOR Unavailable Unavailable Jeannine, A Saritha [employer] SUPERVISOR Unavailable Unavailable Jeannine, A Saritha [employer] SUPERVISOR Unavailable Unavailable Jeannine, A Saritha [employer] SUPERVISOR Unavailable Unavailable Jeannine, A Saritha [employer] SUPERVISOR Unavailable Unavailable Jeannine, A Saritha [employer] SUPER[employer]OR Unavailable Unavailable Jeannine, A Saritha [employer] SUPERVISOR Unavailable Unavailable Jeannine, A Saritha [employer] SUPER[employer]OR Unavailable Unavailable Jeannine, A Saritha [employer] Unavailable Unavailable Jeannine, A Saritha [employer] Unavailable Unavailable MICHAEL MCKEON MD Unavailable Unavailable [...] MD Unavailable Unavailable CHROSTOWSKIMICHAEL MD Unavailable Unavailable CHROSTMICHAEL WILSON MD Unavailable Unavailable CHROSTMICHAEL WILSON MD Unavailable Unavailable CHROSTMICHAEL WILSON MD Unavailable Unavailable CHROSTOWSKIMICHAEL MD Unavailable Unavailable CHROSTOWSKIMICHAEL MD Unavailable Unavailable CHROSTOWSKIMICHAEL MD Unavailable Unavailable CHROSTMICHAEL WILSON MD Unavailable Unavailable CHROSTOWSKIMICHAEL MD Unavailable Unavailable CHROSTMICHAEL WILSON MD Unavailable Unavailable CHROSTMICHAEL WILSON MD Unavailable Unavailable CHROSTMICHAEL WILSON MD Unavailable Unavailable CHROSTMICHAEL WILSON MD Unavailable Unavailable CHROSTMICHAEL WILSON MD Unavailable Unavailable CHROSTMICHAEL WILSON MD Unavailable Unavailable CHROSTMICHAEL WILSON MD Unavailable Unavailable CHROSTOWSKIMICHAEL MD Unavailable Unavailable CHROSTMICHAEL WILSON MD Unavailable Unavailable CHROSTOWSKIMICHAEL MD Unavailable Unavailable CHROSTMICHAEL WILSON MD Unavailable Unavailable MUHA, M JONNY [employer] Unavailable Unavailable MUHA, M JONNY [employer] SUPER[employer]OR Unavailable Unavailable MUHA, M JONNY [employer] SUPER[employer]OR Unavailable Unavailable MUHA, M JONNY [employer] SUPERVISOR Unavailable Unavailable MUHA, M JONNY [employer] SUPERVISOR Unavailable Unavailable MUHA, M JONNY [employer] SUPER[employer]OR Unavailable Unavailable MUHA, M JONNY [employer] SUPERVISOR Unavailable Unavailable MUHA, M JONNY [employer] SUPERVISOR Unavailable Unavailable MUHA, M JONNY [employer] SUPERVISOR Unavailable Unavailable MUHA, M JONNY [employer] SUPERVISOR Unavailable Unavailable MUHA, M JONNY [employer] SUPERVISOR Unavailable Unavailable MUHA, M JONNY [employer] SUPERVISOR Unavailable Unavailable MUHA, M JONNY [employer] SUPERVISOR Unavailable Unavailable MUHA, M JONNY [employer] SUPERVISOR Unavailable Unavailable MUHA, M JONNY [employer] SUPERVISOR Unavailable Unavailable MUHA, M JONNY [employer] SUPERVISOR Unavailable Unavailable MUHA, M JONNY [employer] SUPERVISOR Unavailable Unavailable MUHA, M JONNY [employer] SUPERVISOR Unavailable Unavailable MUHA, M JONNY [employer] SUPERVISOR Unavailable Unavailable MUHA, M JONNY [employer] SUPERVISOR Unavailable Unavailable MUHA, M JONNY [employer] SUPERVISOR Unavailable Unavailable MUHA, M JONNY [employer] SUPERVISOR Unavailable Unavailable MUHA, M JONNY [employer] SUPERVISOR Unavailable Unavailable MUHA, M JONNY [employer] SUPERVISOR Unavailable Unavailable MUHA, M JONNY [employer] SUPERVISOR Unavailable Unavailable MUHA, M JONNY [employer] SUPERVISOR Unavailable Unavailable MUHA, M JONNY [employer] SUPERVISOR Unavailable Unavailable MUHA, M JONNY [employer] SUPERVISOR Unavailable Unavailable MUHA, M JONNY [employer] SUPERVISOR Unavailable Unavailable MUHA, M JONNY [employer] SUPERVISOR Unavailable Unavailable MUHA, M JONNY [employer] SUPERVISOR Unavailable Unavailable MUHA, M JONNY [employer] SUPERVISOR Unavailable Unavailable MUHA, M JONNY [employer] SUPERVISOR Unavailable Unavailable MUHA, M JONNY [employer] SUPERVISOR Unavailable Unavailable MUHA, M JONNY [employer] SUPERVISOR Unavailable Unavailable MUHA, M JONNY [employer] SUPERVISOR Unavailable Unavailable MUHA, M JONNY [employer] SUPERVISOR Unavailable Unavailable MUHA, M JONNY [employer] SUPERVISOR Unavailable Unavailable MUHA, M JONNY [employer] SUPERVISOR Unavailable Unavailable MUHA, M JONNY [employer] SUPER[employer]OR Unavailable Unavailable MUHA, M JONNY [employer] SUPERVISOR Unavailable Unavailable MUHA, M JONNY [employer] SUPERVISOR Unavailable Unavailable MUHA, M JONNY [employer] SUPERVISOR Unavailable Unavailable MUHA, M JONNY [employer] SUPERVISOR Unavailable Unavailable MUHA, M JONNY [employer] SUPERVISOR Unavailable Unavailable MUHA, M JONNY [employer] SUPERVISOR Unavailable Unavailable MUHA, M JONNY [employer] SUPERVISOR Unavailable Unavailable MUHA, M JONNY [employer] SUPERVISOR Unavailable Unavailable MUHA, M JONNY [employer] SUPERVISOR Unavailable Unavailable MUHA, M JONNY [employer] SUPERVISOR Unavailable Unavailable MUHA, M JONNY [employer] SUPERVISOR Unavailable Unavailable MUHA, M JONNY [employer] SUPERVISOR Unavailable Unavailable MUHA, M JONNY [employer]OR Unavailable Unavailable MUHA, M JONNY [employer] Unavailable Unavailable JustinJaz MD Unavailable Unavailable JustinJaz [...] Unavailable Unavailable JustinJaz MD Unavailable Unavailable Justin, E Lyssa MD [...] Unavailable Jose Luis Zambrano MD Unavailable Unavailable LyndaJose Luis vences MD Unavailable Unavailable LyndakerJose Luis MD Unavailable Unavailable LyndaJose Luis vences MD Unavailable Unavailable LyndakerJose Luis MD Unavailable Unavailable LyndakerJose Luis MD Unavailable Unavailable LyndakerJose Luis MD Unavailable Unavailable LyndaJose Luis vences MD Unavailable Unavailable LyndaJose Luis vences MD Unavailable Unavailable LyndaJose Luis vences MD Unavailable Unavailable LyndaJose Luis vences MD Unavailable Unavailable LyndakerJose Luis MD Unavailable Unavailable LyndakerJose Luis MD Unavailable Unavailable LyndaJose Luis vences MD [...] LyndaJose Luis vences MD Unavailable Unavailable LyndaJose Lusi vences MD Unavailable Unavailable LyndaJose Luis vences MD Unavailable Unavailable LyndaJose Luis vences MD Unavailable Unavailable LyndaJose Luis vences MD Unavailable Unavailable Lyndaru L Kyle MD Unavailable Unavailable LynJose Luis bullock MD Unavailable Unavailable LynJose Luis bullock MD Unavailable Unavailable Lynara, Jose Luis Wright MD Unavailable Unavailable Lynara, Jose Luis Wright MD Unavailable Unavailable Lynara, Jose Luis Wright MD Unavailable Unavailable LynJose Luis bullock MD [...] Zambrano MD Unavailable Unavailable MUHA, M JONNY [employer]OR Unavailable Unavailable MUHA, M JONNY [employer] SUPERVISOR Unavailable Unavailable MUHA, M JONNY [employer] SUPERVISOR Unavailable Unavailable MUHA, M JONNY [employer] SUPERVISOR Unavailable Unavailable MUHA, M JONNY [employer] SUPERVISOR Unavailable Unavailable MUHA, M JONNY [employer] SUPERVISOR Unavailable Unavailable MUHA, M JONNY [employer] SUPERVISOR Unavailable Unavailable MUHA, M JONNY [employer] SUPERVISOR Unavailable Unavailable MUHA, M JONNY [employer] SUPERVISOR Unavailable Unavailable MUHA, M JONNY [employer] SUPERVISOR Unavailable Unavailable MUHA, M JONNY [employer] SUPERVISOR Unavailable Unavailable MUHA, M JONNY [employer] SUPERVISOR Unavailable Unavailable MUHA, M JONNY [employer] SUPERVISOR Unavailable Unavailable MUHA, M JONNY [employer] SUPERVISOR Unavailable Unavailable MUHA, M JONNY [employer] SUPERVISOR Unavailable Unavailable MUHA, M JONNY [employer] SUPERVISOR Unavailable Unavailable MUHA, M JONNY [employer] SUPERVISOR Unavailable Unavailable MUHA, M JONNY [employer] SUPERVISOR Unavailable Unavailable MUHA, M JONNY [employer] SUPERVISOR Unavailable Unavailable MUHA, M JONNY [employer] SUPERVISOR Unavailable Unavailable MUHA, M JONNY [employer] SUPERVISOR Unavailable Unavailable MUHA, M JONNY [employer] SUPERVISOR Unavailable Unavailable MUHA, M JONNY [employer] SUPERVISOR Unavailable Unavailable MUHA, M JONNY [employer] SUPERVISOR Unavailable Unavailable MUHA, M JONNY [employer] SUPERVISOR Unavailable Unavailable MUHA, M JONNY [employer] SUPERVISOR Unavailable Unavailable MUHA, M JONNY [employer] SUPERVISOR Unavailable Unavailable MUHA, M JONNY [employer] SUPERVISOR Unavailable Unavailable MUHA, M JONNY [employer] SUPERVISOR Unavailable Unavailable MUHA, M JONNY [employer] SUPERVISOR Unavailable Unavailable MUHA, M JONNY [employer] SUPERVISOR Unavailable Unavailable MUHA, M JONNY [employer] SUPERVISOR Unavailable Unavailable MUHA, M JONNY [employer] SUPERVISOR Unavailable Unavailable MUHA, M JONNY [employer] SUPERVISOR Unavailable Unavailable MUHA, M JONNY [employer] SUPERVISOR Unavailable Unavailable MUHA, M JONNY [employer] SUPERVISOR Unavailable Unavailable MUHA, M JONNY [employer] SUPERVISOR Unavailable Unavailable MUHA, M JONNY [employer] SUPERVISOR Unavailable Unavailable MUHA, M JONNY [employer] SUPERVISOR Unavailable Unavailable MUHA, M JONNY [employer] SUPERVISOR Unavailable Unavailable MUHA, M JONNY [employer] SUPERVISOR Unavailable Unavailable MUHA, M JONNY [employer] SUPERVISOR Unavailable Unavailable MUHA, M JONNY [employer] SUPERVISOR Unavailable Unavailable MUHA, M JONNY [employer] SUPERVISOR Unavailable Unavailable MUHA, M JONNY [employer] SUPERVISOR Unavailable Unavailable MUHA, M JONNY [employer] SUPERVISOR Unavailable Unavailable MUHA, M JONNY [employer] SUPERVISOR Unavailable Unavailable MUHA, M JONNY [employer] SUPERVISOR Unavailable Unavailable MUHA, M JONNY [employer] SUPERVISOR Unavailable Unavailable MUHA, M JONNY [employer] SUPERVISOR Unavailable Unavailable MUHA, M JONNY [employer] SUPERVISOR Unavailable Unavailable MUHA, M JONNY [employer] SUPERVISOR Unavailable Unavailable MUHA, M JONNY [employer] SUPER[employer]OR Unavailable Unavailable MUHA, M JONNY [employer] SUPER[employer]OR Unavailable Unavailable Jaz Anderson MD Unavailable Unavailable [...] Lyssa MD Unavailable Unavailable Jeannine, A Saritha [employer]OR Unavailable Unavailable Jeannine, A Saritha [employer] SU[employer]OR Unavailable Unavailable Jeannine, A Saritha [employer] SUPERVISOR Unavailable Unavailable Jeannine, A Saritha [employer] SUPERVISOR Unavailable Unavailable Jeannine, A Saritha [employer] SUPERVISOR Unavailable Unavailable Jeannine, A Saritha [employer] SUPERVISOR Unavailable Unavailable Jeannine, A Saritha [employer] SUPERVISOR Unavailable Unavailable Jeannine, A Saritha [employer] SUPERVISOR Unavailable Unavailable Jeannine, A Saritha [employer] SUPERVISOR Unavailable Unavailable Jeannine, A Saritha [employer] SUPERVISOR Unavailable Unavailable Jeannine, A Saritha [employer] SUPERVISOR Unavailable Unavailable Jeannine, A Saritha [employer] SUPERVISOR Unavailable Unavailable Jeannine, A Saritha [employer] SUPERVISOR Unavailable Unavailable Jeannine, A Saritha [employer] SUPERVISOR Unavailable Unavailable Jeannine, A Saritha [employer] SUPERVISOR Unavailable Unavailable Jeannine, A Saritha [employer] SUPERVISOR Unavailable Unavailable Jeannine, A Saritha [employer] SUPERVISOR Unavailable Unavailable Jeannine, A Saritha [employer] SUPERVISOR Unavailable Unavailable Jeannine, A Saritha [employer] SUPERVISOR Unavailable Unavailable Jeannine, A Saritha [employer] SUPERVISOR Unavailable Unavailable Jeannine, A Saritha [employer] SUPERVISOR Unavailable Unavailable Jeannine, A Saritha [employer] SUPERVISOR Unavailable Unavailable Jeannine, A Saritha [employer] SUPERVISOR Unavailable Unavailable Jeannine, A Saritha [employer] SUPERVISOR Unavailable Unavailable Jeannine, A Saritha [employer] SUPERVISOR Unavailable Unavailable Jeannine, A Saritha [employer] SUPERVISOR Unavailable Unavailable Jeannine, A Saritha [employer] SUPERVISOR Unavailable Unavailable Jeannine, A Saritha [employer] SUPERVISOR Unavailable Unavailable Jeannine, A Saritha [employer] SUPERVISOR Unavailable Unavailable Jeannine, A Saritha [employer] SUPERVISOR Unavailable Unavailable Jeannine, A Saritha [employer] SUPERVISOR Unavailable Unavailable Jeannine, A Saritha [employer] SUPERVISOR Unavailable Unavailable Jeannine, A Saritha [employer] SUPERVISOR Unavailable Unavailable Jeannine, A Saritha [employer] SUPERVISOR Unavailable Unavailable Jeannine, A Saritha [employer] SUPERVISOR Unavailable Unavailable Jeannine, A Saritha [employer] SUPERVISOR Unavailable Unavailable Jeannine, A Saritha [employer] SUPERVISOR Unavailable Unavailable Jeannine, A Saritha [employer] SUPERVISOR Unavailable Unavailable Jeannine, A Saritha [employer] SUPERVISOR Unavailable Unavailable Jeannine, A Saritha [employer] SUPERVISOR Unavailable Unavailable Jeannine, A Saritha [employer] SUPERVISOR Unavailable Unavailable Jeannine, A Saritha [employer] SUPERVISOR Unavailable Unavailable Jeannine, A Saritha [employer] SUPERVISOR Unavailable Unavailable Jeannine, A Saritha [employer] SUPERVISOR Unavailable Unavailable Jeannine, A Saritha [employer] SUPERVISOR Unavailable Unavailable Jeannine, A Saritha [employer] SUPERVISOR Unavailable Unavailable Jeannine, A Saritha [employer] SUPERVISOR Unavailable Unavailable Jeannine, A Saritha [employer] SUPERVISOR Unavailable Unavailable Jeannine, A Saritha [employer] SUPERVISOR Unavailable Unavailable Jeannine, A Saritha [employer] SUPERVISOR Unavailable Unavailable Jeannine, A Saritha [employer] SU[employer]OR Unavailable Unavailable Jeannine, A Saritha [employer] SU[employer]VIS[employer] Unavailable Unavailable Re-disclosure Warning The records that [...] is protected by Article 27-F of the [facility] Public Health law. If you continue you may have access to information: Regarding HIV / AIDS; Provided by facilities licensed or operated by the [facility] Office of Mental Health; or Provided by the [facility] Office for People With Developmental Disabilities. If such information is present, then the following [facility] mandated warning applies: This information has been [...] law may result in a fine or long term sentence or both. A general authorization for the release of medical or other information is NOT sufficient authorization for further disc losure. Allergies and Adverse Reactions Type Description Substance Reaction Status Data Source(s ) Allergy to substance No Known Allergies No known allergies (situation ) [facility]) Allergy to substance No Known Allergies No known allergies (situation ) [facility]) Allergy to substance No Known Allergies No known allergies (situation ) [facility]) Allergy to substance No Known Allergies No known allergies (situation ) [facility]) Propensity to adverse reactions NO KNOWN ALLERGIES NO KNOWN ALLERGIES [facility] Family History Family Member Name Family Member Gender Family Member Status Date o f Status Description Data Source(s) Unknown Condition [facility] Unknown Condition [facility] Unknown Female Problem [facility] ([facility]) Encounters Encounter Providers Location Date Indications Data Source(s ) Outpatient Attender: JONNY JOHNSON [facility] 08/09/2021 04:20:00 PM EDT Z11.3 [facility] Z11.3 Outpatient<td ID="encounterTypeDescripti onID0">ANNUAL PE-followup exam</td><td>Jonny Johnson [facility]</td><td>[facility]</td><td>08/09/2021</td><td>3:38PM</td><td>5:08PM</td><td><content ID="encounterDiagnosisID0-0">Routine History and Physical Adult (18 - 64 Yrs)</content>, <content ID="encounterDiagnosisID0-1">Major Depression Recurrent Moderate</content>, <content ID="encounterDiagnosisID0-2">Anxiety Disorder Nos</content>, <content ID="encounterDiagnosisID0-3">Asthma Persistent</content>, <content ID="encounterDiagnosisID0-4">Assessment of Cerv Pap Smear (+) Atyp Squamous Cells Undetermined Signif</content></td> Attender: JONNY JOHNSON [facility], [facility] 08/09/2021 03:38:00 P M EDT - 08/09/2021 05:08:00 PM EDT Asthma PersistentRoutine History and Phy sical Adult (18 - 64 Yrs)Assessment of Cerv Pap Smear (+) Atyp Squamous Cells Undetermined SignifAnxiety Disorder NosMajor Depression Recurrent Moderate YONG ([facility]) Asthma Persistent Routine History and Physical Adult (18 - 64 Yrs) Assessment of Cerv Pap Smear (+) Atyp Sq uamous Cells Undetermined Signif Anxiety Disorder Nos Major Depression Recurrent Moderate Outpatient Attender: Saritha Paez [facility] 07/13/2021 10:49:00 AM EDT ASTHMA J45.998 [facility] ASTHMA J45.998 Outpatient Attender: Lsysa Anderson MD 07/10/2021 09:00:00 AM EDT [facility] Outpatient Attender: Lyssa Anderson MD 07/06/2021 11:30:00 AM EDT [facility] Outpatient<td ID="encounterTypeDescripti onID1">nursing visit</td><td>Lyssa Anderson MD</td><td>[facility], [facility]</td><td>07/06/2021</td><td>11:23AM</td><td>12:00PM</td><td></td> Attender: Lyssa Anderson MD [facility], [facility] 07/06/2021 11:23:00 A M EDT - 07/06/2021 12:00:59 PM EDT [facility]) Outpatient<td ID="encounterTypeDescripti onID2">followup</td><td>Saritha COBBP</td><td>[facility], [facility]</td><td>06/22/2021</td><td>8:50AM</td><td>9:17AM</td><td><content ID="encounterDiagnosisID2-0">Allergic Rhinitis</content>, <content ID="encounterDiagnosisID2-1">Reactive Airway Disease</content></td> Attender: Saritha HERNANDEZ [facility], [facility] 06/22/2021 08:50:00 A M EDT - 06/22/2021 09:17:00 AM EDT Reactive Airway DiseaseAllergic Rhinitis [place] ([facility]) Reactive Airway Disease Allergic Rhinitis Outpatient Attender: Saritha HERNANDEZ 05/15/2021 12:49 :00 PM EDT SOB [facility] SOB Outpatient Attender: Saritha HERNANDEZ 05/11/2021 11:54 :00 AM EDT R06.02, [facility] R06.02, <td ID="encounterTypeDescriptionID3">sic k visit</td><td>Saritha COBBP</td><td>[facility], [facility]</td><td>05/11/2021</td><td>11:18AM</td><td>11:45AM</td><td><content ID="encounterDiagnosisID3-0">Allergic Rhinitis</content>, <content ID="encounterDiagnosisID3-1">Reactive Airway Disease</content></td>Outpatient Attender: Saritha Paez [facility], [facility] 05/11/2021 11:18:00 AM EDT - 05/11/2021 11:45:00 AM EDT Reactive Airway DiseaseReactive Airway DiseaseAllergic RhinitisAllergic Rhinitis [facility]) Reactive Airway Disease Reactive Airway Disease Allergic Rhinitis Allergic Rhinitis <td ID="encounterTypeDescriptionID4">[Pa tient Encounter]</td><td>Jonny Nisha Piedad HERNANDEZ-RILEY</td><td></td><td>04/12/2021</td><td>04/02/2021 4:20PM</td><td>04/02/2021 11:59PM</td><td></td>Outpatient Attender: JONNY HERNANDEZ 0 04/02/2021 04:20:00 PM EDT - 04/02/2021 11:59:00 PM EDT [facility]) Outpatient<td ID="encounterTypeDescripti onID5">followup</td><td>Jonny Nisha Piedad HERNANDEZ-BC</td><td>[facility], [facility]</td><td>04/02/2021</td><td>3:28PM</td><td>4:15PM</td><td><content ID="encounterDiagnosisID5-0">Major Depression Recurrent Moderate</content>, <content ID="encounterDiagnosisID5-1">Reactive Airway Disease</content>, <content ID="encounterDiagnosisID5-2">Allergic Rhinitis</content></td> Attender: JONNY HERNANDEZ [facility], [facility] 04/02/2021 03:28:00 P M EDT - 04/02/2021 04:15:00 PM EDT Reactive Airway DiseaseReactive Airway DiseaseReactive Airway DiseaseAllergic RhinitisMajor Depression Recurrent ModerateAllergic RhinitisMajor Depression Recurrent ModerateAllergic RhinitisMajor Depression Recurrent Moderate [place] ([facility]) 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 Allergic Rhinitis Major Depression Recurrent Moderate Allergic Rhinitis Major Depression Recurrent Moderate Allergic Rhinitis Major Depression Recurrent Moderate Outpatient Attender: MICHAEL MCKEON MD Main Office 03/15/2021 04:00:00 PM EDT [facility] ([facility]) Outpatient Attender: MICHAEL MCKEON MD Main Office 02/06/2021 02:45:00 PM EDT [facility] ([facility]) <td ID="encounterTypeDescriptionID6">[Pa tient Encounter]</td><td>Jonny Cameron Piedad HERNANDEZ-BC</td><td></td><td>03/18/2021</td><td>11/30/2020 7:24PM</td><td>11/30/2020 11:59PM</td><td></td>Outpatient Attender: JONNY HERNANDEZ 0 11/30/2020 07:24:00 PM EST - 11/30/2020 11:59:00 PM EST [place] ([facility]) <td ID="encounterTypeDescriptionID7">[facility]</td><td>Jonny Cameron Piedad HERNANDEZ- BC</td><td>[facility], [facility]</td><td>11/30/2020</td><td>3:09PM</td><td>3:54PM</td><td><content ID="encounterDiagnosisID7-0">Urticaria Idiopathic</content>, <content ID="encounterDiagnosisID7-1">Bacterial Vaginosis</content></td>Outpatient Attender: JONNY HERNANDEZ [facility], [facility] 11/30/2020 03:09:00 PM EST - 11/30/2020 03:54:00 PM EST Bacterial VaginosisUrticaria IdiopathicBacterial VaginosisUrticaria IdiopathicBacterial VaginosisUrticaria Idiopathic [place] ([facility]) 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 <td ID="encounterTypeDescriptionID8">community hospital visit</td><td>Kyle Zambrano MD</td><td>[facility]</td><td>11/13/2020</td><td>3:37PM</td><td>3:52PM</td><td></td>Outpatient Attender: Kyle Zambrano MD [facility] 11/13/2020 03:37:00 PM EST - 11/13/2020 03:52:15 PM EST [facility]) Outpatient Attender: Lyssa Anderson MD 10/10/2020 04:15:00 PM EST I26.99 [facility] I26.99 <td ID="encounterTypeDescriptionID9">[facility] visit</td><td>Lyssa Anderson MD</td><td>[facility]</td><td>10/10/2020</td><td>3:15PM</td><td>3:46PM</td><td><content ID="encounterDiagnosisID9-0">Pulmonary Embolism</content>, <content ID="encounterDiagnosisID9-1">Upper Respiratory Infection Acute</content></td>Outpatient Attender: Lyssa Anderson MD [facility] 10/10/2020 03:15:00 PM EST - 10/10/2020 03:46:00 PM ES T Upper Respiratory Infection AcutePulmonary EmbolismUpper Respiratory Infection AcutePulmonary EmbolismUpper Respiratory Infection AcutePulmonary EmbolismUpper Respiratory Infection AcutePulmonary Embolism [place] ([facility]) Upper Respiratory Infection Acute Pulmonary Embolism Upper Respiratory Infection Acute Pulmonary Embolism Upper Respiratory Infection Acute Pulmonary Embolism Upper Respiratory Infection Acute Pulmonary Embolism Outpatient<td ID="encounterTypeDescripti onID10">followup</td><td>Jonny Johnson [facility]-</td><td>[facility], [facility]</td><td>10/04/2020</td><td>10:59AM</td><td>11:38AM</td><td><content ID="vhbnmqucsKbtsgiftmCQ47-1">Major Depression Recurrent Moderate</content></td> Attender: JONNY JOHNSON [facility], [facility] 10/04/2020 10:59:00 AM EST - 10/04/2020 11:38:00 AM EST Major Depression Recurrent ModerateMajor Depression Recurrent ModerateMajor Depression Recurrent ModerateMajor Depression Recurrent ModerateMajor Depression Recurrent Moderate [place] ([facility]) Major Depression Recurrent Moderate Major Depression Recurrent Moderate Major Depression Recurrent Moderate Major Depression Recurrent Moderate Major Depression Recurrent Moderate Outpatient Attender: Saritha Paez [facility] 08/11/2020 04:05 :00 PM EDT N76.0 [facility] N76.0 <td ID="encounterTypeDescriptionID6">[facility]</td><td>Saritha Paez [facility]</td><td>[facility], [facility]</td><td>08/11/2020</td><td>3:29PM</td><td>4:13PM</td><td><content ID="encounterDiagnosisID6-0">Candidiasis Vaginal</content>, <content ID="encounterDiagnosisID6-1">Vaginal Discharge</content></td>Outpatient Attender: Saritha HERNANDEZ [facility], [facility] 08/11/2020 03:29:00 PM EDT - 08/11/2020 04:13:00 PM EDT Vaginal DischargeCandidiasis VaginalVaginal DischargeCandidiasis VaginalVaginal DischargeCandidiasis VaginalVaginal DischargeCandidiasis VaginalVaginal DischargeCandidiasis Vaginal [place] ([facility]) Vaginal Discharge Candidiasis Vaginal Vaginal Discharge Candidiasis Vaginal Vaginal Discharge Candidiasis Vaginal Vaginal Discharge Candidiasis Vaginal Vaginal Discharge Candidiasis Vaginal Outpatient Attender: Saritha Paez [facility] 08/07/2020 07:55 :00 AM EDT B37.9 [facility] B37.9 Outpatient Attender: Saritha Paez [facility] 08/05/2020 11:00 :00 AM EDT N89.8 [facility] N89.8 <td ID="encounterTypeDescriptionID7">sic k visit</td><td>Saritha Paez [facility]</td><td>[facility], [facility]</td><td>08/05/2020</td><td>9:55AM</td><td>11:02AM</td><td><content ID="encounterDiagnosisID7-0">Candidiasis Vaginal</content>, <content ID="encounterDiagnosisID7-1">Vaginal Discharge</content></td>Outpatient Attender: Saritha Ochoae [facility], [facility] 08/05/2020 09:55:00 AM EDT - 08/05/2020 11:02:00 AM EDT Vaginal DischargeCandidiasis VaginalVaginal DischargeCandidiasis VaginalVaginal DischargeCandidiasis VaginalVaginal DischargeCandidiasis VaginalVaginal DischargeCandidiasis VaginalVaginal DischargeCandidiasis Vaginal [place] ([facility]) Vaginal Discharge Candidiasis Vaginal Vaginal Discharge Candidiasis Vaginal Vaginal Discharge Candidiasis Vaginal Vaginal Discharge Candidiasis Vaginal Vaginal Discharge Candidiasis Vaginal Vaginal Discharge Candidiasis Vaginal Outpatient Attender: JONNY JOHNSON [facility] 06/26/2020 02:00:00 PM EDT Z11.3 [facility] Z11.3 Immunizations Vaccine Date Status Description Data Source(s) Moderna COVID-19 vaccine 01/12/2021 04:52:00 PM EST completed <td ID="Prozyoxsezwhw-Csfecfllkcg-WQ20">Moderna COVID-19 vaccine</td><td ID="ImmunizationDose-26">2</td><td>01/12/2021</td><td ID="Nggiflwxsydmc-WahukXykf-IA18"></td><td></td><td ID="Eipqymqbmadpw-Jyrycz-UZ46">Complete (Reported)</td><td>Patient</td><td ID="Qzvwaouancura-Kqmqk-Vkun-Comment-ID26"></td> [place] ([facility]) COVID-19 VACCINE Moderna 01/12/2021 12:00:00 AM EST completed [facility] Vaccine Series Complete: YESThis Data wa s Submitted to [facility] Via [employer]. Moderna COVID-19 vaccine 12/15/2020 04:51:00 PM EST completed <td ID="Pyuecugetyefo-Etxzlcokahp-TV00">Moderna COVID-19 vaccine</td><td ID="ImmunizationDose-25">1</td><td>12/15/2020</td><td ID="Uzfqpymfkafux-MocnpRbbl-FR90"></td><td></td><td ID="Wyaigagouidam-Tkjzxe-LB98">Complete (Reported)</td><td>Patient</td><td ID="Zpovazmjtwnui-Jtdol-Bujg-Comment-ID25"></td> [place] ([facility]) COVID-19 VACCINE Moderna 12/15/2020 12:00:00 AM EST completed [facility] Vaccine Series Complete: NOThis Data was Submitted to [facility] Via [employer]. 11/13/2020 03:53:00 PM EST completed <td ID="Mbzxihfeuhwje-Ioelngitohf-YA3">Gardasil</td><td ID="ImmunizationDose- 7">3</td><td>11/13/2020</td><td ID="Prdjjeipbuugz-WoepyObyp-WJ4">Left Deltoid</td><td></td><td ID="Wzviiszqhiwhs-Lvkqhl-FZ1">Complete (Administered)</td><td>[facility]</td><td ID="Tdldjebeqkwez-Nwbbq-Gzlm-Comment-ID7"></td> [place] ([facility]) INFLUENZA VIRUS VACCINE QUADRIVALENT 2019- (6 MOS AN D UP) 08/05/2020 12:00:00 AM EDT completed [facility] Medications Medication Brand Name Start Date [...] 1 active sertraline 100 MG Oral Tablet [facility] [facility]) 100 mg 08/02/2021 12:00:00 AM EDT tablet [...] dimesylate 30 MG Oral C apsule [Vyvanse] [facility] Loryna 28 Day Pack 3-0.02 mg ETHINYL ESTRADIOL/DROSPIRENONE 06/20/2021 12:00:00 AM EDT tablet 28 TAKE 1 TABLET BY MOUTH ONCE DAILY DIRECTED TAKE 1 TABLET BY MOUTH ONCE DAILY DIRECTED SOLD: 06/21/2021 [facility] Loryna 3-0.02 MG Oral Tablet Loryna 3-0.02 MG Oral Tablet 12:00:00 AM EDT 1 active {24 (alexia spirenone 3 MG / ethinyl estradiol 0.02 MG Oral Tablet) / 4 (inert ingredients 1 MG Oral Tablet) } [facility] ] [facility] Loryna 28 Day Pack 3-0.02 mg ETHINYL ESTRADIOL/DROSPIRENONE 06/20/2021 12:00:00 AM EDT tablet 28 TAKE 1 TABLET BY MOUTH ONCE DAILY DIRECTED TAKE 1 TABLET BY MOUTH ONCE DAILY DIRECTED SOLD: 07/21/2021 [facility] 30 mg 06/20/2021 12:00:00 AM EDT capsule 30 TAKE ONE CAPSULE BY MOUTH EVERY MORNING MAXIMUM DAILY DOSE = 1 CAPSULE TAKE ONE CAPSULE BY MOUTH EVERY MORNING MAXIMUM DAILY DOSE = 1 CAPSULE SOLD: 06/21/2021 [facility] Loryna Day Pack 3-0.02 mg ETHINYL ESTRADIOL/DROSPIRENONE 06/20/2021 12:00:00 AM EDT tablet 28 TAKE 1 TABLET BY MOUTH ONCE DAILY DIRECTED TAKE 1 TABLET BY MOUTH ONCE DAILY DIRECTED SOLD: 08/20/2021 [facility] 60 ACTUAT Fluticasone propionate 0.25 MG /ACTUAT / salmeterol 0.05 MG/ACTUAT Dry Powder Inhaler [Advair] 250-50 mcg/dose FLUTICASONE PROPION/SALMETEROL 05/11/2021 12:00:00 AM EDT blister with device 60 I NHALE ONE PUFF BY MOUTH TWICE A DAY INHALE ONE PUFF BY MOUTH TWICE A DAY SOLD: 05/11/2021 [facility] 60 ACTUAT Fluticasone propionate 0.25 MG /ACTUAT / salmeterol 0.05 MG/ACTUAT Dry Powder Inhaler [Advair] Advair Diskus 250-50 MCG/DOSE Inhalation Aerosol Powder Breath Activated Advair Diskus 250-50 MCG/DOSE Inhalation Aerosol Powder Breath Activated 05/11/2021 12:00:00 AM EDT active 60 ACTUAT fluticasone propionate 0.25 MG/ACTUAT / salmeterol 0.05 MG/ACTUAT Dry Powder Inhaler [Advair] [place] ([facility]) montelukast 10 MG Oral Tablet [Singulair] Singulair 10 MG Oral Tablet Singulair 10 MG Oral Tablet 05/11/2021 12:00:00 AM EDT active montelukast 10 MG Oral Tablet [Singulair] [facility] ([facility]) montelukast 10 MG Oral Tablet MONTELUKAST SODIUM 05/11/2021 12:0 0:00 AM EDT tablet 90 TAKE ONE TABLET BY MOUTH EVERY D AY TAKE ONE TABLET BY MOUTH EVERY DAY SOLD: 08/14/2021 [facility] 60 ACTUAT Fluticasone propionate 0.25 MG /ACTUAT / salmeterol 0.05 MG/ACTUAT Dry Powder Inhaler [Advair] 250-50 mcg/dose FLUTICASONE PROPION/SALMETEROL 05/11/2021 12:00:00 AM EDT blister with device 60 I NHALE ONE PUFF BY MOUTH TWICE A DAY INHALE ONE PUFF BY MOUTH TWICE A DAY SOLD: 06/20/2021 [facility] montelukast 10 MG Oral Tablet MONTELUKAST SODIUM 05/11/2021 12:0 0:00 AM EDT tablet 90 TAKE ONE TABLET BY MOUTH EVERY D AY TAKE ONE TABLET BY MOUTH EVERY DAY SOLD: 05/11/2021 [facility] 250 mg 04/12/2021 12:00:00 AM EDT tablet 6 TAKE TWO TABLETS BY MOUTH AT ONCE ON THE FIRST DAY THEN TAKE ONE DAILY THEREAFTER TAKE TWO TABLETS BY MOUTH AT ONCE ON THE FIRST DAY THEN TAKE ONE DAILY THEREAFTER SOLD: 04/13/2021 [facility] Azithromycin 250 MG Oral Tablet [Zithromax] Zithromax 250 MG Oral Tablet Zithromax 250 MG Oral Tablet 04/12/2021 12:00:00 AM EDT completed azithromycin 250 MG Oral Tablet [Zithromax] [place] [facility] 90 mcg/actuation 04/02/2021 12:00:00 AM EDT HFA aerosol inha ler 8 INHALE 2 PUFFS BY MOUTH EVERY 4 HOURS NEEDED WHEEZING INHALE 2 PUFFS BY MOUTH EVERY 4 HOURS NEEDED WHEEZING SOLD: 04/02/2021 [facility] 200 ACTUAT Albuterol 0.09 MG/ACTUAT Mete red Dose Inhaler [ProAir] ProAir HFA 108 (90 Base) MCG/ACT Inhalation Aerosol Solution ProAir HFA 108 (90 Base) MCG/ACT Inhalation Aerosol Solution 04/02/2021 12:00:00 AM EDT active [id number] 200 ACTUAT albuterol 0.09 MG/ACTUAT Metered Dose Inhaler [ProAir] [place] ([facility]) 120 ACTUAT mometasone furoate 0.1 MG/ACT UAT Metered Dose Inhaler [Asmanex] Asmanex HFA 100 MCG/ACT Inhalation Aerosol Asmanex HFA 100 MCG/ACT Inhalation Aerosol 04/02/2021 12:00:00 AM EDT aborted 120 ACTUAT mometasone furoate 0.1 MG/ACTUAT Metered Dose Inhaler [Asmanex] [place] ([facility]) levocetirizine dihydrochloride 5 MG Oral Tablet [Xyzal] Xyzal Allergy 24HR 5 MG Oral Tablet Xyzal Allergy 24HR 5 MG Oral Tablet 04/02/2021 12:00:00 AM EDT 1 active levocetirizine dihyd rochloride 5 MG Oral Tablet [Xyzal] [place] ([facility]) Sertraline 100 MG Oral Tablet Sertraline HCl 100 MG Or al Tablet Sertraline HCl 100 MG Oral Tablet 03/30/2021 12:00:00 AM EDT 1 completed sertraline 100 MG Oral Tablet [place] ([facility]) 100 mg 03/30/2021 12:00:00 AM EDT tablet [...] active [facility] ([facility]) 5 mg 02/06/2021 12:00:00 [...] 1 MG Oral Tablet) } Pack [facility]ianvi -] [facility] L[place]na 28 Day Pack 3-0.02 mg ETHINYL ESTRADIOL/DROSPIRENONE 01/30/2021 12:00:00 AM EDT tablet 28 TAKE 1 TABLET BY MOUTH ONCE DAILY DIRECTED TAKE 1 TABLET BY MOUTH ONCE DAILY DIRECTED SOLD: 03/02/2021 [facility] 0.75 % 11/30/2020 12:00:00 AM EST gel 70 APPLY TWO TIMES A DAY FOR FIVE DAYS APPLY TWO TIMES A DAY FOR FIVE DAYS SOLD: 11/30/2020 [facility] Metronidazole 0.0075 MG/MG Vaginal Gel metroNIDAZOLE 0 .75% Vaginal Gel metroNIDAZOLE 0.75% Vaginal Gel 11/30/2020 12:00:00 AM EST completed metronidazole 0.0075 MG/MG Vaginal Gel [facility]ne [facility] Loryna Day Pack 3-0.02 mg ETHINYL ESTRADIOL/DROSPIRENONE 09/16/2020 12:00:00 AM EST tablet 28 TAKE 1 TABLET BY MOUTH ONCE DAILY DIRECTED TAKE 1 TABLET BY MOUTH ONCE DAILY DIRECTED SOLD: 09/18/2020 [facility] Loryna 28 Day Pack 3-0.02 mg ETHINYL ESTRADIOL/DROSPIRENONE 09/16/2020 12:00:00 AM EST tablet 28 TAKE 1 TABLET BY MOUTH ONCE DAILY DIRECTED TAKE 1 TABLET BY MOUTH ONCE DAILY DIRECTED SOLD: 11/13/2020 [facility] Loryna 28 Day Pack 3-0.02 [...] 1 MG Oral Tablet) } Pack [[facility]vi -] [facility] [place] 28 Day Pack 3-0.02 mg ETHINYL [...] Drugs Nystatin 100 UNT/MG Topical Powder Nystatin 163759 UNI T/GM External Powder Nystatin [id number] UNIT/GM External Powder 08/11/2020 12:00:00 AM EDT active nystatin 100 UNT/MG Topical Powd er [place] [facility] 100,000 unit/gram 08/11/2020 12:00:00 AM EDT powder 30 APPLY TWO TO THREE TIMES A DAY APPLY TWO TO THREE TIMES A DAY SOLD: 08/13/2020 [facility] . UNIT 08/05/2020 12:00:00 AM EDT Injectable 1 DIRECTED DIRECTED SOLD: 08/05/2020 [facility] Metronidazole 0.0075 MG/MG Vaginal Gel metroNIDAZOLE 0 .75% Vaginal Gel metroNIDAZOLE 0.75% Vaginal Gel 08/05/2020 12:00:00 AM EDT aborted metronidazole 0.0075 MG/MG Vaginal Gel [facility] 0.75 % 08/05/2020 12:00:00 AM EDT gel 70 INSERT ONE APPLICATORFUL TWO TIMES A DAY FOR 5 DAYS INSERT ONE APPLICATORFUL TWO TIMES A DAY FOR 5 DAYS SO LD: 08/05/2020 [facility] 100 mg 06/26/2020 12:00:00 AM EDT tablet 30 TAKE ONE TABLET BY MOUTH EVERY DAY TAKE ONE TABLET BY MOUTH EVERY DAY SOLD: 01/30/2021 [facility] Sertraline 100 MG Oral Tablet Sertraline HCl 100 MG Or al Tablet Sertraline HCl 100 MG Oral Tablet 06/26/2020 12:00:00 AM EDT 1 aborted sertraline 100 MG Oral Tablet [facility] ([facility]) 100 mg 06/26/2020 12:00:00 AM EDT tablet [...] Oral Tablet) } Pack [Gianvi 28-Day] [place] ([facility]) Insurance Providers Payer name Policy type / Coverage type Policy ID Covered alliance party ID Covered alliance party's relationship to jackson Policy Jackson Plan Information [place] [facility]pr[facility] [id number] Family Dependent [place] (pr) Medigap Part B [id number] Family Dependent [id number] [employer] U [id number] Child [id number] [place] (pr) Commercial [id number] Family Dependent 910 [place] (pr) Commercial [id number] Family Dependent [id number] [place] (pr) Commercial [id number] Family Dependent [id number] [employer] U [id number] Child [id number] [place] F [id number] PARENT [id number] [place] / UMR F [id number] PARENT [id number] [place] O [id number] M [id number] [place] F [id number] PARENT [id number] UMR [facility] [id number] FA2 [id number] Problems, Conditions, and Diagnoses Code Display Name Description Problem Type Effective Dates Data Source(s) 493.00 Asthma Persistent Asthma Persistent Problem 08/09/2021 12:00:00 AM EDT [facility] ([facility]) 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 Completed 2020. J30.89 Allergic rhinitis due to house dust mite Allergic rhinitis due to house dust mite Problem 02/06/2021 12:00:00 AM EDT [facility] ([facility]) Note: 4++ reaction to dust mites on [...] Idiopathic urticaria Problem 02/06/2021 12:00:00 AM EDT [facility] 795.01 Cerv Pap Smear (+) Atyp Squamous Cells U ndetermined Signif Cerv Pap Smear (+) Atyp Squamous Cells Undetermined Signif Finding 07/05/2020 11:44 :00 AM [facility]) 795.01 Cerv Pap Smear (+) Atyp Squamous Cells U ndetermined Signif Cerv Pap Smear (+) Atyp Squamous Cells Undetermined Signif Finding 07/05/2020 11:44 :00 AM [facility] ([facility]) 795.01 Cerv Pap Smear (+) Atyp Squamous Cells U ndetermined Signif Cerv Pap Smear (+) Atyp Squamous Cells Undetermined Signif Finding 07/05/2020 11:44 :00 AM [facility] ([facility]) 795.01 Cerv Pap Smear (+) Atyp Squamous Cells U ndetermined Signif Cerv Pap Smear (+) Atyp Squamous Cells Undetermined Signif Finding 07/05/2020 11:44 :00 AM [facility] 795.01 Cerv Pap Smear (+) Atyp Squamous Cells U ndetermined Signif Cerv Pap Smear (+) Atyp Squamous Cells Undetermined Signif Finding 07/05/2020 11:44 :00 AM [facility] ([facility]) 795.01 Cerv Pap Smear (+) Atyp Squamous Cells U ndetermined Signif Cerv Pap Smear (+) Atyp Squamous Cells Undetermined Signif Finding 07/05/2020 11:44 :00 AM [employer] [facility] 795.01 Cerv Pap Smear (+) Atyp Squamous Cells U ndetermined Signif Cerv Pap Smear (+) Atyp Squamous Cells Undetermined Signif Finding 07/05/2020 11:44 :00 AM [facility] ([facility]) Surgeries/Procedures Procedure Description Date Indications Data Source(s) PERCUTANEOUS TESTS W/ALLERGENIC EXTRACTS 02/06/2021 12 :00:00 AM EDT [facility] ([facility]) INTRACUTANEOUS TESTS W/ALLERGENIC EXTRACTS 02/06/2021 12:00:00 AM EDT [facility] ([facility]) Gardasil 9(3dose HPV, IM) nonavalent Gardasil 9(3dose HPV, I M) nonavalent 11/13/2020 12:00:00 AM [facility] ([facility]) IMADM PRQ ID SUBQ/IM NJXS 1 VACCINE ADMINISTRATION 1-IMMUNIZ ATION(adult) 11/13/2020 12:00:00 AM [facility] ([facility]) MOST RECENT SYSTOLIC BLOOD PRESSURE <130 MM HG Most r ecent systolic blood pressure less than 130 mmHg 10/04/2020 12:00:00 AM [facility] ([facility]) MOST RECENT DIASTOLIC BLOOD PRESSURE < 80 MM HG Most r ecent diastolic blood pressure < 80 mmHg 10/04/2020 12:00:00 AM [facility] ([facility]) Results ID Date Data Source [id number] 08/20/2021 07:02:00 AM [facility] Collection Technique: BRUSH-ALONEPREVIOU S CYTOLOGY: OTHERBody Site: ENDOCERVIX Name Value Range Interpretation Code Description Data Lidia rce(s) Supporting Document(s) Microscopic observation [Identifier] in Cervix by Cyto stain.thin pre p [facility] ID Date Data Source [id number] 08/09/2021 07:43:00 PM [facility] CT/NG IS A QUALITATIVE IN [...] rce(s) Supporting Document(s) ID Date Data Source [id number] 08/11/2021 09:35:00 AM EDT [facility] CT/NG IS A QUALITATIVE IN VITRO [...] Trichomonas DNA Probe NOT DETECTED NOT DETECTED [facility] Gardnerella DNA Probe NOT DETECTED NOT DETECTED [facility] Anne species DNA Probe NOT DETECTED NOT DETECTED [facility] THIS TEST WAS PERFORMED AT:[employer] [facility] [address] [id number] MERATI,MD ID Date Data Source [id number] 08/09/2021 04:20:00 PM EDT [place] ([facility]) Name Value Range Interpretation Code Description Data Lidia rce(s) Supporting Document(s) Reported Physicians See Note Reported Physici netta [place] ([facility]) Note: Reported Physicians:Ordering: Jonny JohnsonAttending: Jonny Johnson ID Date Data Source [id number] 08/09/2021 04:20:00 PM EDT [place] ([facility]) Name Value Range Interpretation Code Description Data Lidia rce(s) Supporting Document(s) Anne species DNA Probe NOT DETECTED Anne species DNA Probe [place] ([facility]) Note: THIS TEST WAS PERFORMED AT:[employer] [facility] [id number] PEDRAZAesponsible Observer: Anne DNA Anne species DNA Probe [id number] [phone] ([employer]) Gardnerella DNA Probe NOT DETECTED Gardnerella DNA Probe [place] ([facility]) Note: Responsible Observer: Gardnerella DNA Gardnerella DNA Probe [id number] [phone] ([employer]) Trichomonas DNA Probe NOT DETECTED Trichomonas DNA Probe [place] ([facility]) Note: Responsible Observer: Trichomonas DNA Trichomonas DNA Probe [id number] [phone] ([employer]) ID Date Data Source [id number] 08/09/2021 04:20:00 PM EDT [place] ([facility]) Name Value Range Interpretation Code Description Data Lidia rce(s) Supporting Document(s) Cepheid CT/NG RT-PCR See Note Cepheid CT/NG R T-PCR [place] ([facility]) Note: CT/NG IS A QUALITATIVE IN VITRO [...] may result in failure to detect the targetorganisms.[id number] trach DNA Vag Ql DEVAUGHN+p robeLNCHLAMNC. trachomatis NOT [id number]. trachomatis NOT [id number] gonorrhoea rRNA Vag Ql DEVAUGHN+probeLNNEIGNN.gonorrhoeae NOT [id number].gonorrhoeae NOT DETECTED ID Date Data Source [id number] 07/10/2021 12:45:00 PM EDT [facility] Normal result is "BinaxNow Covid-19 Ag n egative"BinaxNow Covid-19 Ag is a rapid lateral flowimmunochromatographic immunoassayThis test detects both viable(live) and non-viable, SARS-COVand SARS-COV-2.Positive test results do not differentiate between SARS-COVand UORR-KEK-6Irhzdzdp results , from patients with symptom onset beyondseven days, should be treated as presumptive andconfirmation with a molecular assay, if necessary, forpatient managementIf the differentiation of specific SARS viruses and strainsis needed, additional testing, in consultation with stateand local public health departments, is required.SARS-CoV-2 Ag Resp Ql IA.rapid Name Value Range Interpretation Code Description Data Lidia rce(s) Supporting Document(s) ID Date Data Source [id number] 07/10/2021 09:00:00 AM EDT [facility] Name Value Range Interpretation Code Description Data Lidia rce(s) Supporting Document(s) SARS-CoV-2 (COVID-19) Ag [Presence] in R espiratory specimen by Rapid immunoassay BinaxNow Covid -19 Ag Negative [facility] This lab was ordered by [facility] and reported by [facility]. ID Date Data Source [id number] 07/10/2021 09:00:00 AM EDT [place] ([facility]) Name Value Range Interpretation Code Description Data Lidia rce(s) Supporting Document(s) Reported Physicians See Note Reported Physici ans [place] ([facility]) Note: Reported Physicians:Ordering: Lyssa GuptaAttending: Lyssa Anderson ID Date Data Source [id number] 07/10/2021 09:00:00 AM EDT [place] ([facility]) Name Value Range Interpretation Code Description Data Lidia rce(s) Supporting Document(s) BinaxNow Covid-19 Ag See Note BinaxNow Covid- 19 Ag [place] ([facility]) Note: Normal result is "BinaxNow Covid-1 9 Ag negative"BinaxNow Covid-19 Ag is a rapid lateral flowimmunochromatographic immunoassayThis test detects both viable(live) and non-viable, SARS-COVand SARS-COV-2.Positive test results do not differentiate between SARS-COVand OEMX-TGX-5Zvbltygg results , from patients with symptom onset beyondseven days, should be treated as presumptive andconfirm ation with a molecular assay, if necessary, forpatient managementIf the differentiation of specific SARS viruses and strainsis needed, additional testing, in consultation with stateand local public health departments, is required.[id number] Ag Resp Ql IA.rapidLNSAGNBinaxNow Covid -19 Ag [id number] Covid -19 Ag Negative ID Date Data Source [id number] 07/06/2021 12:17:00 PM EDT [place] ([facility]) Name Value Range Interpretation Code Description Data Lidia rce(s) Supporting Document(s) BinaxNow normal Normal BinaxNow [place] ([facility]) ID Date Data Source [id number] 07/06/2021 04:26:00 PM EDT [facility] NORMAL RESULT IS "Not Detected"Cepheid S ARS-CoV-2,FLU/RSV is Multiplex real time RT-PCRNegative results do not preclude SARS-COV-2, influenza orRSV infection and should not be used as the sole basis fortreatment or other patient management decisions.False negative results may occur if virus is present atlevels below the analytical limit of detection.This test has been authorized by FDA under an EUA for use byauthorized laboratoriesSARS-rel CoV RNA Resp Ql DEVAUGHN+probeFLUAV RNA Resp Ql DEVAUGHN+probeFLUBV RNA Resp Ql DEVAUGHN+probeRSV RNA Resp Ql DEVAUGHN+probe Name Value Range Interpretation Code Description Data Lidia rce(s) Supporting Document(s) ID Date Data Source [id number] 07/06/2021 11:30:00 AM EDT [facility] Name Value Range Interpretation Code Description Data Lidia rce(s) Supporting Document(s) Cepheid SARS/FLU/RSV RT-PCR SARS-COV-2 NOT DETECTED [facility] This lab was ordered by [facility] and reported by [facility]. ID Date Data Source [id number] 07/06/2021 11:30:00 AM EDT [place] ([facility]) Name Value Range Interpretation Code Description Data Lidia rce(s) Supporting Document(s) Reported Physicians See Note Reported Physici ans [place] ([facility]) Note: Reported Physicians:Ordering: Lyssa GuptaAttending: Lyssa Anderson ID Date Data Source [id number] 07/06/2021 11:30:00 AM EDT [place] ([facility]) Name Value Range Interpretation Code Description Data Lidia rce(s) Supporting Document(s) Cepheid SARS/FLU/RSV RT-PCR See Note Cepheid SARS/FLU/RSV RT-PCR [place] ([facility]) Note: NORMAL RESULT IS "Not Detected"Cep heid SARS-CoV-2,FLU/RSV is Multiplex real time RT-PCRNegative results do not preclude SARS-COV-2, influenza orRSV infection and should not be used as the sole basis fortreatment or other patient management decisions.False negative results may occur if virus is present atlevels below the analytical limit of detection.This test has been authorized by FDA under an EUA for [facility] zmutadihhxjy98896-3ZGZT-zxu CoV RNA Resp Ql DEVAUGHN+wdalcPVCNLAVIUQO-EWT-1 NOT [id number]-AHT-0 NOT KQZUOSWK25631-5QWVDF RNA Resp Ql DEVAUGHN+probeLNNFLUAInfluenza A Not [id number] A Not Tbwuadik83880-9YQXMH RNA Resp Ql DEVAUGHN+probeLNNINBInfluenza B Not [id number] B Not Sbyfzxxm10832- 2RSV RNA Resp Ql DEVAUGHN+probeLNNRSVRSV Not [id number] Not Detected ID Date Data Source [id number] 07/06/2021 12:00:00 AM EDT [facility] Name Value Range Interpretation Code Description Data Lidia rce(s) Supporting Document(s) SARS-CoV2 Rapid Antigen Negative [facility] This lab was ordered by [facility] and reported by [facility]. ID Date Data Source [id number] 05/16/2021 02:04:00 PM EDT [facility] [address] [place] [address] [phone] NAME SEX PT STATUS ACCOUNT NUMBER RICH LUCAS REG REF [id number] ORDERING PHYSICIAN LOCATION MEDICAL RECORD NO. Saritha A POT LINER [facility] [id number] ATTENDING PHYSICIAN DATE OF DATE OF EXAM/TIME [...] M.D. Reported By Rickie Cade MD on 05/16/211403 Signed By Rickie Cade MD on 05/16/211403 Date Time CC: Rickie Cade MD; Jonny [facility] Techn: SCOSR Trans Dt/Tm: Trans by: DT Prt Dt/Tm: : Total DLP = 0.00 mGy-cm Fluoroscopy Time (in secs): Name Value Range Interpretation Code Description Data Lidia rce(s) Supporting Document(s) ID Date Data Source [id number] 05/11/2021 12:36:00 PM EDT [facility] @05/11/21 1220: MANUAL DIFF added. RFLXG = DIFF. @05/11/21 1220: MANUAL DIFF added. RFLXG = DIFF. Name Value Range Interpretation Code Description Data Lidia rce(s) Supporting Document(s) Fibrin D-dimer [Units/volume] in Platelet poor plasma Less Than 0.1 9 0.0-0.50 N [facility] @Report as less than 0.19@ Has QC been r un for this test today?PLEASE NOTE: THIS TEST WAS PERFORMED USING A PARTICLE-ENHANCED, IMMUNOTURBIDIMETRIC ASSAY AND HAS A SINGLE,CLINICALLY DERIVED CUTOFF OF 0.50 MG/L. ID Date Data Source [id number] 05/11/2021 01:00:00 PM EDT [facility] @05/11/21 1220: MANUAL DIFF added. RFLXG = DIFF. @05/11/21 1220: MANUAL DIFF added. RFLXG = DIFF. Name Value Range Interpretation Code Description Data Lidia rce(s) Supporting Document(s) Leukocytes [#/volume] in Blood by Automated count 9.9 10*3/uL 4.45-10 .71 [facility] Erythrocytes [#/volume] in Blood by Automated count 4.93 10*6/uL 4.20 -5.40 [facility] Hemoglobin [Moles/volume] in Blood 13.8 g/dL 10.7-15.4 N [facility] Hematocrit [Volume Fraction] of Blood by Automated count 41.0 % 3 7-47 N [facility] Erythrocyte mean corpuscular volume [Ent itic volume] in Cord blood by Automated count 83 fL 80-[address] [facility] ital Erythrocyte mean corpuscular hemoglobin [Entitic mass] by Au tomated count 28 pg 27-31 N [facility] Erythrocyte mean corpuscular hemoglobin concentration [Mass/volume] in Cord blood 34 g/dL 33-[address] [facility] ital Erythrocyte distribution width [Entitic volume] by Automated count 13 % 11-15 N [facility] Platelets [#/volume] in Blood by Automated count 152 10*3/uL 130-472 N [facility] Platelet mean volume [Entitic volume] in Blood 10.2 fL 9.1-13.1 N [facility] Neutrophils/100 leukocytes in Blood by Automated count 62.8 % 41- 77 N [facility] Neutrophils [#/volume] in Blood by Automated count 6.2 U 1.7-7.6 N [facility] Lymphocytes/100 leukocytes in Blood by Automated count 28.5 % 14- 46 N [facility] Lymphocytes [#/volume] in Blood by Automated count 2.8 U 0.6-4.6 N [facility] Monocytes/100 leukocytes in Blood by Automated count 6.8 % 4-12 N [facility] Monocytes [#/volume] in Blood by Automated count 0.7 U 0.2-1.2 N [facility] Eosinophils/100 leukocytes in Blood by Automated count 1.0 % 0-7 N [facility] Eosinophils [#/volume] in Blood by Automated count 0.1 U 0.0-0.5 N [facility] Basophils/100 leukocytes in Blood by Automated count 0.6 % 0.4-1 .3 N [facility] Basophils [#/volume] in Blood by Automated count 0.1 U 0.0-0.2 N [facility] NUCLEATED RED BLOOD CELL 0 % [facility] NUCLEATED RED BLOOD CELL# 0 U [facility] Immature granulocytes [Presence] in Blood by Automated count 0-2 N [facility] Immature granulocytes [#/volume] in Blood by Automated count 0.0 U 0-0.1 N [facility] Manual Differential panel - Blood Manual Diff Added [facility] ID Date Data Source [id number] 05/11/2021 01:16:00 PM EDT [facility] @05/11/21 1220: MANUAL DIFF added. RFLXG = DIFF. @05/11/21 1220: MANUAL DIFF added. RFLXG = DIFF. Name Value Range Interpretation Code Description Data Lidia rce(s) Supporting Document(s) Urea nitrogen [Mass/volume] in Serum or Plasma 10 mg/dL 9-23 N [facility] Sodium [Moles/volume] in Serum or Plasma 141 mmol/L 132-146 N [facility] Potassium [Moles/volume] in Serum or Plasma 4.2 mmol/L 3.5-5.5 N [facility] Chloride [Moles/volume] in Serum or Plasma 108 mmol/L 99-109 [facility] Carbon dioxide, total [Moles/volume] in Serum or Plasma 24 mmol/L 20 -31 N [facility] Anion gap in Serum or Plasma 13 mmol/L 8-16 [facility] Glucose [Mass/volume] in Serum or Plasma 97 mg/dL 74-106 N [facility] Creatinine 0.6 mg/dL 0.5-1.1 [facility] Glomerular filtration rate/1.73 sq M.pre dicted [Volume Rate/Area] in Serum or Plasma Greater Than 60 ABOVE 60 [facility] Alanine aminotransferase [Enzymatic acti vity/volume] in Serum or Plasma by With P-5'-P 15 U/L 10-[address] [facility] ital Aspartate aminotransferase [Enzymatic ac tivity/volume] in Serum or Plasma by With P-5'-P 13 U/L 0-33 N [facility] pital Alkaline phosphatase [Enzymatic activity/volume] in Serum or Plasma 89 U/L 45-129 N [facility] Calcium [Mass/volume] in Serum or Plasma 9.2 mg/dL 8.5-10.1 [facility] Bilirubin.total [Mass/volume] in Serum or Plasma 0.2 mg/dL 0.3-1.2 Below low normal [facility] Albumin [Mass/volume] in Serum or Plasma by Bromocresol purple (BCP) dye binding method 3.2 g/dL 3.2-4.[address] [facility] ital Protein [Mass/volume] in Serum or Plasma 7.2 g/dL 5.7-8.2 N [facility] ID Date Data Source [id number] 05/11/2021 01:00:00 PM EDT [facility] @05/11/21 1220: MANUAL DIFF added. RFLXG = DIFF. @05/11/21 1220: MANUAL DIFF added. RFLXG = DIFF. Name Value Range Interpretation Code Description Data Lidia rce(s) Supporting Document(s) Cells counted [#] 100 [facility] Neutrophils [#/volume] in Blood by Manual count 70 % 41-77 N [facility] Lymphocytes [#/volume] in Blood by Manual count 25 % 14-46 N [facility] Monocytes [#/volume] in Blood by Manual count 4 % 4-12 N [facility] Metamyelocytes [#/volume] in Blood by Manual count 1 % 0-0 Above high normal [facility] Platelets [#/volume] in Blood by Estimate APPEAR CLUMPED NORMAL [facility] Morphology [Interpretation] in Blood Narrative APPEARS NORMAL NORMAL [facility] ID Date Data Source [id number] 05/11/2021 12:10:00 PM [facility] ([facility]) Name Value Range Interpretation Code Description Data Lidia rce(s) Supporting Document(s) Reported Physicians See Note Reported Physici netta [place] ([facility]) Note: Reported Physicians:Ordering: Theresa Robinsending: Eulalio Paez To: Jonny Johnson ID Date Data Source [id number] 05/11/2021 12:10:00 PM [facility] ([facility]) Name Value Range Interpretation Code Description Data Lidia rce(s) Supporting Document(s) Alanine aminotransferase [Enzymatic acti vity/volume] in Serum or Plasma by With P-5'-P 15 enzyme_unit_per_liter Normal ALT SerPl w P-5' -P-cCnc [place] ([facility]) Note: Responsible Observer: SGPT/ALT SGP T/ALT 400.1750 (G) Calcium [Mass/volume] in Serum or Plasma 9.2 MilliGramsPerDeciLiter_[Mass_Concentration_Units] Normal Calcium [facility] ([facility]) Note: Responsible Observer: Calcium Calc ium 400.2500 (G) Bilirubin.total [Mass/volume] in Serum or Plasma 0.2 MilliGramsPerDeciLiter_[Mass_Concentration_Units] Below low normal Bilirub [facility] ([facility]) Note: Responsible Observer: T COURTNEY Total Bilirubin 400.2600 (G) Carbon dioxide, total [Moles/volume] in Serum or Plasm a 24 MilliMolesPerLiter_[Substance_Concentration_Units] Normal CO2 [facility] ([facility]) Note: Responsible Observer: CO2 Carbon D ioxide 400.1400 (G) Chloride [Moles/volume] in Serum or Plasma 108 MilliMolesPerLiter_[Substance_Concentration_Units] Normal Chloride [facility] ([facility]) Note: Responsible Observer: Chloride Chl oride 400.1250 (G) Potassium [Moles/volume] in Serum or Plasma 4.2 MilliMolesPerLiter_[Substance_Concentration_Units] Normal Potassium [facility] ([facility]) Note: Responsible Observer: K Potassium 400.1210 (G) Glucose [Mass/volume] in Serum or Plasma 97 MilliGramsPerDeciLiter_[Mass_Concentration_Units] Normal Glucose [facility] ([facility]) Note: Responsible Observer: Glucose Gluc ose 400.1500 (G) Protein [Mass/volume] in Serum or Plasma 7.2 GramsPerDeciLiter_[Mass_Concentration_Units] Normal Pro t [facility] ([facility]) Note: Responsible Observer: TP Total Pro tein 400.2800 (G) Sodium [Moles/volume] in Serum or Plasma 141 MilliMolesPerLiter_[Substance_Concentration_Units] Normal Sodium [facility] ([facility]) Note: Responsible Observer: Sodium Sodiu m 400.1100 (G) Urea nitrogen [Mass/volume] in Serum or Plasma 10 MilliGramsPerDeciLiter_[Mass_Concentration_Units] Normal BUN [facility] ([facility]) Note: Responsible Observer: BUN Blood Ur ea Nitrogen 400.1000 (G) Aspartate aminotransferase [Enzymatic ac tivity/volume] in Serum or Plasma by With P-5'-P 13 enzyme_unit_per_liter Normal AST SerPl w P-5' -P-cCnc [place] ([facility]) Note: Responsible Observer: SGOT / AST S GOT / AST 400.1900 (G) Alkaline phosphatase [Enzymatic activity/volume] in Se rum or Plasma 89 enzyme_unit_per_liter Normal ALP SerPl-cCnc [place] ( [facility]) Note: Responsible Observer: ALP Alkaline Phosphatase 400.2000 (G) Albumin [Mass/volume] in Serum or Plasma by Bromocresol purple (BCP) dye binding method 3.2 GramsPerDeciLiter_[Mass_Concentration_Units] Normal Albumin [facility] BCP-mCnc [place] ([facility]) Note: Responsible Observer: Albumin [place] min 400.2700 (G) Anion gap in Serum or Plasma 13 MilliMolesPerLiter_[Substance_Concentration_Units] Normal Anion Gap [facility]-sCnc [place] ([facility]) Note: Responsible Observer: ANION GAP AN ION GAP 400.1402 (E) Glomerular filtration rate/1.73 sq M.pre dicted [Volume Rate/Area] in Serum or Plasma Greater Than 60 GFR/BSA.pred SerPlBld-ArV Rat [place] ([facility]) Note: Responsible Observer: GFR Glomerul ar Filt Rate Calc 400.1605 (D) Creatinine [Moles/volume] in Vitreous fluid 0.6 MilliGramsPerDeciLiter_[Mass_Concentration_Units] Normal Creatinine [place] ([facility]) Note: Responsible Observer: Creatinine C reatinine 400.1600 (G) ID Date Data Source [id number] 05/11/2021 12:10:00 PM EDT [place] ([facility]) Name Value Range Interpretation Code Description Data Lidia rce(s) Supporting Document(s) Erythrocyte mean corpuscular volume [Ent itic volume] in Cord blood by Automated count 83 FemtoLiter_[SI_Volume_Units] Normal MCV BldCo Auto [place] ([facility]) Note: Responsible Observer: MCV MCV 100 .0600 (B) Manual Differential panel - Blood Manual Diff Added Manual diff Bld [place] ([facility]) Note: Responsible Observer: CBC Manual D ifferential Added 100.1990 (B) Erythrocyte distribution width [Entitic volume] by Automated cou nt 13 percent Normal RDW RBC Auto [place] ([facility]) Note: Responsible Observer: RDW RDW 100 .0900 (B) Immature granulocytes [Presence] in Blood by Automated count See No te Normal Imm Granulocytes Bld Ql Auto [place] ([facility]) Note: [id number] Ob outside food server: IG% IG% 100.1375 (B) Platelet mean volume [Entitic volume] in Blood 10.2 Fe mtoLiter_[SI_Volume_Units] Normal PMV Bld [place] ([facility]) Note: Responsible Observer: MPV MPV 100 .1100 (B) Hematocrit [Volume Fraction] of Blood by Automated count 41.0 perce nt Normal Hct VFr Bld Auto [place] ([facility]) Note: Responsible Observer: HEMATOCRIT H EMATOCRIT 100.0500 (B) Erythrocyte mean corpuscular hemoglobin concentration [Mass/volume] in Cord blood 34 GramsPerDeciLiter_[Mass_Concentration_Units] Normal MCHC BldCo-mCnc [place] ([facility]) Note: Responsible Observer: MCHC MCHC 1 00.0800 (B) Immature granulocytes [#/volume] in Blood by Automated count 0.0 Un it Imm Granulocytes # Bld Auto [place] ([facility]) Note: Responsible Observer: IG# IG# 100 .1400 (B) Monocytes/100 leukocytes in Blood by Automated count 6.8 percent Normal Monocytes/leuk NFr Bld Auto [place] ([facility]) Note: Responsible Observer: MONO % MONO % 100.1225 (B) Hemoglobin [Moles/volume] in Blood 13.8 GramsPerDeciLiter_[Mass_Concentration_Units] Normal Hgb Bld-sCnc [place] ([facility]) Note: Responsible Observer: HGB HEMOGLOB IN 100.0400 (B) Leukocytes [#/volume] in Blood by Automated count 9.9 ThousandsPerMicroLiter_[Number_Concentration_Units] Normal WBC # Bld Auto [place] ([facility]) Note: Responsible Observer: WBC WHITE BL OOD COUNT 100.0100 (E) Basophils/100 leukocytes in Blood by Automated count 0.6 percent Normal Basophils/leuk NFr Bld Auto [place] ([facility]) Note: Responsible Observer: BASO % BASO % 100.1325 (B) Basophils [#/volume] in Blood by Automated count 0.1 Unit Normal Basophils # Bld Auto [place] ([facility]) Note: Responsible Observer: BASO # BASO# 100.1350 (B) Eosinophils [#/volume] in Blood by Automated count 0.1 Unit Normal Eosinophil # Bld Auto [place] ([facility]) Note: Responsible Observer: EOS # EOS# 100.1300 (D) Lymphocytes [#/volume] in Blood by Automated count 2.8 Unit Normal Lymphocytes # Bld Auto [place] ([facility]) Note: Responsible Observer: LYMPH # LYMP H# 100.1200 (B) Eosinophils/100 leukocytes in Blood by Automated count 1.0 percent Normal Eosinophil/leuk NFr Bld Auto [place] ([facility]) Note: Responsible Observer: EOS % EOS % 100.1275 (B) Monocytes [#/volume] in Blood by Automated count 0.7 Unit Normal Monocytes # Bld Auto [place] ([facility]) Note: Responsible Observer: MONO # MONO# 100.1250 (C) Lymphocytes/100 leukocytes in Blood by Automated count 28.5 percent Normal Lymphocytes/leuk NFr Bld Auto [place] ([facility]) Note: Responsible Observer: LYMPH % LYMP H % 100.1175 (B) Neutrophils/100 leukocytes in Blood by Automated count 62.8 percent Normal Neutrophils/leuk NFr Bld Auto [place] ([facility]) Note: Responsible Observer: NEUT% NEUT% 100.1125 (B) Neutrophils [#/volume] in Blood by Automated count 6.2 Unit Normal Neutrophils # Bld Auto [place] ([facility]) Note: Responsible Observer: NEUT# NEUT# 100.1150 (B) Platelets [#/volume] in Blood by Automated count 152 ThousandsPerMicroLiter_[Number_Concentration_Units] Normal Platelet # Bld Auto [place] ([facility]) Note: Responsible Observer: PLATELET COU NT PLATELET COUNT 100.1000 (D) Erythrocyte mean corpuscular hemoglobin [Entitic mass] by Automated count 28 [employer]_[SI_Mass_Units] Normal MCH RBC Qn Auto [place] ([facility]) Note: Responsible Observer: MCH MCH 100 .0700 (B) Erythrocytes [#/volume] in Blood by Automated count 4. 93 MillionsPerMicroLiter_[Number_Concentration_Units] Normal RBC # Bld Auto [place] ([facility]) Note: Responsible Observer: RBC Red Bloo d Count 100.0300 (B) NUCLEATED RED BLOOD CELL 0 percent NUCLEATED R ED BLOOD CELL [place] ([facility]) Note: Responsible Observer: NRBC% NRBC% 100.1360 (B) NUCLEATED RED BLOOD CELL# 0 Unit NUCLEATED RED BLOOD CELL# [place] ([facility]) Note: Responsible Observer: NRBC# NUCLEA VINCENT RBC 100.1362 (A) Notes [TIMP] See Note NOTES [place] ([facility]) Note: @05/11/21 1220: MANUAL DIFF added. RFLXG = DIFF. ID Date Data Source [id number] 05/11/2021 12:10:00 PM EDT [place] ([facility]) Name Value Range Interpretation Code Description Data Lidia rce(s) Supporting Document(s) Fibrin D-dimer [Units/volume] in Platelet poor plasma Less Than 0.1 9 Normal D Dimer PPP-aCnc [place] ([facility]) Note: @Report as less than 0.19@ Has QC been run for this test today?PLEASE NOTE: THIS TEST WAS PERFORMED USING A PARTICLE-ENHANCED, IMMUNOTURBIDIMETRIC ASSAY AND HAS A SINGLE,CLINICALLY DERIVED CUTOFF OF 0.50 MG/L.Responsible Observer: D-DIMER D-DIMER 200.0901 (A) ID Date Data Source [id number] 05/11/2021 12:10:00 PM EDT [place] ([facility]) Name Value Range Interpretation Code Description Data Lidia rce(s) Supporting Document(s) Reported Physicians See Note Reported Physici ans [place] ([facility]) Note: Reported Physicians:Ordering: Saritha RobinsAttending: Eulalio Paez To: Jonny Johnson ID Date Data Source [id number] 05/11/2021 12:10:00 PM EDT [place] ([facility]) Name Value Range Interpretation Code Description Data Lidia rce(s) Supporting Document(s) MANUAL DIFF See Note MANUAL DIFF [facility] ([facility]) Note: NOTES OTHER/NOT INTERPRETED Cells counted 100 Lymphocytes # Bld Manual 25 %Metamyelocytes # Bld Manual 1 %Monocytes # Bld Manual 4 %Morphology Bld-Imp APPEARS NORMAL Neutrophils # Bld Manual 70 %Platelet # Bld Est APPEAR CLUMPED @05/11/21 1220: MANUAL DIFF added. RFLXG = DIFF.Responsible Observer: TOTAL CELLS TOTAL CELLS COUNTED 100.2105 (A) ID Date Data Source [id number] 02/06/2021 05:28:00 PM EDT [facility] (Advan eleazar [...] CU Index(R) test is the second gener ation Functional Anti-FceR test. Patients with a CU Index(R) greater than or equal to 10 have basophil reactive factors in their serum which supports an autoimmune basis for disease. *This test was developed and its performance characteristics determined by [facility]. It has not been cleared or approved by the U.S. Food and Drug Administration. ID Date Data Source [id number] 02/06/2021 05:28:00 PM EDT [facility] ([facility] [place]) Name Value Range Interpretation Code Description Data Lidia rce(s) Supporting Document(s) Laboratory test finding (navigational concept) Laboratory test r esult Normal (applies to non-numeric results) [facility] ([facility] [place]) Performed at: [facility] [employer] [address] [place] [id number] Animal Care Provider: Claudia Garcia PhD, Phone: [phone] Performed at: RN - [facility] [address] [id number] Animal Care Provider: Doris Galvan MD, Phone: [phone] ID Date Data Source [id number] 02/06/2021 05:28:00 PM EDT [facility] ([facility]) Name Value Range Interpretation Code Description Data Lidia rce(s) Supporting Document(s) Thyrotropin [Units/volume] in Serum or Plasma 2.100 uIU/ML 0. 358-3.740 Normal (applies to non-numeric results) [facility] ([facility] [place]) Triiodothyronine (T3) [Mass/volume] in Serum or Plasma 179.6 ng/ dL 60.0-181.0 Normal (applies to non-numeric results) [facility] ([facility] [place] Thyroglobulin Ab [Units/volume] in Serum or Plasma Laboratory te st result Normal (applies to non-numeric results) [facility] ([facility] [place] Thyroperoxidase Ab [Units/volume] in Serum or Plasma 39.6 U/ML Normal (applies to non-numeric results) [facility] ([facility] [place] Thyroxine (T4) [Mass/volume] in Serum or Plasma 18.6 ug/dL 4.5-12.0 Above high normal [facility] ([facility] [place] ) ID Date Data Source [id number] 02/06/2021 05:28:00 PM EDT [facility] ([facility]van eleazar [...] Little GFR Left</content>
<content>ESRD GFR <15 on FEEDER TENDER</content>
<content></content> Laboratory test finding (navigational concept) 4.1 meq/L 3 .5-5.1 Normal (applies to non-numeric results) [facility] ([facility] [place] Laboratory test finding (navigational concept) 104 meq/L 9 8-107 Normal (applies to non-numeric results) [facility] ([facility] [place]) Laboratory test finding (navigational concept) 26 meq/L [...] [facility] ([facility] [place]) Laboratory test finding (navigational concept) 0.2 mg/dL [...] [facility] [place]) ID Date Data Source [id number] 02/06/2021 05:28:00 PM EDT [facility] ([facility]) Name Value Range Interpretation Code Description Data Lidia rce(s) Supporting Document(s) Erythrocyte sedimentation rate by Westergren method 24 mm/hr 0-20 Above high normal [facility] ([facility] [place] ) ID Date Data Source [id number] 02/06/2021 05:28:00 PM EDT [facility] ([facility]) Name Value Range Interpretation Code Description Data [...] [place]) Laboratory test finding (navigational concept) 0.1 10 0 .0-0.2 Normal (applies to non-numeric results) [facility] ([facility] [place]) ID Date Data Source [id number] 10/10/2020 05:00:00 PM [facility] Name Value Range Interpretation Code Description Data Lidia rce(s) Supporting Document(s) Fibrin D-dimer [Units/volume] in Platelet poor plasma 0.23 mg/L 0.0- 0.50 [facility] @ Has QC been run for this test today?PL EASE NOTE: THIS TEST WAS PERFORMED USING A PARTICLE-ENHANCED, IMMUNOTURBIDIMETRIC ASSAY AND HAS A SINGLE,CLINICALLY DERIVED CUTOFF OF 0.50 MG/L. ID Date Data Source [id number] 10/10/2020 04:15:00 PM [facility]) Name Value Range Interpretation Code Description Data Lidia rce(s) Supporting Document(s) Reported Physicians See Note Reported Physici ans [place] ([facility]) Note: Reported Physicians:Ordering: Lyssa GuptaAttending: Lyssa Anderson ID Date Data Source [id number] 10/10/2020 04:15:00 PM [facility] ([facility]) Name Value Range Interpretation Code Description Data Lidia rce(s) Supporting Document(s) Fibrin D-dimer [Units/volume] in Platelet poor plasma 0.23 MilliGramsPerLiter_[Mass_Concentration_Units] Normal D Dimer PPP-aCnc [place] ([facility]) Note: @ Has QC been run for this test to day?PLEASE NOTE: THIS TEST WAS PERFORMED USING A PARTICLE-ENHANCED, IMMUNOTURBIDIMETRIC ASSAY AND HAS A SINGLE,CLINICALLY DERIVED CUTOFF OF 0.50 MG/L.Responsible Observer: D-DIMER D- DIMER 200.0901 (A) ID Date Data Source [id number] 10/10/2020 06:59:00 PM [facility] [employer] COVID-19 IS AN ISOTHERMAL NA A TECHNOLOGYNORMAL VALUE IS "SARS-COV-2 COVID 19 NOT DETECTED"False negative results may occur if a specimen is improperlycollected,transported or handled.False negative results may also occur if amplicationinhibitors are present in the specimen or if inadequatelevels of viruses are present in the specimen.As with any molecular test, if the virus mutates in [facility] region, Covid-19 may not be detected [...] rce(s) Supporting Document(s) ID Date Data Source [id number] 10/10/2020 03:30:00 PM EST [facility] Name Value Range Interpretation Code Description Data Lidia rce(s) Supporting Document(s) SARS-CoV-2 RNA Resp Ql DEVAUGHN+probe [facility] This lab was ordered by [facility] and reported by [facility]. ID Date Data Source [id number] 10/10/2020 03:30:00 PM EST [place] ([facility]) Name Value Range Interpretation Code Description Data Lidia rce(s) Supporting Document(s) Reported Physicians See Note Reported Physici ans [place] ([facility]) Note: Reported Physicians:Ordering: Lyssa GuptaAttending: Sierra AndersonynCopy To: Doctor Provided, No FamilyCopy To: Health, Public ID Date Data Source [id number] 10/10/2020 03:30:00 PM EST [place] ([facility]) Name Value Range Interpretation Code Description Data Lidia rce(s) Supporting Document(s) SARS-CoV-2 RNA Resp Ql DEVAUGHN+probe See Note FREDDIE S-CoV-2 RNA Resp Ql DEVAUGHN+probe [place] ([facility]) Note: DWYER COVID-19 IS AN ISOTHER MAL DEVAUGHN TECHNOLOGYNORMAL VALUE IS "SARS-COV-2 COVID 19 NOT DETECTED"False negative results may occur if a specimen is improperlycollected,transported or handled.False negative results may also occur if amplicationinhibitors are present in the specimen or if inadequatelevels of viruses are present in the specimen.As with any molecular test, if the virus mutates in [facility] region, Covid-19 may not be detected or may bedetected less predictably.ID NOW COVID-19 is intended for testing a swab directlywithout elution in viral transport media as dilution willresult in decreased detection of low positive samples thatare near the limit of detection of the test.SWAB SAMPLES ELUTED IN VTM ARE NOT APPROPRIATE FOR USE INTHIS TEST.[id number] RNA Resp Ql DEVAUGHN+probeLNNOSNo Organisms [id number] Organisms Detected ID Date Data Source [id number] 08/11/2020 06:04:00 PM EDT [facility] Clue cells presentLong rods notedNo yeas t like or trichomonas seenSquamous cellsShort rods seenWBCs seen Name Value Range Interpretation Code Description Data Lidia rce(s) Supporting Document(s) Wet mount for Trichomonas Negative for Trichomonas vaginalis [facility] ID Date Data Source [id number] 08/11/2020 04:05:00 PM EDT [place] ([facility]) Name Value Range Interpretation Code Description Data Lidia rce(s) Supporting Document(s) Reported Physicians See Note Reported Physici netta [place] ([facility]) Note: Reported Physicians:Ordering: Saritha RobinsAttending: Saritha Paez ID Date Data Source [id number] 08/11/2020 04:05:00 PM T [place] ([facility]) Name Value Range Interpretation Code Description Data Lidia rce(s) Supporting Document(s) Wet prep results See Note Wet prep results [facility] ([facility]) Note: Clue cells presentLong rods notedN o yeast like or trichomonas seenSquamous cellsShort rods seenWBCs seen Wet mount for Trichomonas Negative for Trichomonas vaginalis Wet mount for Trichomonas [place] ([facility]) ID Date Data Source [id number] 08/07/2020 08:31:00 AM EDT [facility] Name Value Range Interpretation Code Description Data Lidia rce(s) Supporting Document(s) Leukocytes [#/volume] in Blood by Automated count 8.7 10*3/uL 4.45-10 .71 N [facility] Erythrocytes [#/volume] in Blood by Automated count 4.94 10*6/uL 4.20 -5.40 N [facility] Hemoglobin [Moles/volume] in Blood 13.8 g/dL 10.7-15.4 N [facility] Hematocrit [Volume Fraction] of Blood by Automated count 42.4 % 3 7-47 N [facility] Erythrocyte mean corpuscular volume [Ent itic volume] in Cord blood by Automated count 85.8 fL 80-[address] [facility] Erythrocyte mean corpuscular hemoglobin [Entitic mass] by Automated count 27.9 pg 27-31 N [facility] Erythrocyte mean corpuscular hemoglobin concentration [Mass/volume] in Cord blood 32.5 g/dL 33-37 Below low normal [facility] Erythrocyte distribution width [Entitic volume] by Automated count 13 % 11-15 N [facility] Platelets [#/volume] in Blood by Automated count 341 10*3/uL 130-472 N [facility] Platelet mean volume [Entitic volume] in Blood 10.5 fL 9.1-13.1 N [facility] Neutrophils/100 leukocytes in Blood by Automated count 60.1 % 41- 77 N [facility] Neutrophils [#/volume] in Blood by Automated count 5.2 U 1.7-7.6 N [facility] Lymphocytes/100 leukocytes in Blood by Automated count 31.1 % 14- 46 N [facility] Lymphocytes [#/volume] in Blood by Automated count 2.7 U 0.6-4.6 N [facility] Monocytes/100 leukocytes in Blood by Automated count 6.7 % 4-12 N [facility] Monocytes [#/volume] in Blood by Automated count 0.6 U 0.2-1.2 N [facility] Eosinophils/100 leukocytes in Blood by Automated count 1.6 % 0-7 N [facility] Eosinophils [#/volume] in Blood by Automated count 0.1 U 0.0-0.5 N [facility] Basophils/100 leukocytes in Blood by Automated count 0.3 % 0.4-1.3 Below low normal [facility] Basophils [#/volume] in Blood by Automated count 0.0 U 0.0-0.2 N [facility] NUCLEATED RED BLOOD CELL 0 % [facility] NUCLEATED RED BLOOD CELL# 0 U [facility] Immature granulocytes [Presence] in Blood by Automated count 0-2 N [facility] Immature granulocytes [#/volume] in Blood by Automated count 0.0 U 0-0.1 N [facility] Manual Differential panel - Blood NO [facility] ID Date Data Source [id number] 08/07/2020 09:11:00 AM EDT [facility] Name Value Range Interpretation Code Description Data Lidia rce(s) Supporting Document(s) Urea nitrogen [Mass/volume] in Serum or Plasma 14 mg/dL 9-23 N [facility] Sodium [Moles/volume] in Serum or Plasma 137 mmol/L 132-146 N [facility] Potassium [Moles/volume] in Serum or Plasma 4.1 mmol/L 3.5-5.5 [facility] Chloride [Moles/volume] in Serum or Plasma 107 mmol/L 99-109 [facility] Carbon dioxide, total [Moles/volume] in Serum or Plasma 25 mmol/L 20 -31 N [facility] Anion gap in Serum or Plasma 9 mmol/L 8-16 N [facility] Glucose [Mass/volume] in Serum or Plasma 91 mg/dL 74-106 N [facility] Creatinine 0.7 mg/dL 0.5-1.1 [facility] Glomerular filtration rate/1.73 sq M.pre dicted [Volume Rate/Area] in Serum or Plasma Greater Than 60 ABOVE 60 [facility] Alanine aminotransferase [Enzymatic acti vity/volume] in Serum or Plasma by With P-5'-P 15 U/L 10-[address] [facility] ital Aspartate aminotransferase [Enzymatic ac tivity/volume] in Serum or Plasma by With P-5'-P 8 U/L 0-33 N [facility] pital Alkaline phosphatase [Enzymatic activity/volume] in Serum or Plasma 79 U/L 45-129 N [facility] Calcium [Mass/volume] in Serum or Plasma 9.2 mg/dL 8.5-10.1 [facility] Bilirubin.total [Mass/volume] in Serum or Plasma 0.3 mg/dL 0.3-1.2 [facility] Albumin [Mass/volume] in Serum or Plasma by Bromocresol purple (BCP) dye binding method 3.3 g/dL 3.2-4.8 [facility] ital Protein [Mass/volume] in Serum or Plasma 7.4 g/dL 5.7-8.2 [facility] ID Date Data Source [id number] 08/08/2020 12:41:00 PM EDT [facility] Name Value Range Interpretation Code Description Data Lidia rce(s) Supporting Document(s) Insulin 18.6 uIU/mL [facility] Reference Range < or = 19.6 Ri sk: Optimal < or = 19.6 Moderate NA High >19.6 Adult cardiovascular event risk category cut points (optimal, moderate, high) are based on [employer] population data from 10/2011.This insulin assay shows strong cross-reactivity forsome insulin analogs (lispro, aspart, and glargine)and much lower cross-reactivity with others (detemir,glulisine).THIS TEST WAS PERFORMED AT:[facility] [id number] MERATI,MD ID Date Data Source [id number] 08/07/2020 09:11[facility] Name Value Range Interpretation Code Description Data Lidia rce(s) Supporting Document(s) Triglycerides 135 mg/dL 0-150 [facility] Cholesterol 224 mg/dL 120-200 Above high normal [facility] HDL Cholesterol 90 mg/dL [facility] HDL Less than 40 mg/dL: Major risk for CHDHDL Greater than 59 mg/dL: Low risk for CHD LDL Cholesterol, Calc 107 mg/dL 0-100 Above high normal [facility] ID Date Data Source [id number] [facility]/07[facility]2020 [facility]:59[facility] Name Value Range Interpretation Code Description Data Lidia rce(s) Supporting Document(s) Reported Physicians See Note Reported Physici ans [place] ([facility]) Note: Reported Physicians:Ordering: Saritha RobinsAttending: Saritha Paez ID Date Data Source [id number] 08/07/2020 07:59:00 AM EDT [place] ([facility]) Name Value Range Interpretation Code Description Data Lidia rce(s) Supporting Document(s) Insulin 18.6 Insulin [place] ([facility]) Note: Reference Range < or = 19.6 Risk: Optimal < or = 19.6 Moderate NA High >19.6 Adult cardiovascular event risk category cut points (optimal, moderate, high) are based on [employer] population data from 10/2011.This insulin assay shows strong cross-reactivity forsome insulin analogs (lispro, aspart, and glargine)and much lower cross-reactivity with others (detemir,glulisine).THIS TEST WAS PERFORMED AT:[facility] [id number] PEDRAZA Observer: Insulin Insulin [id number] 913.6030 ([employer]) ID Date Data Source [id number] 08/07/2020 07:59:00 AM [facility] ([facility]) Name Value Range Interpretation Code Description Data Lidia rce(s) Supporting Document(s) Alanine aminotransferase [Enzymatic acti vity/volume] in Serum or Plasma by With P-5'-P 15 enzyme_unit_per_liter Normal ALT [facility] P-5' -P-cCnc [place] ([facility]) Note: Responsible Observer: SGPT/ALT SGP T/ALT 400.1750 (G) Calcium [Mass/volume] in Serum or Plasma 9.2 MilliGramsPerDeciLiter_[Mass_Concentration_Units] Normal Calcium [facility] ([facility]) Note: Responsible Observer: Calcium Calc ium 400.2500 (G) Bilirubin.total [Mass/volume] in Serum or Plasma 0.3 MilliGramsPerDeciLiter_[Mass_Concentration_Units] Normal Bilirub [facility] ([facility]) Note: Responsible Observer: T COURTNEY Total Bilirubin 400.2600 (G) Carbon dioxide, total [Moles/volume] in Serum or Plasm a 25 MilliMolesPerLiter_[Substance_Concentration_Units] Normal CO2 [facility] ([facility]) Note: Responsible Observer: CO2 Carbon D ioxide 400.1400 (G) Chloride [Moles/volume] in Serum or Plasma 107 MilliMolesPerLiter_[Substance_Concentration_Units] Normal Chloride [facility] ([facility]) Note: Responsible Observer: Chloride Chl oride 400.1250 (G) Glucose [Mass/volume] in Serum or Plasma 91 MilliGramsPerDeciLiter_[Mass_Concentration_Units] Normal Glucose [facility] ([facility]) Note: Responsible Observer: Glucose Gluc ose 400.1500 (G) Potassium [Moles/volume] in Serum or Plasma 4.1 MilliMolesPerLiter_[Substance_Concentration_Units] Normal Potassium [facility] ([facility]) Note: Responsible Observer: K Potassium 400.1210 (G) Protein [Mass/volume] in Serum or Plasma 7.4 GramsPerDeciLiter_[Mass_Concentration_Units] Normal Pro t [facility] ([facility]) Note: Responsible Observer: TP Total Pro tein 400.2800 (G) Aspartate aminotransferase [Enzymatic ac tivity/volume] in Serum or Plasma by With P-5'-P 8 enzyme_unit_per_liter Normal AST SerPl w P[facility]'- [facility] [place] ([facility]) Note: Responsible Observer: SGOT / AST S GOT / AST 400.1900 (G) Sodium [Moles/volume] in Serum or Plasma 137 MilliMolesPerLiter_[Substance_Concentration_Units] Normal Sodium [facility] ([facility]) Note: Responsible Observer: Sodium Sodiu m 400.1100 (G) Urea nitrogen [Mass/volume] in Serum or Plasma 14 MilliGramsPerDeciLiter_[Mass_Concentration_Units] Normal BUN [facility] ([facility]) Note: Responsible Observer: BUN Blood Ur ea Nitrogen 400.1000 (G) Anion gap in Serum or Plasma 9 MilliMolesPerLiter_[Substance_Concentration_Units] Normal Anion Gap [facility] ([facility]) Note: Responsible Observer: ANION GAP AN ION GAP 400.1402 (E) Albumin [Mass/volume] in Serum or Plasma by Bromocresol purple (BCP) dye binding method 3.3 GramsPerDeciLiter_[Mass_Concentration_Units] Normal Albumin SerPl BCP-mCnc [place] ([facility]) Note: Responsible Observer: Albumin [place] min 400.2700 (G) Glomerular filtration rate/1.73 sq M.pre dicted [Volume Rate/Area] in Serum or Plasma Greater Than 60 GFR/BSA.pred SerPlBld-ArV Rat [facility] ([facility]) Note: Responsible Observer: GFR Glomerul ar Filt Rate Calc 400.1605 (D) Alkaline phosphatase [Enzymatic activity/volume] in Se rum or Plasma 79 enzyme_unit_per_liter Normal ALP SerPl-cCnc [place] ( [facility]) Note: Responsible Observer: ALP Alkaline Phosphatase 400.2000 (G) Creatinine [Moles/volume] in Vitreous fluid 0.7 MilliGramsPerDeciLiter_[Mass_Concentration_Units] Normal Creatinine [place] ([facility]) Note: Responsible Observer: Creatinine C reatinine 400.1600 (G) ID Date Data Source [id number] 08/07/2020 07:59:00 AM EDT [place] ([facility]) Name Value Range Interpretation Code Description Data Lidia rce(s) Supporting Document(s) Erythrocyte mean corpuscular volume [Ent itic volume] in Cord blood by Automated count 85.8 FemtoLiter_[SI_Volume_Units] Normal MCV Bld Co Auto [place] ([facility]) Note: Responsible Observer: MCV MCV 100 .0600 (B) Erythrocyte distribution width [Entitic volume] by Automated cou nt 13 percent Normal RDW RBC Auto [place] ([facility]) Note: Responsible Observer: RDW RDW 100 .0900 (B) Manual Differential panel - Blood NO Ma nual diff d [place] ([facility]) Note: Responsible Observer: CBC Manual D ifferential Added 100.1990 (B) Platelet mean volume [Entitic volume] in Blood 10.5 Fe mtoLiter_[SI_Volume_Units] Normal PMV Bld [place] [facility] Note: Responsible Observer: MPV MPV 100 .1100 (B) Hematocrit [Volume Fraction] of Blood by Automated count 42.4 perce nt Normal Hct VFr Bld Auto [facility] ([facility]) Note: Responsible Observer: HEMATOCRIT H EMATOCRIT 100.0500 (B) Immature granulocytes [Presence] in Blood by Automated count See No te Normal Imm Granulocytes Bld Ql Auto [facility] ([facility]) Note: [id number] Ob outside food server: IG% IG% 100.1375 (B) Erythrocyte mean corpuscular hemoglobin concentration [Mass/volume] in Cord blood 32.5 GramsPerDeciLiter_[Mass_Concentration_Units] Below low normal MCHC BldCo-mCnc [facility] ([facility]) Note: Responsible Observer: MCHC MCHC 1 00.0800 (B) Immature granulocytes [#/volume] in Blood by Automated count 0.0 Un it Imm Granulocytes # Bld Auto [facility] ([facility]) Note: Responsible Observer: IG# IG# 100 .1400 (B) Monocytes/100 leukocytes in Blood by Automated count 6.7 percent Normal Monocytes/leuk NFr Bld Auto [facility] ([facility]) Note: Responsible Observer: MONO % MONO % 100.1225 (B) Hemoglobin [Moles/volume] in Blood 13.8 GramsPerDeciLiter_[Mass_Concentration_Units] Normal Hgb Bld-sCnc [facility] ([facility]) Note: Responsible Observer: HGB HEMOGLOB IN 100.0400 (B) Leukocytes [#/volume] in Blood by Automated count 8.7 ThousandsPerMicroLiter_[Number_Concentration_Units] Normal WBC # Bld Auto [facility] ([facility]) Note: Responsible Observer: WBC WHITE BL OOD COUNT 100.0100 (E) Basophils [#/volume] in Blood by Automated count 0.0 Unit Normal Basophils # Bld Auto [facility] ([facility]) Note: Responsible Observer: BASO # BASO# 100.1350 (B) Basophils/100 leukocytes in Blood by Automated count 0.3 percent Below low normal Basophils/leuk NFr Bld Auto [facility] Note: Responsible Observer: BASO % BASO % 100.1325 (B) Eosinophils [#/volume] in Blood by Automated count 0.1 Unit Normal Eosinophil # Bld Auto [facility] ([facility]) Note: Responsible Observer: EOS # EOS# 100.1300 (D) Eosinophils/100 leukocytes in Blood by Automated count 1.6 percent Normal Eosinophil/leuk NFr Bld Auto [facility] ([facility]) Note: Responsible Observer: EOS % EOS % 100.1275 (B) Lymphocytes [#/volume] in Blood by Automated count 2.7 Unit Normal Lymphocytes # Bld Auto [facility] ([facility]) Note: Responsible Observer: LYMPH # LYMP H# 100.1200 (B) Lymphocytes/100 leukocytes in Blood by Automated count 31.1 percent Normal Lymphocytes/leuk NFr Bld Auto [facility] ([facility]) Note: Responsible Observer: LYMPH % LYMP H % 100.1175 (B) Monocytes [#/volume] in Blood by Automated count 0.6 Unit Normal Monocytes # Bld Auto [facility] ([facility]) Note: Responsible Observer: MONO # MONO# 100.1250 (C) Neutrophils/100 leukocytes in Blood by Automated count 60.1 percent Normal Neutrophils/leuk NFr Bld Auto YONG ([facility]) Note: Responsible Observer: NEUT% NEUT% 100.1125 (B) Neutrophils [#/volume] in Blood by Automated count 5.2 Unit Normal Neutrophils # Bld Auto YONG ([facility]) Note: Responsible Observer: NEUT# NEUT# 100.1150 (B) Platelets [#/volume] in Blood by Automated count 341 ThousandsPerMicroLiter_[Number_Concentration_Units] Normal Platelet # Bld Auto YONG ([facility]) Note: Responsible Observer: PLATELET COU NT PLATELET COUNT 100.1000 (D) Erythrocyte mean corpuscular hemoglobin [Entitic mass] by Automated count 27.9 PicoGram_[SI_Mass_Units] Normal MCH RBC Qn Auto GREENWA Y ([facility]) Note: Responsible Observer: MCH MCH 100 .0700 (B) Erythrocytes [#/volume] in Blood by Automated count 4. 94 MillionsPerMicroLiter_[Number_Concentration_Units] Normal RBC # Bld Auto YONG ([facility]) Note: Responsible Observer: RBC Red Bloo d Count 100.0300 (B) NUCLEATED RED BLOOD CELL# 0 Unit NUCLEATED RED BLOOD CELL# YONG ([facility]) Note: Responsible Observer: NRBC# NUCLEA VINCENT RBC 100.1362 (A) NUCLEATED RED BLOOD CELL 0 percent NUCLEATED R ED BLOOD CELL YONG ([facility]) Note: Responsible Observer: NRBC% NRBC% 100.1360 (B) ID Date Data Source [id number] 08/07/2020 07:59:00 AM EDT [place] ([facility]) Name Value Range Interpretation Code Description Data Lidia rce(s) Supporting Document(s) Reported Physicians See Note Reported Physici ans [place] ([facility]) Note: Reported Physicians:Ordering: Saritha RobinsAttending: Saritha Paez ID Date Data Source [id number] 08/07/2020 07:59:00 AM EDT [place] ([facility]) Name Value Range Interpretation Code Description Data Lidia rce(s) Supporting Document(s) HDL Cholesterol 90 MilliGramsPerDeciLiter_[Mass_Concentration_Units ] HDL Cholesterol [place] ([facility]) Note: HDL Less than 40 mg/dL: Major ris k for CHDHDL Greater than 59 mg/dL: Low risk for CHDResponsible Observer: HDL HDL Cholesterol 400.3150 (H) Cholesterol [Moles/volume] in Pericardial fluid 224 MilliGramsPerDeciLiter_[Mass_Concentration_Units] Above high normal Cholesterol [place] ([facility]) Note: Responsible Observer: Cholesterol Cholesterol 400.3100 (G) LDL Cholesterol, Calc 107 MilliGramsPerDeciLiter_[Mass_Concentra tion_Units] Above high normal LDL Cholesterol, Calc [place] ([facility]) Note: Responsible Observer: LDL CHOL FRANK C LDL Cholesterol, Calculated 400.3155 (F) Triglycerides 135 MilliGramsPerDeciLiter_[Mass_Concentration_Units] Normal Triglycerides [place] ([facility]) Note: Responsible Observer: Triglyceride s Triglycerides 400.2951 (G) ID Date Data Source [id number] 08/08/2020 06:49:00 AM EDT [facility] Source:: VAGINALFEW WBCs seenLong rods n otedNO Yeast like organisms seen no trichomonas seenMODERATE Squamous cellsNo clue cells present Source Of Specimen: VAG Source:: VAGINALNo N. Gonorrhoaea isolat edMany LactobacilliFEW Staph Spp. coag neg Name Value Range Interpretation Code Description Data Lidia rce(s) Supporting Document(s) Wet mount for Trichomonas Negative for Trichomonas vaginalis [facility] ID Date Data Source [id number] 08/09/2020 06:55:00 AM EDT [facility] Source:: VAGINALFEW WBCs seenLong rods n otedNO Yeast like organisms seen no trichomonas seenMODERATE Squamous cellsNo clue cells present Source Of Specimen: VAG Source:: VAGINALNo N. Gonorrhoaea isolat edMany LactobacilliFEW Staph Spp. coag neg Name Value Range Interpretation Code Description Data Lidia rce(s) Supporting Document(s) Chlamydia trachomatis rRNA [Presence] in Unspecified specimen by Probe and target amplification method NOT DETECTED [facility] Neisseria gonorrhoeae rRNA [Presence] in Unspecified specimen by Probe and target amplification method NOT DETECTED [facility] Chlamydia/GC DNA Note SEE NOTE [facility] The analytical performance characteristi cs of thisassay, when used to test SurePath(TM) specimens have beendetermined by [employer]. The modifications havenot been cleared or approved by the FDA. This assay hasbeen validated pursuant to the CLIA regulations and isused for clinical purposes.For additional information, please refer tohttps://education.[employer]/faq/DMG614(This link is being provided for information/educational purposes only.)THIS TEST WAS PERFORMED AT:[facility] [address]ALPA DIAZ MD ID Date Data Source [id number] 08/08/2020 06:49:00 AM EDT [facility] Source:: VAGINALFEW WBCs seenLong rods n otedNO Yeast like organisms seen no trichomonas seenMODERATE Squamous cellsNo clue cells present Source Of Specimen: VAG Source:: VAGINALNo N. Gonorrhoaea isolat edMany LactobacilliFEW Staph Spp. coag neg Name Value Range Interpretation Code Description Data Lidia rce(s) Supporting Document(s) ID Date Data Source [id number] [facility] Name Value Range Interpretation Code Description Data Lidia rce(s) Supporting Document(s) Reported Physicians See Note Reported Physici ans [place] ([facility]) Note: Reported Physicians:Ordering: Saritha RobinsAttending: Saritha Paez ID Date Data Source [id number] 08/05/2020 11:00:00 AM EDT [place] ([facility]) Name Value Range Interpretation Code Description Data Lidia rce(s) Supporting Document(s) Chlamydia trachomatis rRNA [Presence] in Unspecified specimen by Probe and target amplification method See Note C trach rRNA XXX Ql DEVAUGHN+probe [place] ([facility]) Note: NOT DETECTEDNOT [id number] DETECTEDResponsible Observer: C.Trach RNA Chlamydia trachomatis DNA-DEVAUGHN [id number] 913.9900 ([employer]) Neisseria gonorrhoeae rRNA [Presence] in Unspecified specimen by Probe and target amplification method See Note N gonorrhoea rRNA XXX Ql DEVAUGHN+probe [place] ([facility]) Note: NOT DETECTEDNOT [id number] 6NOT DETECTEDResponsible Observer: GC RNA Neisseria gonorrhoeae DNA -DEVAUGHN [id number] 913.9905 ([employer]) Chlamydia/GC DNA Note SEE NOTE Chlamydia/GC DNA Note [place] ([facility]) Note: The analytical performance charact eristics of thisassay, when used to test SurePath(TM) specimens have beendetermined by [employer]. The modifications havenot been cleared or approved by the FDA. This assay hasbeen validated pursuant to the CLIA regulations and isused for clinical purposes.For additional information, please refer tohttps://education.[employer]/faq/OVB444(This link is being provided for information/educational purposes only.)THIS TEST WAS PERFORMED AT:[facility] [address]KAPERRY DIAZMDResponsible Observer: GC/Chlam Note Chlamydia/GC DNA Note [id number] 913.9907 (A) Notes [TIMP] See Note NOTES YONG ([facility]) Note: Source Of Specimen: VAG ID Date Data Source [id number] 08/05/2020 11:00:00 AM EDT [place] ([facility]) Name Value Range Interpretation Code Description Data Lidia rce(s) Supporting Document(s) Wet prep results See Note [facility] Note: FEW WBCs seenLong rods notedNO Yea st like organisms seen no trichomonas seenMODERATE Squamous cellsNo clue cells present Notes [TIMP] See Note NOTES [place] ([facility]) Note: Source:: VAGINAL Wet mount for Trichomonas Negative for Trichomonas vaginalis Wet mount for Trichomonas [place] ([facility]) ID Date Data Source [id number] 08/05/2020 11:00:00 AM EDT [place] ([facility]) Name Value Range Interpretation Code Description Data Lidia rce(s) Supporting Document(s) Reported Physicians See Note Reported Physici ans [place] ([facility]) Note: Reported Physicians:Ordering: Saritha RobinsAttending: Saritha Paez ID Date Data Source [id number] 08/05/2020 11:00:00 AM EDT [place] ([facility]) Name Value Range Interpretation Code Description Data Lidia rce(s) Supporting Document(s) Genital culture results See Note Genital cult ure results [place] ([facility]) Note: No N. Gonorrhoaea isolatedMany Lac tobacilliFEW Staph Spp. coag neg Notes [TIMP] See Note NOTES [place] ([facility]) Note: Source:: VAGINAL Procedure Social History Code Duration Value Status Description Data Source(s ) Smoking 03/15/2021 12:00:00 AM EDT Patient has never smoked co mpleted Patient has never smoked [facility] ([facility] ) Vital Signs ID Date Data Source UNK Name Value Range Interpretation Code Description Data Source(s) Systolic blood pressure 128 mm[Hg] 128 mm[Hg] [facility] pap 06/26/20 Body surface area Derived from formula 2.15 m2 2.15 m2 [place] ([facility]) pap 06/26/20 Diastolic blood pressure 82 mm[Hg] 82 mm[Hg] [place] ([facility]) pap 06/26/20 Heart rate 78 /min 78 /min [place] ([facility]) pap 06/26/20 Respiratory rate 18 /min 18 /min [place] ([facility]) pap 06/26/20 Body height 62.75 [in_i] 62.75 [in_i] [place] ([facility]) pap 06/26/20 Body weight 259 [lb_av] 259 [lb_av] [place] ([facility]) pap 06/26/20 Body mass index (BMI) [Ratio] 46.2 kg/m2 46.2 k g/m2 [place] ([facility]) pap 06/26/20 Systolic blood pressure 112 mm[Hg] 112 mm[Hg] G [place] ([facility]) Diastolic blood pressure 70 mm[Hg] 70 mm[Hg] [place] ([facility]) Heart rate 96 /min 96 /min YONG ([facility]) Respiratory rate 20 /min 20 /min [place] ([facility]) Body weight 259.9 [lb_av] 259.9 [lb_av] [facility] Y ([facility]) Oxygen saturation in Arterial blood by Pulse oximetry 98 % 98 % [place] ([facility]) Systolic blood pressure 112 mm[Hg] 112 mm[Hg] G [place] ([facility]) Diastolic blood pressure 70 mm[Hg] 70 mm[Hg] [place] ([facility]) Heart rate 82 /min 82 /min [place] ([facility]) Respiratory rate 18 /min 18 /min [place] ([facility]) Body weight 258.4 [lb_av] 258.4 [lb_av] [facility] Y ([facility]) Oxygen saturation in Arterial blood by Pulse oximetry 96 % 96 % [place] ([facility]) Systolic blood pressure 120 mm[Hg] 120 mm[Hg] [place] ([facility]) Diastolic blood pressure 82 mm[Hg] 82 mm[Hg] [place] ([facility]) Heart rate 99 /min 99 /min [place] ([facility]) Respiratory rate 24 /min 24 /min [place] ([facility]) Body temperature 98.9 [degF] 98.9 [degF] [facility] ([facility]) Body height 62.75 [in_i] 62.75 [in_i] [place] ([facility]) Body weight 257 [lb_av] 257 [lb_av] [place] ([facility]) Body mass index (BMI) [Ratio] 45.9 kg/m2 45.9 k g/m2 [place] ([facility]) Body surface area Derived from formula 2.15 m2 2.15 m2 [place] ([facility]) Oxygen saturation in Arterial blood by Pulse oximetry 98 % 98 % [place] ([facility]) Diastolic blood pressure 97 mm[Hg] 97 mm[Hg] [facility] ([facility]) Systolic blood pressure 132 mm[Hg] 132 mm[Hg] M EDENT ([facility]) Body weight 254.25 [lb_av] 254.25 [lb_av] [facility] T ([facility]) Body height 62 [in_i] 62 [in_i] [facility] ([facility] 5'2" Heart rate 90 /min 90 /min [facility] Respiratory rate 18 /min 18 /min [facility] ( [facility]) Body mass index (BMI) [Ratio] 46.5 kg/m2 46.5 k g/m2 [facility] ([facility]) Diastolic blood pressure 79 mm[Hg] 79 mm[Hg] [facility] ([facility]) Body weight 252.00 [lb_av] 252.00 [lb_av] MED[facility] T ([facility]) Systolic blood pressure 121 mm[Hg] 121 mm[Hg] [facility] Body mass index (BMI) [Ratio] 46.1 kg/m2 [...] pressure 102 mm[Hg] 102 mm[Hg] G [place] ([facility]) Diastolic blood pressure 70 mm[Hg] 70 mm[Hg] YONG ([facility]) Heart rate 66 /min 66 /min YONG ([facility]) Respiratory rate 18 /min 18 /min Y[facility] ([facility]) Body temperature 98.5 [degF] 98.5 [degF] [facility] ([facility]) Body weight 259 [lb_av] 259 [lb_av] YONG ([facility]) Systolic blood pressure 124 mm[Hg] 124 mm[Hg] [facility] Diastolic blood pressure 80 mm[Hg] 80 mm[Hg] [place] ([facility]) Heart rate 118 /min 118 /min [place] ([facility] [employer] [facility]) Respiratory rate 18 /min 18 /min [place] ([facility]) Body height 62.75 [in_i] 62.75 [in_i] [place] ([facility]) Body mass index (BMI) [Ratio] 46.2 kg/m2 46.2 k g/m2 [place] ([facility]) Body surface area Derived from formula 2.15 m2 2.15 m2 [place] ([facility]) Oxygen saturation in Arterial blood by Pulse oximetry 98 % 98 % [place] ([facility]) Heart rate 72 /min 72 /min [place] ([facility] [employer] [facility]) Systolic blood pressure 112 mm[Hg] 112 mm[Hg] [facility] Diastolic blood pressure 74 mm[Hg] 74 mm[Hg] [place] ([facility]) Respiratory rate 18 /min 18 /min [place] ([facility]) Body height 62.75 [in_i] 62.75 [in_i] [place] ([facility]) Body weight 249 [lb_av] 249 [lb_av] [place] ([facility]) Body mass index (BMI) [Ratio] 44.5 kg/m2 44.5 k g/m2 [place] ([facility]) Body surface area Derived from formula 2.12 m2 2.12 m2 [place] ([facility]) Systolic blood pressure 104 mm[Hg] 104 mm[Hg] [facility] Diastolic blood pressure 60 mm[Hg] 60 mm[Hg] [place] ([facility]) Heart rate 60 /min 60 /min [place] ([facility] [employer] [facility]) Respiratory rate 18 /min 18 /min [place] ([facility]) Body weight 251 [lb_av] 251 [lb_av] [place] ([facility]) Respiratory rate 16 /min 16 /min [place] ([place] [employer] [facility]) Systolic blood pressure 118 mm[Hg] 118 mm[Hg] [facility] Diastolic blood pressure 82 mm[Hg] 82 mm[Hg] [place] ([facility]) Oxygen saturation in Arterial blood by Pulse oximetry 97 % 97 % [place] ([facility]) Heart rate 80 /min 80 /min [place] ([facility]) Heart rate rhythm 1 1 [facility] Y ([facility]) Body temperature 97.3 [degF] 97.3 [degF] [facility] ([facility]) Patient Treatment Plan of Care Planned Activity Planned Date Details Description Data Source (s) Sertraline 100 MG Oral Tablet 08/02/2021 12:00:00 AM [facility] ([facility]) Loryna 3-0.02 MG Oral Tablet 06/20/2021 12:00:00 AM [facility] ([facility]) montelukast 10 MG Oral Tablet [Singulair] 05/11/2021 12:00:00 AM ED [facility]) 60 ACTUAT Fluticasone propionate 0.25 MG /ACTUAT / salmeterol 0.05 MG/ACTUAT Dry Powder Inhaler [Advair] 05/11/2021 12:00:00 AM [facility] ([facility]) Azithromycin 250 MG Oral Tablet [Zithromax] 04/12/2021 12:00:00 AM [facility]) 200 ACTUAT Albuterol 0.09 MG/ACTUAT Metered Dose Inhal er [ProAir] 04/02/2021 12:00:00 AM [facility]) Sertraline 100 MG Oral Tablet 03/30/2021 12:00:00 AM [facility] ([facility]) Gianvi 3-0.02 MG Oral Tablet 01/30/2021 12:00:00 AM [facility] ([facility]) Metronidazole 0.0075 MG/MG Vaginal Gel 11/30/2020 12:00:00 AM [facility]) Gianvi 3-0.02 MG Oral Tablet 09/16/2020 12:00:00 AM [facility]) Nystatin 100 UNT/MG Topical Powder 08/11/2020 12:00:00 AM T [place] ([facility]) Metronidazole 0.0075 MG/MG Vaginal Gel 08/05/2020 12:00:00 AM EDT [place] ([facility]) Sertraline 100 MG Oral Tablet 06/26/2020 12:00:00 AM T [place] ([facility]) Gianvi 3-0.02 MG Oral Tablet 04/24/2020 12:00:00 AM T [place] ([facility])
[2021-09-02] MEDS ORDERED: ZOLO100T PO (21:32)
[2021-09-02 21:34] LABS: AMPHETAMINES LEVEL URINE POSITIVE (NEGATIVE); BARBITURATES URINE NEGATIVE (NEGATIVE); BENZODIAZEPINES URINE NEGATIVE (NEGATIVE); CANNABINOIDS URINE POSITIVE (NEGATIVE); COCAINE METABOLITE URINE NEGATIVE (NEGATIVE); METHADONE URINE NEGATIVE (NEGATIVE); OPIATES URINE NEGATIVE (NEGATIVE); PHENCYCLIDINE URINE NEGATIVE (NEGATIVE)
[2021-09-03] MEDS: NS 1,000 ML IV SCH (01:10)
--- NOTE | 2021-09-03 08:32 | MHIPNPDOC ---
[facility] Progress Note Progress Note DATE OF SERVICE: 09/03/21 Patient presented by PSA, meets criteria for involuntary admission. Presents with overdose on NyQuil, has thoughts of crashing her car, presents risk for safety to self. See PSA note for details. Vital Signs Vital Signs Date Time Temp Pulse Resp B/P (MAP) Pulse Ox O2 Delivery O2 Flow Rate FiO2 09/03/21 06:10 98.2 71 18 126/66 (86) 99 Room Air Laboratory Data 24H Labs Laboratory Tests 2 09/02/21 18:39: Urine Opiates Screen NEGATIVE, Urine Methadone Screen NEGATIVE, Urine Barbiturates Screen NEGATIVE, Urine Phencyclidine Screen NEGATIVE, Urine Amphetamines Screen POSITIVEH, Urine Benzodiazepines Screen NEGATIVE, Urine Cocaine Metabolite Screen NEGATIVE, Urine Cannabinoids Screen POSITIVEH 09/02/21 18:40: Immature Granulocyte % (Auto) 0.3, Neutrophils (%) (Auto) 69.0H, Lymphocytes (%) (Auto) 23.8L, Monocytes (%) (Auto) 5.7, Eosinophils (%) (Auto) 0.7, Basophils (%) (Auto) 0.5, Neutrophils # (Auto) 8.5, Lymphocytes # (Auto) 2.9, Monocytes # (Auto) 0.7, Eosinophils # (Auto) 0.1, Basophils # (Auto) 0.1, Nucleated Red Blood Cells % (auto) 0.0, Anion Gap 8, Glomerular Filtration Rate > 60.0, Calcium Level 8.7, Total Bilirubin 0.2, Direct Bilirubin < 0.1, Aspartate Amino Transf (AST/SGOT) 7, Alanine Aminotransferase (ALT/SGPT) 15, Alkaline Phosphatase 95, Total Creatine Kinase 79, Total Protein 7.7, Albumin 3.2, Albumin/Globulin Ratio 0.7L, Thyroid Stimulating Hormone (TSH) 2.690, Human Chorionic Gonadotropin, Qual NEGATIVE, Salicylates Level < 1.7L, Acetaminophen Level 24.1, Ethyl Alcohol Level < 0.003 09/02/21 20:30: Acetaminophen Level 11.5 CBC/BMP Laboratory Tests 09/02/21 18:40 Current Medications Current Medications Medications (Trade) Dose Ordered Sig/Grazyna Route PRN Reason Start Time Stop Time Status Last Admin Dose Admin Sodium Chloride 1,000 ml @ 150 mls/hr Q6H40M IV 09/02/21 18:30 09/03/21 01:47 DC 09/02/21 18:36 Allergies Coded Allergies: No Known Allergies (Unverified , 09/02/21) LORI KRAUSE MD Sep 03, 2021 08:32
[2021-09-03] MEDS ORDERED: SERTRALINE 100 MG TAB PO ONE (09:30)
--- NOTE | 2021-09-03 18:20 | ECGEPIP ---
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
[2021-09-03] MEDS ORDERED: MOM 30ML SUSPENSION UDC PO PRN (19:55)
[2021-09-03] MEDS ORDERED: traZODone 50 MG TAB PO PRN (19:55)
[2021-09-03] MEDS ORDERED: MAALOX 30 ML SUSP *UDC PO PRN (19:55)
[2021-09-03] MEDS ORDERED: ACETAMINOPHEN TAB 650MG DOSE (2X325MG) PO PRN (19:55)
--- OUTSIDE RECORDS SUMMARY | 2021-09-03 20:07 | CCD ---
Author Author [facility] Organization [facility] Address Unknown Phone Unavailable Care Team Providers Care Parking Assistant Name Role Phone Jeannine, A Saritha AGRONOMY TECHNICIAN Unavailable Unavailable Jeannine, A Saritha AGRONOMY TECHNICIAN Unavailable Unavailable Jeannine, A Saritha AGRONOMY TECHNICIAN Unavailable Unavailable Jeannine, A Saritha AGRONOMY TECHNICIAN Unavailable Unavailable Jeannine, A Saritha AGRONOMY TECHNICIAN Unavailable Unavailable Jeannine, A Saritha AGRONOMY TECHNICIAN Unavailable Unavailable Jeannine, A Saritha AGRONOMY TECHNICIAN Unavailable Unavailable Jeannine, A Saritha AGRONOMY TECHNICIAN Unavailable Unavailable Jeannine, A Saritha AGRONOMY TECHNICIAN Unavailable Unavailable Jeannine, A Saritha AGRONOMY TECHNICIAN Unavailable Unavailable Jeannine, A Saritha AGRONOMY TECHNICIAN Unavailable Unavailable Jeannine, A Saritha AGRONOMY TECHNICIAN Unavailable Unavailable Jeannine, A Saritha AGRONOMY TECHNICIAN Unavailable Unavailable Jeannine, A Saritha AGRONOMY TECHNICIAN Unavailable Unavailable Jeannine, A Saritha AGRONOMY TECHNICIAN Unavailable Unavailable Jeannine, A Saritha AGRONOMY TECHNICIAN Unavailable Unavailable Jeannine, A Saritha AGRONOMY TECHNICIAN Unavailable Unavailable Jeannine, A Saritha AGRONOMY TECHNICIAN Unavailable Unavailable Jeannine, A Saritha AGRONOMY TECHNICIAN Unavailable Unavailable Jeannine, A Saritha AGRONOMY TECHNICIAN Unavailable Unavailable Jeannine, A Saritha AGRONOMY TECHNICIAN Unavailable Unavailable Jeannine, A Saritha AGRONOMY TECHNICIAN Unavailable Unavailable Jeannine, A Saritha AGRONOMY TECHNICIAN Unavailable Unavailable Jeannine, A Saritha AGRONOMY TECHNICIAN Unavailable Unavailable Jeannine, A Saritha AGRONOMY TECHNICIAN Unavailable Unavailable Jeannine, A Saritha AGRONOMY TECHNICIAN Unavailable Unavailable Jeannine, A Saritha AGRONOMY TECHNICIAN Unavailable Unavailable Jeannine, A Saritha AGRONOMY TECHNICIAN Unavailable Unavailable Jeannine, A Saritha AGRONOMY TECHNICIAN Unavailable Unavailable Jeannine, A Saritha AGRONOMY TECHNICIAN Unavailable Unavailable Jeannine, A Saritha AGRONOMY TECHNICIAN Unavailable Unavailable Jeannine, A Saritha AGRONOMY TECHNICIAN Unavailable Unavailable Jeannine, A Saritha AGRONOMY TECHNICIAN Unavailable Unavailable Jeannine, A Saritha AGRONOMY TECHNICIAN Unavailable Unavailable Jeannine, A Saritha AGRONOMY TECHNICIAN Unavailable Unavailable Jeannine, A Saritha AGRONOMY TECHNICIAN Unavailable Unavailable Jeannine, A Saritha AGRONOMY TECHNICIAN Unavailable Unavailable Jeannine, A Saritha AGRONOMY TECHNICIAN Unavailable Unavailable Jeannine, A Saritha AGRONOMY TECHNICIAN Unavailable Unavailable Jeannine, A Saritha AGRONOMY TECHNICIAN Unavailable Unavailable Jeannine, A Saritha AGRONOMY TECHNICIAN Unavailable Unavailable Jeannine, A Saritha AGRONOMY TECHNICIAN Unavailable Unavailable Jeannine, A Saritha AGRONOMY TECHNICIAN Unavailable Unavailable Jeannine, A Saritha AGRONOMY TECHNICIAN Unavailable Unavailable Jeannine, A Saritha AGRONOMY TECHNICIAN Unavailable Unavailable Jeannine, A Saritha AGRONOMY TECHNICIAN Unavailable Unavailable Jeannine, A Saritha AGRONOMY TECHNICIAN Unavailable Unavailable Jeannine, A Saritha AGRONOMY TECHNICIAN Unavailable Unavailable Jeannine, A Saritha AGRONOMY TECHNICIAN Unavailable Unavailable Jeannine, A Saritha AGRONOMY TECHNICIAN Unavailable Unavailable Jeannine, A Saritha AGRONOMY TECHNICIAN Unavailable Unavailable Jeannine, A Saritha AGRONOMY TECHNICIAN Unavailable Unavailable MICHAEL MCKEON MD Unavailable Unavailable [...] WILSON MD Unavailable Unavailable MUHA, M JONNY AGRONOMY TECHNICIAN Unavailable Unavailable MUHA, M JONNY AGRONOMY TECHNICIAN Unavailable Unavailable MUHA, M JONNY AGRONOMY TECHNICIAN Unavailable Unavailable MUHA, M JONNY AGRONOMY TECHNICIAN Unavailable Unavailable MUHA, M JONNY AGRONOMY TECHNICIAN Unavailable Unavailable MUHA, M JONNY AGRONOMY TECHNICIAN Unavailable Unavailable MUHA, M JONNY AGRONOMY TECHNICIAN Unavailable Unavailable MUHA, M JONNY AGRONOMY TECHNICIAN Unavailable Unavailable MUHA, M JONNY AGRONOMY TECHNICIAN Unavailable Unavailable MUHA, M JONNY AGRONOMY TECHNICIAN Unavailable Unavailable MUHA, M JONNY AGRONOMY TECHNICIAN Unavailable Unavailable MUHA, M JONNY AGRONOMY TECHNICIAN Unavailable Unavailable MUHA, M JONNY AGRONOMY TECHNICIAN Unavailable Unavailable MUHA, M JONNY AGRONOMY TECHNICIAN Unavailable Unavailable MUHA, M JONNY AGRONOMY TECHNICIAN Unavailable Unavailable MUHA, M JONNY AGRONOMY TECHNICIAN Unavailable Unavailable MUHA, M JONNY AGRONOMY TECHNICIAN Unavailable Unavailable MUHA, M JONNY AGRONOMY TECHNICIAN Unavailable Unavailable MUHA, M JONNY AGRONOMY TECHNICIAN Unavailable Unavailable MUHA, M JONNY AGRONOMY TECHNICIAN Unavailable Unavailable MUHA, M JONNY AGRONOMY TECHNICIAN Unavailable Unavailable MUHA, M JONNY AGRONOMY TECHNICIAN Unavailable Unavailable MUHA, M JONNY AGRONOMY TECHNICIAN Unavailable Unavailable MUHA, M JONNY AGRONOMY TECHNICIAN Unavailable Unavailable MUHA, M JONNY AGRONOMY TECHNICIAN Unavailable Unavailable MUHA, M JONNY AGRONOMY TECHNICIAN Unavailable Unavailable MUHA, M JONNY AGRONOMY TECHNICIAN Unavailable Unavailable MUHA, M JONNY AGRONOMY TECHNICIAN Unavailable Unavailable MUHA, M JONNY AGRONOMY TECHNICIAN Unavailable Unavailable MUHA, M JONNY AGRONOMY TECHNICIAN Unavailable Unavailable MUHA, M JONNY AGRONOMY TECHNICIAN Unavailable Unavailable MUHA, M JONNY AGRONOMY TECHNICIAN Unavailable Unavailable MUHA, M JONNY AGRONOMY TECHNICIAN Unavailable Unavailable MUHA, M JONNY AGRONOMY TECHNICIAN Unavailable Unavailable MUHA, M JONNY AGRONOMY TECHNICIAN Unavailable Unavailable MUHA, M JONNY AGRONOMY TECHNICIAN Unavailable Unavailable MUHA, M JONNY AGRONOMY TECHNICIAN Unavailable Unavailable MUHA, M JONNY AGRONOMY TECHNICIAN Unavailable Unavailable MUHA, M JONNY AGRONOMY TECHNICIAN Unavailable Unavailable MUHA, M JONNY AGRONOMY TECHNICIAN Unavailable Unavailable MUHA, M JONNY AGRONOMY TECHNICIAN Unavailable Unavailable MUHA, M JONNY AGRONOMY TECHNICIAN Unavailable Unavailable MUHA, M JONNY AGRONOMY TECHNICIAN Unavailable Unavailable MUHA, M JONNY AGRONOMY TECHNICIAN Unavailable Unavailable MUHA, M JONNY AGRONOMY TECHNICIAN Unavailable Unavailable MUHA, M JONNY AGRONOMY TECHNICIAN Unavailable Unavailable MUHA, M JONNY AGRONOMY TECHNICIAN Unavailable Unavailable MUHA, M JONNY AGRONOMY TECHNICIAN Unavailable Unavailable MUHA, M JONNY AGRONOMY TECHNICIAN Unavailable Unavailable MUHA, M JONNY AGRONOMY TECHNICIAN Unavailable Unavailable MUHA, M JONNY AGRONOMY TECHNICIAN Unavailable Unavailable MUHA, M JONNY AGRONOMY TECHNICIAN Unavailable Unavailable MUHA, M JONNY AGRONOMY TECHNICIAN Unavailable Unavailable MUHA, M JONNY AGRONOMY TECHNICIAN Unavailable Unavailable JustinJaz MD Unavailable Unavailable JustinJaz [...] Zambrano MD Unavailable Unavailable MUHA, M JONNY AGRONOMY TECHNICIAN Unavailable Unavailable MUHA, M JONNY AGRONOMY TECHNICIAN Unavailable Unavailable MUHA, M JONNY AGRONOMY TECHNICIAN Unavailable Unavailable MUHA, M JONNY AGRONOMY TECHNICIAN Unavailable Unavailable MUHA, M JONNY AGRONOMY TECHNICIAN Unavailable Unavailable MUHA, M JONNY AGRONOMY TECHNICIAN Unavailable Unavailable MUHA, M JONNY AGRONOMY TECHNICIAN Unavailable Unavailable MUHA, M JONNY AGRONOMY TECHNICIAN Unavailable Unavailable MUHA, M JONNY AGRONOMY TECHNICIAN Unavailable Unavailable MUHA, M JONNY AGRONOMY TECHNICIAN Unavailable Unavailable MUHA, M JONNY AGRONOMY TECHNICIAN Unavailable Unavailable MUHA, M JONNY AGRONOMY TECHNICIAN Unavailable Unavailable MUHA, M JONNY AGRONOMY TECHNICIAN Unavailable Unavailable MUHA, M JONNY AGRONOMY TECHNICIAN Unavailable Unavailable MUHA, M JONNY AGRONOMY TECHNICIAN Unavailable Unavailable MUHA, M JONNY AGRONOMY TECHNICIAN Unavailable Unavailable MUHA, M JONNY AGRONOMY TECHNICIAN Unavailable Unavailable MUHA, M JONNY AGRONOMY TECHNICIAN Unavailable Unavailable MUHA, M JONNY AGRONOMY TECHNICIAN Unavailable Unavailable MUHA, M JONNY AGRONOMY TECHNICIAN Unavailable Unavailable MUHA, M JONNY AGRONOMY TECHNICIAN Unavailable Unavailable MUHA, M JONNY AGRONOMY TECHNICIAN Unavailable Unavailable MUHA, M JONNY AGRONOMY TECHNICIAN Unavailable Unavailable MUHA, M JONNY AGRONOMY TECHNICIAN Unavailable Unavailable MUHA, M JONNY AGRONOMY TECHNICIAN Unavailable Unavailable MUHA, M JONNY AGRONOMY TECHNICIAN Unavailable Unavailable MUHA, M JONNY AGRONOMY TECHNICIAN Unavailable Unavailable MUHA, M JONNY AGRONOMY TECHNICIAN Unavailable Unavailable MUHA, M JONNY AGRONOMY TECHNICIAN Unavailable Unavailable MUHA, M JONNY AGRONOMY TECHNICIAN Unavailable Unavailable MUHA, M JONNY AGRONOMY TECHNICIAN Unavailable Unavailable MUHA, M JONNY AGRONOMY TECHNICIAN Unavailable Unavailable MUHA, M JONNY AGRONOMY TECHNICIAN Unavailable Unavailable MUHA, M JONNY AGRONOMY TECHNICIAN Unavailable Unavailable MUHA, M JONNY AGRONOMY TECHNICIAN Unavailable Unavailable MUHA, M JONNY AGRONOMY TECHNICIAN Unavailable Unavailable MUHA, M JONNY AGRONOMY TECHNICIAN Unavailable Unavailable MUHA, M JONNY AGRONOMY TECHNICIAN Unavailable Unavailable MUHA, M JONNY AGRONOMY TECHNICIAN Unavailable Unavailable MUHA, M JONNY AGRONOMY TECHNICIAN Unavailable Unavailable MUHA, M JONNY AGRONOMY TECHNICIAN Unavailable Unavailable MUHA, M JONNY AGRONOMY TECHNICIAN Unavailable Unavailable MUHA, M JONNY AGRONOMY TECHNICIAN Unavailable Unavailable MUHA, M JONNY AGRONOMY TECHNICIAN Unavailable Unavailable MUHA, M JONNY AGRONOMY TECHNICIAN Unavailable Unavailable MUHA, M JONNY AGRONOMY TECHNICIAN Unavailable Unavailable MUHA, M JONNY AGRONOMY TECHNICIAN Unavailable Unavailable MUHA, M JONNY AGRONOMY TECHNICIAN Unavailable Unavailable MUHA, M JONNY AGRONOMY TECHNICIAN Unavailable Unavailable MUHA, M JONNY AGRONOMY TECHNICIAN Unavailable Unavailable MUHA, M JONNY AGRONOMY TECHNICIAN Unavailable Unavailable MUHA, M JONNY AGRONOMY TECHNICIAN Unavailable Unavailable MUHA, M JONNY AGRONOMY TECHNICIAN Unavailable Unavailable MUHA, M JONNY AGRONOMY TECHNICIAN Unavailable Unavailable Jaz Anderson MD Unavailable Unavailable [...] E Lyssa MD Unavailable Unavailable Justin, E Lysas MD Unavailable Unavailable Justin, E Lyssa MD [...] Lyssa MD Unavailable Unavailable Jeannine, A Saritha AGRONOMY TECHNICIAN Unavailable Unavailable Jeannine, A Saritha AGRONOMY TECHNICIAN Unavailable Unavailable Jeannine, A Saritha AGRONOMY TECHNICIAN Unavailable Unavailable Jeannine, A Saritha AGRONOMY TECHNICIAN Unavailable Unavailable Jeannine, A Saritha AGRONOMY TECHNICIAN Unavailable Unavailable Jeannine, A Saritha AGRONOMY TECHNICIAN Unavailable Unavailable Jeannine, A Saritha AGRONOMY TECHNICIAN Unavailable Unavailable Jeannine, A Saritha AGRONOMY TECHNICIAN Unavailable Unavailable Jeannine, A Saritha AGRONOMY TECHNICIAN Unavailable Unavailable Jeannine, A Saritha AGRONOMY TECHNICIAN Unavailable Unavailable Jeannine, A Saritha AGRONOMY TECHNICIAN Unavailable Unavailable Jeannine, A Saritha AGRONOMY TECHNICIAN Unavailable Unavailable Jeannine, A Saritha AGRONOMY TECHNICIAN Unavailable Unavailable Jeannine, A Saritha AGRONOMY TECHNICIAN Unavailable Unavailable Jeannine, A Saritha AGRONOMY TECHNICIAN Unavailable Unavailable Jeannine, A Saritha AGRONOMY TECHNICIAN Unavailable Unavailable Jeannine, A Saritha AGRONOMY TECHNICIAN Unavailable Unavailable Jeannine, A Saritha AGRONOMY TECHNICIAN Unavailable Unavailable Jeannine, A Saritha AGRONOMY TECHNICIAN Unavailable Unavailable Jeannine, A Saritha AGRONOMY TECHNICIAN Unavailable Unavailable Jeannine, A Saritha AGRONOMY TECHNICIAN Unavailable Unavailable Jeannine, A Saritha AGRONOMY TECHNICIAN Unavailable Unavailable Jeannine, A Saritha AGRONOMY TECHNICIAN Unavailable Unavailable Jeannine, A Saritha AGRONOMY TECHNICIAN Unavailable Unavailable Jeannine, A Saritha AGRONOMY TECHNICIAN Unavailable Unavailable Jeannine, A Saritha AGRONOMY TECHNICIAN Unavailable Unavailable Jeannine, A Saritha AGRONOMY TECHNICIAN Unavailable Unavailable Jeannine, A Saritha AGRONOMY TECHNICIAN Unavailable Unavailable Jeannine, A Saritha AGRONOMY TECHNICIAN Unavailable Unavailable Jeannine, A Saritha AGRONOMY TECHNICIAN Unavailable Unavailable Jeannine, A Saritha AGRONOMY TECHNICIAN Unavailable Unavailable Jeannine, A Saritha AGRONOMY TECHNICIAN Unavailable Unavailable Jeannine, A Saritha AGRONOMY TECHNICIAN Unavailable Unavailable Jeannine, A Saritha AGRONOMY TECHNICIAN Unavailable Unavailable Jeannine, A Saritha AGRONOMY TECHNICIAN Unavailable Unavailable Jeannine, A Saritha AGRONOMY TECHNICIAN Unavailable Unavailable Jeannine, A Saritha AGRONOMY TECHNICIAN Unavailable Unavailable Jeannine, A Saritha AGRONOMY TECHNICIAN Unavailable Unavailable Jeannine, A Saritha AGRONOMY TECHNICIAN Unavailable Unavailable Jeannine, A Saritha AGRONOMY TECHNICIAN Unavailable Unavailable Jeannine, A Saritha AGRONOMY TECHNICIAN Unavailable Unavailable Jeannine, A Saritha AGRONOMY TECHNICIAN Unavailable Unavailable Jeannine, A Saritha AGRONOMY TECHNICIAN Unavailable Unavailable Jeannine, A Saritha AGRONOMY TECHNICIAN Unavailable Unavailable Jeannine, A Saritha AGRONOMY TECHNICIAN Unavailable Unavailable Jeannine, A Saritha AGRONOMY TECHNICIAN Unavailable Unavailable Jeannine, A Saritha AGRONOMY TECHNICIAN Unavailable Unavailable Jeannine, A Saritha AGRONOMY TECHNICIAN Unavailable Unavailable Jeannine, A Saritha AGRONOMY TECHNICIAN Unavailable Unavailable Jeannine, A Saritha AGRONOMY TECHNICIAN Unavailable Unavailable Jeannine, A Saritha AGRONOMY TECHNICIAN Unavailable Unavailable Jeannine, A Saritha AGRONOMY TECHNICIAN Unavailable Unavailable Re-disclosure Warning The records that [...] is protected by Article 27-F of the [facility] Public Health law. If you continue you may have access to information: Regarding HIV / AIDS; Provided by facilities licensed or operated by the [facility] Office of Mental Health; or Provided by the [facility] Office for People With Developmental Disabilities. If such information is present, then the following [facility] mandated warning applies: This information has [...] law may result in a fine or senior care sentence or both. A general authorization for the release of medical or other information is NOT sufficient authorization for further disc losure. Allergies and Adverse Reactions Type Description Substance Reaction Status Data Source(s ) Allergy to substance No Known Allergies No known allergies (situation ) [facility]) Allergy to substance No Known Allergies No known allergies (situation ) [facility]) Allergy to substance No Known Allergies No known allergies (situation ) [facility]) Allergy to substance No Known Allergies No known allergies (situation ) [facility]) Propensity to adverse reactions NO KNOWN ALLERGIES NO KNOWN ALLERGIES [facility] Family History Family Member Name Family Member Gender Family Member Status Date o f Status Description Data Source(s) Unknown Condition [facility] Unknown Condition [facility] Unknown Female Problem [facility] ([facility]) Encounters Encounter Providers Location Date Indications Data Source(s ) Outpatient Attender: JONNY JOHNSON [facility] 08/09/2021 04:20:00 PM EDT Z11.3 [facility] Z11.3 Outpatient<td ID="encounterTypeDescripti onID0">ANNUAL PE-followup exam</td><td>Jonny Johnson [facility]-BC</td><td>[facility], [facility]</td><td>08/09/2021</td><td>3:38PM</td><td>5:08PM</td><td><content ID="encounterDiagnosisID0-0">Routine History and Physical Adult (18 - 64 Yrs)</content>, <content ID="encounterDiagnosisID0-1">Major Depression Recurrent Moderate</content>, <content ID="encounterDiagnosisID0-2">Anxiety Disorder Nos</content>, <content ID="encounterDiagnosisID0-3">Asthma Persistent</content>, <content ID="encounterDiagnosisID0-4">Assessment of Cerv Pap Smear (+) Atyp Squamous Cells Undetermined Signif</content></td> Attender: JONNY JOHNSON [facility], [facility] 08/09/2021 03:38:00 P M EDT - 08/09/2021 05:08:00 PM EDT Asthma PersistentRoutine History and Phy sical Adult (18 - 64 Yrs)Assessment of Cerv Pap Smear (+) Atyp Squamous Cells Undetermined SignifAnxiety Disorder NosMajor Depression Recurrent Moderate [facility] ([facility]) Asthma Persistent Routine History and Physical Adult (18 - 64 Yrs) Assessment of Cerv Pap Smear (+) Atyp Sq uamous Cells Undetermined Signif Anxiety Disorder Nos Major Depression Recurrent Moderate Outpatient Attender: Saritha Paez [facility] 07/13/2021 10:49:00 AM EDT ASTHMA J45.998 [facility] ASTHMA J45.998 Outpatient Attender: Lyssa Anderson MD 07/10/2021 09:00:00 AM EDT [facility] Outpatient Attender: Lyssa Anderson MD 07/06/2021 11:30:00 AM EDT [facility] Outpatient<td ID="encounterTypeDescripti onID1">nursing visit</td><td>Lyssa Anderson MD</td><td>[facility], [facility]</td><td>07/06/2021</td><td>11:23AM</td><td>12:00PM</td><td></td> Attender: Lyssa Anderson MD [facility], [facility] 07/06/2021 11:23:00 A M EDT - 07/06/2021 12:00:59 PM EDT [facility]) Outpatient<td ID="encounterTypeDescripti onID2">followup</td><td>Saritha Paez [facility]</td><td>[facility], [facility]</td><td>06/22/2021</td><td>8:50AM</td><td>9:17AM</td><td><content ID="encounterDiagnosisID2-0">Allergic Rhinitis</content>, <content ID="encounterDiagnosisID2-1">Reactive Airway Disease</content></td> [facility] 06/22/[facility]21 08:50:00 A M EDT - 06/22/2021 09:17:00 AM EDT Reactive Airway DiseaseAllergic Rhinitis [place] ([facility]) Reactive Airway Disease Allergic Rhinitis Outpatient Attender: Saritha HERNANDEZ 05/15/2021 12:49 :00 PM EDT SOB [facility] SOB Outpatient Attender: Saritha HERNANDEZ 05/11/2021 11:54 :00 AM EDT R06.02, [facility] R06.02, Outpatient<td ID="encounterTypeDescripti onID3">sick visit</td><td>Saritha Paez AGRONOMY TECHNICIAN</td><td>[facility], [facility]</td><td>05/11/2021</td><td>11:18AM</td><td>11:45AM</td><td><content ID="encounterDiagnosisID3-0">Allergic Rhinitis</content>, <content ID="encounterDiagnosisID3-1">Reactive Airway Disease</content></td> Attender: Saritha Paez [facility], [facility] 05/11/2021 11:18:00 A M EDT - 05/11/2021 11:45:00 AM EDT Reactive Airway DiseaseReactive Airway DiseaseAllergic RhinitisAllergic Rhinitis [facility]) Reactive Airway Disease Reactive Airway Disease Allergic Rhinitis Allergic Rhinitis <td ID="encounterTypeDescriptionID4">[Pa tient Encounter]</td><td>Jonny Cameron [facility]</td><td></td><td>04/12/2021</td><td>04/02/2021 4:20PM</td><td>04/02/2021 11:59PM</td><td></td>Outpatient Attender: JONNY HERNANDEZ 0 04/02/2021 04:20:00 PM EDT - 04/02/2021 11:59:00 PM EDT [facility]) Outpatient<td ID="encounterTypeDescripti onID5">followup</td><td>Jonny Cameron [facility]</td><td>[facility]</td><td>04/02/2021</td><td>3:28PM</td><td>4:15PM</td><td><content ID="encounterDiagnosisID5-0">Major Depression Recurrent Moderate</content>, <content ID="encounterDiagnosisID5-1">Reactive Airway Disease</content>, <content ID="encounterDiagnosisID5-2">Allergic Rhinitis</content></td> Attender: JONNY HERNANDEZ [facility] 04/02/2021 03:28:00 P M EDT - 04/02/2021 04:15:00 PM EDT Reactive Airway DiseaseReactive Airway DiseaseReactive Airway DiseaseAllergic RhinitisMajor Depression Recurrent ModerateAllergic RhinitisMajor Depression Recurrent ModerateAllergic RhinitisMajor Depression Recurrent Moderate [place] ([facility]) Reactive Airway Disease Reactive Airway Disease Reactive [...] NNY) <td ID="encounterTypeDescriptionID6">[Pa tient Encounter]</td><td>Jonny Cameron [facility]</td><td></td><td>03/18/2021</td><td>11/30/2020 7:24PM</td><td>11/30/2020 11:59PM</td><td></td>Outpatient Attender: JONNY HERNANDEZ 0 11/30/2020 07:24:00 PM EST - 11/30/2020 11:59:00 PM EST [place] ([facility]) <td ID="encounterTypeDescriptionID7">[facility]</td><td>Jonny Cameron [facility]</td><td>[facility]</td><td>11/30/2020</td><td>3:09PM</td><td>3:54PM</td><td><content ID="encounterDiagnosisID7-0">Urticaria Idiopathic</content>, <content ID="encounterDiagnosisID7-1">Bacterial Vaginosis</content></td>Outpatient Attender: JONNY HERNANDEZ [facility] 11/30/2020 03:09:00 PM EST - 11/30/2020 03:54:00 PM EST Bacterial VaginosisUrticaria IdiopathicBacterial VaginosisUrticaria IdiopathicBacterial VaginosisUrticaria Idiopathic [place] ([facility]) 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 Outpatient<td ID="encounterTypeDescripti onID8">nursing visit</td><td>Kyle Zambrano MD</td><td>[facility]</td><td>11/13/2020</td><td>3:37PM</td><td>3:52PM</td><td></td> Attender: Kyle Zambrano MD [facility] 11/13/2020 03:37:00 P M EST - 11/13/2020 03:52:15 PM EST [place] ([facility]) Outpatient Attender: Lyssa Anderson MD 10/10/2020 04:15:00 PM EST I26.99 [facility] I26.99 Outpatient<td ID="encounterTypeDescripti onID9">sick visit</td><td>Lyssa Anderson MD</td><td>[facility]</td><td>10/10/2020</td><td>3:15PM</td><td>3:46PM</td><td><content ID="encounterDiagnosisID9-0">Pulmonary Embolism</content>, <content ID="encounterDiagnosisID9-1">Upper Respiratory Infection Acute</content></td> Attender: Lyssa Anderson MD [facility] 10/10/2020 03:15:00 PM EST - 10/10/2020 03:46:00 PM EST Upper Respiratory Infection AcutePulmona ry EmbolismUpper Respiratory Infection AcutePulmonary EmbolismUpper Respiratory Infection AcutePulmonary EmbolismUpper Respiratory Infection AcutePulmonary Emb olism [place] ([facility]) Upper Respiratory Infection Acute Pulmonary Embolism Upper Respiratory Infection Acute Pulmonary Embolism Upper Respiratory Infection Acute Pulmonary Embolism Upper Respiratory Infection Acute Pulmonary Embolism Outpatient<td ID="encounterTypeDescripti onID10">followup</td><td>Jonny Johnson [facility]-</td><td>[facility]</td><td>10/04/2020</td><td>10:59AM</td><td>11:38AM</td><td><content ID="[id number]">Major Depression Recurrent Moderate</content></td> Attender: JONNY JOHNSON MARY [facility] 10/04/2020 10:59:00 AM EST - 10/04/2020 11:38:00 AM EST Major Depression Recurrent ModerateMajor Depression Recurrent ModerateMajor Depression Recurrent ModerateMajor Depression Recurrent ModerateMajor Depression Recurrent Moderate [facility] ([facility]) Major Depression Recurrent Moderate Major Depression Recurrent Moderate Major Depression Recurrent Moderate Major Depression Recurrent Moderate Major Depression Recurrent Moderate Outpatient Attender: Saritha Paez [facility] 08/11/2020 04:05 :00 PM EDT N76.0 [facility] N76.0 <td ID="encounterTypeDescriptionID6">fol lowup</td><td>Saritha Paez [facility]</td><td>[facility] [facility]</td><td>08/11/2020</td><td>3:29PM</td><td>4:13PM</td><td><content ID="encounterDiagnosisID6-0">Candidiasis Vaginal</content>, <content ID="encounterDiagnosisID6-1">Vaginal Discharge</content></td>Outpatient Attender: Saritha HERNANDEZ [facility], [facility] 08/11/2020 03:29:00 PM EDT - 08/11/2020 04:13:00 PM EDT Vaginal DischargeCandidiasis VaginalVaginal DischargeCandidiasis VaginalVaginal DischargeCandidiasis VaginalVaginal DischargeCandidiasis VaginalVaginal DischargeCandidiasis Vaginal Y[facility] ([facility]) Vaginal Discharge Candidiasis Vaginal Vaginal Discharge Candidiasis Vaginal Vaginal Discharge Candidiasis Vaginal Vaginal Discharge Candidiasis Vaginal Vaginal Discharge Candidiasis Vaginal Outpatient Attender: Saritha Paez [facility] 08/07/2020 07:55 :00 AM EDT B37.9 [facility] B37.9 Outpatient Attender: Saritha Paez [facility] 08/05/2020 11:00 :00 AM EDT N89.8 [facility] N89.8 <td ID="encounterTypeDescriptionID7">sic k visit</td><td>Saritha Paez [facility]</td><td>[facility]</td><td>08/05/2020</td><td>9:55AM</td><td>11:02AM</td><td><content ID="encounterDiagnosisID7-0">Candidiasis Vaginal</content>, <content ID="encounterDiagnosisID7-1">Vaginal Discharge</content></td>Outpatient Attender: Saritha Paez [facility], [facility] 08/05/2020 09:55:00 AM EDT - 08/05/2020 11:02:00 AM EDT Vaginal DischargeCandidiasis VaginalVaginal DischargeCandidiasis VaginalVaginal DischargeCandidiasis VaginalVaginal DischargeCandidiasis VaginalVaginal DischargeCandidiasis VaginalVaginal DischargeCandidiasis Vaginal YONG ([facility]) Vaginal Discharge Candidiasis Vaginal Vaginal Discharge Candidiasis Vaginal Vaginal Discharge Candidiasis Vaginal Vaginal Discharge Candidiasis Vaginal Vaginal Discharge Candidiasis Vaginal Vaginal Discharge Candidiasis Vaginal Outpatient Attender: JONNY JOHNSON [facility] 06/26/2020 02:00:00 PM EDT Z11.3 [facility] Z11.3 Immunizations Vaccine Date Status Description Data Source(s) Moderna COVID-19 vaccine 01/12/2021 04:52:00 PM EST completed <td ID="Grrycydvhglas-Kfsrocechvm-OS17">Moderna COVID-19 vaccine</td><td ID="ImmunizationDose-26">2</td><td>01/12/2021</td><td ID="Pkcotmywikspk-PdfjdAlkm-YO10"></td><td></td><td ID="Rzscwmydmngil-Cwoeap-OJ84">Complete (Reported)</td><td>Patient</td><td ID="Lnqgzhwbbuqik-Fzntk-Krej-Comment-ID26"></td> [place] ([facility]) COVID-19 VACCINE Moderna 01/12/2021 12:00:00 AM EST completed [facility] Vaccine Series Complete: YESThis Data wa s Submitted to [facility] Via [email or web address]. Moderna COVID-19 vaccine 12/15/2020 04:51:00 PM EST completed <td ID="Jreebdqjkhzdn-Aafpeukoibt-IV11">Moderna COVID-19 vaccine</td><td ID="ImmunizationDose-25">1</td><td>12/15/2020</td><td ID="Jrkyehezejvdm-XwfleQzed-SM99"></td><td></td><td ID="Fwmdzgwuguhpi-Qmdclo-EQ12">Complete (Reported)</td><td>Patient</td><td ID="Ztyfgetryjqcv-Lelln-Sono-Comment-ID25"></td> [facility]) COVID-19 VACCINE Moderna 12/15/2020 12:00:00 AM EST completed [facility] Vaccine Series Complete: NOThis Data was Submitted to [facility] Via [email or web address]. 11/13/2020 03:53:00 PM EST completed <td ID="Lulsakqwymyft-Hofsorgvsca-AV4">Gardasil</td><td ID="ImmunizationDose- 7">3</td><td>11/13/2020</td><td ID="Icccjpberczmm-CdbftScvy-MS2">Left Deltoid</td><td></td><td ID="Ykgnwnihklevv-Acnrxm-RE0">Complete (Administered)</td><td>[facility]</td><td ID="Wlcopbzcoadqn-Djrzo-Eyqx-Comment-ID7"></td> [place] ([facility]) INFLUENZA VIRUS VACCINE QUADRIVALENT 2019- (6 MOS AN D UP) 08/05/2020 12:00:00 AM EDT completed [facility] Medications Medication Brand Name Start Date [...] 1 active sertraline 100 MG Oral Tablet [facility]) 100 mg 08/02/2021 12:00:00 AM EDT tablet [...] dimesylate 30 MG Oral C apsule [Vyvanse] [facility]) Loryna 28 Day Pack 3-0.02 mg ETHINYL [...] MG Oral Tablet) } Pack [Loryna ] [facility] Loryna Day Pack 3-0.02 mg ETHINYL ESTRADIOL/DROSPIRENONE 06/20/2021 12:00:00 AM EDT tablet 28 TAKE 1 TABLET BY MOUTH ONCE DAILY DIRECTED TAKE 1 TABLET BY MOUTH ONCE DAILY DIRECTED SOLD: 07/21/2021 [facility] 30 mg 06/20/2021 12:00:00 AM EDT capsule 30 TAKE ONE CAPSULE BY MOUTH EVERY MORNING MAXIMUM DAILY DOSE = 1 CAPSULE TAKE ONE CAPSULE BY MOUTH EVERY MORNING MAXIMUM DAILY DOSE = 1 CAPSULE SOLD: 06/21/2021 [facility] Loryna Day Pack 3-0.02 mg ETHINYL ESTRADIOL/DROSPIRENONE 06/20/2021 12:00:00 AM EDT tablet 28 TAKE 1 TABLET BY MOUTH ONCE DAILY DIRECTED TAKE 1 TABLET BY MOUTH ONCE DAILY DIRECTED SOLD: 08/20/2021 [facility] 60 ACTUAT Fluticasone propionate 0.25 MG /ACTUAT / salmeterol 0.05 MG/ACTUAT Dry Powder Inhaler [Advair] 250-50 mcg/dose FLUTICASONE PROPION/SALMETEROL 05/11/2021 12:00:00 AM EDT blister with device 60 I NHALE ONE PUFF BY MOUTH TWICE A DAY INHALE ONE PUFF BY MOUTH TWICE A DAY SOLD: 05/11/2021 [facility] 60 ACTUAT Fluticasone propionate 0.25 MG /ACTUAT / salmeterol 0.05 MG/ACTUAT Dry Powder Inhaler [Advair] Advair Diskus 250-50 MCG/DOSE Inhalation Aerosol Powder Breath Activated Advair Diskus 250-50 MCG/DOSE Inhalation Aerosol Powder Breath Activated 05/11/2021 12:00:00 AM EDT active 60 ACTUAT fluticasone propionate 0.25 MG/ACTUAT / salmeterol 0.05 MG/ACTUAT Dry Powder Inhaler [Advair] [facility] montelukast 10 MG Oral Tablet [Singulair] Singulair 10 MG Oral Tablet Singulair 10 MG Oral Tablet 05/11/2021 12:00:00 AM EDT active montelukast 10 MG Oral Tablet [Singulair] [facility] ([facility]) montelukast 10 MG Oral Tablet MONTELUKAST SODIUM 05/11/2021 12:0 0:00 AM EDT tablet 90 TAKE ONE TABLET BY MOUTH EVERY D AY TAKE ONE TABLET BY MOUTH EVERY DAY SOLD: 08/14/2021 [facility] 60 ACTUAT Fluticasone propionate 0.25 MG /ACTUAT / salmeterol 0.05 MG/ACTUAT Dry Powder Inhaler [Advair] 250-50 mcg/dose FLUTICASONE PROPION/SALMETEROL 05/11/2021 12:00:00 AM EDT blister with device 60 I NHALE ONE PUFF BY MOUTH TWICE A DAY INHALE ONE PUFF BY MOUTH TWICE A DAY SOLD: 06/20/2021 [facility] montelukast 10 MG Oral Tablet MONTELUKAST SODIUM 05/11/2021 12:0 0:00 AM EDT tablet 90 TAKE ONE TABLET BY MOUTH EVERY D AY TAKE ONE TABLET BY MOUTH EVERY DAY SOLD: 05/11/2021 [facility] 250 mg 04/12/2021 12:00:00 AM EDT tablet 6 TAKE TWO TABLETS BY MOUTH AT ONCE ON THE FIRST DAY THEN TAKE ONE DAILY THEREAFTER TAKE TWO TABLETS BY MOUTH AT ONCE ON THE FIRST DAY THEN TAKE ONE DAILY THEREAFTER SOLD: 04/13/2021 [facility] Azithromycin 250 MG Oral Tablet [Zithromax] Zithromax 250 MG Oral Tablet Zithromax 250 MG Oral Tablet 04/12/2021 12:00:00 AM EDT completed azithromycin 250 MG Oral Tablet [Zithromax] [facility] 90 mcg/actuation 04/02/2021 12:00:00 AM EDT HFA aerosol inha ler 8 INHALE 2 PUFFS BY MOUTH EVERY 4 HOURS NEEDED WHEEZING INHALE 2 PUFFS BY MOUTH EVERY 4 HOURS NEEDED WHEEZING SOLD: 04/02/2021 [facility] 200 ACTUAT Albuterol 0.09 MG/ACTUAT Mete red Dose Inhaler [ProAir] ProAir HFA 108 (90 Base) MCG/ACT Inhalation Aerosol Solution ProAir HFA 108 (90 Base) MCG/ACT Inhalation Aerosol Solution 04/02/2021 12:00:00 AM EDT active [id number] 200 ACTUAT albuterol 0.09 MG/ACTUAT Metered Dose Inhaler [ProAir] [place] ([facility]) 120 ACTUAT mometasone furoate 0.1 MG/ACT UAT Metered Dose Inhaler [Asmanex] Asmanex HFA 100 MCG/ACT Inhalation Aerosol Asmanex HFA 100 MCG/ACT Inhalation Aerosol 04/02/2021 12:00:00 AM EDT aborted 120 ACTUAT mometasone furoate 0.1 MG/ACTUAT Metered Dose Inhaler [Asmanex] [place] ([facility]) levocetirizine dihydrochloride 5 MG Oral Tablet [Xyzal] Xyzal Allergy 24HR 5 MG Oral Tablet Xyzal Allergy 24HR 5 MG Oral Tablet 04/02/2021 12:00:00 AM EDT 1 active levocetirizine dihyd rochloride 5 MG Oral Tablet [Xyzal] [facility]) Sertraline 100 MG Oral Tablet Sertraline HCl 100 MG Or al Tablet Sertraline HCl 100 MG Oral Tablet 03/30/2021 12:00:00 AM EDT 1 completed sertraline 100 MG Oral Tablet [facility]) 100 mg 03/30/2021 12:00:00 AM EDT tablet [...] active MEDENT ([facility]) 5 mg 02/06/2021 12:00:00 AM [...] 1 MG Oral Tablet) } Pack [Gianvi ] [facility] Loryna 28 Day Pack 3-0.02 mg ETHINYL [...] completed metronidazole 0.0075 MG/MG Vaginal Gel [facility] Loryna Day Pack 3-0.02 mg ETHINYL ESTRADIOL/DROSPIRENONE [...] 1 MG Oral Tablet) } Pack [Gianvi ] [facility] Ashliyna 28 Day Pack 3-0.02 mg ETHINYL ESTRADIOL/DROSPIRENONE [...] Drugs Nystatin 100 UNT/MG Topical Powder Nystatin 647160 UNI T/GM External Powder Nystatin 904593 UNIT/GM External Powder 08/11/2020 12:00:00 AM EDT active nystatin 100 UNT/MG Topical Powd er [place] [facility]) 100,000 unit/gram 08/11/2020 12:00:00 AM EDT powder [...] aborted metronidazole 0.0075 MG/MG Vaginal Gel [facility] ([facility]) 0.75 % 08/05/2020 12:00:00 AM EDT [...] 1 aborted sertraline 100 MG Oral Tablet [facility]) 100 mg 06/26/2020 12:00:00 AM EDT tablet [...] Oral Tablet) } Pack [Gianvi 28-Day] [facility] ([facility]) Insurance Providers Payer name Policy type / Coverage type Policy ID Covered republican ID Covered republican's relationship to jackson Policy Jackson Plan Information [employer] (pr) Medigap Part [id number] Family Dependent [employer] (pr) Medigap Part B [id number] Family Dependent [id number] [employer] U [id number] Child [id number] [employer] (pr) Commercial [id number] Family Dependent 910 [employer] (pr) Commercial [id number] Family Dependent [id number] [employer] (pr) Commercial [id number] Family Dependent [id number] [employer] U [id number] Child [id number] [employer] F [id number] PARENT [id number] [employer] / UMR F [id number] PARENT [id number] [employer] O [id number] M [id number] [employer] F [id number] PARENT [id number] [facility] [id number] FA2 [id number] Problems, Conditions, and Diagnoses Code Display Name Description Problem Type Effective Dates Data Source(s) 493.00 Asthma Persistent Asthma Persistent Problem 08/09/2021 12:00:00 AM EDT [facility] ([facility]) 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 Reactive Airway Disease Proble m 04/03/2021 12:00:00 AM EDT [place] ([facility]) 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 Reactive Airway Disease Proble m 04/03/2021 12:00:00 AM EDT [facility] ([facility]) 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 Completed 2020. L50.1 Idiopathic urticaria Idiopathic urticaria Problem 02/06/2021 12:00:00 AM EDT [facility] ) 795.01 Cerv Pap Smear (+) Atyp Squamous Cells U ndetermined Signif Cerv Pap Smear (+) Atyp Squamous Cells Undetermined Signif Finding 07/05/2020 11:44 :00 AM EDT [facility]) 795.01 Cerv Pap Smear (+) Atyp Squamous Cells U ndetermined Signif Cerv Pap Smear (+) Atyp Squamous Cells Undetermined Signif Finding 07/05/2020 11:44 :00 AM EDT YONG ([facility]) 795.01 Cerv Pap Smear (+) Atyp Squamous Cells U ndetermined Signif Cerv Pap Smear (+) Atyp Squamous Cells Undetermined Signif Finding 07/05/2020 11:44 :00 AM ED [facility] ([facility]) 795.01 Cerv Pap Smear (+) Atyp Squamous Cells U ndetermined Signif Cerv Pap Smear (+) Atyp Squamous Cells Undetermined Signif Finding 07/05/2020 11:44 :00 AM [facility] ([facility]) 795.01 Cerv Pap Smear (+) Atyp Squamous Cells U ndetermined Signif Cerv Pap Smear (+) Atyp Squamous Cells Undetermined Signif Finding 07/05/2020 11:44 :00 AM ED [facility] ([facility]) 795.01 Cerv Pap Smear (+) Atyp Squamous Cells U ndetermined Signif Cerv Pap Smear (+) Atyp Squamous Cells Undetermined Signif Finding 07/05/2020 11:44 :00 AM [facility] 795.01 Cerv Pap Smear (+) Atyp Squamous Cells U ndetermined Signif Cerv Pap Smear (+) Atyp Squamous Cells Undetermined Signif Finding 07/05/2020 11:44 :00 AM [facility] YONG ([facility]) Surgeries/Procedures Procedure Description Date Indications Data Source(s) PERCUTANEOUS TESTS W/ALLERGENIC EXTRACTS 02/06/2021 12 :00:00 AM EDT [facility] ([facility]) INTRACUTANEOUS TESTS W/ALLERGENIC EXTRACTS 02/06/2021 12:00:00 AM EDT MED[facility] ([facility]) Gardasil 9(3dose HPV, IM) nonavalent Gardasil 9(3dose HPV, I M) nonavalent 11/13/2020 12:00:00 AM [facility] ([facility]) IMADM PRQ ID SUBQ/IM NJXS 1 VACCINE ADMINISTRATION 1-IMMUNIZ ATION(adult) 11/13/2020 12:00:00 AM [facility] ([facility]) MOST RECENT SYSTOLIC BLOOD PRESSURE <130 MM HG Most r ecent systolic blood pressure less than 130 mmHg 10/04/2020 12:00:00 AM [facility] ([facility]) MOST RECENT DIASTOLIC BLOOD PRESSURE < 80 MM HG Most r ecent diastolic blood pressure < 80 mmHg 10/04/2020 12:00:00 AM [facility] ([facility]) Results ID Date Data Source [id number] 08/20/2021 07:02:00 AM [facility] Collection Technique: BRUSH-ALONEPREVIOU S CYTOLOGY: OTHERBody Site: ENDOCERVIX Name Value Range Interpretation Code Description Data Lidia rce(s) Supporting Document(s) Microscopic observation [Identifier] in Cervix by Cyto stain.thin pre p [facility] ID Date Data Source [id number] 08/09/2021 07:43:[address] [facility] [address]/NG IS A QUALITATIVE IN VITRO REAL-JOSEPH [...] rce(s) Supporting Document(s) ID Date Data Source [id number] 08/11/2021 09:35:00 AM EDT [facility] CT/NG IS A QUALITATIVE IN [...] Trichomonas DNA Probe NOT DETECTED NOT DETECTED [facility] Gardnerella DNA Probe NOT DETECTED NOT DETECTED [facility] Anne species DNA Probe NOT DETECTED NOT DETECTED [facility] THIS TEST WAS PERFORMED AT:[facility] [address] [id number] MERATI,MD ID Date Data Source [id number] 08/09/2021 04:20:00 PM EDT [place] ([facility]) Name Value Range Interpretation Code Description Data Lidia rce(s) Supporting Document(s) Reported Physicians See Note Reported Physici ans [place] ([facility]) Note: Reported Physicians:Ordering: Jonny JohnsonAttending: Jonny Johnson ID Date Data Source [id number] 08/09/2021 04:20:00 PM EDT [place] ([facility]) Name Value Range Interpretation Code Description Data Lidia rce(s) Supporting Document(s) Anne species DNA Probe NOT DETECTED Anne species DNA Probe [place] ([facility]) Note: THIS TEST WAS PERFORMED AT:[facility] [address] [id number] PEDRAZAesponsible Observer: Anne DNA Anne species DNA Probe [id number] [phone] ([facility]) Gardnerella DNA Probe NOT DETECTED Gardnerella DNA Probe [place] ([facility]) Note: Responsible Observer: Gardnerella DNA Gardnerella DNA Probe [id number] [phone] ([facility]) Trichomonas DNA Probe NOT DETECTED Trichomonas DNA Probe [facility] ([facility]) Note: Responsible Observer: Trichomonas DNA Trichomonas DNA Probe [id number] 913.2340 ([facility]) ID Date Data Source [id number] 08/09/2021 04:20:00 PM EDT [facility] ([facility]) Name Value Range Interpretation Code Description Data Lidia rce(s) Supporting Document(s) Cepheid CT/NG RT-PCR See Note Cepheid CT/NG R T-PCR [facility] ([facility]) Note: CT/NG IS A QUALITATIVE IN VITRO [...] may result in failure to detect the targetorganisms.13056-5K trach DNA Vag Ql DEVAUGHN+p robeLNCHLAMNC. trachomatis NOT [id number]. trachomatis NOT UQLPWPYX28624-7S gonorrhoea rRNA Vag Ql DEVAUGHN+probeLNNEIGNN.gonorrhoeae NOT EELGSJAAT7024322746G.gonorrhoeae NOT DETECTED ID Date Data Source [id number] 07/10/2021 12:45:00 PM EDT [facility] Normal result is "BinaxNow Covid-19 Ag n egative"BinaxNow Covid-19 Ag is a rapid lateral flowimmunochromatographic immunoassayThis test detects both viable(live) and non-viable, SARS-COVand SARS-COV-2.Positive test results do not differentiate between SARS-COVand MACN-SIL-5Wguusbba results , from patients with symptom onset beyondseven days, should be treated as presumptive andconfirmation with a molecular assay, if necessary, forpatient managementIf the differentiation of specific SARS viruses and strainsis needed, additional testing, in consultation with stateand local public health departments, is required.SARS-CoV-2 Ag Resp Ql IA.rapid Name Value Range Interpretation Code Description Data Lidia rce(s) Supporting Document(s) ID Date Data Source [id number] 07/10/2021 09:00:00 AM EDT [facility] Name Value Range Interpretation Code Description Data Lidia rce(s) Supporting Document(s) SARS-CoV-2 (COVID-19) Ag [Presence] in R espiratory specimen by Rapid immunoassay [facility]axNow Covid -19 Ag Negative [facility] This lab was ordered by [facility] and reported by [facility]. ID Date Data Source [id number] 07/10/2021 09:00:00 AM EDT [place] ([facility]) Name Value Range Interpretation Code Description Data Lidia rce(s) Supporting Document(s) Reported Physicians See Note Reported Physici ans [place] ([facility]) Note: Reported Physicians:Ordering: Lyssa GuptaAttending: Lyssa Anderson ID Date Data Source [id number] 07/10/2021 09:00:00 AM EDT [place] ([facility]) Name Value Range Interpretation Code Description Data Lidia rce(s) Supporting Document(s) BinaxNow Covid-19 Ag See Note BinaxNow Covid- 19 Ag [place] ([facility]) Note: Normal result is "BinaxNow Covid-1 9 Ag negative"BinaxNow Covid-19 Ag is a rapid lateral flowimmunochromatographic immunoassayThis test detects both viable(live) and non-viable, SARS-COVand SARS-COV-2.Positive test results do not differentiate between SARS-COVand JLEY-IHS-2Kvjjyebk results , from patients with symptom onset beyondseven days, should be treated as presumptive andconfirm ation with a molecular assay, if necessary, forpatient managementIf the differentiation of specific SARS viruses and strainsis needed, additional testing, in consultation with stateand local public health departments, is required.[id number] Ag Resp Ql IA.rapidLNSAGNBinaxNow Covid -19 Ag [id number] Covid -19 Ag Negative ID Date Data Source [id number] 07/06/2021 12:17:00 PM EDT [place] ([facility]) Name Value Range Interpretation Code Description Data Lidia rce(s) Supporting Document(s) BinaxNow normal Normal BinaxNow [place] ([facility]) ID Date Data Source [id number] 07/06/2021 04:26:00 PM EDT [facility] NORMAL RESULT IS "Not Detected"Cepheid [...] rce(s) Supporting Document(s) ID Date Data Source [id number] 07/06/2021 11:30:00 AM EDT [facility] Name Value Range Interpretation Code Description Data Lidia rce(s) Supporting Document(s) Cepheid SARS/FLU/RSV RT-PCR SARS-COV-2 NOT DETECTED [facility] This lab was ordered by [facility] and reported by [facility]. ID Date Data Source [id number] 07/06/2021 11:30:00 AM EDT [place] ([facility]) Name Value Range Interpretation Code Description Data Lidia rce(s) Supporting Document(s) Reported Physicians See Note Reported Physici ans [place] ([facility]) Note: Reported Physicians:Ordering: Lyssa GuptaAttending: Lyssa Anderson ID Date Data Source [id number] 07/06/2021 11:30:00 AM EDT [place] ([facility]) Name Value Range Interpretation Code Description Data Lidia rce(s) Supporting Document(s) Cepheid SARS/FLU/RSV RT-PCR See Note Cepheid SARS/FLU/RSV RT-PCR [place] ([facility]) Note: NORMAL RESULT IS "Not Detected"Cep heid SARS-CoV-2,FLU/RSV is Multiplex real time RT-PCRNegative results do not preclude SARS-COV-2, influenza orRSV infection and should not be used as the sole basis fortreatment or other patient management decisions.False negative results may occur if virus is present atlevels below the analytical limit of detection.This test has been authorized by FDA under an EUA for use byauthorized vzzkqxwtdpoc29853-5OJEP-hrt CoV RNA Resp Ql DEVAUGHN+iqhmbXLERZZGNSFI-HDI-7 NOT [id number]-UIO-7 NOT SGBQDZJA13563-7FFISK RNA Resp Ql DEVAUGHN+probeLNNFLUAInfluenza A Not OdluqekbE5577127794Ngmhhhvfo A Not Hlvaxekr13962-8ORMSP RNA Resp Ql DEVAUGHN+probeLNNINBInfluenza B Not NcdbehbyV5904925731Ipmlyjwkb B Not Zygbvzue54357- 2RSV RNA Resp Ql DEVAUGHN+probeLNNRSVRSV Not [id number] Not Detected ID Date Data Source [id number] 07/06/2021 12:00:00 AM EDT [facility] Name Value Range Interpretation Code Description Data Lidia rce(s) Supporting Document(s) SARS-CoV2 Rapid Antigen Negative [facility] This lab was ordered by [facility] and reported by [facility]. ID Date Data Source [id number] 05/16/2021 02:04:00 PM EDT [facility] [address] [place] [address] [phone] NAME SEX PT STATUS ACCOUNT NUMBER RICH LUCAS REG REF [id number] ORDERING PHYSICIAN LOCATION MEDICAL RECORD NO. Saritha A HAND ZIPPER TRIMMER [facility] LAB [id number] ATTENDING PHYSICIAN DATE OF DATE OF EXAM/TIME Jonny Johnson 2000 05/11/210 TYPE / EXAM Xray Chest 2 view [...] Date Time CC: Rickie Cade MD; [facility]: SCOSR Trans Dt/Tm: Trans by: DT Prt Dt/Tm: : Total DLP = 0.00 mGy-cm Fluoroscopy Time (in secs): Name Value Range Interpretation Code Description Data Lidia rce(s) Supporting Document(s) ID Date Data Source [id number] 05/11/2021 12:36:00 PM T [facility] @05/11/21 1220: MANUAL DIFF added. RFLXG = DIFF. @05/11/21 1220: MANUAL DIFF added. RFLXG = DIFF. Name Value Range Interpretation Code Description Data Lidia rce(s) Supporting Document(s) Fibrin D-dimer [Units/volume] in Platelet poor plasma Less Than 0.1 9 0.0-0.50 N [facility] @Report as less than 0.19@ Has QC been r un for this test today?PLEASE NOTE: THIS TEST WAS PERFORMED USING A PARTICLE-ENHANCED, IMMUNOTURBIDIMETRIC ASSAY AND HAS A SINGLE,CLINICALLY DERIVED CUTOFF OF 0.50 MG/L. ID Date Data Source [id number] 05/11/2021 01:00:00 PM T [facility] @05/11/21 1220: MANUAL DIFF added. RFLXG = DIFF. @05/11/21 1220: MANUAL DIFF added. RFLXG = DIFF. Name Value Range Interpretation Code Description Data Lidia rce(s) Supporting Document(s) Leukocytes [#/volume] in Blood by Automated count 9.9 10*3/uL 4.45-10 .71 [facility] Erythrocytes [#/volume] in Blood by Automated count 4.93 10*6/uL 4.20 -5.40 [facility] Hemoglobin [Moles/volume] in Blood 13.8 g/dL 10.7-15.4 N [facility] Hematocrit [Volume Fraction] of Blood by Automated count 41.0 % 3 7-47 N [facility] Erythrocyte mean corpuscular volume [Ent itic volume] in Cord blood by Automated count 83 fL 80-96 N [facility] ital Erythrocyte mean corpuscular hemoglobin [Entitic mass] by Au tomated count 28 pg 27-31 N [facility] Erythrocyte mean corpuscular hemoglobin concentration [Mass/volume] in Cord blood 34 g/dL 33-37 N [facility] ital Erythrocyte distribution width [Entitic volume] by Automated count 13 % 11-15 N [facility] Platelets [#/volume] in Blood by Automated count 152 10*3/uL 130-472 N [facility] Platelet mean volume [Entitic volume] in Blood 10.2 fL 9.1-13.1 N [facility] Neutrophils/100 leukocytes in Blood by Automated count 62.8 % 41- 77 N [facility] Neutrophils [#/volume] in Blood by Automated count 6.2 U 1.7-7.6 N [facility] Lymphocytes/100 leukocytes in Blood by Automated count 28.5 % 14- 46 N [facility] Lymphocytes [#/volume] in Blood by Automated count 2.8 U 0.6-4.6 N [facility] Monocytes/100 leukocytes in Blood by Automated count 6.8 % 4-12 N [facility] Monocytes [#/volume] in Blood by Automated count 0.7 U 0.2-1.2 N [facility] Eosinophils/100 leukocytes in Blood by Automated count 1.0 % 0-7 N [facility] Eosinophils [#/volume] in Blood by Automated count 0.1 U 0.0-0.5 N [facility] Basophils/100 leukocytes in Blood by Automated count 0.6 % 0.4-1 .3 N [facility] Basophils [#/volume] in Blood by Automated count 0.1 U 0.0-0.2 N [facility] NUCLEATED RED BLOOD CELL 0 % [facility] NUCLEATED RED BLOOD CELL# 0 U [facility] Immature granulocytes [Presence] in Blood by Automated count 0-2 N [facility] Immature granulocytes [#/volume] in Blood by Automated count 0.0 U 0-0.1 N [facility] Manual Differential panel - Blood Manual Diff Added [facility] ID Date Data Source [id number] 05/11/2021 01:16:00 PM EDT [facility] @05/11/21 1220: MANUAL DIFF added. RFLXG = DIFF. @05/11/21 1220: MANUAL DIFF added. RFLXG = DIFF. Name Value Range Interpretation Code Description Data Lidia rce(s) Supporting Document(s) Urea nitrogen [Mass/volume] in Serum or Plasma 10 mg/dL 9-23 N [facility] Sodium [Moles/volume] in Serum or Plasma 141 mmol/L 132-146 N [facility] Potassium [Moles/volume] in Serum or Plasma 4.2 mmol/L 3.5-5.5 [facility] Chloride [Moles/volume] in Serum or Plasma 108 mmol/L 99-109 [facility] Carbon dioxide, total [Moles/volume] in Serum or Plasma 24 mmol/L 20 -31 N [facility] Anion gap in Serum or Plasma 13 mmol/L 8-16 N [facility] Glucose [Mass/volume] in Serum or Plasma 97 mg/dL 74-106 N [facility] Creatinine 0.6 mg/dL 0.5-1.1 [facility] Glomerular filtration rate/1.73 sq M.pre dicted [Volume Rate/Area] in Serum or Plasma Greater Than 60 ABOVE 60 [facility] Alanine aminotransferase [Enzymatic acti vity/volume] in Serum or Plasma by With P-5'-P 15 U/L 10-49 N [facility] ital Aspartate aminotransferase [Enzymatic ac tivity/volume] in Serum or Plasma by With P-5'-P 13 U/L 0-[address] [facility]ital Alkaline phosphatase [Enzymatic activity/volume] in Serum or Plasma 89 U/L 45-129 N [facility] Calcium [Mass/volume] in Serum or Plasma 9.2 mg/dL 8.5-10.1 [facility] Bilirubin.total [Mass/volume] in Serum or Plasma 0.2 mg/dL 0.3-1.2 Below low normal [facility] Albumin [Mass/volume] in Serum or Plasma by Bromocresol purple (BCP) dye binding method 3.2 g/dL 3.2-4.8 N [facility] ital Protein [Mass/volume] in Serum or Plasma 7.2 g/dL 5.7-8.2 N [facility] ID Date Data Source [id number] 05/11/2021 01:00:00 PM EDT [facility] @05/11/21 1220: MANUAL DIFF added. RFLXG = DIFF. @05/11/21 1220: MANUAL DIFF added. RFLXG = DIFF. Name Value Range Interpretation Code Description Data Lidia rce(s) Supporting Document(s) Cells counted [#] 100 [facility] Neutrophils [#/volume] in Blood by Manual count 70 % 41-77 N [facility] Lymphocytes [#/volume] in Blood by Manual count 25 % 14-46 N [facility] Monocytes [#/volume] in Blood by Manual count 4 % 4-12 N [facility] Metamyelocytes [#/volume] in Blood by Manual count 1 % 0-0 Above high normal [facility] Platelets [#/volume] in Blood by Estimate APPEAR CLUMPED NORMAL [facility] Morphology [Interpretation] in Blood Narrative APPEARS NORMAL NORMAL [facility] ID Date Data Source [id number] 05/11/2021 12:10:00 PM EDT [place] ([facility]) Name Value Range Interpretation Code Description Data Lidia rce(s) Supporting Document(s) Reported Physicians See Note Reported Physici ans [place] ([facility]) Note: Reported Physicians:Ordering: Saritha RobinsAttending: Eulalio Paez To: Jonny Johnson ID Date Data Source [id number] 05/11/2021 12:10:00 PM EDT [place] ([facility]) Name Value Range Interpretation Code Description Data Lidia rce(s) Supporting Document(s) Alanine aminotransferase [Enzymatic acti vity/volume] in Serum or Plasma by With P-5'-P 15 enzyme_unit_per_liter Normal ALT SerPl w P-5' -P-cCnc [place] ([facility]) Note: Responsible Observer: SGPT/ALT SGP T/ALT 400.1750 (G) Calcium [Mass/volume] in Serum or Plasma 9.2 MilliGramsPerDeciLiter_[Mass_Concentration_Units] Normal Calcium [facility] ([facility]) Note: Responsible Observer: Calcium Calc ium 400.2500 (G) Bilirubin.total [Mass/volume] in Serum or Plasma 0.2 MilliGramsPerDeciLiter_[Mass_Concentration_Units] Below low normal Bilirub [facility] ([facility]) Note: Responsible Observer: T COURTNEY Total Bilirubin 400.2600 (G) Carbon dioxide, total [Moles/volume] in Serum or Plasm a 24 MilliMolesPerLiter_[Substance_Concentration_Units] Normal CO2 [facility] ([facility]) Note: Responsible Observer: CO2 Carbon D ioxide 400.1400 (G) Chloride [Moles/volume] in Serum or Plasma 108 MilliMolesPerLiter_[Substance_Concentration_Units] Normal Chloride [facility] ([facility]) Note: Responsible Observer: Chloride Chl oride 400.1250 (G) Potassium [Moles/volume] in Serum or Plasma 4.2 MilliMolesPerLiter_[Substance_Concentration_Units] Normal Potassium [facility] ([facility]) Note: Responsible Observer: K Potassium 400.1210 (G) Glucose [Mass/volume] in Serum or Plasma 97 MilliGramsPerDeciLiter_[Mass_Concentration_Units] Normal Glucose [facility] ([facility]) Note: Responsible Observer: Glucose Gluc ose 400.1500 (G) Protein [Mass/volume] in Serum or Plasma 7.2 GramsPerDeciLiter_[Mass_Concentration_Units] Normal Pro t [facility] ([facility]) Note: Responsible Observer: TP Total Pro tein 400.2800 (G) Sodium [Moles/volume] in Serum or Plasma 141 MilliMolesPerLiter_[Substance_Concentration_Units] Normal Sodium [facility] ([facility]) Note: Responsible Observer: Sodium Sodiu m 400.1100 (G) Urea nitrogen [Mass/volume] in Serum or Plasma 10 MilliGramsPerDeciLiter_[Mass_Concentration_Units] Normal BUN [facility] ([facility]) Note: Responsible Observer: BUN Blood Ur ea Nitrogen 400.1000 (G) Aspartate aminotransferase [Enzymatic ac tivity/volume] in Serum or Plasma by With P-5'-P 13 enzyme_unit_per_liter Normal AST SerPl w P-5' -P-cCnc [place] ([facility]) Note: Responsible Observer: SGOT / AST S GOT / AST 400.1900 (G) Alkaline phosphatase [Enzymatic activity/volume] in Se rum or Plasma 89 enzyme_unit_per_liter Normal ALP SerPl-cCnc [place] ( [facility]) Note: Responsible Observer: ALP Alkaline Phosphatase 400.2000 (G) Albumin [Mass/volume] in Serum or Plasma by Bromocresol purple (BCP) dye binding method 3.2 GramsPerDeciLiter_[Mass_Concentration_Units] Normal Albumin [facility] BCP-mCnc [place] ([facility]) Note: Responsible Observer: Albumin [place] 400.2700 (G) Anion gap in Serum or Plasma 13 MilliMolesPerLiter_[Substance_Concentration_Units] Normal Anion Gap [facility]-sCnc [place] ([facility]) Note: Responsible Observer: ANION GAP AN ION GAP 400.1402 (E) Glomerular filtration rate/1.73 sq M.pre dicted [Volume Rate/Area] in Serum or Plasma Greater Than 60 GFR/BSA.pred SerPlBld-ArV Rat [place] ([facility]) Note: Responsible Observer: GFR Glomerul ar Filt Rate Calc 400.1605 (D) Creatinine [Moles/volume] in Vitreous fluid 0.6 MilliGramsPerDeciLiter_[Mass_Concentration_Units] Normal Creatinine [place] ([facility]) Note: Responsible Observer: Creatinine C reatinine 400.1600 (G) ID Date Data Source [id number] 05/11/2021 12:10:00 PM EDT [place] ([facility]) Name Value Range Interpretation Code Description Data Lidia rce(s) Supporting Document(s) Erythrocyte mean corpuscular volume [Ent itic volume] in Cord blood by Automated count 83 FemtoLiter_[SI_Volume_Units] Normal MCV BldCo Auto [place] ([facility]) Note: Responsible Observer: MCV MCV 100 .0600 (B) Manual Differential panel - Blood Manual Diff Added Manual diff d [place] ([facility]) Note: Responsible Observer: CBC Manual D ifferential Added 100.1990 (B) Erythrocyte distribution width [Entitic volume] by Automated cou nt 13 percent Normal RDW RBC Auto [facility] ([facility]) Note: Responsible Observer: RDW RDW 100 .0900 (B) Immature granulocytes [Presence] in Blood by Automated count See No te Normal Imm Granulocytes Bld Ql Auto [facility] ([facility]) Note: [id number] Ob blanket weaver: IG% IG% 100.1375 (B) Platelet mean volume [Entitic volume] in Blood 10.2 Fe mtoLiter_[SI_Volume_Units] Normal PMV Bld [facility] ([facility]) Note: Responsible Observer: MPV MPV 100 .1100 (B) Hematocrit [Volume Fraction] of Blood by Automated count 41.0 perce nt Normal Hct VFr Bld Auto [facility] ([facility]) Note: Responsible Observer: HEMATOCRIT H EMATOCRIT 100.0500 (B) Erythrocyte mean corpuscular hemoglobin concentration [Mass/volume] in Cord blood 34 GramsPerDeciLiter_[Mass_Concentration_Units] Normal MCHC BldCo-mCnc [facility] ([facility]) Note: Responsible Observer: MCHC MCHC 1 00.0800 (B) Immature granulocytes [#/volume] in Blood by Automated count 0.0 Un it Imm Granulocytes # Bld Auto [facility] ([facility]) Note: Responsible Observer: IG# IG# 100 .1400 (B) Monocytes/100 leukocytes in Blood by Automated count 6.8 percent Normal Monocytes/leuk NFr Bld Auto [facility] ([facility]) Note: Responsible Observer: MONO % MONO % 100.1225 (B) Hemoglobin [Moles/volume] in Blood 13.8 GramsPerDeciLiter_[Mass_Concentration_Units] Normal Hgb Bld-sCnc [facility] ([facility]) Note: Responsible Observer: HGB HEMOGLOB IN 100.0400 (B) Leukocytes [#/volume] in Blood by Automated count 9.9 ThousandsPerMicroLiter_[Number_Concentration_Units] Normal WBC # Bld Auto [facility] ([facility]) Note: Responsible Observer: WBC WHITE BL OOD COUNT 100.0100 (E) Basophils/100 leukocytes in Blood by Automated count 0.6 percent Normal Basophils/leuk NFr Bld Auto [facility] ([facility]) Note: Responsible Observer: BASO % BASO % 100.1325 (B) Basophils [#/volume] in Blood by Automated count 0.1 Unit Normal Basophils # Bld Auto [facility] ([facility]) Note: Responsible Observer: BASO # BASO# 100.1350 (B) Eosinophils [#/volume] in Blood by Automated count 0.1 Unit Normal Eosinophil # Bld Auto [facility] ([facility]) Note: Responsible Observer: EOS # EOS# 100.1300 (D) Lymphocytes [#/volume] in Blood by Automated count 2.8 Unit Normal Lymphocytes # Bld Auto [facility] ([facility]) Note: Responsible Observer: LYMPH # LYMP H# 100.1200 (B) Eosinophils/100 leukocytes in Blood by Automated count 1.0 percent Normal Eosinophil/leuk NFr Bld Auto [facility] ([facility]) Note: Responsible Observer: EOS % EOS % 100.1275 (B) Monocytes [#/volume] in Blood by Automated count 0.7 Unit Normal Monocytes # Bld Auto [facility] ([facility]) Note: Responsible Observer: MONO # MONO# 100.1250 (C) Lymphocytes/100 leukocytes in Blood by Automated count 28.5 percent Normal Lymphocytes/leuk NFr Bld Auto [facility] ([facility]) Note: Responsible Observer: LYMPH % LYMP H % 100.1175 (B) Neutrophils/100 leukocytes in Blood by Automated count 62.8 percent Normal Neutrophils/leuk NFr Bld Auto [facility] ([facility]) Note: Responsible Observer: NEUT% NEUT% 100.1125 (B) Neutrophils [#/volume] in Blood by Automated count 6.2 Unit Normal Neutrophils # Bld Auto [facility] ([facility]) Note: Responsible Observer: NEUT# NEUT# 100.1150 (B) Platelets [#/volume] in Blood by Automated count 152 ThousandsPerMicroLiter_[Number_Concentration_Units] Normal Platelet # Bld Auto [facility] ([facility]) Note: Responsible Observer: PLATELET COU NT PLATELET COUNT 100.1000 (D) Erythrocyte mean corpuscular hemoglobin [Entitic mass] by Automated count 28 PicoGram_[SI_Mass_Units] Normal MCH RBC Qn Auto [place] ([facility]) Note: Responsible Observer: MCH MCH 100 .0700 (B) Erythrocytes [#/volume] in Blood by Automated count 4. 93 MillionsPerMicroLiter_[Number_Concentration_Units] Normal RBC # Bld Auto [facility] ([facility]) Note: Responsible Observer: RBC Red Bloo d Count 100.0300 (B) NUCLEATED RED BLOOD CELL 0 percent NUCLEATED R ED BLOOD CELL [facility] ([facility]) Note: Responsible Observer: NRBC% NRBC% 100.1360 (B) NUCLEATED RED BLOOD CELL# 0 Unit NUCLEATED RED BLOOD CELL# [facility] ([facility]) Note: Responsible Observer: NRBC# NUCLEA VINCENT RBC 100.1362 (A) Notes [TIMP] See Note NOTES [facility] ([facility]) Note: @05/11/21 1220: MANUAL DIFF added. RFLXG = DIFF. ID Date Data Source [id number] 05/11/2021 12:10:[address] [facility] ([facility]) Name Value Range Interpretation Code Description Data Ildia rce(s) Supporting Document(s) Fibrin D-dimer [Units/volume] in Platelet poor plasma Less Than 0.1 9 Normal D Dimer PPP-aCnc [place] ([facility]) Note: @Report as less than 0.19@ Has QC been run for this test today?PLEASE NOTE: THIS TEST WAS PERFORMED USING A PARTICLE-ENHANCED, IMMUNOTURBIDIMETRIC ASSAY AND HAS A SINGLE,CLINICALLY DERIVED CUTOFF OF 0.50 MG/L.Responsible Observer: D-DIMER D-DIMER 200.0901 (A) ID Date Data Source [id number] 05/11/2021 12:10:00 PM EDT [place] ([facility]) Name Value Range Interpretation Code Description Data Lidia rce(s) Supporting Document(s) Reported Physicians See Note Shayan chadwick [place] ([facility]) Note: Reported Physicians:Ordering: Saritha RobinsAttending: Eulalio Paez To: Jonny Johnson ID Date Data Source [id number] 05/11/2021 12:10:00 PM EDT [place] ([facility]) Name Value Range Interpretation Code Description Data Lidia rce(s) Supporting Document(s) MANUAL DIFF See Note MANUAL DIFF [facility] ([facility]) Note: NOTES OTHER/NOT INTERPRETED Cells counted 100 Lymphocytes # Bld Manual 25 %Metamyelocytes # Bld Manual 1 %Monocytes # Bld Manual 4 %Morphology Bld-Imp APPEARS NORMAL Neutrophils # Bld Manual 70 %Platelet # Bld Est APPEAR CLUMPED @05/11/21 1220: MANUAL DIFF added. RFLXG = DIFF.Responsible Observer: TOTAL CELLS TOTAL CELLS COUNTED 100.2105 (A) ID Date Data Source [id number] 02/06/2021 05:28:00 PM EDT [facility] ([facility] [...] CU Index(R) test is the second gener [facility] Functional Anti-FceR test. Patients with a CU Index(R) greater than or equal to 10 have basophil reactive factors in their serum which supports an autoimmune basis for disease. *This test was developed and its performance characteristics determined by [facility] [employer]. It has not been cleared or approved by the U.S. Food and Drug Administration. ID Date Data Source [id number] 02/06/2021 05:28:00 PM EDT [facility] ([facility]) Name Value Range Interpretation Code Description Data Lidia rce(s) Supporting Document(s) Laboratory test finding (navigational concept) Laboratory test r esult Normal (applies to non-numeric results) [facility] ([facility]) Performed at: [facility] - [employer] [address] [place] [address] [facility] [id number] Gold Prospector: Claudia Garcia PhD, Phone: [phone] Performed at: RN - [facility] [address] [id number] [employer] Prospector: Doris Galvan MD, Phone: [phone] ID Date Data Source [id number] 02/06/2021 05:28:00 PM EDT [facility] ([facility]) Name Value Range Interpretation Code Description Data Lidia rce(s) Supporting Document(s) Thyrotropin [Units/volume] in Serum or Plasma 2.100 uIU/ML 0. 358-3.740 Normal (applies to non-numeric results) [facility] ([facility]) Triiodothyronine (T3) [Mass/volume] in Serum or Plasma 179.6 ng/ dL 60.0-181.0 Normal (applies to non-numeric results) [facility] ([facility] Thyroglobulin Ab [Units/volume] in Serum or Plasma Laboratory te st result Normal (applies to non-numeric results) [facility] ([facility] Thyroperoxidase Ab [Units/volume] in Serum or Plasma 39.6 U/ML Normal (applies to non-numeric results) [facility] ([facility] [place]) Thyroxine (T4) [Mass/volume] in Serum or Plasma 18.6 ug/dL 4.5-12.0 Above high normal [facility] ([facility] ) ID Date Data Source [id number] 02/06/2021 05:28:00 PM EDT [facility] ([facility] [...] Little GFR Left</content>
<content>ESRD GFR <15 on BABY FORMULA MIXER</content>
<content></content> Laboratory test finding (navigational concept) 4.1 [...] [facility] ([facility] [place]) Laboratory test finding (navigational concept) 0.2 mg/dL [...] [facility] [place]) ID Date Data Source [id number] 02/06/2021 05:28:00 PM EDT [facility] ([facility]) Name Value Range Interpretation Code Description Data Lidia rce(s) Supporting Document(s) Erythrocyte sedimentation rate by Westergren method 24 mm/hr 0-20 Above high normal [facility] ([facility] ) ID Date Data Source [id number] 02/06/2021 05:28:00 PM EDT [facility] ([facility]) Name Value Range Interpretation Code [...] [facility] [place]) ID Date Data Source [id number] 10/10/2020 05:00:00 PM [facility] Name Value Range Interpretation Code Description Data Lidia rce(s) Supporting Document(s) Fibrin D-dimer [Units/volume] in Platelet poor plasma 0.23 mg/L 0.0- 0.50 [facility] @ Has QC been run for this test today?PL EASE NOTE: THIS TEST WAS PERFORMED USING A PARTICLE-ENHANCED, IMMUNOTURBIDIMETRIC ASSAY AND HAS A SINGLE,CLINICALLY DERIVED CUTOFF OF 0.50 MG/L. ID Date Data Source [id number] 10/10/2020 04:15:00 PM [facility]) Name Value Range Interpretation Code Description Data Lidia rce(s) Supporting Document(s) Reported Physicians See Note Reported Physici netta [place] ([facility]) Note: Reported Physicians:Ordering: Lyssa GuptaAttending: Lyssa Anderson ID Date Data Source [id number] 10/10/2020 04:15:00 PM [facility]) Name Value Range Interpretation Code Description Data Lidia rce(s) Supporting Document(s) Fibrin D-dimer [Units/volume] in Platelet poor plasma 0.23 MilliGramsPerLiter_[Mass_Concentration_Units] Normal D Dimer PPP-aCnc [place] ([facility]) Note: @ Has QC been run for this test to day?PLEASE NOTE: THIS TEST WAS PERFORMED USING A PARTICLE-ENHANCED, IMMUNOTURBIDIMETRIC ASSAY AND HAS A SINGLE,CLINICALLY DERIVED CUTOFF OF 0.50 MG/L.Responsible Observer: D-DIMER D- DIMER 200.0901 (A) ID Date Data Source [id number] 10/10/2020 06:59:00 PM [facility] DWYER COVID-19 IS AN ISOTHERMAL NA A TECHNOLOGYNORMAL VALUE IS "SARS-COV-2 COVID 19 NOT DETECTED"False negative results may occur if a specimen is improperlycollected,transported or handled.False negative results may also occur if amplicationinhibitors are present in the specimen or if inadequatelevels of viruses are present in the specimen.As with any molecular test, if the virus mutates in [facility] [place], Covid-19 may not be detected or [...] rce(s) Supporting Document(s) ID Date Data Source [id number] 10/10/2020 03:30:00 PM EST [facility] Name Value Range Interpretation Code Description Data Lidia rce(s) Supporting Document(s) SARS-CoV-2 RNA Resp Ql DEVAUGHN+probe [facility] This lab was ordered by [facility] and reported by [facility]. ID Date Data Source [id number] 10/10/2020 03:30:00 PM EST [place] ([facility]) Name Value Range Interpretation Code Description Data Lidia rce(s) Supporting Document(s) Reported Physicians See Note Reported Physici ans [place] ([facility]) Note: Reported Physicians:Ordering: Jennifer Guptaending: Lyssa AndersonCopana To: Doctor Provided, No FamilyCopy To: Health, Public ID Date Data Source [id number] 10/10/2020 03:30:00 PM EST [place] ([facility]) Name Value Range Interpretation Code Description Data Lidia rce(s) Supporting Document(s) SARS-CoV-2 RNA Resp Ql DEVAUGHN+probe See Note FREDDIE S-CoV-2 RNA Resp Ql DEVAUGHN+probe [facility] ([facility]) Note: DWYER COVID-19 IS AN ISOTHER MAL DEVAUGHN TECHNOLOGYNORMAL VALUE IS "SARS-COV-2 COVID 19 NOT DETECTED"False negative results may occur if a specimen is improperlycollected,transported or handled.False negative results may also occur if amplicationinhibitors are present in the specimen or if inadequatelevels of viruses are present in the specimen.As with any molecular test, if the virus mutates in [facility] region, Covid-19 may not be detected or may bedetected less predictably.ID NOW COVID-19 is intended for testing a swab directlywithout elution in viral transport media as dilution willresult in decreased detection of low positive samples thatare near the limit of detection of the test.SWAB SAMPLES ELUTED IN VTM ARE NOT APPROPRIATE FOR USE INTHIS TEST.[id number] RNA Resp Ql DEVAUGHN+probeLNNOSNo Organisms [id number] Organisms Detected ID Date Data Source [id number] 08/11/2020 06:04:00 PM EDT [facility] Clue cells presentLong rods notedNo yeas t like or trichomonas seenSquamous cellsShort rods seenWBCs seen Name Value Range Interpretation Code Description Data Lidia rce(s) Supporting Document(s) Wet mount for Trichomonas Negative for Trichomonas vaginalis [facility] ID Date Data Source [id number] 08/11/2020 04:05:00 PM EDT [place] ([facility]) Name Value Range Interpretation Code Description Data Lidia rce(s) Supporting Document(s) Reported Physicians See Note Reported Physici netta [place] ([facility]) Note: Reported Physicians:Ordering: Saritha RobinsAttending: Saritha Paez ID Date Data Source [id number] 08/11/2020 04:05:00 PM EDT [place] ([facility]) Name Value Range Interpretation Code Description Data Lidia rce(s) Supporting Document(s) Wet prep results See Note Wet prep results [facility] ([facility]) Note: Clue cells presentLong rods notedN o yeast like or trichomonas seenSquamous cellsShort rods seenWBCs seen Wet mount for Trichomonas Negative for Trichomonas vaginalis Wet mount for Trichomonas [place] ([facility]) ID Date Data Source [id number] 08/07/2020 08:31:00 AM EDT [facility] Name Value Range Interpretation Code Description Data Lidia rce(s) Supporting Document(s) Leukocytes [#/volume] in Blood by Automated count 8.7 10*3/uL 4.45-10 .71 N [facility] Erythrocytes [#/volume] in Blood by Automated count 4.94 10*6/uL 4.20 -5.40 N [facility] Hemoglobin [Moles/volume] in Blood 13.8 g/dL 10.7-15.4 N [facility] Hematocrit [Volume Fraction] of Blood by Automated count 42.4 % 3 7-47 N [facility] Erythrocyte mean corpuscular volume [Ent itic volume] in Cord blood by Automated count 85.8 fL 80-96 N [facility] Erythrocyte mean corpuscular hemoglobin [Entitic mass] by Automated count 27.9 pg 27-31 N [facility] Erythrocyte mean corpuscular hemoglobin concentration [Mass/volume] in Cord blood 32.5 g/dL 33-37 Below low normal [facility] Erythrocyte distribution width [Entitic volume] by Automated count 13 % 11-15 N [facility] Platelets [#/volume] in Blood by Automated count 341 10*3/uL 130-472 N [facility] Platelet mean volume [Entitic volume] in Blood 10.5 fL 9.1-13.1 N [facility] Neutrophils/100 leukocytes in Blood by Automated count 60.1 % 41- 77 N [facility] Neutrophils [#/volume] in Blood by Automated count 5.2 U 1.7-7.6 N [facility] Lymphocytes/100 leukocytes in Blood by Automated count 31.1 % 14- 46 N [facility] Lymphocytes [#/volume] in Blood by Automated count 2.7 U 0.6-4.6 N [facility] Monocytes/100 leukocytes in Blood by Automated count 6.7 % 4-12 N [facility] Monocytes [#/volume] in Blood by Automated count 0.6 U 0.2-1.2 N [facility] Eosinophils/100 leukocytes in Blood by Automated count 1.6 % 0-7 N [facility] Eosinophils [#/volume] in Blood by Automated count 0.1 U 0.0-0.5 N [facility] Basophils/100 leukocytes in Blood by Automated count 0.3 % 0.4-1.3 Below low normal [facility] Basophils [#/volume] in Blood by Automated count 0.0 U 0.0-0.2 N [facility] NUCLEATED RED BLOOD CELL 0 % [facility] NUCLEATED RED BLOOD CELL# [facility] Immature granulocytes [Presence] in Blood by Automated count 0-2 N [facility] Immature granulocytes [#/volume] in Blood by Automated count 0.0 U 0-0.1 N [facility] Manual Differential panel - Blood NO [facility] ID Date Data Source [id number] 08/07/2020 09:11:00 AM EDT [facility] Name Value Range Interpretation Code Description Data Lidia rce(s) Supporting Document(s) Urea nitrogen [Mass/volume] in Serum or Plasma 14 mg/dL 9-23 N [facility] Sodium [Moles/volume] in Serum or Plasma 137 mmol/L 132-146 [facility] Potassium [Moles/volume] in Serum or Plasma 4.1 mmol/L 3.5-5.5 [facility] Chloride [Moles/volume] in Serum or Plasma 107 mmol/L 99-109 [facility] Carbon dioxide, total [Moles/volume] in Serum or Plasma 25 mmol/L 20 -31 [facility] Anion gap in Serum or Plasma 9 mmol/L 8-16 [facility] Glucose [Mass/volume] in Serum or Plasma 91 mg/dL 74-106 [facility] Creatinine 0.7 mg/dL 0.5-1.1 [facility] Glomerular filtration rate/1.73 sq M.pre dicted [Volume Rate/Area] in Serum or Plasma Greater Than 60 ABOVE 60 [facility] Alanine aminotransferase [Enzymatic acti vity/volume] in Serum or Plasma by With P-5'-P 15 U/L 10-49 [facility] ital Aspartate aminotransferase [Enzymatic ac tivity/volume] in Serum or Plasma by With P-5'-P 8 U/L 0-[address] [facility] pital Alkaline phosphatase [Enzymatic activity/volume] in Serum or Plasma 79 U/L 45-129 N [facility] Calcium [Mass/volume] in Serum or Plasma 9.2 mg/dL 8.5-10.1 [facility] Bilirubin.total [Mass/volume] in Serum or Plasma 0.3 mg/dL 0.3-1.2 [facility] Albumin [Mass/volume] in Serum or Plasma by Bromocresol purple (BCP) dye binding method 3.3 g/dL 3.2-4.8 [facility] ital Protein [Mass/volume] in Serum or Plasma 7.4 g/dL 5.7-8.2 [facility] ID Date Data Source [id number] [facility] Value Range Interpretation Code Description Data Lidia rce(s) Supporting Document(s) Insulin 18.6 uIU/mL [facility] Reference Range < or = 19.6 Ri sk: Optimal < or = 19.6 Moderate NA High >19.6 Adult cardiovascular event risk category cut points (optimal, moderate, high) are based on [employer] population data from 10/2011.This insulin assay shows strong cross-reactivity forsome insulin analogs (lispro, aspart, and glargine)and much lower cross-reactivity with others (detemir,glulisine).THIS TEST WAS PERFORMED AT:[facility] [id number] MERATI,MD ID Date Data Source [id number] 08/07/2020 09:11[facility] Name Value Range Interpretation Code Description Data Lidia rce(s) Supporting Document(s) Triglycerides 135 mg/dL 0-150 [facility] Cholesterol 224 mg/dL 120-200 Above high normal [facility] HDL Cholesterol 90 mg/dL [facility] HDL Less than 40 mg/dL: Major risk for CHDHDL Greater than 59 mg/dL: Low risk for CHD LDL Cholesterol, Calc 107 mg/dL 0-100 Above high normal [facility] ID Date Data Source [id number] 08/07/2020 07:59:[address] [facility] ([facility]) Name Value Range Interpretation Code Description Data Lidia rce(s) Supporting Document(s) Reported Physicians See Note Reported Physici netta [place] ([facility]) Note: Reported Physicians:Ordering: Saritha RobinsAttending: Saritha Paez ID Date Data Source [id number] 08/07/2020 07:59:[address] [facility] ([facility]) Name Value Range Interpretation Code Description Data Lidia rce(s) Supporting Document(s) Insulin 18.6 Insulin [place] ([facility]) Note: Reference Range < or = 19.6 Risk: Optimal < or = 19.6 Moderate NA High >19.6 Adult cardiovascular event risk category cut points (optimal, moderate, high) are based on [employer] population data from 10/2011.This insulin assay shows strong cross-reactivity forsome insulin analogs (lispro, aspart, and glargine)and much lower cross-reactivity with others (detemir,glulisine).THIS TEST WAS PERFORMED AT:[facility] [id number] PEDRAZA Observer: Insulin Insulin [id number] 913.6030 ([employer]) ID Date Data Source [id number] 08/07/2020 07:59:[address] [facility] ([facility]) Name Value Range Interpretation Code Description Data Lidia rce(s) Supporting Document(s) Alanine aminotransferase [Enzymatic acti vity/volume] in Serum or Plasma by With P-5'-P 15 enzyme_unit_per_liter Normal ALT [facility] [place] [facility]) Note: Responsible Observer: SGPT/ALT SGP T/ALT 400.1750 (G) Calcium [Mass/volume] in Serum or Plasma 9.2 MilliGramsPerDeciLiter_[Mass_Concentration_Units] Normal Calcium [facility] ([facility]) Note: Responsible Observer: Calcium Calc ium 400.2500 (G) Bilirubin.total [Mass/volume] in Serum or Plasma 0.3 MilliGramsPerDeciLiter_[Mass_Concentration_Units] Normal Bilirub [facility] ([facility]) Note: Responsible Observer: T COURTNEY Total Bilirubin 400.2600 (G) Carbon dioxide, total [Moles/volume] in Serum or Plasm a 25 MilliMolesPerLiter_[Substance_Concentration_Units] Normal CO2 [facility] ([facility]) Note: Responsible Observer: CO2 Carbon D ioxide 400.1400 (G) Chloride [Moles/volume] in Serum or Plasma 107 MilliMolesPerLiter_[Substance_Concentration_Units] Normal Chloride [facility] ([facility]) Note: Responsible Observer: Chloride Chl oride 400.1250 (G) Glucose [Mass/volume] in Serum or Plasma 91 MilliGramsPerDeciLiter_[Mass_Concentration_Units] Normal Glucose [facility] ([facility]) Note: Responsible Observer: Glucose Gluc ose 400.1500 (G) Potassium [Moles/volume] in Serum or Plasma 4.1 MilliMolesPerLiter_[Substance_Concentration_Units] Normal Potassium [facility] ([facility]) Note: Responsible Observer: K Potassium 400.1210 (G) Protein [Mass/volume] in Serum or Plasma 7.4 GramsPerDeciLiter_[Mass_Concentration_Units] Normal Pro t [facility] ([facility]) Note: Responsible Observer: TP Total Pro tein 400.2800 (G) Aspartate aminotransferase [Enzymatic ac tivity/volume] in Serum or Plasma by With P-5'-P 8 enzyme_unit_per_liter Normal AST SerPl w P[facility]'- [facility] [place] [facility]) Note: Responsible Observer: SGOT / AST S GOT / AST 400.1900 (G) Sodium [Moles/volume] in Serum or Plasma 137 MilliMolesPerLiter_[Substance_Concentration_Units] Normal Sodium [facility] ([facility]) Note: Responsible Observer: Sodium Sodiu m 400.1100 (G) Urea nitrogen [Mass/volume] in Serum or Plasma 14 MilliGramsPerDeciLiter_[Mass_Concentration_Units] Normal BUN [facility] ([facility]) Note: Responsible Observer: BUN Blood Ur ea Nitrogen 400.1000 (G) Anion gap in Serum or Plasma 9 MilliMolesPerLiter_[Substance_Concentration_Units] Normal Anion Gap [facility] ([facility]) Note: Responsible Observer: ANION GAP AN ION GAP 400.1402 (E) Albumin [Mass/volume] in Serum or Plasma by Bromocresol purple (BCP) dye binding method 3.3 GramsPerDeciLiter_[Mass_Concentration_Units] Normal Albumin SerPl BCP-mCnc [facility] ([facility]) Note: Responsible Observer: Albumin [place] min 400.2700 (G) Glomerular filtration rate/1.73 sq M.pre dicted [Volume Rate/Area] in Serum or Plasma Greater Than 60 GFR/BSA.pred SerPlBld-ArV Rat [facility] ([facility]) Note: Responsible Observer: GFR Glomerul ar Filt Rate Calc 400.1605 (D) Alkaline phosphatase [Enzymatic activity/volume] in Se rum or Plasma 79 enzyme_unit_per_liter Normal ALP SerPl-cCnc [facility] ( [facility]) Note: Responsible Observer: ALP Alkaline Phosphatase 400.2000 (G) Creatinine [Moles/volume] in Vitreous fluid 0.7 MilliGramsPerDeciLiter_[Mass_Concentration_Units] Normal Creatinine [place] ([facility]) Note: Responsible Observer: Creatinine C reatinine 400.1600 (G) ID Date Data Source [id number] 08/07/2020 07:59:00 AM EDT [place] ([facility]) Name Value Range Interpretation Code Description Data Lidia rce(s) Supporting Document(s) Erythrocyte mean corpuscular volume [Ent itic volume] in Cord blood by Automated count 85.8 FemtoLiter_[SI_Volume_Units] Normal MCV Bld Co Auto [place] ([facility]) Note: Responsible Observer: MCV MCV 100 .0600 (B) Erythrocyte distribution width [Entitic volume] by Automated cou nt 13 percent Normal RDW RBC Auto [place] ([facility]) Note: Responsible Observer: RDW RDW 100 .0900 (B) Manual Differential panel - Blood NO Ma nual diff Bld [place] ([facility]) Note: Responsible Observer: CBC Manual D ifferential Added 100.1990 (B) Platelet mean volume [Entitic volume] in Blood 10.5 Fe mtoLiter_[SI_Volume_Units] Normal PMV Bld [place] [facility] Note: Responsible Observer: MPV MPV 100 .1100 (B) Hematocrit [Volume Fraction] of Blood by Automated count 42.4 perce nt Normal Hct VFr Bld Auto [facility] ([facility]) Note: Responsible Observer: HEMATOCRIT H EMATOCRIT 100.0500 (B) Immature granulocytes [Presence] in Blood by Automated count See No te Normal Imm Granulocytes Bld Ql Auto [facility] ([facility]) Note: [id number] Ob blanket weaver: IG% IG% 100.1375 (B) Erythrocyte mean corpuscular hemoglobin concentration [Mass/volume] in Cord blood 32.5 GramsPerDeciLiter_[Mass_Concentration_Units] Below low normal MCHC BldCo-mCnc [facility] ([facility]) Note: Responsible Observer: MCHC MCHC 1 00.0800 (B) Immature granulocytes [#/volume] in Blood by Automated count 0.0 Un it Imm Granulocytes # Bld Auto [facility] ([facility]) Note: Responsible Observer: IG# IG# 100 .1400 (B) Monocytes/100 leukocytes in Blood by Automated count 6.7 percent Normal Monocytes/leuk NFr Bld Auto [facility] ([facility]) Note: Responsible Observer: MONO % MONO % 100.1225 (B) Hemoglobin [Moles/volume] in Blood 13.8 GramsPerDeciLiter_[Mass_Concentration_Units] Normal Hgb Bld-sCnc [facility] ([facility]) Note: Responsible Observer: HGB HEMOGLOB IN 100.0400 (B) Leukocytes [#/volume] in Blood by Automated count 8.7 ThousandsPerMicroLiter_[Number_Concentration_Units] Normal WBC # Bld Auto [facility] ([facility]) Note: Responsible Observer: WBC WHITE BL OOD COUNT 100.0100 (E) Basophils [#/volume] in Blood by Automated count 0.0 Unit Normal Basophils # Bld Auto [facility] ([facility]) Note: Responsible Observer: BASO # BASO# 100.1350 (B) Basophils/100 leukocytes in Blood by Automated count 0.3 percent Below low normal Basophils/leuk NFr Bld Auto [facility] ([facility]) Note: Responsible Observer: BASO % BASO % 100.1325 (B) Eosinophils [#/volume] in Blood by Automated count 0.1 Unit Normal Eosinophil # Bld Auto [facility] ([facility]) Note: Responsible Observer: EOS # EOS# 100.1300 (D) Eosinophils/100 leukocytes in Blood by Automated count 1.6 percent Normal Eosinophil/leuk NFr Bld Auto [facility] ([facility]) Note: Responsible Observer: EOS % EOS % 100.1275 (B) Lymphocytes [#/volume] in Blood by Automated count 2.7 Unit Normal Lymphocytes # Bld Auto [facility] ([facility]) Note: Responsible Observer: LYMPH # LYMP H# 100.1200 (B) Lymphocytes/100 leukocytes in Blood by Automated count 31.1 percent Normal Lymphocytes/leuk NFr Bld Auto [facility] ([facility]) Note: Responsible Observer: LYMPH % LYMP H % 100.1175 (B) Monocytes [#/volume] in Blood by Automated count 0.6 Unit Normal Monocytes # Bld Auto [facility] ([facility]) Note: Responsible Observer: MONO # MONO# 100.1250 (C) Neutrophils/100 leukocytes in Blood by Automated count 60.1 percent Normal Neutrophils/leuk NFr Bld Auto [facility] ([facility]) Note: Responsible Observer: NEUT% NEUT% 100.1125 (B) Neutrophils [#/volume] in Blood by Automated count 5.2 Unit Normal Neutrophils # d Auto [facility] ([facility]) Note: Responsible Observer: NEUT# NEUT# 100.1150 (B) Platelets [#/volume] in Blood by Automated count 341 ThousandsPerMicroLiter_[Number_Concentration_Units] Normal Platelet # Bld Auto [facility] ([facility]) Note: Responsible Observer: PLATELET COU NT PLATELET COUNT 100.1000 (D) Erythrocyte mean corpuscular hemoglobin [Entitic mass] by Automated count 27.9 PicoGram_[SI_Mass_Units] Normal MCH RBC Qn Auto [facility] [facility] ([facility]) Note: Responsible Observer: MCH MCH 100 .0700 (B) Erythrocytes [#/volume] in Blood by Automated count 4. 94 MillionsPerMicroLiter_[Number_Concentration_Units] Normal RBC # Bld Auto [facility] ([facility]) Note: Responsible Observer: RBC Red Bloo d Count 100.0300 (B) NUCLEATED RED BLOOD CELL# 0 Unit NUCLEATED RED BLOOD CELL# [facility] ([facility]) Note: Responsible Observer: NRBC# NUCLEA VINCENT RBC 100.1362 (A) NUCLEATED RED BLOOD CELL 0 percent NUCLEATED R ED BLOOD CELL [facility] ([facility]) Note: Responsible Observer: NRBC% NRBC% 100.1360 (B) ID Date Data Source [id number] 08/07/2020 07:59:00 AM EDT [place] ([facility]) Name Value Range Interpretation Code Description Data Lidia rce(s) Supporting Document(s) Reported Physicians See Note Reported Physici ans [place] ([facility]) Note: Reported Physicians:Ordering: Saritha RobinsAttending: Saritha Paez ID Date Data Source [id number] 08/07/2020 07:59:00 AM EDT [place] ([facility]) Name Value Range Interpretation Code Description Data Lidia rce(s) Supporting Document(s) HDL Cholesterol 90 MilliGramsPerDeciLiter_[Mass_Concentration_Units ] HDL Cholesterol [place] ([facility]) Note: HDL Less than 40 mg/dL: Major ris k for CHDHDL Greater than 59 mg/dL: Low risk for CHDResponsible Observer: HDL HDL Cholesterol 400.3150 (H) Cholesterol [Moles/volume] in Pericardial fluid 224 MilliGramsPerDeciLiter_[Mass_Concentration_Units] Above high normal Cholesterol [place] ([facility]) Note: Responsible Observer: Cholesterol Cholesterol 400.3100 (G) LDL Cholesterol, Calc 107 MilliGramsPerDeciLiter_[Mass_Concentra tion_Units] Above high normal LDL Cholesterol, Calc [place] ([facility]) Note: Responsible Observer: LDL CHOL FRANK C LDL Cholesterol, Calculated 400.3155 (F) Triglycerides 135 MilliGramsPerDeciLiter_[Mass_Concentration_Units] Normal Triglycerides [place] ([facility]) Note: Responsible Observer: Triglyceride s Triglycerides 400.2951 (G) ID Date Data Source [id number] 08/08/2020 06:49:00 AM EDT [facility] Source:: VAGINALFEW WBCs seenLong rods n otedNO Yeast like organisms seen no trichomonas seenMODERATE Squamous cellsNo clue cells present Source Of Specimen: VAG Source:: VAGINALNo N. Gonorrhoaea isolat edMany LactobacilliFEW Staph Spp. coag neg Name Value Range Interpretation Code Description Data Lidia rce(s) Supporting Document(s) Wet mount for Trichomonas Negative for Trichomonas vaginalis [facility] ID Date Data Source [id number] 08/09/2020 06:55:00 AM EDT [facility] Source:: VAGINALFEW WBCs seenLong rods n otedNO Yeast like organisms seen no trichomonas seenMODERATE Squamous cellsNo clue cells present Source Of Specimen: VAG Source:: VAGINALNo N. Gonorrhoaea isolat edMany LactobacilliFEW Staph Spp. coag neg Name Value Range Interpretation Code Description Data Lidia rce(s) Supporting Document(s) Chlamydia trachomatis rRNA [Presence] in Unspecified specimen by Probe and target amplification method NOT DETECTED [facility] Neisseria gonorrhoeae rRNA [Presence] in Unspecified specimen by Probe and target amplification method NOT DETECTED [facility] Chlamydia/GC DNA Note SEE NOTE [facility] The analytical performance characteristi cs of thisassay, when used to test SurePath(TM) specimens have beendetermined by [employer]. The modifications havenot been cleared or approved by the FDA. This assay hasbeen validated pursuant to the CLIA regulations and isused for clinical purposes.For additional information, please refer tohttps://education.Atavist/faq/TCE368(This link is being provided for information/educational purposes only.)THIS TEST WAS PERFORMED AT:[facility] [id number] DIAZ MD ID Date Data Source [id number] 08/08/2020 06:49:00 AM EDT [facility] Source:: VAGINALFEW WBCs seenLong rods n otedNO Yeast like organisms seen no trichomonas seenMODERATE Squamous cellsNo clue cells present Source Of Specimen: VAG Source:: VAGINALNo N. Gonorrhoaea isolat edMany LactobacilliFEW Staph Spp. coag neg Name Value Range Interpretation Code Description Data Lidia rce(s) Supporting Document(s) ID Date Data Source [id number] 08/05/2020 11:00:00 AM EDT [place] ([facility]) Name Value Range Interpretation Code Description Data Lidia rce(s) Supporting Document(s) Reported Physicians See Note Reported Physici ans [place] ([facility]) Note: Reported Physicians:Ordering: Saritha oRbinsAttending: Jeannine, Saritha ID Date Data Source [id number] 08/05/2020 11:00:00 AM EDT [place] ([facility]) Name Value Range Interpretation Code Description Data Lidia rce(s) Supporting Document(s) Chlamydia trachomatis rRNA [Presence] in Unspecified specimen by Probe and target amplification method See Note C trach rRNA XXX Ql DEVAUGHN+probe [place] ([facility]) Note: NOT DETECTEDNOT [id number] DETECTEDResponsible Observer: C.Trach RNA Chlamydia trachomatis DNA-DEVAUGHN [id number] 913.9900 ([employer]) Neisseria gonorrhoeae rRNA [Presence] in Unspecified specimen by Probe and target amplification method See Note N gonorrhoea rRNA XXX Ql DEVAUGHN+probe [place] ([facility]) Note: NOT DETECTEDNOT [id number] 6NOT DETECTEDResponsible Observer: GC RNA Neisseria gonorrhoeae DNA -DEVAUGHN [id number] 913.9905 ([employer]) Chlamydia/GC DNA Note SEE NOTE Chlamydia/GC DNA Note [place] ([facility]) Note: The analytical performance charact eristics of thisassay, when used to test SurePath(TM) specimens have beendetermined by [employer]. The modifications havenot been cleared or approved by the FDA. This assay hasbeen validated pursuant to the CLIA regulations and isused for clinical purposes.For additional information, please refer tohttps://education.Atavist/faq/QZI659(This link is being provided for information/educational purposes only.)THIS TEST WAS PERFORMED AT:[facility] [id number] DIAZ,MDResponsible Observer: GC/Chlam Note Chlamydia/GC DNA Note [id number] (A) Notes [TIMP] See Note NOTES YONG ([facility]) Note: Source Of Specimen: VAG ID Date Data Source [id number] 08/05/2020 11:00:00 AM EDT [place] ([facility]) Name Value Range Interpretation Code Description Data Lidia rce(s) Supporting Document(s) Wet prep results See Note [facility] Note: FEW WBCs seenLong rods notedNO Yea st like organisms seen no trichomonas seenMODERATE Squamous cellsNo clue cells present Notes [TIMP] See Note NOTES [place] ([facility]) Note: Source:: VAGINAL Wet mount for Trichomonas Negative for Trichomonas vaginalis Wet mount for Trichomonas [place] ([facility]) ID Date Data Source [id number] 08/05/2020 11:00:00 AM EDT [place] ([facility]) Name Value Range Interpretation Code Description Data Lidia rce(s) Supporting Document(s) Reported Physicians See Note Reported Physici ans [place] ([facility]) Note: Reported Physicians:Ordering: Nichelle RobinsdithAttending: Saritha Paez ID Date Data Source [id number] 08/05/2020 11:00:00 AM EDT [place] ([facility]) Name Value Range Interpretation Code Description Data Lidia rce(s) Supporting Document(s) Genital culture results See Note Genital cult ure results [place] ([facility]) Note: No N. Gonorrhoaea isolatedMany Lac tobacilliFEW Staph Spp. coag neg Notes [TIMP] See Note NOTES [place] ([facility]) Note: Source:: VAGINAL Procedure Social History Code Duration Value Status Description Data Source(s ) Smoking 03/15/2021 12:00:00 AM EDT Patient has never smoked co mpleted Patient has never smoked [facility] ([facility] ) Vital Signs ID Date Data Source UNK Name Value Range Interpretation Code Description Data Source(s) Systolic blood pressure 128 mm[Hg] 128 mm[Hg] [facility] pap 06/26/20 Body surface area Derived from formula 2.15 m2 2.15 m2 [place] ([facility]) pap 06/26/20 Diastolic blood pressure 82 mm[Hg] 82 mm[Hg] [place] ([facility]) pap 06/26/20 Heart rate 78 /min 78 /min [place] ([facility]) pap 06/26/20 Respiratory rate 18 /min 18 /min [place] ([facility]) pap 06/26/20 Body height 62.75 [in_i] 62.75 [in_i] [place] ([facility]) pap 06/26/20 Body weight 259 [lb_av] 259 [lb_av] [place] ([facility]) pap 06/26/20 Body mass index (BMI) [Ratio] 46.2 kg/m2 46.2 k g/m2 [place] ([facility]) pap 06/26/20 Systolic blood pressure 112 mm[Hg] 112 mm[Hg] G [place] ([facility]) Diastolic blood pressure 70 mm[Hg] 70 mm[Hg] [place] ([facility]) Heart rate 96 /min 96 /min [place] ([facility]) Respiratory rate 20 /min 20 /min [place] ([facility]) Body weight 259.9 [lb_av] 259.9 [lb_av] [facility] ([facility]) Oxygen saturation in Arterial blood by Pulse oximetry 98 % 98 % [place] ([facility]) Systolic blood pressure 112 mm[Hg] 112 mm[Hg] G [place] ([facility]) Diastolic blood pressure 70 mm[Hg] 70 mm[Hg] [place] ([facility]) Heart rate 82 /min 82 /min [place] ([facility]) Respiratory rate 18 /min 18 /min [place] ([facility]) Body weight 258.4 [lb_av] 258.4 [lb_av] [facility] ([facility]) Oxygen saturation in Arterial blood by Pulse oximetry 96 % 96 % [place] ([facility]) Systolic blood pressure 120 mm[Hg] 120 mm[Hg] [place] ([facility]) Diastolic blood pressure 82 mm[Hg] 82 mm[Hg] [place] ([facility]) Heart rate 99 /min 99 /min [place] ([facility]) Respiratory rate 24 /min 24 /min [place] ([facility]) Body temperature 98.9 [degF] 98.9 [degF] [facility] ([facility]) Body height 62.75 [in_i] 62.75 [in_i] [place] ([facility]) Body weight 257 [lb_av] 257 [lb_av] [place] ([facility]) Body mass index (BMI) [Ratio] 45.9 kg/m2 45.9 k g/m2 [place] ([facility]) Body surface area Derived from formula 2.15 m2 2.15 m2 [place] ([facility]) Oxygen saturation in Arterial blood by Pulse oximetry 98 % 98 % [facility] ([facility]) Systolic blood pressure 132 mm[Hg] 132 mm[Hg] [facility] Diastolic blood pressure 97 mm[Hg] 97 mm[Hg] [...] [facility] ([facility]) Body [...] pressure 102 mm[Hg] 102 mm[Hg] G [place] ([facility]) Diastolic blood pressure 70 mm[Hg] 70 mm[Hg] [facility] ([facility]) Heart rate 66 /min 66 /min [facility] ([facility]) Respiratory rate 18 /min 18 /min [facility] ([facility]) Body temperature 98.5 [degF] 98.5 [degF] [facility] ([facility]) Body weight 259 [lb_av] 259 [lb_av] [facility] ([facility]) Systolic blood pressure 124 mm[Hg] 124 mm[Hg] [facility]) Diastolic blood pressure 80 mm[Hg] 80 mm[Hg] [place] ([facility]) Heart rate 118 /min 118 /min [place] ([facility]) Respiratory rate 18 /min 18 /min [place] ([facility]) Body height 62.75 [in_i] 62.75 [in_i] [place] ([facility]) Body mass index (BMI) [Ratio] 46.2 kg/m2 46.2 k g/m2 [place] ([facility]) Body surface area Derived from formula 2.15 m2 2.15 m2 [place] ([facility]) Oxygen saturation in Arterial blood by Pulse oximetry 98 % 98 % [place] ([facility]) Heart rate 72 /min 72 /min [place] ([facility]) Systolic blood pressure 112 mm[Hg] 112 mm[Hg] [facility] ([facility]) Diastolic blood pressure 74 mm[Hg] 74 mm[Hg] [place] ([facility]) Respiratory rate 18 /min 18 /min [place] ([facility]) Body height 62.75 [in_i] 62.75 [in_i] [place] ([facility]) Body weight 249 [lb_av] 249 [lb_av] [place] ([facility]) Body mass index (BMI) [Ratio] 44.5 kg/m2 44.5 k g/m2 [place] ([facility]) Body surface area Derived from formula 2.12 m2 2.12 m2 [place] ([facility]) Systolic blood pressure 104 mm[Hg] 104 mm[Hg] [facility] Diastolic blood pressure 60 mm[Hg] 60 mm[Hg] [place] ([facility]) Heart rate 60 /min 60 /min [place] ([facility]) Respiratory rate 18 /min 18 /min [place] ([facility]) Body weight 251 [lb_av] 251 [lb_av] [place] ([facility]) Systolic blood pressure 118 mm[Hg] 118 mm[Hg] [facility] ([facility]) Diastolic blood pressure 82 mm[Hg] 82 mm[Hg] [place] ([facility]) Heart rate 80 /min 80 /min [place] ([facility]) Heart rate rhythm 1 1 [place] ([facility]) Respiratory rate 16 /min 16 /min [place] ([facility]) Body temperature 97.3 [degF] 97.3 [degF] [place] [facility]) Oxygen saturation in Arterial blood by Pulse oximetry 97 % 97 % [place] ([facility]) Patient Treatment Plan of Care Planned Activity Planned Date Details Description Data Source (s) Sertraline 100 MG Oral Tablet 08/02/2021 12:00:[address] [facility] ([facility]) Loryna 3-0.02 MG Oral Tablet 06/20/2021 12:00:00 AM T [place] ([facility]) montelukast 10 MG Oral Tablet [Singulair] 05/11/2021 12:00:00 AM ED [facility] ([facility]) 60 ACTUAT Fluticasone propionate 0.25 MG /ACTUAT / salmeterol 0.05 MG/ACTUAT Dry Powder Inhaler [Advair] 05/11/2021 12:00:[address] [facility] ([facility]) Azithromycin 250 MG Oral Tablet [Zithromax] 04/12/2021 12:00:00 AM [facility]) 200 ACTUAT Albuterol 0.09 MG/ACTUAT Metered Dose Inhal er [ProAir] 04/02/2021 12:00:[address] [facility] ([facility]) Sertraline 100 MG Oral Tablet 03/30/2021 12:00:00 AM T [place] ([facility]) Gianvi 3-0.02 MG Oral Tablet 01/30/2021 12:00:[address] [facility] ([facility]) Metronidazole 0.0075 MG/MG Vaginal Gel 11/30/2020 12:00:00 AM [facility]) Gianvi 3-0.02 MG Oral Tablet 09/16/2020 12:00:00 AM [facility]) Nystatin 100 UNT/MG Topical Powder 08/11/2020 12:00:00 AM T [place] ([facility]) Metronidazole 0.0075 MG/MG Vaginal Gel 08/05/2020 12:00:00 AM EDT [place] ([facility]) Sertraline 100 MG Oral Tablet 06/26/2020 12:00:00 AM EDT [facility]) Gianvi 3-0.02 MG Oral Tablet 04/24/2020 12:00:00 AM EDT [place] ([facility])
[2021-09-03 20:52] VITALS: BP 142/78
[2021-09-04] MEDS ORDERED: LORYNA PO SCH (09:00)
[2021-09-04] MEDS ORDERED: VYVANSE 30MG CAPSULE (PATIENT'S OWN MED) PO SCH (09:00)
[2021-09-04] MEDS: MONTELUKAST 10 MG TAB PO SCH (09:04)
[2021-09-04] MEDS: ADVAIR HFA 115/21MCG INHALER INH SCH (09:04)
[2021-09-04] MEDS: SERTRALINE 100 MG TAB PO SCH (09:04)
--- NOTE | 2021-09-04 16:13 | HPE ---
HISTORY AND PHYSICAL DATE OF ADMISSION: 09/03/2021 CHIEF COMPLAINT: Depression. HISTORY OF PRESENT ILLNESS: This is a 21-year-old female with no past medical history, admitted to the inpatient mental health unit due to severe depression, wanting to crash her car. She otherwise denies any changes in appetite. She has had a 2-3 pound weight loss which was intentional. No fever, chills, nausea, vomiting, abdominal pain, shortness of breath, dysuria, urgency, frequency, muscle aches, joint pain, changes in appetite, changes in sleep habits. No skin rashes. No other new complaints. MEDICAL HISTORY: 1. Mooers teeth extraction. 2. Right knee surgery due to a torn meniscus. 3. History of depression. 4. Vaginal candidiasis. ALLERGIES: No known drug allergies. PAST SURGICAL HISTORY: 1. Mooers teeth extraction. 2. Torn meniscus with right knee surgery times two. HOSPITAL MEDICATIONS: - Zoloft 100 daily - Singulair 10 daily - Advair Diskus two puffs as needed - Mylanta 30 as needed - milk of magnesia 30 mL as needed - Tylenol 650 every 4 as needed - Desyrel 50 mg every night as needed - Loryna 3 mg/0.02 mg tablet - lisdexamfetamine daily SOCIAL HISTORY: Patient denies tobacco use. Uses marijuana and social alcohol use. 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 FAMILY HISTORY: Maternal grandfather with bladder cancer. Diabetes, sleep apnea, and hypertension run in the family. REVIEW OF SYSTEMS: Negative aside from positive findings on history of present illness (HPI). PHYSICAL EXAMINATION: Temperature 97.5, pulse 77, respiratory rate 18, blood pressure 142/70, 97% on room air. GENERAL: Awake, alert, oriented times three, answering questions appropriately. LUNGS: Clear to auscultation. No wheezes, rales, or rhonchi. HEENT: No jugular venous distention (JVD) or thyromegaly. Moist mucous membranes. Tongue is midline. HEART: S1, S2, sinus rhythm. ABDOMEN: Soft, nontender, nondistended. Positive bowel sounds. No costovertebral angle (CVA) tenderness. EXTREMITIES: No cyanosis, clubbing, or pitting edema. LABORATORY DATA: Please see the chart. ASSESSMENT AND PLAN: A 21-year-old admitted for depression, history of wisdom teeth extraction, right knee surgery due to a torn meniscus with no acute complaint. IMPRESSION: 1. Depression. Per primary psychiatric team. 2. Weight loss of 2 pounds, unintentional. Normal thyroid stimulating hormone (TSH). Normal fasting glucose of 97. No signs of hyperthyroidism or type 2 diabetes. 3. Marijuana use. Positive urine toxicology screening for cannabinoids. Social alcohol use. Hospitalist will sign off. Please re-consult of any new acute medical issues. DANIA
[2021-09-04 16:20] VITALS: BP 131/90
--- NOTE | 2021-09-04 17:25 | MHHPEPDOC ---
General Date Of Admission: Sep 03, 2021 Legal Status: 9.39 Chief Complaint "I drank Nyquil - half a bottle." History of Present Illness HISTORY OF THE PRESENT ILLNESS: This is the first psychiatric admission for a 21 -year-old Single, , female, who reports that after a breakup with her boyfriend she drank a half bottle of NyQuil as a suicide attempt. 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 She then began to ruminate about her parents dying before she did and she felt that " everything hit me all at once in the moment." She reports a history of cannabis use. Drug screen shows positive for cannabis and amphetamines. Per ED history: Pt states that she drank half a bottle of Nyquil as a suicide attempt. She states that she intended to drink the whole bottle, but correction through "I reali zed I was being dumb" so she told her mother what she had done. Her mother called her therapist & psychiatrist, who told her to bring pt to the ED. Pt states that she researched what medications would be effective to OD on before taking the Nyquil. Pt states that she also frequently has thoughts of intentionally crashing her car. Pt denies HI. She reports a hx of one suicide attempt four years ago, also via OD of Nyquil. Pt denies any hx of self-harm. She denies both AH & VH. She does not appear to be psychotic. Pt c/o depressed mood, anxiety, erratic energy levels, excessive sleep, & erratic appetite. 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 Pt has a hx of anxiety & depression with no hx of admissions. She has OP tx with Margot Thompson in [place] for therapy & Dr. Mosqueda in [place] for meds. Pt states she has a hx of binge eating & was started on Vyvanse for this. She is also prescribed Zoloft. Pt states she is compliant with her meds. Pt states that she drinks one mixed drink per week. She also reports using "MJ gummies" weekly. Her tox screen was positive for cannabis & amphetamines (prescribed). Psychiatric Review of Systems Depression (2 or more weeks): depressed mood, feelings of worthlesness (not until Friday and now i fell dumb), suicidal thoughts Keren (4 or more days of): irritable/elevated mood Psychosis: denies PTSD: denies Anxiety: gen/non-specific anxiety, situational anxiety, stressor related anxiety, panic attacks Anxiety/ 6 months or more of: irritability Past Psychiatric History Previous Psychiatric Diagnosis: Depression, Anxiety, possibly Bipolar - was trying to determine this, Binge Eating Previous Psychiatric Admissions: This is first Suicide Attempts: Had a prior gesture but did not drink a lot of the NyQuil Psychiatric Follow-up: Dr. Franco Mosqueda, [facility] Psychiatric medications: Vyvanse and Zoloft Past Medical History Medical Problems Asthma - Albuterol, Advair Surgeries - 2 right knee - wisdom teeth Allergies - environmental Head Injury: Yes (concussions x 2 in 2017 was cooking, worked at [employer] and smacked her head on a cutting board) Seizures: No Hospitalizations: Yes Surgeries: Yes Family Medical/Psychiatric HX Medical Problems Dad - HTN, (he is adopted) Maternal Grandpa - Bladder and Skin Cancer - in remission Brother - Down's syndrome Psychiatric Disorders: Yes Suicide Attemps/Completions: Yes (Mother's Uncle committed suicide - Bipolar) Addiction History alcohol (occasional ), other (Cannabis - a gummy a week) Social History Childhood: Born in [place], to both parents. Has younger brother. Did well in school. 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 Social Support: Parents and therapist Legal: none Marital: Not , no children Mental Status Examination General Appearance: well groomed, appears stated age, hospital scubs/clothing Build: overweight Demeanor: average Eye Contact: average Activity: average Behavior: cooperative Speech: clear, normal volume Mood: anxious Affect: full Thought Process: logical/linear Thought Content (Delusions): none reported Thought Content (Other): none reported Thought Content (Aggressive): none reported Perception (Hallucinations): none reported Perception (Other): none reported Cognition (Impairment of): none reported Cognition(Intelligence Est.): average Oriented: Awake, Alert, Oriented times three Insight: fair Judgment: Fair Psychosis: Denies Diagnoses Adjustment disorder with mixed disturbances of emotion and conduct Cannabis use disorder Alcohol use disorder, mild A-FIB/CHADSVASC A-FIB History Current/History of A-Fib/PAF?: No Current PO Anticoag Therapy: No Assessment Patient is a 21-year-old single, unemployed, educated, domiciled, female who reports drinking a half bottle of NyQuil after a break-up with boyfriend, she reports increased stressors including termination of a teaching job, loss of a neighbor, friend had attempted suicide. Patient reports that this first her first psychiatric hospitalization, immediately after drinking the NyQuil she alerted her parents to her actions and she was brought in by her parents. She denies current suicidal ideation planning or intent at this time currently prescribed Zoloft and Vyvanse. States that she did not have any depressive symptoms prior to her break-up. She is currently seen by Dr. Mosqueda in a psychologist. Patient denies that she is severely depressed or anxious patient to be afforded group therapy, individual therapy, will resume all her home medications and will be observed in safe environment. At this time patient reports that her crisis is over, not depressed, not anxious, not suicidal and admits to remorse. Patient may be discharged tomorrow if she meets criteria by the treatment team Initial Treatment Plan 1. Patient was admitted on a [9.39] status. 2. Complete history was obtained. 3. With patients permission, family will be contacted and database will be expanded. 4. Patients medication regimen will be reviewed and changed accordingly. 5. Patient will be provided with protected environment. 6. Patient will be treated with individual, group, and milieu therapies. 7. Patient will receive supportive psych-education. 8. Discharge planning will commence immediately. 9. Outpatient follow-up treatment will be strongly recommended. 10. The initial treatment plan will focus initially on: * Depression. * Risk for suicide. ESTIMATED LENGTH OF STAY: 1 to 3 DAYS. TIME SPENT COUNSELING AND COORDINATING INITIAL CARE: 45 minutes. Tobacco Cessation Screen If Patient is a Smoker Patient is not a smoker N/A-No Antipsychotics Vital Signs Vital Signs Date Time Temp Pulse Resp B/P (MAP) Pulse Ox O2 Delivery O2 Flow Rate FiO2 09/04/21 06:20 Room Air 09/03/21 20:52 97.5 77 18 142/78 (99) 97 Laboratory Data 24H Labs Laboratory Tests 2 09/03/21 12:41: Coronavirus (COVID-19)(PCR) NEGATIVE Medications Scheduled Ethinyl Estradiol/Drospirenone (Loryna 3 mg-0.02 mg Tablet) 1 Each Tablet, 1 TAB PO DAILY, (Reported) Levocetirizine Dihydrochloride (Levocetirizine Dihydrochloride) 5 Mg Tablet, 5 MG PO DAILY, (Reported) Lisdexamfetamine Dimesylate (Vyvanse) 30 Mg Capsule, 30 MG PO DAILY, (Reported) Montelukast Sodium (Montelukast Sodium) 10 Mg Tablet, 10 MG PO DAILY, (Reported) Salmeterol/Fluticasone (Advair 250-50 Diskus) 1 Each Blst.w.dev, 1 PUFF INH DAILY, (Reported) Sertraline Hcl (Zoloft) 100 Mg Tablet, 100 MG PO DAILY, (Reported) Allergies Coded Allergies: No Known Allergies (Unverified , 09/02/21) VIKAS DOMINGO NP Sep 04, 2021 10:30
[2021-09-05 06:34] VITALS: BP 139/63
[2021-09-05] MEDS: ADVAIR HFA 115/21MCG INHALER INH SCH (08:13)
[2021-09-05] MEDS: SERTRALINE 100 MG TAB PO SCH (08:13)
[2021-09-05] MEDS: MONTELUKAST 10 MG TAB PO SCH (08:13)
--- NOTE | 2021-09-05 10:02 | MHDSPDOC ---
[facility] Discharge Summary Discharge Summary DATE OF ADMISSION: Sep 03, 2021 at 19:53 DATE OF DISCHARGE: September 05, 2021 at 0955 DISCHARGE DIAGNOSES: Adjustment disorder with mixed disturbances of emotion and conduct Cannabis use disorder Alcohol use disorder, mild REASON FOR ADMISSION: This is the first psychiatric admission for a 21 -year-old Single, , female, who reports that after a breakup with her boyfriend she drank a half bottle of NyQuil as a suicide attempt. 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 She then began to ruminate about her parents dying before she did and she felt that " everything hit me all at once in the moment." She reports a history of cannabis use. Drug screen shows positive for cannabis and amphetamines. Per ED history: Pt states that she drank half a bottle of Nyquil as a suicide attempt. She states that she intended to drink the whole bottle, but mcc through "I realized I was being dumb" so she told her mother what she had done. Her mother called her therapist & psychiatrist, who told her to bring pt to the ED. Pt states that she researched what medications would be effective to OD on before taking the Nyquil. Pt states that she also frequently has thoughts of i ntentionally crashing her car. Pt denies HI. She reports a hx of one suicide attempt four years ago, also via OD of Nyquil. Pt denies any hx of self-harm. She denies both AH & VH. She does not appear to be psychotic. Pt c/o depressed mood, anxiety, erratic energy levels, excessive sleep, & erratic appetite. 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 Pt has a hx of anxiety & depression with no hx of admissions. She has OP tx with Margot Thompson in [place] for therapy & Dr. Mosqueda in [place] for meds. Pt states she has a hx of binge eating & was started on Vyvanse for this. She is also prescribed Zoloft. Pt states she is compliant with her meds. Pt states that she drinks one mixed drink per week. She also reports using "MJ gummies" weekly. Her tox screen was positive for cannabis & amphetamines (prescribed). VITAL SIGNS: See below. CONSULTANTS INVOLVED: See Medical H + P by Hospitalist TREATMENT AND PROGRESS ON THE UNIT: Patient was admitted to the [facility] on a 9.39 legal status was afforded the following treatment modalities: 1) Individual Therapy 2) Group Therapy 3) Medication Management 4) Milieu Therapy 5) Safe Environment HOSPITAL COURSE: Patient was admitted to [facility] on a 9.39 legal status. Patient was resumed on her home medications. No side effects or adverse reactions to these medications that she has been taking for quite some time. Her mood, an xiety, and intrusive thoughts improved with treatment. Pt attended groups during stay. She was social with peers and visible on the unit , pts symptoms improved with treatment. On day of discharge pt. denied depression, anxiety, insomnia, SI/HI, hallucinations, delusions. Pt was discharged home with follow- up with Dr. Mosqueda and Margot Thompson PsyD. Pt felt safe for discharge. DISCHARGE ASSESSMENT: In today's interview, patient is alert and oriented, pt.s dress is appropriate. Hygiene and grooming is well-kempt. Smiles on approach and is pleasant and engaged in the interview. Denies depression and anxiety. Denies suicidal and homicidal ideation, planning or intent. Denies and is not observed with jamin, psychotic symptoms of delusions, bizarre thinking, obsessions, paranoia, ruminations illogical thoughts, flight of ideas or having poor insight and judgement. Reinforced with patient need to abstain from alcohol and drugs. At discharge patient has normal mentation, declines further hospitalization on a voluntary status and meets criteria for discharge today. Discussed indications of medications, potential benefits and risks, alternatives (including no treatment) and questions were encouraged and answered. Patient encouraged to return to hospital if symptoms worsen or change and encouraged to call unit if he/she/they needs to speak to provider for questions regarding medications or care. Patient educated on her impulsive reactions to increase stressor, encourage patient to consider using a mood chart for in the next few months and to talk to her therapist and Dr. Mosqueda for any changes. She repo rts good supports will be talking to her parents is happy to be returning home and states that she wants to get them again prior to going home to bed. MENTAL STATUS EXAMINATION ON DISCHARGE: Patient is a 21 -year-old Single, , female, who reports that after a breakup with her boyfriend she drank a half bottle of NyQuil as a suicide attempt. Speech: Is fluid, conversant, normal rate, tone and volume Language skills are intact Thought processes including: linear and goal oriented Thought content: denies depression and anxiety. Denies suicidal/homicidal ideation, planning or intent. Abstract reasoning, and computation: fair Description of associations: denies, none observed Description of abnormal or psychotic thoughts: denies, none observed. Judgment: fair Insight: fair Orientation: alert and oriented to person, place, time and situation Recent and remote memory: intact Attention span and concentration: good Language: expansive Fund of knowledge: average Mood: Euthymic Mood Affect: reactive Suicide Risk Assessment: 1) Does the patient wish to be ? No 2) Since your admission, have you had any actual thought of killing yourself? No 3) Since your admission, have you been thinking about how you might do this? No 4) Since your admission, have you had these thoughts and had some intention of acting on them? No 5) Since your admission, have you started to work out or worked out the details of how to kill yourself? No 5A) Do you intent to carry out this plan? No and NA 6) Have you ever done anything, started anything, or prepared to do anything with any intent to ? No 6A) How long since your admission did you do any of these? NA MEDICATIONS ON DISCHARGE: See Medication Reconciliation PLAN/FOLLOWUP ARRANGEMENTS: Pt was discharged home with follow-up with Dr. Mosqueda and Margot Thompson PsyD. Pt felt safe for discharge. The amount of time spent in the coordination of care for this patient was a pproximately 25 minutes. ETOH/Disorder Med Rx ETOH/DRUG DISORDER RX: Offrd @ d/c & pt refused Vital Signs/I&Os Vital Signs Date Time Temp Pulse Resp B/P (MAP) Pulse Ox O2 Delivery O2 Flow Rate FiO2 09/05/21 06:34 98.6 79 12 139/63 (88) 100 Room Air Medications Scheduled Ethinyl Estradiol/Drospirenone (Loryna 3 mg-0.02 mg Tablet) 1 Each Tablet, 1 TAB PO DAILY, (Reported) Levocetirizine Dihydrochloride (Levocetirizine Dihydrochloride) 5 Mg Tablet, 5 MG PO DAILY, (Reported) Lisdexamfetamine Dimesylate (Vyvanse) 30 Mg Capsule, 30 MG PO DAILY, (Reported) Montelukast Sodium (Montelukast Sodium) 10 Mg Tablet, 10 MG PO DAILY, (Reported) Salmeterol/Fluticasone (Advair 250-50 Diskus) 1 Each Blst.w.dev, 1 PUFF INH DAILY, (Reported) Sertraline Hcl (Zoloft) 100 Mg Tablet, 100 MG PO DAILY, (Reported) Allergies Coded Allergies: No Known Allergies (Unverified , 09/02/21) VIKAS DOMINGO NP Sep 05, 2021 10:02
== END 2021-09-05 12:30 | disposition home or self-care (01) | DRG 882 ==
LOC: M ED 18:11 → M ED INP 09-03 19:53 → M PSY 09-03 20:35
PROVIDERS: ADMIT Psychiatry & Neurology Psychiatry; ATTEND Psychiatry & Neurology Psychiatry
DX: F43.25 Adjustment disorder with mixed disturbance of emotions and conduct (principal); F12.10 Cannabis abuse, uncomplicated; F10.10 Alcohol abuse, uncomplicated; Z20.822 Contact with and (suspected) exposure to COVID-19; Z79.899 Other long term (current) drug therapy; Z56.0 Unemployment, unspecified; Z91.51 Personal history of suicidal behavior; Z63.5 Disruption of family by separation and divorce

== ENCOUNTER → 2021-10-06 | Outpatient (CLI) | payer OTHER ==
[~2021-10-06] MED LIST: ADV250INH INH; LEVOTAB10 PO; LORY1TAB2 PO; MONT10TA97 PO; VYVA30CA4 PO; ZOLO100T PO; ZOLO50TA PO
== END ==
LOC: M SLEEP 20:00
PROVIDERS: ATTEND Nurse Practitioner Adult Health
DX: R06.83 Snoring (principal)

== ENCOUNTER → 2022-08-14 | Outpatient (CLI) | payer OTHER ==
[2022-08-14 10:09] LABS: HEMATOCRIT 41.2 % (36.0-47.0); HEMOGLOBIN 12.8 g/dl (12.0-15.5); MEAN CORPUSCULAR HEMOGLOBIN 25.9 pg (27.0-33.0); MEAN CORPUSCULAR HGB CONC 31.1 g/dl (32.0-36.5); MEAN CORPUSCULAR VOLUME 83.2 fl (80.0-96.0); PLATELET COUNT, AUTOMATED 386 10^3/uL (150-450); RED BLOOD COUNT 4.95 10^6/uL (4.00-5.40)
[2022-08-14 10:42] LABS: ALBUMIN 3.2 GM/DL (3.2-5.2); ALT/SGPT 16 U/L (12-78); BILIRUBIN,TOTAL 0.2 MG/DL (0.2-1.0); BLOOD UREA NITROGEN 6 MG/DL (7-18); CALCIUM LEVEL 9.2 MG/DL (8.5-10.1); CARBON DIOXIDE LEVEL 27 MEQ/L (21-32); CHLORIDE LEVEL 104 MEQ/L (98-107); CHOLESTEROL LEVEL 220 MG/DL (<200); CHOLESTEROL RISK RATIO 2.391 (<5); CREATININE FOR GFR 0.66 MG/DL (0.55-1.30); GLOMERULAR FILTRATION RATE > 60.0 (>60); GLUCOSE, FASTING 97 MG/DL (70-100); HDL CHOLESTEROL 92 MG/DL (>40); LDL CHOLESTEROL 97 MG/DL (<100); NON-HDL-C 128 MG/DL; POTASSIUM SERUM 3.9 MEQ/L (3.5-5.1); SODIUM LEVEL 138 MEQ/L (136-145); TOTAL PROTEIN 7.7 GM/DL (6.4-8.2); TRIGLYCERIDES LEVEL 155 MG/DL (<150)
== END ==
LOC: M WUC 08:04
PROVIDERS: ATTEND Family Medicine
DX: F33.1 Major depressive disorder, recurrent, moderate (principal)

== ENCOUNTER → 2022-08-15 | Outpatient (REF) | payer OTHER | LOC: M LAB REF 21:34 | PROVIDERS: ATTEND Physician Assistant | DX: J02.9 Acute pharyngitis, unspecified (principal) ==

== ENCOUNTER → 2022-09-18 | Outpatient (CLI) | payer OTHER | LOC: M RAD 17:53 | PROVIDERS: ATTEND Physician Assistant | DX: S93.402A Sprain of unspecified ligament of left ankle, initial encounter (principal); W18.30XA Fall on same level, unspecified, initial encounter; Y92.009 Unspecified place in unspecified non-institutional (private) residence as the place of occurrence of the external cause ==

== ENCOUNTER → 2023-05-25 | Outpatient (REF) | payer OTHER ==
[2023-05-25 18:16] LABS: APPEARANCE, URINE MANUAL HAZY (CLEAR); COLOR, URINE MANUAL DK YELLOW (YELLOW)
[2023-05-25 18:17] LABS: SPECIFIC GRAVITY,URINE MANUAL 1.025 (1.002-1.035)
[2023-05-25 18:18] LABS: BILIRUBIN, URINE MANUAL OBSCURED (NEGATIVE); BLOOD URINE MANUAL POSITIVE (NEGATIVE); GLUCOSE, URINE (UA) MANUAL NEGATIVE (NEGATIVE); KETONE, URINE MANUAL OBSCURED mg/dL (NEGATIVE); LEUKOCYTE ESTERASE, URINE MAN OBSCURED (NEGATIVE); NITRITE, URINE MANUAL OBSCURED (NEGATIVE); PROTEIN, URINE MANUAL OBSCURED mg/dL (NEGATIVE); UROBILINOGEN, URINE MANUAL OBSCURED mg/dl (NORMAL)
[2023-05-25 18:19] LABS: RBC, URINE 15-20 /hpf (0-3); SQUAMOUS EPITHELIAL CELL URINE NONE SEEN /hpf (SMALL AMT); WBC, URINE 20-30 /hpf (0-3)
[2023-05-25 18:20] LABS: BACTERIA, URINE SMALL AMOUNT; HYALINE CAST, URINE NONE SEEN /lpf (0-1)
== END ==
LOC: M LAB REF 17:30
PROVIDERS: ATTEND Physician Assistant Medical
DX: N39.0 Urinary tract infection, site not specified (principal)

== ENCOUNTER → 2024-09-29 | Outpatient (REF) | payer OTHER | LOC: M LAB REF 18:59 | PROVIDERS: ATTEND Student in an Organized Health Care Education/Training Program | DX: L03.311 Cellulitis of abdominal wall (principal) ==

== ENCOUNTER → 2025-01-06 | Outpatient (CLI) | payer OTHER ==
[~2025-01-06] MED LIST changes: -ADV250INH INH; +ADVA1AER9 INH; +IMIT50TA PO; +ISOVUE-370 76% 100ML VIAL As Ordered ONE; +NORE5TAB PO; +SEMA1PEN4
== END ==
LOC: M RAD 16:11
PROVIDERS: ATTEND Student in an Organized Health Care Education/Training Program
DX: L03.316 Cellulitis of umbilicus (principal)

== ENCOUNTER 2025-01-17 09:04 | Day surgery (SDC) | payer OTHER ==
[~2025-01-17] VITALS: Ht 157.5 cm; Wt 114.3 kg
[~2025-01-17 09:04] MED LIST changes: -ISOVUE-370 76% 100ML VIAL As Ordered ONE
[2025-01-17] MEDS ORDERED: LR 1,000 ML IV SCH ×2 (09:25→11:15)
[2025-01-17] MEDS ORDERED: ZYZOL PO (09:26)
[2025-01-17] MEDS ORDERED: fentaNYL 100 MCG/2 ML INJECTION As Ordered ONE (09:46)
[2025-01-17] MEDS ORDERED: MIDAZOLAM INJ 2MG/2ML VIAL As Ordered ONE (09:46)
[2025-01-17] MEDS ORDERED: ONDANSETRON 4MG 2ML VIAL As Ordered ONE (09:46)
[2025-01-17] MEDS ORDERED: propofoL 200 MG/20 ML VIAL As Ordered ONE (09:46)
[2025-01-17] MEDS ORDERED: ROCURONIUM BROMIDE 50MG/5ML VIAL As Ordered ONE (09:46)
[2025-01-17] MEDS ORDERED: dexmedeTOMIDine (4MCG/ML)200MCG/50ML BTL (PRECEDEX) As Ordered ONE (09:46)
[2025-01-17] MEDS ORDERED: SUGAMMADEX SODIUM 500 MG/5 ML VIAL (BRIDION) As Ordered ONE (09:46)
[2025-01-17] MEDS ORDERED: LIDOCAINE 2% 100MG/5ML SDV (FOR ANES.) As Ordered ONE (09:50)
[2025-01-17] MEDS ORDERED: ACETAMINOPHEN 1000MG/100ML IV BAG As Ordered ONE (10:00)
[2025-01-17] MEDS: OXYMETAZOLINE 0.05% NASAL SPRAY As Ordered ONE (10:52)
[2025-01-17] MEDS ORDERED: ONDANSETRON 4MG 2ML VIAL IV PRN (11:15)
[2025-01-17] MEDS ORDERED: HYDROMORPHONE HCL 0.5 MG/ 0.5 ML SYRINGE IV PRN (11:15)
[2025-01-17] MEDS ORDERED: fentaNYL 100 MCG/2 ML INJECTION IV PRN (11:15)
[2025-01-17] MEDS ORDERED: oxyCODONE 5MG TAB PO PRN (11:15)
[2025-01-17 12:40] VITALS: BP 146/90; TEMP 97.5; O2SAT 97
== END 2025-01-17 12:50 | disposition home or self-care (01) ==
LOC: M SDC 09:04
PROVIDERS: ATTEND Otolaryngology
DX: J35.01 Chronic tonsillitis (principal); J45.909 Unspecified asthma, uncomplicated; Z79.899 Other long term (current) drug therapy; Z79.3 Long term (current) use of hormonal contraceptives; Z86.718 Personal history of other venous thrombosis and embolism
CPT/HCPCS: 42826; 81025; 88302; J0131; J0665; J1100; J2250; J2405; J3010

== ENCOUNTER → 2025-09-09 | Outpatient (CLI) | payer BC ==
[~2025-09-09] MED LIST changes: +ZYZOL PO
== END ==
LOC: M RAD 08:56
PROVIDERS: ATTEND Physician Assistant
DX: J32.8 Other chronic sinusitis (principal)

== ENCOUNTER → 2025-09-09 | Outpatient (CLI) | payer BC ==
[~2025-09-09] MED LIST changes: +ISOVUE-370 76% 100 ML VIAL As Ordered ONE
== END ==
LOC: M RAD 08:57
DX: R10.9 Unspecified abdominal pain (principal); J32.8 Other chronic sinusitis
CPT/HCPCS: 70486; 74177; Q9967